=== PATIENT | male | born 1950 | race Caucasian/White ===

== ENCOUNTER 2017-11-29 08:10 | Inpatient (IN) | payer OTHER, MEDICARE ==
[2017-11-29] MEDS ORDERED: ONDANSETRON HCL INJ/PF 4 MG/2 ML SDV IV ONE (08:29)
[2017-11-29] MEDS ORDERED: NORMAL SALINE 1000 ML 1,000 ML IV PRN (08:29)
--- NOTE | 2017-11-29 08:35 | ER Document Report ---
ED General - General Stated Complaint: FALL/BODY PAIN Time Seen by Provider: 11/29/17 08:16 Mode of Arrival: Medic Information source: Patient, Emergency Med Personnel, [facility] Records Notes: 67-year-old male with diabetes, coronary artery disease, hypertension, hyperlipidemia, prostate cancer presents via EMS from home after a trip and fall where he struck his face on a TV stand secondary to reported dizziness. EMS reports that they states the patient's glucometer has been reading high. She also stated that the patient has been refusing to take his diabetic medications. He states that he is unable to keep them down because of excessive vomiting. Patient states the vomiting occurred after his first radiation therapy treatment which was 3 weeks ago. Patient complaining of abdominal pain, nausea, headache. TRAVEL OUTSIDE OF THE [place] IN LAST 30 DAYS: No - HPI Onset: Just prior to arrival Onset/Duration: Sudden Quality of pain: Achy Severity: Mild Associated symptoms: Nausea, Vomiting, Other - Dizziness Exacerbated by: Denies Relieved by: Denies Similar symptoms previously: Yes Recently seen / treated by doctor: Yes - Related Data Allergies/Adverse Reactions: No Known Allergies Allergy (Verified 10/09/14 17:04) Past Medical History - General Information source: Patient, [facility] Records - Social History Smoking Status: Former Smoker Frequency of alcohol use: None Drug Abuse: None Lives with: Spouse/Significant other Family History: Reviewed & Not Pertinent Patient has suicidal ideation: No Patient has homicidal ideation: No - Past Medical History Cardiac Medical History: Reports: Hx Coronary Artery Disease, Hx Heart Attack, Hx Hypercholesterolemia, Hx Hypertension Endocrine Medical History: Reports: Hx Diabetes Mellitus Type 2 Malignancy Medical History: Reports Hx Prostate Cancer - Prostatectomy, recent recurrence, was on hormone therapy, it was stopped. GI Medical History: Reports: Hx Gastroesophageal Reflux Disease, Hx Hiatal Hernia Past Surgical History: Reports: Hx Cardiac Catheterization - stent x 3, Hx Coronary Artery Bypass Graft, Hx Coronary Stent - x3, Hx Genitourinary Surgery - Prostatectomy, Hx Orthopedic Surgery - left hip, left shoulder, Hx Tonsillectomy - Immunizations Hx Pneumococcal Vaccination: 05/12/14 Review of Systems - Review of Systems Notes: REVIEW OF SYSTEMS: CONSTITUTIONAL : Denies fever, chills, or sweats. EENT: Denies visula changes, eye pain. Denies nasal or sinus congestion or discharge. Denies sore throat, oral lesions, difficulty swallowing. Patient complaining of headache CARDIOVASCULAR: Denies chest pain. Denies palpitations or racing or irregular heart beat. Denies lower extremity edema. RESPIRATORY: Denies cough, cold, or chest congestion. Denies shortness of breath, difficulty breathing, or wheezing. GASTROINTESTINAL: Patient admits to abdominal pain, nausea, vomiting denies blood in vomitus, stools, or per rectum. Denies black, tarry stools. Denies constipation. GENITOURINARY: Denies difficulty urinating, painful urination, burning, frequency, blood in urine, or vaginal discharge. MUSCULOSKELETAL: Denies back or neck pain or stiffness. Denies joint pain or swelling. SKIN: Denies rash, lesions or sores. HEMATOLOGIC : Denies easy bruising or bleeding. LYMPHATIC: Denies swollen, enlarged glands. NEUROLOGICAL: Denies confusion or altered mental status. Denies passing out or loss of consciousness. Denies dizziness or lightheadedness. Denies headache. Denies weakness or paralysis or loss of use of either side. Denies problems with gait or speech. Denies sensory loss, numbness, or tingling. Denies seizures. PSYCHIATRIC: Denies anxiety or stress. Denies depression, suicidal ideation, or homicidal ideation. Physical Exam - Vital signs Vitals: Resp 20 11/29/17 08:21 Interpretation: Normal - Notes Notes: PHYSICAL EXAMINATION: GENERAL: Cachectic and in no acute distress. HEAD: Superficial abrasion over the right eye. EYES: Pupils equal round and reactive to light, extraocular movements intact, sclera anicteric, conjunctiva are normal. ENT: Nares patent, oropharynx clear without exudates. Dry mucous membranes. NECK: Normal range of motion, supple without lymphadenopathy LUNGS: Breath sounds clear to auscultation bilaterally and equal. No wheezes rales or rhonchi. HEART: Regular rate and rhythm without murmurs ABDOMEN: Mild diffuse abdominal tenderness, no guarding, no rebound. No masses appreciated. Musculoskeletal: Normal range of motion, no pitting or edema. No cyanosis. NEUROLOGICAL: Cranial nerves grossly intact. Normal speech, normal gait. Normal sensory, motor exams PSYCH: Normal mood, normal affect. SKIN: Warm, Dry, normal turgor, no rashes or lesions noted. Course - Re-evaluation Re-evalutation: 11/30/17 09:35 Laboratory 11/29/17 11/29/17 11/29/17 08:23 08:40 08:40 WBC 10.8 H RBC 6.26 H Hgb 17.3 H Hct 52.7 H MCV 84 MCH 27.7 MCHC 32.9 RDW 15.4 H Plt Count 313 Total Counted 100 Seg Neutrophils % Not Reportable Seg Neuts % (Manual) 91 H Band Neutrophils % 1 L Lymphocytes % Not Reportable Lymphocytes % (Manual) 6 L Monocytes % Not Reportable Monocytes % (Manual) 2 L Eosinophils % Not Reportable Eosinophils % (Manual) 0 Basophils % Not Reportable Basophils % (Manual) 0 Absolute Neutrophils Not Reportable Abs Neuts (Manual) 9.9 H Absolute Lymphocytes Not Reportable Abs Lymphs (Manual) 0.6 Absolute Monocytes Not Reportable Abs Monocytes (Manual) 0.2 Absolute Eosinophils Not Reportable Absolute Eos (Manual) 0.0 Absolute Basophils Not Reportable Abs Basophils (Manual) 0.0 Platelet Comment ADEQUATE Poikilocytosis 1+ Anisocytosis SLIGHT Rosales Cells 1+ PT INR APTT Carbonic Acid HCO3/H2CO3 Ratio ABG pH ABG pCO2 ABG pO2 ABG HCO3 ABG Total CO2 ABG O2 Saturation ABG Base Excess FiO2 Sodium 138.8 Potassium 5.1 H Chloride 91 L Carbon Dioxide 9 L* Anion Gap 39 H BUN 29 H Creatinine 1.33 H Est GFR ( Amer) > 60 Est GFR (Non-Af Amer) 53 L Glucose 721 H* POC Glucose > 550 H* Hemoglobin A1c % Calcium 10.9 H Phosphorus Magnesium Total Bilirubin 0.6 Direct Bilirubin 0.6 H Neonat Total Bilirubin Not Reportable Neonat Direct Bilirubin Not Reportable Neonat Indirect Bili Not Reportable AST 17 ALT 21 Alkaline Phosphatase 134 H Creatine Kinase 31 L CK-MB (CK-2) Troponin I NT-Pro-B Natriuret Pep Total Protein 8.0 Albumin 4.5 Triglycerides Cholesterol LDL Cholesterol Direct VLDL Cholesterol HDL Cholesterol Lipase TSH Urine Color Urine Appearance Urine pH Ur Specific [place] Urine Protein Urine Glucose (UA) Urine Ketones Urine Blood Urine Nitrite Urine Bilirubin Urine Urobilinogen Ur Leukocyte Esterase Urine WBC (Auto) Urine RBC (Auto) U Hyaline Cast (Auto) Urine Bacteria (Auto) Squamous Epi Cells Auto Urine Mucus (Auto) Urine Ascorbic Acid 11/29/17 11/29/17 11/29/17 08:40 08:40 08:40 WBC RBC Hgb Hct MCV MCH MCHC RDW Plt Count Total Counted Seg Neutrophils % Seg Neuts % (Manual) Band Neutrophils % Lymphocytes % Lymphocytes % (Manual) Monocytes % Monocytes % (Manual) Eosinophils % Eosinophils % (Manual) Basophils % Basophils % (Manual) Absolute Neutrophils Abs Neuts (Manual) Absolute Lymphocytes Abs Lymphs (Manual) Absolute Monocytes Abs Monocytes (Manual) Absolute Eosinophils Absolute Eos (Manual) Absolute Basophils Abs Basophils (Manual) Platelet Comment Poikilocytosis Anisocytosis Blue Cells PT INR APTT Carbonic Acid 0.46 L HCO3/H2CO3 Ratio 16:1 ABG pH 7.30 L ABG pCO2 15.2 L* ABG pO2 116.2 H ABG HCO3 7.4 L ABG Total CO2 7.8 L ABG O2 Saturation 98.0 ABG Base Excess -15.6 FiO2 ROOM AIR Sodium Potassium Chloride Carbon Dioxide Anion Gap BUN Creatinine Est GFR ( Amer) Est GFR (Non-Af Amer) Glucose POC Glucose Hemoglobin A1c % Calcium Phosphorus 8.9 H Magnesium 2.4 H Total Bilirubin Direct Bilirubin Neonat Total Bilirubin Neonat Direct Bilirubin Neonat Indirect Bili AST ALT Alkaline Phosphatase Creatine Kinase CK-MB (CK-2) 1.79 Troponin I 0.020 NT-Pro-B Natriuret Pep Total Protein Albumin Triglycerides Cholesterol LDL Cholesterol Direct VLDL Cholesterol HDL Cholesterol Lipase TSH Urine Color Urine Appearance Urine pH Ur Specific [place] Urine Protein Urine Glucose (UA) Urine Ketones Urine Blood Urine Nitrite Urine Bilirubin Urine Urobilinogen Ur Leukocyte Esterase Urine WBC (Auto) Urine RBC (Auto) U Hyaline Cast (Auto) Urine Bacteria (Auto) Squamous Epi Cells Auto Urine Mucus (Auto) Urine Ascorbic Acid 11/29/17 11/29/17 11/29/17 08:40 08:40 08:40 WBC RBC Hgb Hct MCV MCH MCHC RDW Plt Count Total Counted Seg Neutrophils % Seg Neuts % (Manual) Band Neutrophils % Lymphocytes % Lymphocytes % (Manual) Monocytes % Monocytes % (Manual) Eosinophils % Eosinophils % (Manual) Basophils % Basophils % (Manual) Absolute Neutrophils Abs Neuts (Manual) Absolute Lymphocytes Abs Lymphs (Manual) Absolute Monocytes Abs Monocytes (Manual) Absolute Eosinophils Absolute Eos (Manual) Absolute Basophils Abs Basophils (Manual) Platelet Comment Poikilocytosis Anisocytosis Blue Cells PT 13.7 INR 1.00 APTT 36.4 H Carbonic Acid HCO3/H2CO3 Ratio ABG pH ABG pCO2 ABG pO2 ABG HCO3 ABG Total CO2 ABG O2 Saturation ABG Base Excess FiO2 Sodium Potassium Chloride Carbon Dioxide Anion Gap BUN Creatinine Cancelled Est GFR ( Amer) Cancelled Est GFR (Non-Af Amer) Cancelled Glucose POC Glucose Hemoglobin A1c % Calcium Phosphorus Magnesium Total Bilirubin Direct Bilirubin Neonat Total Bilirubin Neonat Direct Bilirubin Neonat Indirect Bili AST ALT Alkaline Phosphatase Creatine Kinase CK-MB (CK-2) Troponin I NT-Pro-B Natriuret Pep Total Protein Albumin Triglycerides Cholesterol LDL Cholesterol Direct VLDL Cholesterol HDL Cholesterol Lipase 380.1 H TSH Urine Color Urine Appearance Urine pH Ur Specific [place] Urine Protein Urine Glucose (UA) Urine Ketones Urine Blood Urine Nitrite Urine Bilirubin Urine Urobilinogen Ur Leukocyte Esterase Urine WBC (Auto) Urine RBC (Auto) U Hyaline Cast (Auto) Urine Bacteria (Auto) Squamous Epi Cells Auto Urine Mucus (Auto) Urine Ascorbic Acid 11/29/17 11/29/17 11/29/17 10:15 10:33 12:06 WBC RBC Hgb Hct MCV MCH MCHC RDW Plt Count Total Counted Seg Neutrophils % Seg Neuts % (Manual) Band Neutrophils % Lymphocytes % Lymphocytes % (Manual) Monocytes % Monocytes % (Manual) Eosinophils % Eosinophils % (Manual) Basophils % Basophils % (Manual) Absolute Neutrophils Abs Neuts (Manual) Absolute Lymphocytes Abs Lymphs (Manual) Absolute Monocytes Abs Monocytes (Manual) Absolute Eosinophils Absolute Eos (Manual) Absolute Basophils Abs Basophils (Manual) Platelet Comment Poikilocytosis Anisocytosis Rosales Cells PT INR APTT Carbonic Acid HCO3/H2CO3 Ratio ABG pH ABG pCO2 ABG pO2 ABG HCO3 ABG Total CO2 ABG O2 Saturation ABG Base Excess FiO2 Sodium Potassium Chloride Carbon Dioxide Anion Gap BUN Creatinine Est GFR ( Amer) Est GFR (Non-Af Amer) Glucose POC Glucose > 550 H* 435 H* Hemoglobin A1c % Calcium Phosphorus Magnesium Total Bilirubin Direct Bilirubin Neonat Total Bilirubin Neonat Direct Bilirubin Neonat Indirect Bili AST ALT Alkaline Phosphatase Creatine Kinase CK-MB (CK-2) Troponin I NT-Pro-B Natriuret Pep Total Protein Albumin Triglycerides Cholesterol LDL Cholesterol Direct VLDL Cholesterol HDL Cholesterol Lipase TSH Urine Color YELLOW Urine Appearance CLEAR Urine pH 5.0 Ur Specific [place] 1.027 Urine Protein 30 H Urine Glucose (UA) >=500 H Urine Ketones 80 H Urine Blood NEGATIVE Urine Nitrite NEGATIVE Urine Bilirubin NEGATIVE Urine Urobilinogen NEGATIVE Ur Leukocyte Esterase NEGATIVE Urine WBC (Auto) 1 Urine RBC (Auto) 2 U Hyaline Cast (Auto) 1 Urine Bacteria (Auto) TRACE Squamous Epi Cells Auto <1 Urine Mucus (Auto) RARE Urine Ascorbic Acid NEGATIVE 11/29/17 11/29/17 11/29/17 14:07 14:07 14:53 WBC 9.6 RBC 5.75 H Hgb 16.0 Hct 48.2 MCV 84 MCH 27.8 MCHC 33.2 RDW 15.3 H Plt Count 249 Total Counted Seg Neutrophils % Seg Neuts % (Manual) Band Neutrophils % Lymphocytes % Lymphocytes % (Manual) Monocytes % Monocytes % (Manual) Eosinophils % Eosinophils % (Manual) Basophils % Basophils % (Manual) Absolute Neutrophils Abs Neuts (Manual) Absolute Lymphocytes Abs Lymphs (Manual) Absolute Monocytes Abs Monocytes (Manual) Absolute Eosinophils Absolute Eos (Manual) Absolute Basophils Abs Basophils (Manual) Platelet Comment Poikilocytosis Anisocytosis Blue Cells PT INR APTT Carbonic Acid HCO3/H2CO3 Ratio ABG pH ABG pCO2 ABG pO2 ABG HCO3 ABG Total CO2 ABG O2 Saturation ABG Base Excess FiO2 Sodium 147.5 H Potassium 4.3 Chloride 106 Carbon Dioxide 9 L* Anion Gap 33 H BUN 25 H Creatinine 0.95 Est GFR ( Amer) > 60 Est GFR (Non-Af Amer) > 60 Glucose 497 H* POC Glucose 390 H Hemoglobin A1c % Calcium 9.7 Phosphorus 5.2 H D Magnesium Total Bilirubin Direct Bilirubin Neonat Total Bilirubin Neonat Direct Bilirubin Neonat Indirect Bili AST ALT Alkaline Phosphatase Creatine Kinase CK-MB (CK-2) Troponin I NT-Pro-B Natriuret Pep Total Protein Albumin Triglycerides Cholesterol LDL Cholesterol Direct VLDL Cholesterol HDL Cholesterol Lipase TSH Urine Color Urine Appearance Urine pH Ur Specific [place] Urine Protein Urine Glucose (UA) Urine Ketones Urine Blood Urine Nitrite Urine Bilirubin Urine Urobilinogen Ur Leukocyte Esterase Urine WBC (Auto) Urine RBC (Auto) U Hyaline Cast (Auto) Urine Bacteria (Auto) Squamous Epi Cells Auto Urine Mucus (Auto) Urine Ascorbic Acid 11/29/17 11/29/17 11/29/17 16:05 17:04 18:05 WBC RBC Hgb Hct MCV MCH MCHC RDW Plt Count Total Counted Seg Neutrophils % Seg Neuts % (Manual) Band Neutrophils % Lymphocytes % Lymphocytes % (Manual) Monocytes % Monocytes % (Manual) Eosinophils % Eosinophils % (Manual) Basophils % Basophils % (Manual) Absolute Neutrophils Abs Neuts (Manual) Absolute Lymphocytes Abs Lymphs (Manual) Absolute Monocytes Abs Monocytes (Manual) Absolute Eosinophils Absolute Eos (Manual) Absolute Basophils Abs Basophils (Manual) Platelet Comment Poikilocytosis Anisocytosis Blue Cells PT INR APTT Carbonic Acid HCO3/H2CO3 Ratio ABG pH ABG pCO2 ABG pO2 ABG HCO3 ABG Total CO2 ABG O2 Saturation ABG Base Excess FiO2 Sodium Potassium Chloride Carbon Dioxide Anion Gap BUN Creatinine Est GFR ( Amer) Est GFR (Non-Af Amer) Glucose POC Glucose 300 H 260 H 227 H Hemoglobin A1c % Calcium Phosphorus Magnesium Total Bilirubin Direct Bilirubin Neonat Total Bilirubin Neonat Direct Bilirubin Neonat Indirect Bili AST ALT Alkaline Phosphatase Creatine Kinase CK-MB (CK-2) Troponin I NT-Pro-B Natriuret Pep Total Protein Albumin Triglycerides Cholesterol LDL Cholesterol Direct VLDL Cholesterol HDL Cholesterol Lipase TSH Urine Color Urine Appearance Urine pH Ur Specific [place] Urine Protein Urine Glucose (UA) Urine Ketones Urine Blood Urine Nitrite Urine Bilirubin Urine Urobilinogen Ur Leukocyte Esterase Urine WBC (Auto) Urine RBC (Auto) U Hyaline Cast (Auto) Urine Bacteria (Auto) Squamous Epi Cells Auto Urine Mucus (Auto) Urine Ascorbic Acid 11/29/17 11/29/17 11/29/17 19:04 20:03 21:10 WBC RBC Hgb Hct MCV MCH MCHC RDW Plt Count Total Counted Seg Neutrophils % Seg Neuts % (Manual) Band Neutrophils % Lymphocytes % Lymphocytes % (Manual) Monocytes % Monocytes % (Manual) Eosinophils % Eosinophils % (Manual) Basophils % Basophils % (Manual) Absolute Neutrophils Abs Neuts (Manual) Absolute Lymphocytes Abs Lymphs (Manual) Absolute Monocytes Abs Monocytes (Manual) Absolute Eosinophils Absolute Eos (Manual) Absolute Basophils Abs Basophils (Manual) Platelet Comment Poikilocytosis Anisocytosis Rosales Cells PT INR APTT Carbonic Acid HCO3/H2CO3 Ratio ABG pH ABG pCO2 ABG pO2 ABG HCO3 ABG Total CO2 ABG O2 Saturation ABG Base Excess FiO2 Sodium 145.6 H Potassium 3.5 L Chloride 109 H Carbon Dioxide 18 L Anion Gap 19 BUN 22 H Creatinine 0.72 Est GFR ( Amer) > 60 Est GFR (Non-Af Amer) > 60 Glucose 258 H POC Glucose 219 H 228 H Hemoglobin A1c % Calcium 9.4 Phosphorus Magnesium Total Bilirubin Direct Bilirubin Neonat Total Bilirubin Neonat Direct Bilirubin Neonat Indirect Bili AST ALT Alkaline Phosphatase Creatine Kinase CK-MB (CK-2) Troponin I NT-Pro-B Natriuret Pep Total Protein Albumin Triglycerides Cholesterol LDL Cholesterol Direct VLDL Cholesterol HDL Cholesterol Lipase TSH Urine Color Urine Appearance Urine pH Ur Specific [place] Urine Protein Urine Glucose (UA) Urine Ketones Urine Blood Urine Nitrite Urine Bilirubin Urine Urobilinogen Ur Leukocyte Esterase Urine WBC (Auto) Urine RBC (Auto) U Hyaline Cast (Auto) Urine Bacteria (Auto) Squamous Epi Cells Auto Urine Mucus (Auto) Urine Ascorbic Acid 11/29/17 11/29/17 11/29/17 21:13 22:02 23:10 WBC RBC Hgb Hct MCV MCH MCHC RDW Plt Count Total Counted Seg Neutrophils % Seg Neuts % (Manual) Band Neutrophils % Lymphocytes % Lymphocytes % (Manual) Monocytes % Monocytes % (Manual) Eosinophils % Eosinophils % (Manual) Basophils % Basophils % (Manual) Absolute Neutrophils Abs Neuts (Manual) Absolute Lymphocytes Abs Lymphs (Manual) Absolute Monocytes Abs Monocytes (Manual) Absolute Eosinophils Absolute Eos (Manual) Absolute Basophils Abs Basophils (Manual) Platelet Comment Poikilocytosis Anisocytosis Rosales Cells PT INR APTT Carbonic Acid HCO3/H2CO3 Ratio ABG pH ABG pCO2 ABG pO2 ABG HCO3 ABG Total CO2 ABG O2 Saturation ABG Base Excess FiO2 Sodium Potassium Chloride Carbon Dioxide Anion Gap BUN Creatinine Est GFR ( Amer) Est GFR (Non-Af Amer) Glucose POC Glucose 233 H 234 H 240 H Hemoglobin A1c % Calcium Phosphorus Magnesium Total Bilirubin Direct Bilirubin Neonat Total Bilirubin Neonat Direct Bilirubin Neonat Indirect Bili AST ALT Alkaline Phosphatase Creatine Kinase CK-MB (CK-2) Troponin I NT-Pro-B Natriuret Pep Total Protein Albumin Triglycerides Cholesterol LDL Cholesterol Direct VLDL Cholesterol HDL Cholesterol Lipase TSH Urine Color Urine Appearance Urine pH Ur Specific [place] Urine Protein Urine Glucose (UA) Urine Ketones Urine Blood Urine Nitrite Urine Bilirubin Urine Urobilinogen Ur Leukocyte Esterase Urine WBC (Auto) Urine RBC (Auto) U Hyaline Cast (Auto) Urine Bacteria (Auto) Squamous Epi Cells Auto Urine Mucus (Auto) Urine Ascorbic Acid 11/30/17 11/30/17 11/30/17 00:02 00:55 01:04 WBC RBC Hgb Hct MCV MCH MCHC RDW Plt Count Total Counted Seg Neutrophils % Seg Neuts % (Manual) Band Neutrophils % Lymphocytes % Lymphocytes % (Manual) Monocytes % Monocytes % (Manual) Eosinophils % Eosinophils % (Manual) Basophils % Basophils % (Manual) Absolute Neutrophils Abs Neuts (Manual) Absolute Lymphocytes Abs Lymphs (Manual) Absolute Monocytes Abs Monocytes (Manual) Absolute Eosinophils Absolute Eos (Manual) Absolute Basophils Abs Basophils (Manual) Platelet Comment Poikilocytosis Anisocytosis Rosales Cells PT INR APTT Carbonic Acid HCO3/H2CO3 Ratio ABG pH ABG pCO2 ABG pO2 ABG HCO3 ABG Total CO2 ABG O2 Saturation ABG Base Excess FiO2 Sodium 148.4 H Potassium 3.5 L Chloride 111 H Carbon Dioxide 22 Anion Gap 15 BUN 23 H Creatinine 0.61 Est GFR ( Amer) > 60 Est GFR (Non-Af Amer) > 60 Glucose 199 H POC Glucose 201 H 234 H Hemoglobin A1c % Calcium 9.7 Phosphorus Magnesium Total Bilirubin Direct Bilirubin Neonat Total Bilirubin Neonat Direct Bilirubin Neonat Indirect Bili AST ALT Alkaline Phosphatase Creatine Kinase CK-MB (CK-2) Troponin I NT-Pro-B Natriuret Pep Total Protein Albumin Triglycerides Cholesterol LDL Cholesterol Direct VLDL Cholesterol HDL Cholesterol Lipase TSH Urine Color Urine Appearance Urine pH Ur Specific [place] Urine Protein Urine Glucose (UA) Urine Ketones Urine Blood Urine Nitrite Urine Bilirubin Urine Urobilinogen Ur Leukocyte Esterase Urine WBC (Auto) Urine RBC (Auto) U Hyaline Cast (Auto) Urine Bacteria (Auto) Squamous Epi Cells Auto Urine Mucus (Auto) Urine Ascorbic Acid 11/30/17 11/30/17 11/30/17 02:07 03:10 05:22 WBC 9.5 RBC 4.96 Hgb 13.8 D Hct 39.6 MCV 80 D MCH 27.8 MCHC 34.9 RDW 15.7 H Plt Count 237 Total Counted Seg Neutrophils % Seg Neuts % (Manual) Band Neutrophils % Lymphocytes % Lymphocytes % (Manual) Monocytes % Monocytes % (Manual) Eosinophils % Eosinophils % (Manual) Basophils % Basophils % (Manual) Absolute Neutrophils Abs Neuts (Manual) Absolute Lymphocytes Abs Lymphs (Manual) Absolute Monocytes Abs Monocytes (Manual) Absolute Eosinophils Absolute Eos (Manual) Absolute Basophils Abs Basophils (Manual) Platelet Comment Poikilocytosis Anisocytosis Rosales Cells PT INR APTT Carbonic Acid HCO3/H2CO3 Ratio ABG pH ABG pCO2 ABG pO2 ABG HCO3 ABG Total CO2 ABG O2 Saturation ABG Base Excess FiO2 Sodium Potassium Chloride Carbon Dioxide Anion Gap BUN Creatinine Est GFR ( Amer) Est GFR (Non-Af Amer) Glucose POC Glucose 145 H 92 Hemoglobin A1c % Calcium Phosphorus Magnesium Total Bilirubin Direct Bilirubin Neonat Total Bilirubin Neonat Direct Bilirubin Neonat Indirect Bili AST ALT Alkaline Phosphatase Creatine Kinase CK-MB (CK-2) Troponin I NT-Pro-B Natriuret Pep Total Protein Albumin Triglycerides Cholesterol LDL Cholesterol Direct VLDL Cholesterol HDL Cholesterol Lipase TSH Urine Color Urine Appearance Urine pH Ur Specific [place] Urine Protein Urine Glucose (UA) Urine Ketones Urine Blood Urine Nitrite Urine Bilirubin Urine Urobilinogen Ur Leukocyte Esterase Urine WBC (Auto) Urine RBC (Auto) U Hyaline Cast (Auto) Urine Bacteria (Auto) Squamous Epi Cells Auto Urine Mucus (Auto) Urine Ascorbic Acid 11/30/17 11/30/17 11/30/17 05:22 05: 05:22 WBC RBC Hgb Hct MCV MCH MCHC RDW Plt Count Total Counted Seg Neutrophils % Seg Neuts % (Manual) Band Neutrophils % Lymphocytes % Lymphocytes % (Manual) Monocytes % Monocytes % (Manual) Eosinophils % Eosinophils % (Manual) Basophils % Basophils % (Manual) Absolute Neutrophils Abs Neuts (Manual) Absolute Lymphocytes Abs Lymphs (Manual) Absolute Monocytes Abs Monocytes (Manual) Absolute Eosinophils Absolute Eos (Manual) Absolute Basophils Abs Basophils (Manual) Platelet Comment Poikilocytosis Anisocytosis Rosales Cells PT 13.1 INR 0.94 APTT 31.5 Carbonic Acid HCO3/H2CO3 Ratio ABG pH ABG pCO2 ABG pO2 ABG HCO3 ABG Total CO2 ABG O2 Saturation ABG Base Excess FiO2 Sodium 145.9 H Potassium 3.6 Chloride 111 H Carbon Dioxide 21 L Anion Gap 14 BUN 21 H Creatinine 0.57 Est GFR ( Amer) > 60 Est GFR (Non-Af Amer) > 60 Glucose 139 H POC Glucose Hemoglobin A1c % > 14.0 H Calcium 9.5 Phosphorus 2.5 D Magnesium 2.0 Total Bilirubin 0.4 Direct Bilirubin 0.4 Neonat Total Bilirubin Not Reportable Neonat Direct Bilirubin Not Reportable Neonat Indirect Bili Not Reportable AST 17 ALT 27 Alkaline Phosphatase 82 Creatine Kinase CK-MB (CK-2) Troponin I NT-Pro-B Natriuret Pep Total Protein 6.0 L Albumin 3.1 L Triglycerides 135 Cholesterol 236.14 H LDL Cholesterol Direct 179 H VLDL Cholesterol 27.0 HDL Cholesterol 41 Lipase TSH Urine Color Urine Appearance Urine pH Ur Specific [place] Urine Protein Urine Glucose (UA) Urine Ketones Urine Blood Urine Nitrite Urine Bilirubin Urine Urobilinogen Ur Leukocyte Esterase Urine WBC (Auto) Urine RBC (Auto) U Hyaline Cast (Auto) Urine Bacteria (Auto) Squamous Epi Cells Auto Urine Mucus (Auto) Urine Ascorbic Acid 11/30/17 11/30/17 11/30/17 05: 05:22 07:58 WBC RBC Hgb Hct MCV MCH MCHC RDW Plt Count Total Counted Seg Neutrophils % Seg Neuts % (Manual) Band Neutrophils % Lymphocytes % Lymphocytes % (Manual) Monocytes % Monocytes % (Manual) Eosinophils % Eosinophils % (Manual) Basophils % Basophils % (Manual) Absolute Neutrophils Abs Neuts (Manual) Absolute Lymphocytes Abs Lymphs (Manual) Absolute Monocytes Abs Monocytes (Manual) Absolute Eosinophils Absolute Eos (Manual) Absolute Basophils Abs Basophils (Manual) Platelet Comment Poikilocytosis Anisocytosis Rosales Cells PT INR APTT Carbonic Acid HCO3/H2CO3 Ratio ABG pH ABG pCO2 ABG pO2 ABG HCO3 ABG Total CO2 ABG O2 Saturation ABG Base Excess FiO2 Sodium Potassium Chloride Carbon Dioxide Anion Gap BUN Creatinine Est GFR ( Amer) Est GFR (Non-Af Amer) Glucose POC Glucose 222 H Hemoglobin A1c % Calcium Phosphorus Magnesium Total Bilirubin Direct Bilirubin Neonat Total Bilirubin Neonat Direct Bilirubin Neonat Indirect Bili AST ALT Alkaline Phosphatase Creatine Kinase CK-MB (CK-2) Troponin I NT-Pro-B Natriuret Pep 386 Total Protein Albumin Triglycerides Cholesterol LDL Cholesterol Direct VLDL Cholesterol HDL Cholesterol Lipase TSH 0.86 Urine Color Urine Appearance Urine pH Ur Specific [place] Urine Protein Urine Glucose (UA) Urine Ketones Urine Blood Urine Nitrite Urine Bilirubin Urine Urobilinogen Ur Leukocyte Esterase Urine WBC (Auto) Urine RBC (Auto) U Hyaline Cast (Auto) Urine Bacteria (Auto) Squamous Epi Cells Auto Urine Mucus (Auto) Urine Ascorbic Acid Cervical Spine CT 11/29/17 08:28 IMPRESSION: No acute changes Head CT 11/29/17 08:28 IMPRESSION: No acute intracranial changes. Nasal bone fracture with trace fluid in the right maxillary sinus. EVIDENCE OF ACUTE STROKE: NO. Chest X-Ray 11/29/17 08:29 IMPRESSION: NO ACUTE RADIOGRAPHIC FINDING IN THE CHEST. 67-year-old male with history of type 2 diabetes presents with complaint of nausea, vomiting and abdominal pain. Symptoms have been ongoing for 2-3 weeks. Patient does have a history of prostate and lung cancer and received his last radiation treatment approximately 3 weeks ago. states that the patient unable to tolerate any of his medications. His glucometer readings at home have been reading high. She states the only thing the patient has been eating his repair and ice cream. Exam is significant for a cachectic male who is actively vomiting and has diffuse abdominal pain. Vitals are stable. CT head and neck were obtained and significant for a nasal bone fracture with trace fluid in the right maxillary sinus. Patient found to be in severe DKA. Fluid resuscitation was initiated. Insulin drip was started at 7 U/h. Patient was admitted to the ICU by the hospitalist. - Vital Signs Vital signs: Temp Pulse Resp BP Pulse Ox 97.9 F 95 14 110/76 96 11/30/17 08:00 11/30/17 08:00 11/30/17 08:00 11/30/17 08:00 11/30/17 08:00 - Laboratory Result Diagrams: 11/30/17 05:22 11/30/17 05:22 Laboratory results interpreted by me: 11/29/17 11/29/17 11/29/17 08:23 08:40 08:40 WBC 10.8 H RBC 6.26 H Hgb 17.3 H Hct 52.7 H RDW 15.4 H Seg Neuts % (Manual) 91 H Band Neutrophils % 1 L Lymphocytes % (Manual) 6 L Monocytes % (Manual) 2 L Abs Neuts (Manual) 9.9 H APTT Carbonic Acid ABG pH ABG pCO2 ABG pO2 ABG HCO3 ABG Total CO2 Potassium 5.1 H Chloride 91 L Carbon Dioxide 9 L* Anion Gap 39 H BUN 29 H Creatinine 1.33 H Est GFR (Non-Af Amer) 53 L Glucose 721 H* POC Glucose > 550 H* Calcium 10.9 H Phosphorus Magnesium Direct Bilirubin 0.6 H Alkaline Phosphatase 134 H Creatine Kinase 31 L Lipase Urine Protein Urine Glucose (UA) Urine Ketones 11/29/17 11/29/17 11/29/17 08:40 08:40 08:40 WBC RBC Hgb Hct RDW Seg Neuts % (Manual) Band Neutrophils % Lymphocytes % (Manual) Monocytes % (Manual) Abs Neuts (Manual) APTT Carbonic Acid 0.46 L ABG pH 7.30 L ABG pCO2 15.2 L* ABG pO2 116.2 H ABG HCO3 7.4 L ABG Total CO2 7.8 L Potassium Chloride Carbon Dioxide Anion Gap BUN Creatinine Est GFR (Non-Af Amer) Glucose POC Glucose Calcium Phosphorus 8.9 H Magnesium 2.4 H Direct Bilirubin Alkaline Phosphatase Creatine Kinase Lipase 380.1 H Urine Protein Urine Glucose (UA) Urine Ketones 11/29/17 11/29/17 08:40 10:15 WBC RBC Hgb Hct RDW Seg Neuts % (Manual) Band Neutrophils % Lymphocytes % (Manual) Monocytes % (Manual) Abs Neuts (Manual) APTT 36.4 H Carbonic Acid ABG pH ABG pCO2 ABG pO2 ABG HCO3 ABG Total CO2 Potassium Chloride Carbon Dioxide Anion Gap BUN Creatinine Est GFR (Non-Af Amer) Glucose POC Glucose Calcium Phosphorus Magnesium Direct Bilirubin Alkaline Phosphatase Creatine Kinase Lipase Urine Protein 30 H Urine Glucose (UA) >=500 H Urine Ketones 80 H - Diagnostic Test Radiology reviewed: Image reviewed, Reports reviewed Critical Care Note - Critical Care Note Total time excluding time spent on procedures (mins): 35 - minutes of critical care time spent in direct contact evaluating and reevaluating the patient, treating symptoms, reviewing labs and studies and speaking with family and consultants excluding any procedures Discharge - Discharge Clinical Impression: DKA, type 1 Qualifiers: Diabetes mellitus complication detail: without coma Qualified Code(s): E10.10 - Type 1 diabetes mellitus with ketoacidosis without coma Nasal bone fracture Qualifiers: Encounter type: initial encounter Fracture type: closed Qualified Code(s): S02.2XXA - Fracture of nasal bones, initial encounter for closed fracture Facial contusion Qualifiers: Encounter type: initial encounter Qualified Code(s): S00.83XA - Contusion of other part of head, initial encounter Facial abrasion Qualifiers: Encounter type: initial encounter Qualified Code(s): S00.81XA - Abrasion of other part of head, initial encounter Condition: Critical Disposition: ADMITTED INPATIENT Admitting Provider: Hospitalist Unit Admitted: ICU
[2017-11-29 08:55] LABS: ARTERIAL BLOOD BASE EXCESS -15.6 mmol/L; ARTERIAL BLOOD H2CO3 0.46 mmol/L (1.05-1.35); ARTERIAL BLOOD HCO3 7.4 mmol/L (20-26); ARTERIAL BLOOD PO2 116.2 mmHg (80-100); ARTERIAL BLOOD TOTAL CO2 7.8 mmol/L (23-27)
[2017-11-29 08:56] LABS: HEMATOCRIT 52.7 % (37.9-51.0); HEMOGLOBIN 17.3 g/dL (13.5-17.0); MEAN CORPUSCULAR HEMOGLOBIN 27.7 pg (27.0-33.4); MEAN CORPUSCULAR HGB CONC 32.9 g/dL (32.0-36.0); MEAN CORPUSCULAR VOLUME 84 fl (80-97); PLATELET COUNT 313 10^3/uL (150-450); RED BLOOD COUNT 6.26 10^6/uL (4.35-5.55); RED CELL DISTRIBUTION WIDTH 15.4 % (11.5-14.0); WHITE BLOOD COUNT 10.8 10^3/uL (4.0-10.5)
[2017-11-29 08:57] LABS: ARTERIAL BLOOD FIO2 ROOM AIR
[2017-11-29 08:58] LABS: ARTERIAL BLOOD PCO2 15.2 mmHg (35-45)
--- NOTE | 2017-11-29 09:18 | RADIOLOGY REPORT (SQ) ---
EXAM DESCRIPTION: CHEST 2 VIEWS COMPLETED DATE/TIME: 11/29/2017 8:59 am REASON FOR STUDY: fall COMPARISON: Chest films 10/26/2014, 10/09/2014 EXAM PARAMETERS: NUMBER OF VIEWS: two views TECHNIQUE: Digital Frontal and Lateral radiographic views of the chest acquired. RADIATION DOSE: NA LIMITATIONS: none FINDINGS: LUNGS AND PLEURA: No opacities, masses or pneumothorax. No pleural effusion. MEDIASTINUM AND HILAR STRUCTURES: No masses or contour abnormalities. HEART AND VASCULAR STRUCTURES: Heart normal size. No evidence for failure. Calcified coronary arter ies BONES: No acute findings. HARDWARE: None in the chest. OTHER: No other significant finding. IMPRESSION: NO ACUTE RADIOGRAPHIC FINDING IN THE CHEST. TECHNICAL DOCUMENTATION: JOB ID: [id number] [employer]- All Rights Reserved Reading location - IP/workstation name: [email or web address]
--- NOTE | 2017-11-29 09:22 | RADIOLOGY REPORT (SQ) ---
EXAM DESCRIPTION: CT HEAD WITHOUT COMPLETED DATE/TIME: 11/29/2017 8:58 am REASON FOR STUDY: fall COMPARISON: CT brain 11/29/2017 TECHNIQUE: Axial images acquired through the brain without intravenous contrast. Images reviewed wi th bone, brain and subdural windows. Additional sagittal and coronal reconstructions were generated. Images stored on PACS. All CT scanners at this facility use dose modulation, iterative reconstruction, and/or weight based d osing when appropriate to reduce radiation dose to as low as reasonably achievable (ALARA). [facility]: Dose Right [facility]: CareDose [facility]: Dose Right [facility]: Teradose 4D [facility]: Crunched RADIATION DOSE: CT Rad equipment meets quality standard of care and radiation dose reduction techniq ues were employed. CTDIvol: 53.2 mGy. DLP: 1017 mGy-cm. mGy. LIMITATIONS: None. FINDINGS: VENTRICLES: Normal size and contour. CEREBRUM: No masses. No hemorrhage. No midline shift. No evidence for acute infarction. Normal gra y/white matter differentiation. No areas of low density in the white matter. CEREBELLUM: No masses. No hemorrhage. No alteration of density. No evidence for acute infarction. EXTRAAXIAL SPACES: No fluid collections. No masses. ORBITS AND GLOBE: No intra- or extraconal masses. Globes post cataract surgery. CALVARIUM: No fracture. PARANASAL SINUSES: Mucous membrane thickening in the right maxillary sinus with trace fluid. . SOFT TISSUES: No mass or hematoma. OTHER: There is a nondepressed bilateral nasal bone fracture axial images 8 and 9 IMPRESSION: No acute intracranial changes. Nasal bone fracture with trace fluid in the right maxillary sinus. EVIDENCE OF ACUTE STROKE: NO. COMMENT: Quality ID # [id number]: Final reports with documentation of one or more dose reduction techniques (e.g., Automated exposure control, adjustment of the mA and/or kV according to patient size, use of iterative reconstruction technique) TECHNICAL DOCUMENTATION: JOB ID: [id number] [employer]- All Rights Reserved Reading location - IP/workstation name: [email or web address]
[2017-11-29 09:23] LABS: ABSOLUTE LYMPHOCYTES# (MANUAL) 0.6 10^3/uL (0.5-4.7); ABSOLUTE MONOCYTES # (MANUAL) 0.2 10^3/uL (0.1-1.4); ABSOLUTE NEUTROPHILS# (MANUAL) 9.9 10^3/uL (1.7-8.2); BAND NEUTROPHILS % (MANUAL) 1 % (3-5); BASOPHILS % (MANUAL) 0 % (0-2); EOSINOPHILS % (MANUAL) 0 % (0-6); LYMPHOCYTES % (MANUAL) 6 % (13-45); MONOCYTES % (MANUAL) 2 % (3-13); SEGMENTED NEUTROPHILS % (MAN) 91 % (42-78); TOTAL CELLS COUNTED 100
[2017-11-29 09:24] LABS: ANISOCYTOSIS SLIGHT; BURR CELLS 1+; PLATELET COMMENT ADEQUATE; POIKILOCYTOSIS 1+
[2017-11-29 09:25] LABS: CREATINE KINASE MB 1.79 ng/mL (<4.55); TROPONIN I 0.02 ng/mL
--- NOTE | 2017-11-29 09:26 | RADIOLOGY REPORT (SQ) ---
EXAM DESCRIPTION: CT CERVICAL SPINE WITHOUT COMPLETED DATE/TIME: 11/29/2017 8:58 am REASON FOR STUDY: fall COMPARISON: CT brain same date TECHNIQUE: Axial images acquired through the cervical spine without intravenous contrast. Images re viewed with lung, soft tissue and bone windows. Reconstructed coronal and sagittal MPR images review ed. Images stored on PACS. All CT scanners at this facility use dose modulation, iterative reconstruction, and/or weight based d osing when appropriate to reduce radiation dose to as low as reasonably achievable (ALARA). [facility]: Dose Right [facility]: CareDose [facility]: Dose Right [facility]: Teradose 4D [facility]: Smart Pe[employer]e [place] RADIATION DOSE: CT Rad equipment meets quality standard of care and radiation dose reduction techniq ues were employed. CTDIvol: 17.3 mGy. DLP: 330 mGy-cm. mGy. LIMITATIONS: None. FINDINGS: ALIGNMENT: Minimal anterolisthesis of C4 over C5 related to degenerative changes. MINERALIZATION: Normal. VERTEBRAL BODIES: No fractures or dislocation. DISCS: Craniocervical junction, C1-2, C2-3 are unremarkable aside from mild right C2-3 facet arthropa thy. At C3-4, mild diffuse posterior disc bulging is present causing mild central canal narrowing. There is mild bilateral foraminal narrowing from facet and uncovertebral hypertrophy. At C4-5, no central stenosis. High-grade right foraminal narrowing from facet and uncovertebral hype rtrophy. No left foraminal narrowing. At C5-6, borderline central canal narrowing results from broad diffuse posterior disc bulging. There is high-grade bilateral foraminal narrowing from facet and uncovertebral hypertrophy. At C6-7, borderline central canal narrowing results from broad diffuse disc bulge and bony spurring. High-grade bilateral foraminal narrowing left greater than right from facet and uncovertebral hypert rophy. C7-T1 is unremarkable. FACETS, LATERAL MASSES, POSTERIOR ELEMENTS: No fractures. No dislocation. No acute findings. HARDWARE: None in the spine. VISUALIZED RIBS: No fractures. LUNG APICES AND SOFT TISSUES: No significant or acute findings. OTHER: No other significant finding. IMPRESSION: No acute changes TECHNICAL DOCUMENTATION: JOB ID: [id number] Quality ID # [id number]: Final reports with documentation of one or more dose reduction techniques (e.g., Au tomated exposure control, adjustment of the mA and/or kV according to patient size, use of iterative reconstruction technique) 2010 [employer]- All Rights Reserved Reading location - IP/workstation name: [email or web address]
[2017-11-29 09:32] LABS: ALBUMIN 4.5 g/dL (3.5-5.0); ASPARTATE AMINO TRANSFERASE 17 U/L (17-59); BLOOD UREA NITROGEN 29 mg/dL (7-20); CALCIUM 10.9 mg/dL (8.4-10.2); POTASSIUM 5.1 mmol/L (3.6-5.0)
[2017-11-29 09:33] LABS: ALANINE AMINOTRANSFERASE 21 U/L (21-72); ALKALINE PHOSPHATASE 134 U/L (38-126); BILIRUBIN,DIRECT 0.6 mg/dL (0.0-0.4); BILIRUBIN,TOTAL 0.6 mg/dL (0.2-1.3); CREATINE KINASE 31 U/L (55-170)
[2017-11-29 09:34] LABS: CHLORIDE 91 mmol/L (98-107); SODIUM 138.8 mmol/L (137-145)
[2017-11-29 09:39] LABS: ANION GAP 39 (5-19)
[2017-11-29 09:41] LABS: CARBON DIOXIDE 9 mmol/L (22-30); GLUCOSE 721 mg/dL (75-110)
[2017-11-29] MEDS ORDERED: DEXTROSE 50%-WATER 25 GM/50 ML DISP.SYRIN IV PRN ×4 (09:53→10:30)
[2017-11-29] MEDS ORDERED: GLUCAGON,HUMAN RECOMB 1 MG INJ IM PRN ×2 (09:53→10:30)
[2017-11-29] MEDS ORDERED: DEXTROSE 40% GEL 15 GM TUBE PO PRN ×4 (09:53→10:30)
[2017-11-29] MEDS ORDERED: NORMAL SALINE 100 ML with INSULIN REGULAR, HUMAN 100 UNIT IV PRN ×2 (09:53)
[2017-11-29] MEDS ORDERED: NORMAL SALINE 1000 ML 1,000 ML IV ONE ×2 (09:56→10:02)
[2017-11-29] MEDS ORDERED: 1/2 NORMAL SALINE 1,000 ML IV PRN (10:24)
[2017-11-29] MEDS ORDERED: ONDANSETRON 4 MG TAB.RAPDIS PO PRN (10:24)
[2017-11-29] MEDS ORDERED: PROMETHAZINE HCL 25 MG TABLET PO PRN (10:24)
[2017-11-29 10:40] LABS: PHOSPHORUS 8.9 mg/dL (2.5-4.5)
[2017-11-29 10:48] LABS: APPEARANCE,URINE CLEAR; BILIRUBIN,URINE NEGATIVE (NEGATIVE); COLOR,URINE YELLOW; GLUCOSE, URINE >=500 mg/dL (NEGATIVE); KETONES,URINE 80 mg/dL (NEGATIVE); LEUKOCYTE ESTERASE,URINE NEGATIVE (NEGATIVE); NITRITE,URINE NEGATIVE (NEGATIVE); PROTEIN,URINE 30 mg/dL (NEGATIVE); URINE SPECIFIC GRAVITY 1.027; UROBILINOGEN,URINE NEGATIVE mg/dL (<2.0)
[2017-11-29] MEDS ORDERED: HYDRALAZINE HCL INJ/PF 20 MG/1 ML SDV IV PRN (12:12)
--- NOTE | 2017-11-29 12:17 | PDOC H&P ---
History of Present Illness Admission Date/PCP: 11/29/17 10:19 HELDER GUAN [facility] Patient complains of: nausea vomiting abdominal pain History of Present Illness: 67 year old male with past medical history of Coronary artery disease status post SC. He has 3 stents Hypertension Hyperlipidemia Prostate cancer status post surgeryAD with recurrence and hormone treatment Gastroesophageal reflux disease Hiatal hernia Lung cancer right lower lobe diagnosed September 2017 currently undergoing radiation treatment Outpatient medications: Metoprolol tartrate 75 mg PO BID Glipizide 5 mg PO BID Lantus 40 units BID Novolog sliding scale Imdur 60 mg PO daily Ferous sulfate 325 mg daily Multivitamin daily Vit C 500 mg PO daily Metformin 1000 mg PO BID Zofran 8mg PO BID PRN Atorvastatin 80 mg PO QHS Aspirin 81mg po daily Spiriva daily He was started on RT for his Lung cancer at the [facility] 10 weeks ago and has had nausea and vomiting since then. For the past couple of weeks symptoms have gotten worse with inability to keep anything down and not taking his meds including Insulin. In the ER he was found to have DKA and an anion gap of 39. Corrected sodium is 150 Denies any fever or dysuria. Wishes to be a DNR. Healthcare POA is his [place]. Past Medical History Cardiac Medical History: Reports: Coronary Artery Disease, Myocardial Infarction , Hyperlipidema, Hypertension Endocrine Medical History: Reports: Diabetes Mellitus Type 2 Malignancy Medical History: Reports: Lung Cancer, Other - Prostate cancer GI Medical History: Reports: Gastroesophageal Reflux Disease, Hiatal Hernia Past Surgical History Past Surgical History: Reports: Cardiac Catheterization - stent x 3, Coronary Artery Bypass Graft, Coronary Stent - x3, Orthopedic Surgery - left hip, left shoulder, Tonsillectomy, Other - Prostatectomy Social History Information Source: Patient Lives with: Spouse/Significant other Smoking Status: Former Smoker Frequency of Alcohol Use: None Hx Recreational Drug Use: No Hx Prescription Drug Abuse: No - Advance Directive Resuscitation Status: Do Not Resuscitate Family History Family History: DM Parental Family History Reviewed: Yes Children Family History Reviewed: Yes Sibling(s) Family History Reviewed.: Yes Medication/Allergy Home Medications: Ascorbic Acid [Vitamin C 500 mg Tablet] 500 mg PO DAILY 11/29/17 Aspirin [Aspirin EC] 81 mg PO DAILY 11/29/17 Atorvastatin Calcium [Lipitor 80 mg Tablet] 80 mg PO QHS 11/29/17 Ferrous Sulfate 324 mg PO DAILY 11/29/17 Glipizide [Glucotrol 5 mg Tablet] 5 mg PO BID 11/29/17 Hydrocodone/Acetaminophen [Hydrocodone-Acetamin 7.5-325] 1 tab PO DAILYP PRN Insulin Aspart [Novolog Flexpen] See Protocol SQ MEALS 11/29/17 Insulin Glargine,Hum.rec.anlog [Lantus Insulin 100 Unit/1 ml 10 ml] 40 units SQ BID 11/29/17 Isosorbide Mononitrate [Imdur 60 mg Tablet.er] 60 mg PO DAILY 11/29/17 Metformin HCl [Metformin HCl ER] 1,000 mg PO BID 11/29/17 Metoprolol Tartrate [Lopressor 25 mg Tablet] 25 mg PO Q12 11/29/17 [place]-3/Dha/Epa/Fish Oil [Fish Oil 1,000 mg Softgel] 4 cap PO BID 11/29/17 Ondansetron HCl [Zofran] 8 mg PO BIDP PRN 11/29/17 Tiotropium [place] [Spiriva Handihaler 18 mcg/dose (30 Dose)] 1 cap IH DAILY Allergies/Adverse Reactions: No Known Allergies Allergy (Verified 10/09/14 17:04) Review of Systems Constitutional: ABSENT: fever(s) Eyes: ABSENT: visual disturbances Ears: ABSENT: hearing changes Nose, Mouth, and Throat: PRESENT: mouth pain Cardiovascular: ABSENT: edema Gastrointestinal: PRESENT: nausea, vomiting. ABSENT: diarrhea Genitourinary: ABSENT: dysuria Musculoskeletal: ABSENT: joint swelling Integumentary: ABSENT: pruritus Neurological: ABSENT: focal weakness Psychiatric: ABSENT: hallucinations Endocrine: ABSENT: heat intolerance Hematologic/Lymphatic: ABSENT: easy bruising Allergic/Immunologic: ABSENT: seasonal rhinorrhea Physical Exam Vital Signs: Temp Pulse Resp BP Pulse Ox 97.4 F 16 145/90 H 97 11/29/17 08:29 11/29/17 10:01 11/29/17 10:00 11/29/17 09:09 General appearance: PRESENT: mild distress, thin Head exam: PRESENT: normocephalic Eye exam: ABSENT: scleral icterus Ear exam: PRESENT: normal external ear exam Mouth exam: PRESENT: dry mucosa Throat exam: ABSENT: tonsillar exudate Neck exam: ABSENT: tracheal deviation Respiratory exam: PRESENT: symmetrical, unlabored. ABSENT: crackles Cardiovascular exam: PRESENT: RRR GI/Abdominal exam: PRESENT: normal bowel sounds, soft. ABSENT: tenderness Rectal exam: PRESENT: deferred Gentrourinary exam: ABSENT: indwelling catheter Extremities exam: ABSENT: pedal edema Neurological exam: PRESENT: alert, awake, oriented to person, oriented to place , oriented to time, oriented to situation Psychiatric exam: PRESENT: anxious Skin exam: ABSENT: petechiae Results Impressions: Cervical Spine CT 11/29/17 08:28 IMPRESSION: No acute changes Head CT 11/29/17 08:28 IMPRESSION: No acute intracranial changes. Nasal bone fracture with trace fluid in the right maxillary sinus. EVIDENCE OF ACUTE STROKE: NO. Chest X-Ray 11/29/17 08:29 IMPRESSION: NO ACUTE RADIOGRAPHIC FINDING IN THE CHEST. Assessment & Plan - Diagnosis (1) DKA, type 1 Qualifiers: Diabetes mellitus complication detail: without coma Qualified Code(s): E10.10 - Type 1 diabetes mellitus with ketoacidosis without coma Is this a current diagnosis for this admission?: Yes Plan: IV fluids, Insulin gtt, monitor blood glucose q1hr. NPO. Monitor labs (2) Hypertension Is this a current diagnosis for this admission?: Yes Plan: Unable to tolerate meds PO. Monitor and use IV agents prn (3) CAD (coronary artery disease) Is this a current diagnosis for this admission?: Yes Plan: Resume outpatient meds when able to take PO. EKG shows sinus tachycardia with no ST segment or T wave changes. (4) Nausea and vomiting Is this a current diagnosis for this admission?: Yes Plan: Due to DKA. Antiemeticsprn. IV Protonix (5) Acute renal failure Is this a current diagnosis for this admission?: Yes Plan: Due to dehydration and Poor PO intake. IV fluids, monitor renal function (7) Do not resuscitate Is this a current diagnosis for this admission?: Yes (9) History of prostate cancer Is this a current diagnosis for this admission?: Yes (10) DVT prophylaxis Is this a current diagnosis for this admission?: Yes Plan: SCD. Hold Lovenox due to blood tinged vomitus- most likely due to gastric irritation due to retching/vomiting. No basilio hematemesis. (11) Nasal bone fracture Qualifiers: Encounter type: initial encounter Fracture type: closed Qualified Code(s) : S02.2XXA - Fracture of nasal bones, initial encounter for closed fracture Is this a current diagnosis for this admission?: Yes Plan: pain control (12) Hyperphosphatemia Is this a current diagnosis for this admission?: Yes Plan: IV fluids, monitor (13) Hypercalcemia Is this a current diagnosis for this admission?: Yes Plan: IV fluids, monitor (14) Hyperkalemia Is this a current diagnosis for this admission?: Yes Plan: Mild. No EKG changes IV fluids, monitor. (15) Hypernatremia Is this a current diagnosis for this admission?: Yes Plan: Due to dehydration. Corrected sodium is 150. Continue to monitor. - Time Time Spent: Greater than 70 Minutes - Inpatient Certification Based on my medical assessment, after consideration of the patient's comorbidities, presenting symptoms, or acuity I expect that the services needed warrant INPATIENT care.: Yes I certify that my determination is in accordance with my understanding of Medicare's requirements for reasonable and necessary INPATIENT services [42 CFR 412.3e].: Yes Medical Necessity: Need For IV Fluids, Need For Continuous Telemetry Monitoring , Risk of Diagnosis Which Will Require Inpatient Eval/Care/Monitoring
[2017-11-29] MEDS: NORMAL SALINE 100 ML with INSULIN REGULAR, HUMAN 100 UNIT IV PRN ×2 (12:35)
[2017-11-29 12:52] LABS: PROTHROMBIN TIME 13.7 SEC (11.4-15.4)
--- NOTE | 2017-11-29 12:52 | EKG REPORT ---
SEVERITY:- ABNORMAL ECG - SINUS TACHYCARDIA MARKEDLY POSTERIOR QRS AXIS NONSPECIFIC T ABNORMALITIES, LATERAL LEADS BORDERLINE PROLONGED QT INTERVAL : Confirmed by: Felipe Wing MD 29-Nov-2017 12:52:16
[2017-11-29 12:53] LABS: PARTIAL THROMBOPLASTIN TIME 36.4 SEC (23.5-35.8)
[2017-11-29 14:23] LABS: HEMATOCRIT 48.2 % (37.9-51.0); MEAN CORPUSCULAR HEMOGLOBIN 27.8 pg (27.0-33.4); MEAN CORPUSCULAR HGB CONC 33.2 g/dL (32.0-36.0); MEAN CORPUSCULAR VOLUME 84 fl (80-97); PLATELET COUNT 249 10^3/uL (150-450); RED BLOOD COUNT 5.75 10^6/uL (4.35-5.55); RED CELL DISTRIBUTION WIDTH 15.3 % (11.5-14.0); WHITE BLOOD COUNT 9.6 10^3/uL (4.0-10.5)
[2017-11-29 14:39] LABS: BLOOD UREA NITROGEN 25 mg/dL (7-20); CALCIUM 9.7 mg/dL (8.4-10.2); CHLORIDE 106 mmol/L (98-107); POTASSIUM 4.3 mmol/L (3.6-5.0)
[2017-11-29 14:45] LABS: SODIUM 147.5 mmol/L (137-145)
[2017-11-29 14:50] LABS: ANION GAP 33 (5-19); CARBON DIOXIDE 9 mmol/L (22-30)
[2017-11-29 14:51] LABS: GLUCOSE 497 mg/dL (75-110); PHOSPHORUS 5.2 mg/dL (2.5-4.5)
[2017-11-29] MEDS ORDERED: DEXTROSE 5%-WATER 1000 ML 1,000 ML IV PRN (18:15)
[2017-11-29] MEDS: PANTOPRAZOLE SODIUM 40 MG VIAL IV SCH (21:21)
[2017-11-29 21:55] LABS: ANION GAP 19 (5-19); BLOOD UREA NITROGEN 22 mg/dL (7-20); CALCIUM 9.4 mg/dL (8.4-10.2); CARBON DIOXIDE 18 mmol/L (22-30); CHLORIDE 109 mmol/L (98-107); GLUCOSE 258 mg/dL (75-110); POTASSIUM 3.5 mmol/L (3.6-5.0); SODIUM 145.6 mmol/L (137-145)
[2017-11-29] MEDS: POTASSI CL 20 MEQ/D5-1/2NS 1L 1000 ML IV PRN (22:40)
[2017-11-30] MEDS: NORMAL SALINE 100 ML with INSULIN REGULAR, HUMAN 100 UNIT IV PRN ×2 (01:19)
[2017-11-30 01:25] LABS: ANION GAP 15 (5-19); BLOOD UREA NITROGEN 23 mg/dL (7-20); CALCIUM 9.7 mg/dL (8.4-10.2); CARBON DIOXIDE 22 mmol/L (22-30); CHLORIDE 111 mmol/L (98-107); GLUCOSE 199 mg/dL (75-110); POTASSIUM 3.5 mmol/L (3.6-5.0); SODIUM 148.4 mmol/L (137-145)
[2017-11-30 05:38] LABS: INTERNATIONAL RATION (INR) 0.94; PROTHROMBIN TIME 13.1 SEC (11.4-15.4)
[2017-11-30 05:39] LABS: PARTIAL THROMBOPLASTIN TIME 31.5 SEC (23.5-35.8)
[2017-11-30 05:40] LABS: HEMATOCRIT 39.6 % (37.9-51.0); MEAN CORPUSCULAR HEMOGLOBIN 27.8 pg (27.0-33.4); MEAN CORPUSCULAR HGB CONC 34.9 g/dL (32.0-36.0); PLATELET COUNT 237 10^3/uL (150-450); RED BLOOD COUNT 4.96 10^6/uL (4.35-5.55); RED CELL DISTRIBUTION WIDTH 15.7 % (11.5-14.0); WHITE BLOOD COUNT 9.5 10^3/uL (4.0-10.5)
[2017-11-30 05:41] LABS: HEMOGLOBIN 13.8 g/dL (13.5-17.0); MEAN CORPUSCULAR VOLUME 80 fl (80-97)
[2017-11-30 05:56] LABS: ALANINE AMINOTRANSFERASE 27 U/L (21-72); ALBUMIN 3.1 g/dL (3.5-5.0); ALKALINE PHOSPHATASE 82 U/L (38-126); ANION GAP 14 (5-19); ASPARTATE AMINO TRANSFERASE 17 U/L (17-59); BILIRUBIN,DIRECT 0.4 mg/dL (0.0-0.4); BILIRUBIN,TOTAL 0.4 mg/dL (0.2-1.3); BLOOD UREA NITROGEN 21 mg/dL (7-20); CALCIUM 9.5 mg/dL (8.4-10.2); CARBON DIOXIDE 21 mmol/L (22-30); CHLORIDE 111 mmol/L (98-107); CHOLESTEROL 236.14 mg/dL (0-200); GLUCOSE 139 mg/dL (75-110); POTASSIUM 3.6 mmol/L (3.6-5.0); SODIUM 145.9 mmol/L (137-145); TRIGLYCERIDES 135 mg/dL (<150)
[2017-11-30 06:07] LABS: DIRECT LDL 179 mg/dL (<100)
[2017-11-30] MEDS: ONDANSETRON HCL INJ/PF 4 MG/2 ML SDV IV PRN ×2 (06:15→17:10)
[2017-11-30 06:40] LABS: PHOSPHORUS 2.5 mg/dL (2.5-4.5)
[2017-11-30] MEDS: POTASSI CL 20 MEQ/D5-1/2NS 1L 1000 ML IV PRN (07:27)
[2017-11-30] MEDS: INSULIN LISPRO 100 UNIT/ML 3 ML VIAL SUBCUT PRN ×4 (08:05→22:09)
[2017-11-30] MEDS ORDERED: INSULIN GLARGINE,HUM.REC.ANLOG 300 UNIT/3 ML INSULN.PEN SUBCUT SCH (10:00)
[2017-11-30] MEDS ORDERED: INSULIN GLARGINE,HUM.REC.ANLOG 1,000 UNIT/10 ML UNIT SUBCUT SCH (10:00)
[2017-11-30] MEDS ORDERED: ENOXAPARIN SODIUM INJ 40 MG/0.4 ML DISP.SYRIN SUBCUT SCH (10:00)
[2017-11-30] MEDS: PANTOPRAZOLE SODIUM 40 MG VIAL IV SCH ×2 (10:22→22:09)
[2017-11-30] MEDS: TIOTROPIUM BROMIDE DPI 5 CAP/KIT (18 MCG/CAP) IH SCH (10:22)
[2017-11-30] MEDS: POTASSI CL 20 MEQ/1/2NS 1L 20 MEQ/1,000 ML RTUINJ IV PRN ×2 (10:23→18:08)
--- NOTE | 2017-11-30 11:40 | PDOC PROGRESS REPORT ---
Subjective Progress Note for:: 11/30/17 Subjective:: 67 yr old male with insulin dependent diabetes and recently diagnosed lung cancer, undergoing RT in [place]. Presented with DKA due to inability to take any of his meds secondary to persistent nausea, vomiting and abdominal pain since RT was started. He was started on IV fluids and IV Insulingtt. DKA resolved. Abdominal pain persists- Lipase normal. Some blood tinged vomitus ? zenon calderon tear vs peptic ulcer disease. Clear liquid diet, start Lantus at smaller dose, GI consult requested. He wishes to be a DNR/DNI. Reason For Visit: DKA Physical Exam Vital Signs: Temp Pulse Resp BP Pulse Ox 97.6 F 98 10 L 107/65 96 11/30/17 10:00 11/30/17 10:00 11/30/17 10:42 11/30/17 10:42 11/30/17 10:42 Intake & Output 11/29/17 11/30/17 12/01/17 06:59 06:59 06:59 Intake Total 1868 Output Total 600 Balance 1268 Weight 64.1 kg General appearance: PRESENT: mild distress Head exam: PRESENT: normocephalic Eye exam: ABSENT: scleral icterus Ear exam: PRESENT: normal external ear exam Mouth exam: PRESENT: moist Neck exam: ABSENT: tracheal deviation Respiratory exam: PRESENT: symmetrical, unlabored. ABSENT: crackles Cardiovascular exam: PRESENT: RRR GI/Abdominal exam: PRESENT: normal bowel sounds, soft, tenderness Rectal exam: PRESENT: deferred Extremities exam: ABSENT: pedal edema Neurological exam: PRESENT: alert, awake Psychiatric exam: PRESENT: appropriate affect Skin exam: ABSENT: rash Results Laboratory Results: 11/30/17 05:22 11/30/17 05:22 11/29/17 11/29/17 11/29/17 14:07 14:07 21:10 WBC 9.6 RBC 5.75 H Hgb 16.0 Hct 48.2 MCV 84 MCH 27.8 MCHC 33.2 RDW 15.3 H Plt Count 249 Sodium 147.5 H 145.6 H Potassium 4.3 3.5 L Chloride 106 109 H Carbon Dioxide 9 L* 18 L Anion Gap 33 H 19 BUN 25 H 22 H Creatinine 0.95 0.72 Est GFR ( Amer) > 60 > 60 Est GFR (Non-Af Amer) > 60 > 60 Glucose 497 H* 258 H Calcium 9.7 9.4 Phosphorus 5.2 H D Magnesium Total Bilirubin AST ALT Alkaline Phosphatase Total Protein Albumin Triglycerides Cholesterol LDL Cholesterol Direct VLDL Cholesterol HDL Cholesterol TSH 11/30/17 11/30/17 11/30/17 00:55 05:22 05:22 WBC 9.5 RBC 4.96 Hgb 13.8 D Hct 39.6 MCV 80 D MCH 27.8 MCHC 34.9 RDW 15.7 H Plt Count 237 Sodium 148.4 H 145.9 H Potassium 3.5 L 3.6 Chloride 111 H 111 H Carbon Dioxide 22 21 L Anion Gap 15 14 BUN 23 H 21 H Creatinine 0.61 0.57 Est GFR ( Amer) > 60 > 60 Est GFR (Non-Af Amer) > 60 > 60 Glucose 199 H 139 H Calcium 9.7 9.5 Phosphorus 2.5 D Magnesium 2.0 Total Bilirubin 0.4 AST 17 ALT 27 Alkaline Phosphatase 82 Total Protein 6.0 L Albumin 3.1 L Triglycerides 135 Cholesterol 236.14 H LDL Cholesterol Direct 179 H VLDL Cholesterol 27.0 HDL Cholesterol 41 TSH 11/30/17 05:22 WBC RBC Hgb Hct MCV MCH MCHC RDW Plt Count Sodium Potassium Chloride Carbon Dioxide Anion Gap BUN Creatinine Est GFR ( Amer) Est GFR (Non-Af Amer) Glucose Calcium Phosphorus Magnesium Total Bilirubin AST ALT Alkaline Phosphatase Total Protein Albumin Triglycerides Cholesterol LDL Cholesterol Direct VLDL Cholesterol HDL Cholesterol TSH 0.86 11/30/17 05:22 NT-Pro-B Natriuret Pep 386 Impressions: Cervical Spine CT 11/29/17 08:28 IMPRESSION: No acute changes Head CT 11/29/17 08:28 IMPRESSION: No acute intracranial changes. Nasal bone fracture with trace fluid in the right maxillary sinus. EVIDENCE OF ACUTE STROKE: NO. Chest X-Ray 11/29/17 08:29 IMPRESSION: NO ACUTE RADIOGRAPHIC FINDING IN THE CHEST. Assessment & Plan - Diagnosis (1) DKA, type 1 Qualifiers: Diabetes mellitus complication detail: without coma Qualified Code(s): E10.10 - Type 1 diabetes mellitus with ketoacidosis without coma Is this a current diagnosis for this admission?: Yes Plan: Lantus and sliding scale (2) Hypertension Is this a current diagnosis for this admission?: Yes Plan: BP low normal- continue to monitor (3) CAD (coronary artery disease) Is this a current diagnosis for this admission?: Yes Plan: Resume outpatient meds when able to take PO. (4) Nausea and vomiting Is this a current diagnosis for this admission?: Yes Plan: GI consult Antiemetics prn. IV Protonix (5) Acute renal failure Is this a current diagnosis for this admission?: Yes Plan: Resolved with IV fluids (6) COPD (chronic obstructive pulmonary disease) Is this a current diagnosis for this admission?: Yes Plan: stable (7) Do not resuscitate Is this a current diagnosis for this admission?: Yes (8) Lung cancer Qualifiers: Laterality: right Lung location: lower lobe of lung Qualified Code(s): C34.31 - Malignant neoplasm of lower lobe, right bronchus or lung Is this a current diagnosis for this admission?: Yes (9) History of prostate cancer Is this a current diagnosis for this admission?: Yes (10) DVT prophylaxis Is this a current diagnosis for this admission?: Yes Plan: SCD. (11) Nasal bone fracture Qualifiers: Encounter type: initial encounter Fracture type: closed Qualified Code(s) : S02.2XXA - Fracture of nasal bones, initial encounter for closed fracture Is this a current diagnosis for this admission?: Yes Plan: Pain control. Do not blow nose (12) Hyperphosphatemia Is this a current diagnosis for this admission?: Yes Plan: IV fluids, monitor. resolving (13) Hypercalcemia Is this a current diagnosis for this admission?: Yes Plan: Due to dehydration- resolved (14) Hyperkalemia Is this a current diagnosis for this admission?: Yes Plan: Resolved (15) Hypernatremia Is this a current diagnosis for this admission?: Yes Plan: Due to dehydration. Resolved - Time Time Spent with patient: 35 or more minutes
--- NOTE | 2017-11-30 14:24 | PDOC CONSULTATION ---
Consultation Consult Date: 11/30/17 Attending physician:: DEDRICK HOSKINS Consult reason:: abdominal pain, nausea and vomiting History of Present Illness Admission Date/PCP: 11/29/17 10:19 HELDER GUAN History of Present Illness: SHEILA VALERIO is a 67 year old male Asked to see this patient was admitted to the ICU has not been able to take his insulin medications patient not able to take orals patient does have DM, may have diabetic gastroparesis will need to exclude for possible peptic ulcer disease patient has a component of early satiety no hematemesis Past Medical History Cardiac Medical History: Reports: Coronary Artery Disease, Myocardial Infarction , Hyperlipidema, Hypertension Endocrine Medical History: Reports: Diabetes Mellitus Type 2 Malignancy Medical History: Reports: Lung Cancer, Other - Prostate cancer GI Medical History: Reports: Gastroesophageal Reflux Disease, Hiatal Hernia Past Surgical History Past Surgical History: Reports: Cardiac Catheterization - stent x 3, Coronary Artery Bypass Graft, Coronary Stent - x3, Orthopedic Surgery - left hip, left shoulder, Tonsillectomy, Other - Prostatectomy Social History Lives with: Spouse/Significant other Smoking Status: Former Smoker Frequency of Alcohol Use: None Hx Recreational Drug Use: No Hx Prescription Drug Abuse: No - Advance Directive Resuscitation Status: Do Not Resuscitate Family History Family History: Reviewed & Not Pertinent Parental Family History Reviewed: Yes Children Family History Reviewed: Unknown Sibling(s) Family History Reviewed.: Unknown Medication/Allergy Home Medications: Ascorbic Acid [Vitamin C 500 mg Tablet] 500 mg PO DAILY 11/29/17 Aspirin [Aspirin EC] 81 mg PO DAILY 11/29/17 Atorvastatin Calcium [Lipitor 80 mg Tablet] 80 mg PO QHS 11/29/17 Ferrous Sulfate 324 mg PO DAILY 11/29/17 Glipizide [Glucotrol 5 mg Tablet] 5 mg PO BID 11/29/17 Hydrocodone/Acetaminophen [Hydrocodone-Acetamin 7.5-325] 1 tab PO DAILYP PRN Insulin Aspart [Novolog Flexpen] See Protocol SQ MEALS 11/29/17 Insulin Glargine,Hum.rec.anlog [Lantus Insulin 100 Unit/1 ml 10 ml] 40 units SQ BID 11/29/17 Isosorbide Mononitrate [Imdur 60 mg Tablet.er] 60 mg PO DAILY 11/29/17 Metformin HCl [Metformin HCl ER] 1,000 mg PO BID 11/29/17 Metoprolol Tartrate [Lopressor 25 mg Tablet] 75 mg PO Q12 11/29/17 [place]-3/Dha/Epa/Fish Oil [Fish Oil 1,000 mg Softgel] 4 cap PO BID 11/29/17 Ondansetron HCl [Zofran] 8 mg PO BIDP PRN 11/29/17 Tiotropium [place] [Spiriva Handihaler 18 mcg/dose (30 Dose)] 1 cap IH DAILY Allergies/Adverse Reactions: No Known Allergies Allergy (Verified 10/09/14 17:04) Review of Systems Constitutional: ABSENT: fever(s), headache(s), night sweats, weakness Eyes: ABSENT: visual disturbances Ears: ABSENT: hearing changes Cardiovascular: ABSENT: chest pain, orthropnea Respiratory: ABSENT: dyspnea, hemoptysis Gastrointestinal: PRESENT: abdominal pain. ABSENT: dysphagia, hematochezia, melena Genitourinary: ABSENT: dysuria, hematuria Integumentary: ABSENT: pruritus Neurological: ABSENT: syncope, tingling, tremor(s), vertigo Endocrine: ABSENT: polydipsia, polyphagia, polyuria Hematologic/Lymphatic: ABSENT: easy bruising Physical Exam Vital Signs: Temp Pulse Resp BP Pulse Ox 97.8 F 104 H 14 107/65 96 11/30/17 13:04 11/30/17 13:04 11/30/17 13:04 11/30/17 13:04 11/30/17 13:04 Intake & Output 11/29/17 11/30/17 12/01/17 06:59 06:59 06:59 Intake Total 1868 240 Output Total 600 325 Balance 1268 -85 Weight 64.1 kg General appearance: PRESENT: mild distress, well-developed, well-nourished Head exam: PRESENT: atraumatic, normocephalic Eye exam: PRESENT: EOMI, PERRLA. ABSENT: nystagmus, periorbital swelling, scleral icterus Mouth exam: PRESENT: moist, neck supple Throat exam: ABSENT: tonsillar exudate, tonsillogmegaly Neck exam: ABSENT: meningismus, tenderness, thyromegaly Respiratory exam: PRESENT: symmetrical, unlabored. ABSENT: tachypnea, wheezes Cardiovascular exam: PRESENT: +S1, +S2 GI/Abdominal exam: PRESENT: soft. ABSENT: rebound, rigid, tenderness Extremities exam: ABSENT: joint swelling Musculoskeletal exam: PRESENT: full ROM Neurological exam: PRESENT: oriented to time, oriented to situation, CN II-XII grossly intact Focused psych exam: ABSENT: restlessness Skin exam: PRESENT: normal color, warm. ABSENT: mottled, pallor, urticaria, vesicles Results Laboratory Results: 11/30/17 05:22 11/29/17 11/29/17 11/29/17 14:07 14:07 21:10 WBC 9.6 RBC 5.75 H Hgb 16.0 Hct 48.2 MCV 84 MCH 27.8 MCHC 33.2 RDW 15.3 H Plt Count 249 Sodium 147.5 H 145.6 H Potassium 4.3 3.5 L Chloride 106 109 H Carbon Dioxide 9 L* 18 L Anion Gap 33 H 19 BUN 25 H 22 H Creatinine 0.95 0.72 Est GFR ( Amer) > 60 > 60 Est GFR (Non-Af Amer) > 60 > 60 Glucose 497 H* 258 H Calcium 9.7 9.4 Phosphorus 5.2 H D Magnesium Total Bilirubin AST ALT Alkaline Phosphatase Total Protein Albumin Triglycerides Cholesterol LDL Cholesterol Direct VLDL Cholesterol HDL Cholesterol TSH 11/30/17 11/30/17 11/30/17 00:55 05:22 05:22 WBC 9.5 RBC 4.96 Hgb 13.8 D Hct 39.6 MCV 80 D MCH 27.8 MCHC 34.9 RDW 15.7 H Plt Count 237 Sodium 148.4 H 145.9 H Potassium 3.5 L 3.6 Chloride 111 H 111 H Carbon Dioxide 22 21 L Anion Gap 15 14 BUN 23 H 21 H Creatinine 0.61 0.57 Est GFR ( Amer) > 60 > 60 Est GFR (Non-Af Amer) > 60 > 60 Glucose 199 H 139 H Calcium 9.7 9.5 Phosphorus 2.5 D Magnesium 2.0 Total Bilirubin 0.4 AST 17 ALT 27 Alkaline Phosphatase 82 Total Protein 6.0 L Albumin 3.1 L Triglycerides 135 Cholesterol 236.14 H LDL Cholesterol Direct 179 H VLDL Cholesterol 27.0 HDL Cholesterol 41 TSH 11/30/17 05:22 WBC RBC Hgb Hct MCV MCH MCHC RDW Plt Count Sodium Potassium Chloride Carbon Dioxide Anion Gap BUN Creatinine Est GFR ( Amer) Est GFR (Non-Af Amer) Glucose Calcium Phosphorus Magnesium Total Bilirubin AST ALT Alkaline Phosphatase Total Protein Albumin Triglycerides Cholesterol LDL Cholesterol Direct VLDL Cholesterol HDL Cholesterol TSH 0.86 11/30/17 05:22 NT-Pro-B Natriuret Pep 386 Impressions: Cervical Spine CT 11/29/17 08:28 IMPRESSION: No acute changes Head CT 11/29/17 08:28 IMPRESSION: No acute intracranial changes. Nasal bone fracture with trace fluid in the right maxillary sinus. EVIDENCE OF ACUTE STROKE: NO. Chest X-Ray 11/29/17 08:29 IMPRESSION: NO ACUTE RADIOGRAPHIC FINDING IN THE CHEST. Assessment & Plan - Diagnosis (1) Nausea and vomiting Is this a current diagnosis for this admission?: Yes Plan: could be diabetic gastroparesis will neri to exclude for possible peptic ulcer disease causing some gastric outlet obstruction will need EGD Risks, benefits and alternatives are discussed with the patient in detail further recommendations to follow - Time Time Spent: 50 to 70 Minutes
[2017-11-30 14:42] LABS: ANION GAP 17 (5-19); BLOOD UREA NITROGEN 17 mg/dL (7-20); CALCIUM 9.4 mg/dL (8.4-10.2); CARBON DIOXIDE 17 mmol/L (22-30); CHLORIDE 110 mmol/L (98-107); GLUCOSE 220 mg/dL (75-110); PHOSPHORUS 2.3 mg/dL (2.5-4.5); POTASSIUM 3.8 mmol/L (3.6-5.0); SODIUM 143.6 mmol/L (137-145)
[2017-11-30] MEDS: INSULIN GLARGINE,HUM.REC.ANLOG 300 UNIT/3 ML INSULN.PEN SUBCUT SCH (18:09)
[2017-11-30 22:01] LABS: ANION GAP 14 (5-19); BLOOD UREA NITROGEN 14 mg/dL (7-20); CALCIUM 9.1 mg/dL (8.4-10.2); CARBON DIOXIDE 18 mmol/L (22-30); CHLORIDE 110 mmol/L (98-107); GLUCOSE 179 mg/dL (75-110); POTASSIUM 3.7 mmol/L (3.6-5.0); SODIUM 141.9 mmol/L (137-145)
[2017-11-30] MEDS: MORPHINE SULFATE 10 MG/ML INJ IV PRN (22:53)
[2017-12-01] MEDS: POTASSI CL 20 MEQ/1/2NS 1L 20 MEQ/1,000 ML RTUINJ IV PRN ×3 (03:20→22:30)
[2017-12-01 04:11] LABS: HEMATOCRIT 39.5 % (37.9-51.0); HEMOGLOBIN 13.7 g/dL (13.5-17.0); MEAN CORPUSCULAR HEMOGLOBIN 27.8 pg (27.0-33.4); MEAN CORPUSCULAR HGB CONC 34.6 g/dL (32.0-36.0); MEAN CORPUSCULAR VOLUME 80 fl (80-97); PLATELET COUNT 199 10^3/uL (150-450); RED BLOOD COUNT 4.91 10^6/uL (4.35-5.55); RED CELL DISTRIBUTION WIDTH 16.1 % (11.5-14.0); WHITE BLOOD COUNT 5.3 10^3/uL (4.0-10.5)
[2017-12-01 04:26] LABS: BLOOD UREA NITROGEN 13 mg/dL (7-20); CALCIUM 9.4 mg/dL (8.4-10.2); GLUCOSE 149 mg/dL (75-110)
[2017-12-01 04:27] LABS: ALANINE AMINOTRANSFERASE 27 U/L (21-72); ALBUMIN 3.1 g/dL (3.5-5.0); ALKALINE PHOSPHATASE 79 U/L (38-126); ANION GAP 12 (5-19); ASPARTATE AMINO TRANSFERASE 23 U/L (17-59); BILIRUBIN,DIRECT 0.4 mg/dL (0.0-0.4); BILIRUBIN,TOTAL 0.5 mg/dL (0.2-1.3); CARBON DIOXIDE 20 mmol/L (22-30); CHLORIDE 112 mmol/L (98-107); PHOSPHORUS 2.5 mg/dL (2.5-4.5); POTASSIUM 3.6 mmol/L (3.6-5.0); SODIUM 143.8 mmol/L (137-145); TOTAL PROTEIN 6.1 g/dL (6.3-8.2)
[2017-12-01] MEDS: TIOTROPIUM BROMIDE DPI 5 CAP/KIT (18 MCG/CAP) IH SCH (10:32)
[2017-12-01] MEDS: INSULIN GLARGINE,HUM.REC.ANLOG 300 UNIT/3 ML INSULN.PEN SUBCUT SCH ×2 (10:32→17:34)
[2017-12-01] MEDS: PANTOPRAZOLE SODIUM 40 MG VIAL IV SCH ×2 (10:32→22:24)
[2017-12-01] MEDS ORDERED: DIPHENHYDRAMINE HCL 50 MG/ML VIAL ONE (10:42)
[2017-12-01] MEDS ORDERED: ONDANSETRON HCL INJ/PF 4 MG/2 ML SDV ONE (10:42)
[2017-12-01] MEDS ORDERED: NALOXONE HCL INJ/PF 0.4 MG/1 ML SDV ONE (10:42)
[2017-12-01] MEDS ORDERED: MIDAZOLAM 2 MG/2 ML INJ ONE (10:43)
[2017-12-01] MEDS ORDERED: FLUMAZENIL INJ 0.5 MG/5 ML VIAL ONE (10:43)
[2017-12-01] MEDS ORDERED: GLUCAGON,HUMAN RECOMB 1 MG INJ ONE (10:43)
[2017-12-01] MEDS ORDERED: EPINEPHRINE INJ 1 MG/10 ML DISP.SYRIN ONE (10:43)
[2017-12-01] MEDS: FENTANYL CITRATE INJ/PF 100 MCG/2 ML AMPUL ONE ×2 (11:29→11:31)
--- NOTE | 2017-12-01 11:41 | Operative Report ---
Operative Report DATE OF SURGERY: 12/01/17 Operative Report: The risks benefits and alternatives of the procedure explained to the patient in detail and informed consent is obtained.A GIF Olympus video scope was inserted into the patient's mouth and hypopharynx, the esophagus is identified intubated and insufflated, the scope was then advanced through the esophagus stomach and duodenum, retroflexion maneuver is done, the esophagus stomach and first and second portions of the duodenum examined PREOPERATIVE DIAGNOSIS: Nausea vomiting, abdominal pain POSTOPERATIVE DIAGNOSIS: Circumferential esophageal ulcer, clean base, no bleeding secondary to possible pill induced esophagitis. Gastritis status post biopsy. Duodenitis OPERATION: EGD with biopsy SURGEON: DEDRICK HOSKINS ANESTHESIA: Moderate Sedation - Conscious sedation monitoring time 30 minutes. 2 mg of Versed, 50 mcg of fentanyl. TISSUE REMOVED OR ALTERED: As noted above. COMPLICATIONS: None. ESTIMATED BLOOD LOSS: None. INTRAOPERATIVE FINDINGS: As noted above. PROCEDURE: Patient tolerated procedure well. Resume all preprocedure medications Resume diet as tolerated We will wait on biopsies PPI therapy We will follow
[2017-12-01] MEDS: MORPHINE SULFATE 10 MG/ML INJ IV PRN (15:17)
[2017-12-01 15:40] LABS: ANION GAP 12 (5-19); BLOOD UREA NITROGEN 11 mg/dL (7-20); CALCIUM 9.3 mg/dL (8.4-10.2); CARBON DIOXIDE 20 mmol/L (22-30); CHLORIDE 108 mmol/L (98-107); GLUCOSE 176 mg/dL (75-110); PHOSPHORUS 2.8 mg/dL (2.5-4.5); POTASSIUM 3.8 mmol/L (3.6-5.0); SODIUM 140.4 mmol/L (137-145)
--- NOTE | 2017-12-01 17:51 | PDOC PROGRESS REPORT ---
Subjective Progress Note for:: 12/01/17 Subjective:: Seen immediately post EGD. Still somnolent. Reason For Visit: DKA Physical Exam Vital Signs: Temp Pulse Resp BP Pulse Ox 96.1 F L 96 14 99/38 L 94 12/01/17 12:00 12/01/17 13:52 12/01/17 13:52 12/01/17 12:24 12/01/17 13:52 Intake & Output 11/30/17 12/01/17 12/02/17 05:59 05:59 05:59 Intake Total 452 4348 200 Output Total 400 1225 Balance 52 3123 200 Weight 148 lb 5.938 oz 147 lb 14.883 oz General appearance: PRESENT: no acute distress Respiratory exam: PRESENT: clear to auscultation elif Cardiovascular exam: PRESENT: RRR GI/Abdominal exam: PRESENT: soft Neurological exam: PRESENT: other - Sedate, moving all 4 extremities Skin exam: PRESENT: warm Results Laboratory Results: 12/01/17 03:34 12/01/17 14:58 11/30/17 12/01/17 12/01/17 21:40 03:34 03:34 WBC 5.3 RBC 4.91 Hgb 13.7 Hct 39.5 MCV 80 MCH 27.8 MCHC 34.6 RDW 16.1 H Plt Count 199 Sodium 141.9 143.8 Potassium 3.7 3.6 Chloride 110 H 112 H Carbon Dioxide 18 L 20 L Anion Gap 14 12 BUN 14 13 Creatinine 0.65 0.61 Est GFR ( Amer) > 60 > 60 Est GFR (Non-Af Amer) > 60 > 60 Glucose 179 H 149 H Calcium 9.1 9.4 Phosphorus 2.5 Magnesium 1.9 Total Bilirubin 0.5 AST 23 ALT 27 Alkaline Phosphatase 79 Total Protein 6.1 L Albumin 3.1 L 12/01/17 14:58 WBC RBC Hgb Hct MCV MCH MCHC RDW Plt Count Sodium 140.4 Potassium 3.8 Chloride 108 H Carbon Dioxide 20 L Anion Gap 12 BUN 11 Creatinine 0.62 Est GFR ( Amer) > 60 Est GFR (Non-Af Amer) > 60 Glucose 176 H Calcium 9.3 Phosphorus 2.8 Magnesium Total Bilirubin AST ALT Alkaline Phosphatase Total Protein Albumin 11/30/17 05:22 NT-Pro-B Natriuret Pep 386 Impressions: Cervical Spine CT 11/29/17 08:28 IMPRESSION: No acute changes Head CT 11/29/17 08:28 IMPRESSION: No acute intracranial changes. Nasal bone fracture with trace fluid in the right maxillary sinus. EVIDENCE OF ACUTE STROKE: NO. Chest X-Ray 11/29/17 08:29 IMPRESSION: NO ACUTE RADIOGRAPHIC FINDING IN THE CHEST. Assessment & Plan - Diagnosis (1) DM hyperosmolarity type II, uncontrolled Is this a current diagnosis for this admission?: Yes Plan: Hemoglobin A1c markedly elevated. Currently stable. Continue current medication. (2) Gastric ulcer Is this a current diagnosis for this admission?: Yes Plan: Per EGD. No evidence of bleeding. PPI therapy. (3) COPD (chronic obstructive pulmonary disease) Is this a current diagnosis for this admission?: Yes Plan: Stable. Continue home medications. Monitor closely. (4) Lung cancer Qualifiers: Laterality: right Lung location: lower lobe of lung Qualified Code(s): C34.31 - Malignant neoplasm of lower lobe, right bronchus or lung Is this a current diagnosis for this admission?: Yes Plan: Undergoing radiation therapy.
[2017-12-01 22:58] LABS: ABSOLUTE EOSINOPHILS # (AUTO) 0.1 10^3/uL (0.0-0.6); ABSOLUTE LYMPHOCYTES (AUTO) 0.5 10^3/uL (0.5-4.7); ABSOLUTE MONOCYTES (AUTO) 0.3 10^3/uL (0.1-1.4); ABSOLUTE NEUT (AUTO) 2.7 10^3/uL (1.7-8.2); BASOPHILS % (AUTO) 0.9 % (0-2); EOSINOPHILS % (AUTO) 2.5 % (0-6); HEMATOCRIT 36.3 % (37.9-51.0); HEMOGLOBIN 12.6 g/dL (13.5-17.0); LYMPHOCYTES % (AUTO) 13.2 % (13-45); MEAN CORPUSCULAR HEMOGLOBIN 27.6 pg (27.0-33.4); MEAN CORPUSCULAR HGB CONC 34.6 g/dL (32.0-36.0); MEAN CORPUSCULAR VOLUME 80 fl (80-97); MONOCYTES % (AUTO) 9.3 % (3-13); PLATELET COUNT 171 10^3/uL (150-450); RED BLOOD COUNT 4.55 10^6/uL (4.35-5.55); RED CELL DISTRIBUTION WIDTH 15.8 % (11.5-14.0); SEGMENTED NEUTROPHILS % (AUTO) 74.1 % (42-78); TOTAL CELLS COUNTED % (AUTO) 100 %; WHITE BLOOD COUNT 3.6 10^3/uL (4.0-10.5)
[2017-12-01 23:11] LABS: ANION GAP 8 (5-19); BLOOD UREA NITROGEN 9 mg/dL (7-20); CARBON DIOXIDE 23 mmol/L (22-30); CHLORIDE 108 mmol/L (98-107); CREATINE KINASE 30 U/L (55-170); GLUCOSE 129 mg/dL (75-110); POTASSIUM 3.7 mmol/L (3.6-5.0); SODIUM 138.9 mmol/L (137-145)
[2017-12-01] MEDS: INSULIN LISPRO 100 UNIT/ML 3 ML VIAL SUBCUT PRN (23:23)
[2017-12-01 23:25] LABS: CREATINE KINASE MB 0.73 ng/mL (<4.55); TROPONIN I 0.015 ng/mL
[2017-12-02 05:02] LABS: HEMATOCRIT 35.1 % (37.9-51.0); HEMOGLOBIN 12.2 g/dL (13.5-17.0); MEAN CORPUSCULAR HEMOGLOBIN 27.7 pg (27.0-33.4); MEAN CORPUSCULAR HGB CONC 34.9 g/dL (32.0-36.0); MEAN CORPUSCULAR VOLUME 79 fl (80-97); PLATELET COUNT 163 10^3/uL (150-450); RED BLOOD COUNT 4.41 10^6/uL (4.35-5.55); WHITE BLOOD COUNT 3.1 10^3/uL (4.0-10.5)
[2017-12-02 05:26] LABS: ALANINE AMINOTRANSFERASE 25 U/L (21-72); ALBUMIN 2.5 g/dL (3.5-5.0); ALKALINE PHOSPHATASE 62 U/L (38-126); ANION GAP 8 (5-19); ASPARTATE AMINO TRANSFERASE 20 U/L (17-59); BILIRUBIN,DIRECT 0.4 mg/dL (0.0-0.4); BILIRUBIN,TOTAL 0.4 mg/dL (0.2-1.3); BLOOD UREA NITROGEN 8 mg/dL (7-20); CALCIUM 9.1 mg/dL (8.4-10.2); CARBON DIOXIDE 22 mmol/L (22-30); CHLORIDE 108 mmol/L (98-107); CREATINE KINASE 30 U/L (55-170); GLUCOSE 86 mg/dL (75-110); PHOSPHORUS 2.9 mg/dL (2.5-4.5); POTASSIUM 3.5 mmol/L (3.6-5.0); SODIUM 138.3 mmol/L (137-145)
[2017-12-02 05:34] LABS: CREATINE KINASE MB 0.53 ng/mL (<4.55); TROPONIN I 0.016 ng/mL
--- NOTE | 2017-12-02 07:40 | EKG REPORT ---
SEVERITY:- BORDERLINE ECG - SINUS RHYTHM LOW VOLTAGE IN FRONTAL LEADS BORDERLINE PROLONGED QT INTERVAL : Confirmed by: Felipe Wing MD 02-Dec-2017 07:39:23
[2017-12-02] MEDS ORDERED: NORMAL SALINE 1000 ML 1,000 ML IV PRN ×2 (09:11→10:02)
[2017-12-02] MEDS: PANTOPRAZOLE SODIUM 40 MG VIAL IV SCH (10:42)
[2017-12-02] MEDS: TIOTROPIUM BROMIDE DPI 5 CAP/KIT (18 MCG/CAP) IH SCH (10:42)
[2017-12-02] MEDS: INSULIN GLARGINE,HUM.REC.ANLOG 300 UNIT/3 ML INSULN.PEN SUBCUT SCH ×2 (10:43→18:24)
[2017-12-02 11:44] LABS: CREATINE KINASE MB 0.51 ng/mL (<4.55); TROPONIN I 0.015 ng/mL
[2017-12-02] MEDS ORDERED: PHARMACY COMMUNICATION ORDER MC NR (12:15)
--- NOTE | 2017-12-02 13:45 | PDOC PROGRESS REPORT ---
Subjective Progress Note for:: 12/02/17 Subjective:: He reports that he has not been able to eat significantly since he completed his radiation therapy 5 weeks ago. His estimates that he has had 3 days over that interval when he is been able to eat without throwing up. I talked to him about the possibility of a feeding tube and he was "all in". I discussed putting him on tube feeds to see if he tolerated that and he was agreeable. Reason For Visit: DKA Physical Exam Vital Signs: Temp Pulse Resp BP Pulse Ox 98.3 F 78 17 92/57 L 99 12/02/17 11:35 12/02/17 11:35 12/02/17 11:35 12/02/17 11:35 12/02/17 11:35 Intake & Output 12/01/17 12/02/17 12/03/17 05:59 05:59 05:59 Intake Total 4348 750 150 Output Total 1225 900 400 Balance 3123 -150 -250 Weight 147 lb 14.883 oz 147 lb 14.883 oz General appearance: PRESENT: no acute distress Respiratory exam: PRESENT: clear to auscultation elif GI/Abdominal exam: PRESENT: soft, tenderness - Mostly in the lower abdomen/ suprapubic region Neurological exam: PRESENT: alert Psychiatric exam: PRESENT: appropriate affect Skin exam: PRESENT: warm Results Laboratory Results: 12/02/17 04:47 12/02/17 04:47 12/01/17 12/01/17 12/01/17 14:58 22:45 22:45 WBC 3.6 L RBC 4.55 Hgb 12.6 L Hct 36.3 L MCV 80 MCH 27.6 MCHC 34.6 RDW 15.8 H Plt Count 171 Seg Neutrophils % 74.1 Lymphocytes % 13.2 Monocytes % 9.3 Eosinophils % 2.5 Basophils % 0.9 Absolute Neutrophils 2.7 Absolute Lymphocytes 0.5 Absolute Monocytes 0.3 Absolute Eosinophils 0.1 Absolute Basophils 0.0 Sodium 140.4 138.9 Potassium 3.8 3.7 Chloride 108 H 108 H Carbon Dioxide 20 L 23 Anion Gap 12 8 BUN 11 9 Creatinine 0.62 0.56 Est GFR ( Amer) > 60 > 60 Est GFR (Non-Af Amer) > 60 > 60 Glucose 176 H 129 H Calcium 9.3 9.0 Phosphorus 2.8 Magnesium Total Bilirubin AST ALT Alkaline Phosphatase Total Protein Albumin 12/02/17 12/02/17 04:47 04:47 WBC 3.1 L RBC 4.41 Hgb 12.2 L Hct 35.1 L MCV 79 L MCH 27.7 MCHC 34.9 RDW 16.0 H Plt Count 163 Seg Neutrophils % Lymphocytes % Monocytes % Eosinophils % Basophils % Absolute Neutrophils Absolute Lymphocytes Absolute Monocytes Absolute Eosinophils Absolute Basophils Sodium 138.3 Potassium 3.5 L Chloride 108 H Carbon Dioxide 22 Anion Gap 8 BUN 8 Creatinine 0.46 L Est GFR ( Amer) > 60 Est GFR (Non-Af Amer) > 60 Glucose 86 Calcium 9.1 Phosphorus 2.9 Magnesium 1.6 Total Bilirubin 0.4 AST 20 ALT 25 Alkaline Phosphatase 62 Total Protein 5.0 L Albumin 2.5 L 11/30/17 12/01/17 12/01/17 05:22 22:45 22:45 Creatine Kinase 30 L CK-MB (CK-2) 0.73 Troponin I 0.015 NT-Pro-B Natriuret Pep 386 12/02/17 12/02/17 12/02/17 04:47 04:47 10:36 Creatine Kinase 30 L 28 L CK-MB (CK-2) 0.53 Troponin I 0.016 NT-Pro-B Natriuret Pep 12/02/17 10:36 Creatine Kinase CK-MB (CK-2) 0.51 Troponin I 0.015 NT-Pro-B Natriuret Pep Impressions: Cervical Spine CT 11/29/17 08:28 IMPRESSION: No acute changes Head CT 11/29/17 08:28 IMPRESSION: No acute intracranial changes. Nasal bone fracture with trace fluid in the right maxillary sinus. EVIDENCE OF ACUTE STROKE: NO. Chest X-Ray 11/29/17 08:29 IMPRESSION: NO ACUTE RADIOGRAPHIC FINDING IN THE CHEST. Assessment & Plan - Diagnosis (1) Nausea and vomiting Qualifiers: Vomiting Intractability: intractable Is this a current diagnosis for this admission?: Yes Plan: Certainly sounds like a complication of radiation therapy that is not improving. I think we need to worry about long-term nutrition. I will have a Dobbhoff placed to minimize the irritation of his esophageal ulcer and start tube feeds. If those are tolerated I will explore getting a PEG tube. (2) DM hyperosmolarity type II, uncontrolled Is this a current diagnosis for this admission?: Yes Plan: Hemoglobin A1c markedly elevated. Currently stable. Continue current medication. (3) COPD (chronic obstructive pulmonary disease) Qualifiers: COPD type: emphysema Is this a current diagnosis for this admission?: Yes Plan: Stable. Continue home medications. Monitor closely. (4) Lung cancer Qualifiers: Laterality: right Lung location: lower lobe of lung Qualified Code(s): C34.31 - Malignant neoplasm of lower lobe, right bronchus or lung Is this a current diagnosis for this admission?: Yes Plan: Finished radiation therapy 5 weeks ago. Has not been able to eat with any consistency since then. (5) Esophageal ulcer without bleeding Is this a current diagnosis for this admission?: Yes Plan: Continue PPI therapy
--- NOTE | 2017-12-02 14:49 | RADIOLOGY REPORT (SQ) ---
EXAM DESCRIPTION: NOT FOR OR FLUORO TO 1 HR COMPLETED DATE/TIME: 12/02/2017 2:28 pm REASON FOR STUDY: Dobbhoff for feeding COMPARISON: None. FLUOROSCOPY TIME: Less than one hour total fluoro time in the OR. 22 seconds 1 images saved to PACS. LIMITATIONS: None. PROCEDURE: Ultrasound guidance for Dobbhoff feeding tube placement. The attempt was unsuccessful. IMPRESSION: Unsuccessful Dobbhoff feeding tube placement. COMMENT: Quality ID [id number]: Final reports for procedures using fluoroscopy that document radiation exp osure indices, or exposure time and number of fluorographic images (if radiation exposure indices are not available) TECHNICAL DOCUMENTATION: JOB ID: [id number] [employer]- All Rights Reserved Reading location - IP/workstation name: [email or web address]
--- NOTE | 2017-12-02 14:50 | RADIOLOGY REPORT (SQ) ---
EXAM DESCRIPTION: KUB/ABDOMEN (SINGLE VIEW) COMPLETED DATE/TIME: 12/02/2017 2:28 pm REASON FOR STUDY: lower abdominal pain COMPARISON: None. NUMBER OF VIEWS: One view. TECHNIQUE: Supine radiographic image of the abdomen acquired. LIMITATIONS: None. FINDINGS: BOWEL GAS PATTERN: Nonobstructive gas pattern. Large amount of fecal material is present. CALCIFICATIONS: Cannot exclude intrarenal calculi. SOFT TISSUES: No gross mass or suggestion of organomegaly. HARDWARE: None in the abdomen. BONES: No acute fracture. No worrisome bone lesions. OTHER: No other significant finding. IMPRESSION: Constipation. Cannot exclude intrarenal calculi. TECHNICAL DOCUMENTATION: JOB ID: [id number] [employer]- All Rights Reserved Reading location - IP/workstation name: [email or web address]
[2017-12-02 17:43] LABS: CREATINE KINASE MB 0.39 ng/mL (<4.55)
[2017-12-02 17:46] LABS: TROPONIN I < 0.012 ng/mL
[2017-12-02] MEDS: POTASSI CL 20 MEQ/1/2NS 1L 20 MEQ/1,000 ML RTUINJ IV PRN (17:55)
[2017-12-03] MEDS: POTASSI CL 20 MEQ/1/2NS 1L 20 MEQ/1,000 ML RTUINJ IV PRN ×2 (01:49→08:57)
[2017-12-03] MEDS ORDERED: ESMOLOL HCL INJ/PF 100 MG/10 ML SDV IV ONE ×2 (08:03→18:13)
[2017-12-03] MEDS ORDERED: GLYCOPYRROLATE INJ 0.4 MG/2 ML VIAL ONE (08:03)
[2017-12-03] MEDS ORDERED: VECURONIUM BROMIDE INJ 10 MG VIAL IV ONE (08:03)
[2017-12-03] MEDS ORDERED: SUCCINYLCHOLINE CHLORIDE INJ 200 MG/10 ML VIAL ONE (08:03)
[2017-12-03] MEDS ORDERED: NEOSTIGMINE METHYLSULFATE 10 MG/10 ML VIAL ONE (08:03)
[2017-12-03] MEDS ORDERED: PHENYLEPHRINE HCL INJ/PF 10 MG/1 ML SDV ONE (08:03)
[2017-12-03] MEDS: TIOTROPIUM BROMIDE DPI 5 CAP/KIT (18 MCG/CAP) IH SCH (09:00)
[2017-12-03] MEDS: INSULIN GLARGINE,HUM.REC.ANLOG 300 UNIT/3 ML INSULN.PEN SUBCUT SCH ×2 (09:01→17:28)
[2017-12-03] MEDS ORDERED: MAGNESIUM CITRATE 296 ML BOTTLE PO ONE (12:27)
--- NOTE | 2017-12-03 12:34 | PDOC PROGRESS REPORT ---
Subjective Progress Note for:: 12/03/17 Subjective:: There were unable to pass a Dobbhoff passed his nose yesterday. He has had facial trauma in the past. Still not taking anything other than an occasional sip of liquid. KUB showed constipation. Reason For Visit: DKA Physical Exam Vital Signs: Temp Pulse Resp BP Pulse Ox 98.2 F 73 12 93/45 L 97 12/03/17 07:39 12/03/17 07:39 12/03/17 07:39 12/03/17 07:39 12/03/17 07:39 Intake & Output 12/02/17 12/03/17 12/04/17 05:59 05:59 05:59 Intake Total 750 4574 Output Total 900 1100 300 Balance -150 3474 -300 Weight 147 lb 14.883 oz 148 lb 5.938 oz General appearance: PRESENT: no acute distress, cooperative, thin Respiratory exam: PRESENT: clear to auscultation elif, decreased breath sounds Cardiovascular exam: PRESENT: RRR GI/Abdominal exam: PRESENT: soft. ABSENT: tenderness Extremities exam: ABSENT: pedal edema Neurological exam: PRESENT: alert Psychiatric exam: PRESENT: appropriate affect Skin exam: PRESENT: warm Results Laboratory Results: 12/02/17 04:47 12/02/17 04:47 11/30/17 12/01/17 12/01/17 05:22 22:45 22:45 Creatine Kinase 30 L CK-MB (CK-2) 0.73 Troponin I 0.015 NT-Pro-B Natriuret Pep 386 12/02/17 12/02/17 12/02/17 04:47 04:47 10:36 Creatine Kinase 30 L 28 L CK-MB (CK-2) 0.53 Troponin I 0.016 NT-Pro-B Natriuret Pep 12/02/17 12/02/17 12/02/17 10:36 16:50 16:50 Creatine Kinase 35 L CK-MB (CK-2) 0.51 0.39 Troponin I 0.015 < 0.012 NT-Pro-B Natriuret Pep Impressions: Cervical Spine CT 11/29/17 08:28 IMPRESSION: No acute changes Head CT 11/29/17 08:28 IMPRESSION: No acute intracranial changes. Nasal bone fracture with trace fluid in the right maxillary sinus. EVIDENCE OF ACUTE STROKE: NO. Chest X-Ray 11/29/17 08:29 IMPRESSION: NO ACUTE RADIOGRAPHIC FINDING IN THE CHEST. Fluoroscopy 12/02/17 00:00 IMPRESSION: Unsuccessful Dobbhoff feeding tube placement. KUB X-Ray 12/02/17 00:00 IMPRESSION: Constipation. Cannot exclude intrarenal calculi. Assessment & Plan - Diagnosis (1) Nausea and vomiting Qualifiers: Vomiting Intractability: intractable Is this a current diagnosis for this admission?: Yes Plan: Certainly sounds like a complication of radiation therapy that is not improving. We are unable to place a Dobbhoff. I will consult surgery to see if they would be willing to place a PEG tube so we can provide some sort of nutrition. Swallow eval and modified barium pending. I will try a Dulcolax for his constipation since I do not think he can keep down on oral laxative. May have to give him an enema. (2) DM hyperosmolarity type II, uncontrolled Is this a current diagnosis for this admission?: Yes Plan: Hemoglobin A1c markedly elevated. Currently stable. Continue current medication. (3) COPD (chronic obstructive pulmonary disease) Qualifiers: COPD type: emphysema Is this a current diagnosis for this admission?: Yes Plan: Stable. Continue home medications. Monitor closely. (4) Lung cancer Qualifiers: Laterality: right Lung location: lower lobe of lung Qualified Code(s): C34.31 - Malignant neoplasm of lower lobe, right bronchus or lung Is this a current diagnosis for this admission?: Yes Plan: Finished radiation therapy 5 weeks ago. Has not been able to eat with any consistency since then. (5) Esophageal ulcer without bleeding Is this a current diagnosis for this admission?: Yes Plan: Seen on EGD. Unclear to what extent that is affecting his swallowing/ability to eat. Continue PPI therapy
[2017-12-03] MEDS ORDERED: BISACODYL 10 MG SUPP.RECT PR ONE (13:00)
[2017-12-03] MEDS ORDERED: FENTANYL CITRATE INJ/PF 100 MCG/2 ML AMPUL ONE ×2 (13:05→15:33)
[2017-12-03] MEDS ORDERED: DEXAMETHASONE SOD PHOSPHATE INJ 4 MG/1 ML VIAL ONE ×2 (13:05→15:33)
[2017-12-03] MEDS ORDERED: LIDOCAINE 2% INJ-PF (20 MG/ML) 10 ML AMPUL ONE (13:05)
[2017-12-03] MEDS ORDERED: MIDAZOLAM 2 MG/2 ML INJ ONE (13:05)
[2017-12-03] MEDS ORDERED: ACETAMINOPHEN 0 ML IV ONE (13:06)
[2017-12-03] MEDS ORDERED: PROPOFOL INJ 200 MG/20 ML VIAL IV ONE (13:06)
[2017-12-03] MEDS ORDERED: CEFAZOLIN INJ 1 GM VIAL ONE (14:07)
[2017-12-03] MEDS ORDERED: MORPHINE SULFATE 10 MG/ML INJ IV PRN (14:19)
[2017-12-03] MEDS ORDERED: DIPHENHYDRAMINE HCL 50 MG/ML VIAL IV PRN (14:19)
[2017-12-03] MEDS ORDERED: ONDANSETRON HCL INJ/PF 4 MG/2 ML SDV IV PRN (14:19)
[2017-12-03] MEDS ORDERED: PROMETHAZINE HCL INJ 25 MG/1 ML VIAL IV PRN ×2 (14:19)
[2017-12-03] MEDS ORDERED: MEPERIDINE HCL/PF INJ 25 MG/1 ML DISP.SYRIN IV PRN (14:19)
[2017-12-03] MEDS ORDERED: FENTANYL CITRATE INJ/PF 100 MCG/2 ML AMPUL IV PRN ×3 (14:19)
[2017-12-03] MEDS ORDERED: MORPHINE SULFATE 10 MG/ML INJ ONE (15:37)
--- NOTE | 2017-12-03 16:44 | OPERATIVE REPORT E ---
Operative Report NAME: SHEILA VALERIO : 1950 AGE: 67Y DATE OF SURGERY: 12/03/2017 ROOM: 331 PREOPERATIVE DIAGNOSIS: Partial obstruction of the esophagus, likely due to lung cancer with contiguous involvement of the esophagus. POSTOPERATIVE DIAGNOSIS: Partial obstruction of the esophagus, likely due to lung cancer with contiguous involvement of the esophagus. PROCEDURE: Open gastrostomy tube placement. SURGEON: ELFEGO MILIAN M.D. ANESTHESIA: General. INDICATIONS: This is a 67-year-old male with known history of lung cancer. Patient had radiation therapy about 13 times and in the past few days has been unable to swallow anything. He could swallow some liquids last night but he would bring it up. Patient has been DNR but patient and family request placement of open gastrostomy tube for the time being until hopefully patient will be able to swallow when hopefully edema from the radiation therapy would subside in the next few weeks. DESCRIPTION OF PROCEDURE: After adequate general anesthesia, the patient was placed in supine position and the abdomen prepped and draped in the usual sterile fashion. Appropriate time out was called. Next, a midline incision was then made just below the xiphoid and just above the umbilicus. The abdominal cavity was then entered and the stomach was then identified. An appropriate area was isolated and 2 [id number] sutures using 2-0 Vicryl were placed and tied. Next, a small stab incision was made in the left upper quadrant and a hemostat passed through the skin towards the abdominal cavity. Another hemostat was grabbed and pulled up over the incision on the skin. Next, a gastrostomy tube 24 Brazilian was then pulled down through the skin into the abdominal cavity. Next, with the use of cautery the central part of the pursestring sutures were then cauterized and the stomach opening enlarged slightly with the use of a hemostat. The catheter was then placed through the gastrostomy opening and the balloon inflated. The catheter was then secured around the gastrostomy with the previously placed pursestring sutures that were then tied snugly. Next, 4 sutures of 2-0 Vicryl were placed around the gastrostomy site and sutured to the abdominal wall which were then tied. The omentum was partially placed around the gastrostomy tube with 2-0 Vicryl sutures. The catheter was then checked by placement of about 20 to 30 mL through the G tube. Fluid went through to the stomach with no evidence of spillage or leak determined. Next, the abdominal cavity was gently irrigated with about 200 mL of saline. Next, the fascia was then closed with running suture using single-strand #1 PDS. The subcu was then irrigated with saline solution and the skin closed with albert. The catheter G tube was then anchored to the skin with 2-0 Prolene. A sterile dressing was placed over the incision site. Needle, instrument, and sponge counts were all correct and estimated blood loss about 20 mL. Patient was then brought to the recovery room in satisfactory condition. DICTATING PHYSICIAN: ELFEGO MILIAN M.D. [id number] PHY#: [id number] ID: [id number] JOB#: [id number] ACCT: [id number] cc:ELFEGO MILIAN M.D. >
[2017-12-03] MEDS: MORPHINE SULFATE 10 MG/ML INJ IV PRN ×2 (18:06→20:13)
[2017-12-03] MEDS: CEFAZOLIN 1 GM/D5W RTU 1 GM/50 ML RTUPB IV SCH (21:26)
[2017-12-04] MEDS: MORPHINE SULFATE 10 MG/ML INJ IV PRN ×3 (00:58→09:43)
[2017-12-04] MEDS: CEFAZOLIN 1 GM/D5W RTU 1 GM/50 ML RTUPB IV SCH ×2 (06:13→13:15)
[2017-12-04] MEDS: INSULIN LISPRO 100 UNIT/ML 3 ML VIAL SUBCUT PRN ×3 (06:16→18:12)
[2017-12-04] MEDS: DEXTROSE 5%-NORMAL SALINE 1,000 ML IV PRN ×2 (06:19→12:40)
[2017-12-04 06:54] LABS: ALBUMIN 2.6 g/dL (3.5-5.0); BLOOD UREA NITROGEN 7 mg/dL (7-20); CALCIUM 9.3 mg/dL (8.4-10.2); CHLORIDE 106 mmol/L (98-107); GLUCOSE 310 mg/dL (75-110); PHOSPHORUS 5.5 mg/dL (2.5-4.5); POTASSIUM 4.1 mmol/L (3.6-5.0)
[2017-12-04 06:59] LABS: CARBON DIOXIDE 14 mmol/L (22-30); SODIUM 140.1 mmol/L (137-145)
[2017-12-04 07:00] LABS: ANION GAP 20 (5-19)
[2017-12-04] MEDS: TIOTROPIUM BROMIDE DPI 5 CAP/KIT (18 MCG/CAP) IH SCH (09:20)
[2017-12-04] MEDS: INSULIN GLARGINE,HUM.REC.ANLOG 300 UNIT/3 ML INSULN.PEN SUBCUT SCH ×2 (09:21→17:19)
[2017-12-04] MEDS: ONDANSETRON HCL INJ/PF 4 MG/2 ML SDV IV PRN (09:43)
[2017-12-04] MEDS ORDERED: METOCLOPRAMIDE HCL INJ/PF 10 MG/2 ML SDV IV PRN (10:14)
[2017-12-04] MEDS ORDERED: POLYETHYLENE GLYCOL 3350 POWDER 17 GM/1 PACKET PEG ONE (10:45)
[2017-12-04] MEDS ORDERED: ENOXAPARIN SODIUM INJ 40 MG/0.4 ML DISP.SYRIN SUBCUT SCH (12:00)
--- NOTE | 2017-12-04 13:10 | PDOC PROGRESS REPORT ---
Subjective Progress Note for:: 12/04/17 Subjective:: Continues to have intermittent chest pain presumably from his esophageal ulcer. EKGs at the time are nondiagnostic. Reason For Visit: DKA Physical Exam Vital Signs: Temp Pulse Resp BP Pulse Ox 98.2 F 93 14 93/53 L 98 12/04/17 11:41 12/04/17 11:41 12/04/17 11:41 12/04/17 11:41 12/04/17 11:41 Intake & Output 12/03/17 12/04/17 12/05/17 05:59 05:59 05:59 Intake Total 4574 1363 1414 Output Total 1100 1402 475 Balance 3474 -39 939 Weight 148 lb 5.938 oz 159 lb 2.78 oz General appearance: PRESENT: no acute distress, other - Chronically ill- appearing Respiratory exam: PRESENT: clear to auscultation elif Cardiovascular exam: PRESENT: RRR GI/Abdominal exam: PRESENT: soft, other - J-tube in place Extremities exam: ABSENT: pedal edema Neurological exam: PRESENT: awake - Somewhat somnolent from pain medication Psychiatric exam: PRESENT: appropriate affect Skin exam: PRESENT: warm Results Laboratory Results: 12/02/17 04:47 12/04/17 05:49 12/04/17 05:49 Sodium 140.1 Potassium 4.1 Chloride 106 Carbon Dioxide 14 L Anion Gap 20 H BUN 7 Creatinine 0.61 Est GFR ( Amer) > 60 Est GFR (Non-Af Amer) > 60 Glucose 310 H Calcium 9.3 Phosphorus 5.5 H Magnesium 1.7 Albumin 2.6 L 11/30/17 12/01/17 12/01/17 05:22 22:45 22:45 Creatine Kinase 30 L CK-MB (CK-2) 0.73 Troponin I 0.015 NT-Pro-B Natriuret Pep 386 12/02/17 12/02/17 12/02/17 04:47 04:47 10:36 Creatine Kinase 30 L 28 L CK-MB (CK-2) 0.53 Troponin I 0.016 NT-Pro-B Natriuret Pep 12/02/17 12/02/17 12/02/17 10:36 16:50 16:50 Creatine Kinase 35 L CK-MB (CK-2) 0.51 0.39 Troponin I 0.015 < 0.012 NT-Pro-B Natriuret Pep Impressions: Cervical Spine CT 11/29/17 08:28 IMPRESSION: No acute changes Head CT 11/29/17 08:28 IMPRESSION: No acute intracranial changes. Nasal bone fracture with trace fluid in the right maxillary sinus. EVIDENCE OF ACUTE STROKE: NO. Chest X-Ray 11/29/17 08:29 IMPRESSION: NO ACUTE RADIOGRAPHIC FINDING IN THE CHEST. Fluoroscopy 12/02/17 00:00 IMPRESSION: Unsuccessful Dobbhoff feeding tube placement. KUB X-Ray 12/02/17 00:00 IMPRESSION: Constipation. Cannot exclude intrarenal calculi. Assessment & Plan - Diagnosis (1) Nausea and vomiting Qualifiers: Vomiting Intractability: intractable Is this a current diagnosis for this admission?: Yes Plan: Certainly sounds like a complication of radiation therapy that is not improving. J-tube placed yesterday. Timing on its use per surgery No result from the Dulcolax yesterday. I on my list of things to put down his J -tube will be MiraLAX, followed if ineffective by mag citrate. (2) DM hyperosmolarity type II, uncontrolled Is this a current diagnosis for this admission?: Yes Plan: Hemoglobin A1c markedly elevated. Currently stable. Continue current medication. (3) COPD (chronic obstructive pulmonary disease) Qualifiers: COPD type: emphysema Is this a current diagnosis for this admission?: Yes Plan: Stable. Continue home medications. Monitor closely. (4) Lung cancer Qualifiers: Laterality: right Lung location: lower lobe of lung Qualified Code(s): C34.31 - Malignant neoplasm of lower lobe, right bronchus or lung Is this a current diagnosis for this admission?: Yes Plan: Finished radiation therapy 5 weeks ago. Has not been able to eat with any consistency since then. Follow-up at [place] after discharge. (5) Esophageal ulcer without bleeding Is this a current diagnosis for this admission?: Yes Plan: Seen on EGD. Unclear to what extent that is affecting his swallowing/ability to eat. Continue PPI therapy
[2017-12-04] MEDS: POTASSI CL 20 MEQ/1/2NS 1L 20 MEQ/1,000 ML RTUINJ IV PRN ×2 (14:17→23:58)
--- NOTE | 2017-12-04 15:21 | PDOC PROGRESS REPORT ---
Subjective Progress Note for:: 12/04/17 Subjective:: Incisional pains Reason For Visit: DKA Physical Exam Vital Signs: Temp Pulse Resp BP Pulse Ox 98.2 F 89 14 93/53 L 98 12/04/17 11:41 12/04/17 14:00 12/04/17 11:41 12/04/17 11:41 12/04/17 11:41 Intake & Output 12/03/17 12/04/17 12/05/17 06:59 06:59 06:59 Intake Total 4574 2777 0 Output Total 1100 1402 475 Balance 3474 1375 -475 Weight 67.3 kg 72.2 kg Exam: Abd is soft and non distended Gastrostomy tube site is clean and dry It drained 200 ccs until 6 am and since then has about 300 ccs of clear light yellow fluid Results Laboratory Results: 12/02/17 04:47 12/04/17 05:49 12/04/17 05:49 Sodium 140.1 Potassium 4.1 Chloride 106 Carbon Dioxide 14 L Anion Gap 20 H BUN 7 Creatinine 0.61 Est GFR ( Amer) > 60 Est GFR (Non-Af Amer) > 60 Glucose 310 H Calcium 9.3 Phosphorus 5.5 H Magnesium 1.7 Albumin 2.6 L 11/30/17 12/01/17 12/01/17 05:22 22:45 22:45 Creatine Kinase 30 L CK-MB (CK-2) 0.73 Troponin I 0.015 NT-Pro-B Natriuret Pep 386 12/02/17 12/02/17 12/02/17 04:47 04:47 10:36 Creatine Kinase 30 L 28 L CK-MB (CK-2) 0.53 Troponin I 0.016 NT-Pro-B Natriuret Pep 12/02/17 12/02/17 12/02/17 10:36 16:50 16:50 Creatine Kinase 35 L CK-MB (CK-2) 0.51 0.39 Troponin I 0.015 < 0.012 NT-Pro-B Natriuret Pep Impressions: Cervical Spine CT 11/29/17 08:28 IMPRESSION: No acute changes Head CT 11/29/17 08:28 IMPRESSION: No acute intracranial changes. Nasal bone fracture with trace fluid in the right maxillary sinus. EVIDENCE OF ACUTE STROKE: NO. Chest X-Ray 11/29/17 08:29 IMPRESSION: NO ACUTE RADIOGRAPHIC FINDING IN THE CHEST. Fluoroscopy 12/02/17 00:00 IMPRESSION: Unsuccessful Dobbhoff feeding tube placement. KUB X-Ray 12/02/17 00:00 IMPRESSION: Constipation. Cannot exclude intrarenal calculi. Assessment & Plan - Time Time Spent with patient: 15-24 minutes - Plan Summary Plan Summary: Instructed nurse to measure drainage from G tube until 7 pm. If drainage is < 200 ccs OK to start using G Tube starting tap water.
--- NOTE | 2017-12-04 16:34 | EKG REPORT ---
SEVERITY:- ABNORMAL ECG - SINUS TACHYCARDIA LOW VOLTAGE IN FRONTAL LEADS BORDERLINE T WAVE ABNORMALITIES BORDERLINE PROLONGED QT INTERVAL : Confirmed by: Felipe Wing MD 04-Dec-2017 16:33:17
[2017-12-04] MEDS: PANTOPRAZOLE SODIUM 40 MG VIAL IV SCH (17:19)
[2017-12-05] MEDS: MORPHINE SULFATE 10 MG/ML INJ IV PRN ×3 (01:10→13:49)
[2017-12-05] MEDS: PANTOPRAZOLE SODIUM 40 MG VIAL IV SCH ×2 (05:27→17:56)
[2017-12-05 07:13] LABS: ALBUMIN 2.6 g/dL (3.5-5.0); ANION GAP 10 (5-19); BLOOD UREA NITROGEN 6 mg/dL (7-20); CHLORIDE 108 mmol/L (98-107); GLUCOSE 124 mg/dL (75-110); POTASSIUM 4.1 mmol/L (3.6-5.0); SODIUM 144.7 mmol/L (137-145)
[2017-12-05 07:34] LABS: CARBON DIOXIDE 27 mmol/L (22-30); PHOSPHORUS 3.1 mg/dL (2.5-4.5)
[2017-12-05] MEDS: ENOXAPARIN SODIUM INJ 40 MG/0.4 ML DISP.SYRIN SUBCUT SCH (09:12)
[2017-12-05] MEDS: INSULIN GLARGINE,HUM.REC.ANLOG 300 UNIT/3 ML INSULN.PEN SUBCUT SCH ×2 (09:12→17:55)
[2017-12-05] MEDS: TIOTROPIUM BROMIDE DPI 5 CAP/KIT (18 MCG/CAP) IH SCH (09:13)
[2017-12-05] MEDS: POTASSI CL 20 MEQ/1/2NS 1L 20 MEQ/1,000 ML RTUINJ IV PRN ×2 (10:30→19:52)
--- NOTE | 2017-12-05 11:16 | PDOC PROGRESS REPORT ---
Subjective Progress Note for:: 12/05/17 Subjective:: No current complaints. Little sleepy currently. Low volume water has been running into the J-tube overnight without incident. Reason For Visit: DKA Physical Exam Vital Signs: Temp Pulse Resp BP Pulse Ox 98.5 F 86 14 116/57 L 99 12/05/17 07:38 12/05/17 07:38 12/05/17 07:38 12/05/17 07:38 12/05/17 07:38 Intake & Output 12/04/17 12/05/17 12/06/17 05:59 05:59 05:59 Intake Total 1454 4565 61 Output Total 1402 1550 Balance 52 3015 61 Weight 159 lb 2.78 oz 155 lb 13.869 oz General appearance: PRESENT: no acute distress, thin, other - Chronically ill- appearing Teeth exam: PRESENT: edentulous Respiratory exam: PRESENT: clear to auscultation elif Cardiovascular exam: PRESENT: RRR GI/Abdominal exam: PRESENT: soft, tenderness - Mild around the surgical site, other - J-tube in place without evidence of complication Extremities exam: ABSENT: pedal edema Neurological exam: PRESENT: awake Psychiatric exam: PRESENT: appropriate affect Skin exam: PRESENT: dry, warm Results Laboratory Results: 12/02/17 04:47 12/05/17 05:36 12/05/17 05:36 Sodium 144.7 Potassium 4.1 Chloride 108 H Carbon Dioxide 27 D Anion Gap 10 BUN 6 L Creatinine 0.51 L Est GFR ( Amer) > 60 Est GFR (Non-Af Amer) > 60 Glucose 124 H Calcium 9.0 Phosphorus 3.1 D Magnesium 1.7 Albumin 2.6 L 11/30/17 12/01/17 12/01/17 05:22 22:45 22:45 Creatine Kinase 30 L CK-MB (CK-2) 0.73 Troponin I 0.015 NT-Pro-B Natriuret Pep 386 12/02/17 12/02/17 12/02/17 04:47 04:47 10:36 Creatine Kinase 30 L 28 L CK-MB (CK-2) 0.53 Troponin I 0.016 NT-Pro-B Natriuret Pep 12/02/17 12/02/17 12/02/17 10:36 16:50 16:50 Creatine Kinase 35 L CK-MB (CK-2) 0.51 0.39 Troponin I 0.015 < 0.012 NT-Pro-B Natriuret Pep Impressions: Cervical Spine CT 11/29/17 08:28 IMPRESSION: No acute changes Head CT 11/29/17 08:28 IMPRESSION: No acute intracranial changes. Nasal bone fracture with trace fluid in the right maxillary sinus. EVIDENCE OF ACUTE STROKE: NO. Chest X-Ray 11/29/17 08:29 IMPRESSION: NO ACUTE RADIOGRAPHIC FINDING IN THE CHEST. Fluoroscopy 12/02/17 00:00 IMPRESSION: Unsuccessful Dobbhoff feeding tube placement. KUB X-Ray 12/02/17 00:00 IMPRESSION: Constipation. Cannot exclude intrarenal calculi. Assessment & Plan - Diagnosis (1) Nausea and vomiting Qualifiers: Vomiting Intractability: intractable Is this a current diagnosis for this admission?: Yes Plan: Certainly sounds like a complication of radiation therapy that is not improving. J-tube placed by surgery and they have cleared for use No result from the MiraLAX, try mag citrate. (2) DM hyperosmolarity type II, uncontrolled Is this a current diagnosis for this admission?: Yes Plan: Hemoglobin A1c markedly elevated. Currently stable. Continue current medication and monitor closely with the introduction of tube feeds (3) COPD (chronic obstructive pulmonary disease) Qualifiers: COPD type: emphysema Is this a current diagnosis for this admission?: Yes Plan: Stable. Continue home medications. Monitor closely. (4) Lung cancer Qualifiers: Laterality: right Lung location: lower lobe of lung Qualified Code(s): C34.31 - Malignant neoplasm of lower lobe, right bronchus or lung Is this a current diagnosis for this admission?: Yes Plan: Finished radiation therapy 5 weeks ago. Has not been able to eat with any consistency since then. Follow-up at [place] after discharge. (5) Esophageal ulcer without bleeding Is this a current diagnosis for this admission?: Yes Plan: Seen on EGD. Unclear to what extent that is affecting his swallowing/ability to eat. Continue PPI therapy
[2017-12-05] MEDS ORDERED: MAGNESIUM CITRATE 296 ML BOTTLE PEG ONE (12:00)
--- NOTE | 2017-12-05 14:41 | PDOC PROGRESS REPORT ---
Subjective Progress Note for:: 12/05/17 Subjective:: incisional pains. No flatus Reason For Visit: DKA Physical Exam Vital Signs: Temp Pulse Resp BP Pulse Ox 98.0 F 84 16 93/50 L 100 12/05/17 11:42 12/05/17 11:42 12/05/17 11:42 12/05/17 11:42 12/05/17 11:42 Intake & Output 12/04/17 12/05/17 12/06/17 06:59 06:59 06:59 Intake Total 2868 3151 478 Output Total 1402 1550 100 Balance 1466 1601 378 Weight 72.2 kg 70.7 kg Exam: abd is soft.flat with mild incisional pains Results Laboratory Results: 12/02/17 04:47 12/05/17 05:36 12/05/17 05:36 Sodium 144.7 Potassium 4.1 Chloride 108 H Carbon Dioxide 27 D Anion Gap 10 BUN 6 L Creatinine 0.51 L Est GFR ( Amer) > 60 Est GFR (Non-Af Amer) > 60 Glucose 124 H Calcium 9.0 Phosphorus 3.1 D Magnesium 1.7 Albumin 2.6 L 11/30/17 12/01/17 12/01/17 05:22 22:45 22:45 Creatine Kinase 30 L CK-MB (CK-2) 0.73 Troponin I 0.015 NT-Pro-B Natriuret Pep 386 12/02/17 12/02/17 12/02/17 04:47 04:47 10:36 Creatine Kinase 30 L 28 L CK-MB (CK-2) 0.53 Troponin I 0.016 NT-Pro-B Natriuret Pep 12/02/17 12/02/17 12/02/17 10:36 16:50 16:50 Creatine Kinase 35 L CK-MB (CK-2) 0.51 0.39 Troponin I 0.015 < 0.012 NT-Pro-B Natriuret Pep Impressions: Cervical Spine CT 11/29/17 08:28 IMPRESSION: No acute changes Head CT 11/29/17 08:28 IMPRESSION: No acute intracranial changes. Nasal bone fracture with trace fluid in the right maxillary sinus. EVIDENCE OF ACUTE STROKE: NO. Chest X-Ray 11/29/17 08:29 IMPRESSION: NO ACUTE RADIOGRAPHIC FINDING IN THE CHEST. Fluoroscopy 12/02/17 00:00 IMPRESSION: Unsuccessful Dobbhoff feeding tube placement. KUB X-Ray 12/02/17 00:00 IMPRESSION: Constipation. Cannot exclude intrarenal calculi. Assessment & Plan - Time Time Spent with patient: 15-24 minutes - Plan Summary Plan Summary: OK to switch to regular tube feedings slowly OOB
[2017-12-06] MEDS: MORPHINE SULFATE 10 MG/ML INJ IV PRN ×4 (05:47→22:27)
[2017-12-06] MEDS: PANTOPRAZOLE SODIUM 40 MG VIAL IV SCH ×2 (05:47→18:36)
[2017-12-06 06:14] LABS: HEMATOCRIT 33.9 % (37.9-51.0); HEMOGLOBIN 11.7 g/dL (13.5-17.0); MEAN CORPUSCULAR HEMOGLOBIN 27.9 pg (27.0-33.4); MEAN CORPUSCULAR HGB CONC 34.6 g/dL (32.0-36.0); MEAN CORPUSCULAR VOLUME 81 fl (80-97); PLATELET COUNT 182 10^3/uL (150-450); RED BLOOD COUNT 4.21 10^6/uL (4.35-5.55); RED CELL DISTRIBUTION WIDTH 16.3 % (11.5-14.0); WHITE BLOOD COUNT 3.7 10^3/uL (4.0-10.5)
[2017-12-06] MEDS: POTASSI CL 20 MEQ/1/2NS 1L 20 MEQ/1,000 ML RTUINJ IV PRN (06:17)
[2017-12-06 06:29] LABS: ALANINE AMINOTRANSFERASE 26 U/L (21-72); ALBUMIN 2.6 g/dL (3.5-5.0); ALKALINE PHOSPHATASE 69 U/L (38-126); ANION GAP 6 (5-19); ASPARTATE AMINO TRANSFERASE 22 U/L (17-59); BILIRUBIN,DIRECT 0.3 mg/dL (0.0-0.4); BILIRUBIN,TOTAL 0.4 mg/dL (0.2-1.3); BLOOD UREA NITROGEN 4 mg/dL (7-20); CALCIUM 8.7 mg/dL (8.4-10.2); CARBON DIOXIDE 29 mmol/L (22-30); CHLORIDE 102 mmol/L (98-107); CHOLESTEROL 143.41 mg/dL (0-200); GLUCOSE 87 mg/dL (75-110); IRON 26.7 ug/dL (49-181); SODIUM 136.7 mmol/L (137-145); TRIGLYCERIDES 181 mg/dL (<150)
[2017-12-06 06:40] LABS: DIRECT LDL 72 mg/dL (<100); PREALBUMIN 6.3 mg/dL (17.6-36.0)
[2017-12-06 06:44] LABS: VLDL CHOLESTEROL 36.2 mg/dL (10-31)
[2017-12-06] MEDS: TIOTROPIUM BROMIDE DPI 5 CAP/KIT (18 MCG/CAP) IH SCH (10:28)
[2017-12-06] MEDS: ENOXAPARIN SODIUM INJ 40 MG/0.4 ML DISP.SYRIN SUBCUT SCH (10:28)
[2017-12-06] MEDS: LIDOCAINE 2% VISCOUS SOLN 20 ML UDCUP PO PRN (10:36)
[2017-12-06] MEDS: INSULIN GLARGINE,HUM.REC.ANLOG 300 UNIT/3 ML INSULN.PEN SUBCUT SCH ×2 (10:37→18:36)
[2017-12-06] MEDS ORDERED: MAGNESIUM CITRATE 296 ML BOTTLE PEG ONE (11:30)
--- NOTE | 2017-12-06 13:20 | PDOC PROGRESS REPORT ---
Subjective Progress Note for:: 12/06/17 Subjective:: Still no bowel movement. Tolerating tube feeds thus far. Reason For Visit: DKA Physical Exam Vital Signs: Temp Pulse Resp BP Pulse Ox 98.0 F 83 18 120/64 94 12/06/17 07:52 12/06/17 07:52 12/06/17 07:52 12/06/17 07:52 12/06/17 07:52 Intake & Output 12/05/17 12/06/17 12/07/17 05:59 05:59 05:59 Intake Total 4565 2146 1536 Output Total 1550 1175 335 Balance 3015 971 1201 Weight 155 lb 13.869 oz 162 lb 11.218 oz General appearance: PRESENT: no acute distress, cooperative Respiratory exam: PRESENT: clear to auscultation elif, decreased breath sounds, prolonged expiratory phas Cardiovascular exam: PRESENT: RRR GI/Abdominal exam: PRESENT: soft. ABSENT: tenderness Neurological exam: PRESENT: alert Psychiatric exam: PRESENT: anxious Skin exam: PRESENT: warm Results Laboratory Results: 12/06/17 05:37 12/06/17 05:37 12/06/17 12/06/17 05:37 05:37 WBC 3.7 L RBC 4.21 L Hgb 11.7 L Hct 33.9 L MCV 81 MCH 27.9 MCHC 34.6 RDW 16.3 H Plt Count 182 Sodium 136.7 L Potassium 4.0 Chloride 102 Carbon Dioxide 29 Anion Gap 6 BUN 4 L Creatinine 0.43 L Est GFR ( Amer) > 60 Est GFR (Non-Af Amer) > 60 Glucose 87 Calcium 8.7 Magnesium 1.9 Iron 26.7 L Total Bilirubin 0.4 AST 22 ALT 26 Alkaline Phosphatase 69 Total Protein 5.0 L Albumin 2.6 L Prealbumin 6.3 L Triglycerides 181 H Cholesterol 143.41 LDL Cholesterol Direct 72 VLDL Cholesterol 36.2 H HDL Cholesterol 45 11/30/17 12/01/17 12/01/17 05:22 22:45 22:45 Creatine Kinase 30 L CK-MB (CK-2) 0.73 Troponin I 0.015 NT-Pro-B Natriuret Pep 386 12/02/17 12/02/17 12/02/17 04:47 04:47 10:36 Creatine Kinase 30 L 28 L CK-MB (CK-2) 0.53 Troponin I 0.016 NT-Pro-B Natriuret Pep 12/02/17 12/02/17 12/02/17 10:36 16:50 16:50 Creatine Kinase 35 L CK-MB (CK-2) 0.51 0.39 Troponin I 0.015 < 0.012 NT-Pro-B Natriuret Pep Impressions: Cervical Spine CT 11/29/17 08:28 IMPRESSION: No acute changes Head CT 11/29/17 08:28 IMPRESSION: No acute intracranial changes. Nasal bone fracture with trace fluid in the right maxillary sinus. EVIDENCE OF ACUTE STROKE: NO. Chest X-Ray 11/29/17 08:29 IMPRESSION: NO ACUTE RADIOGRAPHIC FINDING IN THE CHEST. Fluoroscopy 12/02/17 00:00 IMPRESSION: Unsuccessful Dobbhoff feeding tube placement. KUB X-Ray 12/02/17 00:00 IMPRESSION: Constipation. Cannot exclude intrarenal calculi. Assessment & Plan - Diagnosis (1) Nausea and vomiting Qualifiers: Vomiting Intractability: intractable Is this a current diagnosis for this admission?: Yes Plan: Certainly sounds like a complication of radiation therapy that is not improving. J-tube placed by surgery, tube feeds started yesterday afternoon, and he is tolerating so far. No result from the mag citrate. Repeat. May need an enema. (2) DM hyperosmolarity type II, uncontrolled Is this a current diagnosis for this admission?: Yes Plan: Hemoglobin A1c markedly elevated. Currently stable. Continue current medication and monitor closely with the introduction of tube feeds (3) COPD (chronic obstructive pulmonary disease) Qualifiers: COPD type: emphysema Is this a current diagnosis for this admission?: Yes Plan: Stable. Continue home medications. Monitor closely. (4) Lung cancer Qualifiers: Laterality: right Lung location: lower lobe of lung Qualified Code(s): C34.31 - Malignant neoplasm of lower lobe, right bronchus or lung Is this a current diagnosis for this admission?: Yes Plan: Finished radiation therapy 5 weeks ago. Has not been able to eat with any consistency since then. Follow-up at [place] after discharge. (5) Esophageal ulcer without bleeding Is this a current diagnosis for this admission?: Yes Plan: Seen on EGD. Unclear to what extent that is affecting his swallowing/ability to eat. Continue PPI therapy
[2017-12-07] MEDS: INSULIN LISPRO 100 UNIT/ML 3 ML VIAL SUBCUT PRN ×2 (01:00→06:31)
[2017-12-07] MEDS: LIDOCAINE 2% VISCOUS SOLN 20 ML UDCUP PO PRN (01:04)
[2017-12-07] MEDS: PANTOPRAZOLE SODIUM 40 MG VIAL IV SCH (06:16)
[2017-12-07] MEDS: MORPHINE SULFATE 10 MG/ML INJ IV PRN ×6 (06:17→21:50)
[2017-12-07] MEDS: ACETAMINOPHEN 325 MG TABLET PO PRN (08:12)
--- NOTE | 2017-12-07 09:02 | EKG REPORT ---
SEVERITY:- OTHERWISE NORMAL ECG - SINUS RHYTHM LOW VOLTAGE IN FRONTAL LEADS : Confirmed by: Koffi Diamond 07-Dec-2017 09:01:35
[2017-12-07] MEDS: INSULIN GLARGINE,HUM.REC.ANLOG 300 UNIT/3 ML INSULN.PEN SUBCUT SCH ×2 (09:29→18:25)
[2017-12-07] MEDS: ENOXAPARIN SODIUM INJ 40 MG/0.4 ML DISP.SYRIN SUBCUT SCH (09:30)
[2017-12-07] MEDS: TIOTROPIUM BROMIDE DPI 5 CAP/KIT (18 MCG/CAP) IH SCH (09:30)
--- NOTE | 2017-12-07 15:30 | PDOC PROGRESS REPORT ---
Subjective Progress Note for:: 12/07/17 Subjective:: Still no bowel movement. Tolerating tube feeds thus far. Continues to have severe, intermittent epigastric pain, that lasts a couple minutes and resolves on its own. Viscous lidocaine did not help. Reason For Visit: DKA Physical Exam Vital Signs: Temp Pulse Resp BP Pulse Ox 99.1 F 103 H 18 107/65 95 12/07/17 11:17 12/07/17 11:17 12/07/17 11:17 12/07/17 11:17 12/07/17 11:17 Intake & Output 12/06/17 12/07/17 12/08/17 05:59 05:59 05:59 Intake Total 2146 2356 927 Output Total 1175 935 400 Balance 971 1421 527 Weight 162 lb 11.218 oz 157 lb 3.033 oz General appearance: PRESENT: no acute distress, cooperative, disheveled, other - Chronically ill-appearing Teeth exam: PRESENT: edentulous Respiratory exam: PRESENT: clear to auscultation elif Cardiovascular exam: PRESENT: RRR GI/Abdominal exam: PRESENT: soft, other - PEG tube in place Extremities exam: PRESENT: other - Edema Musculoskeletal exam: PRESENT: normal inspection Neurological exam: PRESENT: alert Psychiatric exam: PRESENT: appropriate affect Skin exam: PRESENT: dry, warm Results Laboratory Results: 12/06/17 05:37 12/06/17 05:37 11/30/17 12/01/17 12/01/17 05:22 22:45 22:45 Creatine Kinase 30 L CK-MB (CK-2) 0.73 Troponin I 0.015 NT-Pro-B Natriuret Pep 386 12/02/17 12/02/17 12/02/17 04:47 04:47 10:36 Creatine Kinase 30 L 28 L CK-MB (CK-2) 0.53 Troponin I 0.016 NT-Pro-B Natriuret Pep 12/02/17 12/02/17 12/02/17 10:36 16:50 16:50 Creatine Kinase 35 L CK-MB (CK-2) 0.51 0.39 Troponin I 0.015 < 0.012 NT-Pro-B Natriuret Pep Impressions: Cervical Spine CT 11/29/17 08:28 IMPRESSION: No acute changes Head CT 11/29/17 08:28 IMPRESSION: No acute intracranial changes. Nasal bone fracture with trace fluid in the right maxillary sinus. EVIDENCE OF ACUTE STROKE: NO. Chest X-Ray 11/29/17 08:29 IMPRESSION: NO ACUTE RADIOGRAPHIC FINDING IN THE CHEST. Fluoroscopy 12/02/17 00:00 IMPRESSION: Unsuccessful Dobbhoff feeding tube placement. KUB X-Ray 12/02/17 00:00 IMPRESSION: Constipation. Cannot exclude intrarenal calculi. Assessment & Plan - Diagnosis (1) Nausea and vomiting Qualifiers: Vomiting Intractability: intractable Is this a current diagnosis for this admission?: Yes Plan: Certainly sounds like a complication of radiation therapy that is not improving. J-tube placed by surgery, tolerating tube feeds tube feeds, but I am concerned about continuing given his constipation.. No result from the mag citrate. Try an enema. (2) DM hyperosmolarity type II, uncontrolled Is this a current diagnosis for this admission?: Yes Plan: Hemoglobin A1c markedly elevated. Currently stable. Continue current medication and monitor closely with the introduction of tube feeds (3) COPD (chronic obstructive pulmonary disease) Qualifiers: COPD type: emphysema Is this a current diagnosis for this admission?: Yes Plan: Stable. Continue home medications. Monitor closely. (4) Lung cancer Qualifiers: Laterality: right Lung location: lower lobe of lung Qualified Code(s): C34.31 - Malignant neoplasm of lower lobe, right bronchus or lung Is this a current diagnosis for this admission?: Yes Plan: Finished radiation therapy 5 weeks ago. Has not been able to eat with any consistency since then. Follow-up at [place] after discharge. (5) Esophageal ulcer without bleeding Is this a current diagnosis for this admission?: Yes Plan: Seen on EGD. Unclear to what extent that is affecting his swallowing/ability to eat. Continue PPI therapy
[2017-12-08] MEDS: MORPHINE SULFATE 10 MG/ML INJ IV PRN ×2 (02:43→06:12)
[2017-12-08] MEDS ORDERED: MAGNESIUM CITRATE 296 ML BOTTLE PEG ONE (09:00)
[2017-12-08] MEDS ORDERED: NORMAL SALINE 1000 ML 1,000 ML IV ONE (09:00)
--- NOTE | 2017-12-08 10:11 | RADIOLOGY REPORT (SQ) ---
EXAM DESCRIPTION: KUB/ABDOMEN (SINGLE VIEW) COMPLETED DATE/TIME: 12/08/2017 9:38 am REASON FOR STUDY: f/u obstipation COMPARISON: KUB 12/02/2017 NUMBER OF VIEWS: One view. TECHNIQUE: Supine radiographic image of the abdomen acquired. LIMITATIONS: None. FINDINGS: BOWEL GAS PATTERN: Large amount of stool throughout the transverse, descending, and sigmoi d colon. Stool in the hepatic flexure. No dilated small bowel loops. Stomach decompressed. Left u pper quadrant G-tube present. CALCIFICATIONS: No suspicious calcifications. SOFT TISSUES: No gross mass or suggestion of organomegaly. HARDWARE: Surgical clips in the pelvis. Left hip replacement. Midline mid epigastric anterior abdom inal wall skin albert. Left upper quadrant G-tube. BONES: Degenerative changes L4-5 OTHER: No other significant finding. IMPRESSION: Persistent constipation TECHNICAL DOCUMENTATION: JOB ID: [id number] [employer]- All Rights Reserved Reading location - IP/workstation name: [email or web address]
[2017-12-08] MEDS: ENOXAPARIN SODIUM INJ 40 MG/0.4 ML DISP.SYRIN SUBCUT SCH (11:45)
[2017-12-08] MEDS: TIOTROPIUM BROMIDE DPI 5 CAP/KIT (18 MCG/CAP) IH SCH (11:46)
[2017-12-08] MEDS: HYDROMORPHONE HCL INJ/PF 2 MG/ML AMPULE IV PRN ×3 (11:47→19:53)
[2017-12-08] MEDS: INSULIN GLARGINE,HUM.REC.ANLOG 300 UNIT/3 ML INSULN.PEN SUBCUT SCH ×2 (11:47→17:25)
--- NOTE | 2017-12-08 16:40 | PDOC PROGRESS REPORT ---
Subjective Progress Note for:: 12/08/17 Subjective:: Still no bowel movement. Repeat KUB shows persistent constipation. Reason For Visit: DKA Physical Exam Vital Signs: Temp Pulse Resp BP Pulse Ox 98.7 F 97 18 92/52 L 97 12/08/17 08:14 12/08/17 08:14 12/08/17 08:14 12/08/17 08:14 12/08/17 08:14 Intake & Output 12/07/17 12/08/17 12/09/17 05:59 05:59 05:59 Intake Total 2356 1047 Output Total 935 1100 Balance 1421 -53 Weight 154 lb 5.177 oz General appearance: PRESENT: no acute distress, thin, other - Chronically ill- appearing Respiratory exam: PRESENT: clear to auscultation elif Cardiovascular exam: PRESENT: RRR GI/Abdominal exam: PRESENT: distended, soft, other - J-tube in place placed this admission Extremities exam: PRESENT: other - No edema Neurological exam: PRESENT: alert Psychiatric exam: PRESENT: appropriate affect Skin exam: PRESENT: warm Results Laboratory Results: 12/06/17 05:37 12/06/17 05:37 11/30/17 12/01/17 12/01/17 05:22 22:45 22:45 Creatine Kinase 30 L CK-MB (CK-2) 0.73 Troponin I 0.015 NT-Pro-B Natriuret Pep 386 12/02/17 12/02/17 12/02/17 04:47 04:47 10:36 Creatine Kinase 30 L 28 L CK-MB (CK-2) 0.53 Troponin I 0.016 NT-Pro-B Natriuret Pep 12/02/17 12/02/17 12/02/17 10:36 16:50 16:50 Creatine Kinase 35 L CK-MB (CK-2) 0.51 0.39 Troponin I 0.015 < 0.012 NT-Pro-B Natriuret Pep Impressions: Cervical Spine CT 11/29/17 08:28 IMPRESSION: No acute changes Head CT 11/29/17 08:28 IMPRESSION: No acute intracranial changes. Nasal bone fracture with trace fluid in the right maxillary sinus. EVIDENCE OF ACUTE STROKE: NO. Chest X-Ray 11/29/17 08:29 IMPRESSION: NO ACUTE RADIOGRAPHIC FINDING IN THE CHEST. Fluoroscopy 12/02/17 00:00 IMPRESSION: Unsuccessful Dobbhoff feeding tube placement. KUB X-Ray 12/08/17 00:00 IMPRESSION: Persistent constipation Assessment & Plan - Diagnosis (1) Nausea and vomiting Qualifiers: Vomiting Intractability: intractable Is this a current diagnosis for this admission?: Yes Plan: Certainly sounds like a complication of radiation therapy that is not improving. J-tube placed by surgery, tolerating tube feeds tube feeds, but I am concerned about continuing given his constipation.. I will at the medicine (mag citrate and an enema) given this morning work overnight. Repeat until we get results (2) DM hyperosmolarity type II, uncontrolled Is this a current diagnosis for this admission?: Yes Plan: Hemoglobin A1c markedly elevated. Currently stable. Continue current medication and monitor closely with the introduction of tube feeds (3) COPD (chronic obstructive pulmonary disease) Qualifiers: COPD type: emphysema Is this a current diagnosis for this admission?: Yes Plan: Stable. Continue home medications. Monitor closely. (4) Lung cancer Qualifiers: Laterality: right Lung location: lower lobe of lung Qualified Code(s): C34.31 - Malignant neoplasm of lower lobe, right bronchus or lung Is this a current diagnosis for this admission?: Yes Plan: Finished radiation therapy 5 weeks ago. Has not been able to eat with any consistency since then. Follow-up at [place] after discharge. (5) Esophageal ulcer without bleeding Is this a current diagnosis for this admission?: Yes Plan: Seen on EGD. Unclear to what extent that is affecting his swallowing/ability to eat. Continue PPI therapy Able to tolerate a little clear liquid today.
[2017-12-08] MEDS: ACETAMINOPHEN 325 MG TABLET PO PRN (17:24)
[2017-12-09 05:07] LABS: ABSOLUTE EOSINOPHILS # (AUTO) 0.1 10^3/uL (0.0-0.6); ABSOLUTE LYMPHOCYTES (AUTO) 0.4 10^3/uL (0.5-4.7); ABSOLUTE MONOCYTES (AUTO) 0.4 10^3/uL (0.1-1.4); ABSOLUTE NEUT (AUTO) 3.2 10^3/uL (1.7-8.2); BASOPHILS % (AUTO) 0.3 % (0-2); EOSINOPHILS % (AUTO) 1.8 % (0-6); HEMATOCRIT 33.6 % (37.9-51.0); HEMOGLOBIN 11.5 g/dL (13.5-17.0); LYMPHOCYTES % (AUTO) 9.6 % (13-45); MEAN CORPUSCULAR HEMOGLOBIN 27.5 pg (27.0-33.4); MEAN CORPUSCULAR HGB CONC 34.3 g/dL (32.0-36.0); MEAN CORPUSCULAR VOLUME 80 fl (80-97); MONOCYTES % (AUTO) 10.1 % (3-13); PLATELET COUNT 178 10^3/uL (150-450); RED BLOOD COUNT 4.19 10^6/uL (4.35-5.55); SEGMENTED NEUTROPHILS % (AUTO) 78.2 % (42-78); TOTAL CELLS COUNTED % (AUTO) 100 %; WHITE BLOOD COUNT 4.1 10^3/uL (4.0-10.5)
[2017-12-09 05:35] LABS: ALBUMIN 2.4 g/dL (3.5-5.0); ANION GAP 10 (5-19); BLOOD UREA NITROGEN 4 mg/dL (7-20); CALCIUM 8.6 mg/dL (8.4-10.2); CARBON DIOXIDE 30 mmol/L (22-30); CHLORIDE 101 mmol/L (98-107); GLUCOSE 114 mg/dL (75-110); POTASSIUM 4.1 mmol/L (3.6-5.0); SODIUM 140.7 mmol/L (137-145)
[2017-12-09] MEDS: HYDROMORPHONE HCL INJ/PF 2 MG/ML AMPULE IV PRN ×6 (07:26→21:55)
[2017-12-09] MEDS ORDERED: PROCHLORPERAZINE MALEATE 10 MG TABLET PEG PRN (10:00)
[2017-12-09] MEDS: TIOTROPIUM BROMIDE DPI 5 CAP/KIT (18 MCG/CAP) IH SCH (10:39)
[2017-12-09] MEDS: ENOXAPARIN SODIUM INJ 40 MG/0.4 ML DISP.SYRIN SUBCUT SCH (10:43)
[2017-12-09] MEDS: INSULIN GLARGINE,HUM.REC.ANLOG 300 UNIT/3 ML INSULN.PEN SUBCUT SCH ×2 (10:45→17:18)
--- NOTE | 2017-12-09 11:47 | PDOC PROGRESS REPORT ---
Subjective Progress Note for:: 12/09/17 Subjective:: Doing OK. Continues to have abdominal pain along PEG site. Tube feeds have been on hold. Able to swallow liquids but not any solid foods. Denies fevers, chills , CP. Has not been ambulatory due to deconditioned state. and daughter at bedside. Reason For Visit: DKA Physical Exam Vital Signs: Temp Pulse Resp BP Pulse Ox 98.7 F 78 16 109/56 L 97 12/09/17 07:18 12/09/17 07:18 12/09/17 07:18 12/09/17 07:18 12/09/17 07:18 Intake & Output 12/08/17 12/09/17 12/10/17 06:59 06:59 06:59 Intake Total 1027 20 Output Total 950 1250 Balance 77 -1230 Weight 70 kg 67.1 kg General appearance: PRESENT: no acute distress, thin, other - Chronically ill appearing Head exam: PRESENT: normocephalic Mouth exam: PRESENT: dry mucosa Teeth exam: PRESENT: edentulous Respiratory exam: PRESENT: prolonged expiratory phas Cardiovascular exam: PRESENT: +S1, +S2 GI/Abdominal exam: PRESENT: soft, tenderness - Diffusely, other - PEG tube in place, c/d/i Neurological exam: PRESENT: alert, awake, oriented to person, oriented to place , oriented to time Psychiatric exam: PRESENT: appropriate affect Skin exam: PRESENT: dry, warm Results Laboratory Results: 12/09/17 04:43 12/09/17 04:43 12/09/17 12/09/17 04:43 04:43 WBC 4.1 RBC 4.19 L Hgb 11.5 L Hct 33.6 L MCV 80 MCH 27.5 MCHC 34.3 RDW 16.0 H Plt Count 178 Seg Neutrophils % 78.2 H Lymphocytes % 9.6 L Monocytes % 10.1 Eosinophils % 1.8 Basophils % 0.3 Absolute Neutrophils 3.2 Absolute Lymphocytes 0.4 L Absolute Monocytes 0.4 Absolute Eosinophils 0.1 Absolute Basophils 0.0 Sodium 140.7 Potassium 4.1 Chloride 101 Carbon Dioxide 30 Anion Gap 10 BUN 4 L Creatinine 0.45 L Est GFR ( Amer) > 60 Est GFR (Non-Af Amer) > 60 Glucose 114 H Calcium 8.6 Phosphorus 4.0 Magnesium 1.9 Albumin 2.4 L 11/30/17 12/01/17 12/01/17 05:22 22:45 22:45 Creatine Kinase 30 L CK-MB (CK-2) 0.73 Troponin I 0.015 NT-Pro-B Natriuret Pep 386 12/02/17 12/02/17 12/02/17 04:47 04:47 10:36 Creatine Kinase 30 L 28 L CK-MB (CK-2) 0.53 Troponin I 0.016 NT-Pro-B Natriuret Pep 12/02/17 12/02/17 12/02/17 10:36 16:50 16:50 Creatine Kinase 35 L CK-MB (CK-2) 0.51 0.39 Troponin I 0.015 < 0.012 NT-Pro-B Natriuret Pep Impressions: Cervical Spine CT 11/29/17 08:28 IMPRESSION: No acute changes Head CT 11/29/17 08:28 IMPRESSION: No acute intracranial changes. Nasal bone fracture with trace fluid in the right maxillary sinus. EVIDENCE OF ACUTE STROKE: NO. Chest X-Ray 11/29/17 08:29 IMPRESSION: NO ACUTE RADIOGRAPHIC FINDING IN THE CHEST. Fluoroscopy 12/02/17 00:00 IMPRESSION: Unsuccessful Dobbhoff feeding tube placement. KUB X-Ray 12/08/17 00:00 IMPRESSION: Persistent constipation Assessment & Plan - Diagnosis (1) Nausea and vomiting Qualifiers: Vomiting type: cyclical vomiting Vomiting Intractability: intractable Qualified Code(s): G43.A1 - Cyclical vomiting, intractable Is this a current diagnosis for this admission?: Yes Plan: Most likely related to tube feeds/refeeding syndrome. Improved when TF's were discontinued. May also be due to constipation noted on Xray from 12/08 - Ordered Compazine 10mg PO q6 hours PRN. Give first 30 minutes before re- starting feeds - Re-challenge with feeds, titrate up slowly per nutrition recommendations - Review bowel regimen (2) DM hyperosmolarity type II, uncontrolled Is this a current diagnosis for this admission?: Yes Plan: Presented with DKA, blood sugars markedly improved (3) Esophageal ulcer without bleeding Is this a current diagnosis for this admission?: Yes Plan: Noted on EGD from 11/30 by GI. Per report no evidence of malignancy however gastritis and H pylori noted. Does not appear that patient has been treated for this. - Will start quadruple therapy with Bismuth 300mg QID + Doxycycline 100mg BID + Flagyl 500mg TID and PPI BID for 14 days, start date is 12/09 (4) Lung cancer Qualifiers: Laterality: right Lung location: lower lobe of lung Qualified Code(s): C34.31 - Malignant neoplasm of lower lobe, right bronchus or lung Is this a current diagnosis for this admission?: Yes Plan: Treated at [facility] with radiation therapy (60Gy, 30 fractions) - Was suppose to follow up to determine systemic therapy but has been hospitalized (5) Do not resuscitate Is this a current diagnosis for this admission?: Yes Plan: Current code status (6) H pylori ulcer Is this a current diagnosis for this admission?: Yes Plan: Will start quadruple therapy with Bismuth 300mg QID + Doxycycline 100mg BID + Flagyl 500mg TID and PPI BID for 14 days, start date is 12/09 - Time Time Spent with patient: 15-24 minutes Anticipated discharge: SNF
[2017-12-09] MEDS ORDERED: DOXYCYCLINE HYCLATE 100 MG TABLET PO ONE (12:30)
[2017-12-09] MEDS: BISMUTH SUBSALICYLATE 262 MG TAB.CHEW PO SCH ×2 (15:31→20:24)
[2017-12-09] MEDS: METRONIDAZOLE 500 MG TABLET PO SCH ×2 (15:33→22:02)
[2017-12-09] MEDS: DOXYCYCLINE HYCLATE 100 MG TABLET PO SCH (22:02)
[2017-12-10] MEDS: HYDROMORPHONE HCL INJ/PF 2 MG/ML AMPULE IV PRN ×6 (01:15→20:37)
[2017-12-10] MEDS: BISMUTH SUBSALICYLATE 262 MG TAB.CHEW PO SCH (04:10)
[2017-12-10] MEDS ORDERED: NA PHOS,M-B/NA PHOS,DI-BA (ADULT) 133 ML ENEMA PR ONE (05:00)
[2017-12-10] MEDS: METRONIDAZOLE 500 MG TABLET PO SCH ×2 (05:36→16:21)
--- NOTE | 2017-12-10 08:54 | RADIOLOGY REPORT (SQ) ---
EXAM DESCRIPTION: ACUTE ABDOMEN SERIES COMPLETED DATE/TIME: 12/10/2017 8:16 am REASON FOR STUDY: abdominal pain chest pressure COMPARISON: Two-view chest 09/20/2014 AP chest 11/29/2017 Abdominal films 12/08/2017, 12/02/2017 Abdominal ultrasound 10/26/2014 NUMBER OF VIEWS: Three views. TECHNIQUE: Frontal chest, supine abdomen and upright abdomen radiographic images acquired. LIMITATIONS: None. FINDINGS: CHEST: Upper lobes are hyperlucent from obstructive disease. There is mild vascular crowd ing at the right lung base. At the left lung base, bandlike consolidation is present atelectasis marcia bd pneumonia. Cardiac silhouette size, jeannine unremarkable. Bony structures unremarkable. FREE AIR: There is a moderate amount of subdiaphragmatic free air under the right hemidiaphragm. Thi s finding was discussed with Dr. Demarco. BOWEL GAS PATTERN: Distended stomach with air-fluid level. No dilated small bowel or colon. CALCIFICATIONS: No suspicious calcifications. HARDWARE: Midline 8 abdominal skin albert. Left upper quadrant gastrostomy. There are old pelvic s urgical clips from remote prior lymph node dissection and an old left hip replacement. SOFT TISSUES: No gross mass or suggestion of organomegaly. BONES: No acute fracture. No worrisome bone lesions. OTHER: No other significant finding. IMPRESSION: Left basilar airspace disease atelectasis versus pneumonia Right subdiaphragmatic free air Distended stomach with air-fluid level. TECHNICAL DOCUMENTATION: JOB ID: [id number] [employer]- All Rights Reserved Reading location - IP/workstation name: [email or web address]
[2017-12-10] MEDS ORDERED: MAGNESIUM CITRATE 296 ML BOTTLE PEG ONE (10:00)
--- NOTE | 2017-12-10 11:05 | RADIOLOGY REPORT (SQ) ---
EXAM DESCRIPTION: INJECT EXISTING/TUBE PLACEMENT COMPLETED DATE/TIME: 12/10/2017 10:48 am REASON FOR STUDY: through G-tube. Eval gastrostomy COMPARISON: Abdominal films 12/10/2017 FLUOROSCOPY TIME: 8 seconds 8 digital images saved to PACS. TECHNIQUE: Injection of 10 mL of Isovue-300 contrast through existing catheter. Fluoroscopic spot f ilms saved to PACS demonstrating final catheter position. LIMITATIONS: None. FINDINGS: The pre-existing gastrostomy tube was gently hand injected with 10 mL of Isovue-300. July ent experienced pain on injection. The contrast leaks into anterior abdominal wall soft tissues. No communication with the stomach is identified. This report was discussed with Dr. Robins IMPRESSION: Gastrostomy tube tip is outside the stomach, along the anterior abdominal wall. COMMENT: Quality ID [id number]: Final reports for procedures using fluoroscopy that document radiation exp osure indices, or exposure time and number of fluorographic images (if radiation exposure indices are not available) TECHNICAL DOCUMENTATION: JOB ID: [id number] [employer]- All Rights Reserved Reading location - IP/workstation name: [email or web address]
[2017-12-10] MEDS ORDERED: KETAMINE HCL INJ 500 MG/10 ML VIAL ONE (11:12)
[2017-12-10] MEDS ORDERED: MIDAZOLAM 2 MG/2 ML INJ ONE (11:13)
[2017-12-10] MEDS ORDERED: PROPOFOL INJ 200 MG/20 ML VIAL IV ONE (11:13)
[2017-12-10] MEDS ORDERED: FENTANYL CITRATE INJ/PF 100 MCG/2 ML AMPUL ONE (11:13)
[2017-12-10] MEDS ORDERED: BUPIVACAINE HCL 0.25 % INJ/PF (2.5 MG/1 ML) 30 ML VIAL ONE (11:13)
[2017-12-10] MEDS ORDERED: DEXMEDETOMIDINE INJ 80 MCG/20 ML VIAL IV ONE (11:13)
[2017-12-10] MEDS ORDERED: MORPHINE SULFATE 10 MG/ML INJ ONE (11:14)
[2017-12-10] MEDS ORDERED: ACETAMINOPHEN 0 MG/0 ML RTUPB IV ONE (11:14)
[2017-12-10] MEDS: BISMUTH SUBSALICYLATE 262 MG TAB.CHEW PEG SCH ×4 (11:33→23:57)
[2017-12-10] MEDS: DOXYCYCLINE HYCLATE 100 MG TABLET PO SCH (11:33)
[2017-12-10] MEDS: TIOTROPIUM BROMIDE DPI 5 CAP/KIT (18 MCG/CAP) IH SCH (11:33)
[2017-12-10] MEDS: ENOXAPARIN SODIUM INJ 40 MG/0.4 ML DISP.SYRIN SUBCUT SCH (11:33)
[2017-12-10] MEDS: INSULIN GLARGINE,HUM.REC.ANLOG 300 UNIT/3 ML INSULN.PEN SUBCUT SCH ×2 (11:40→17:09)
--- NOTE | 2017-12-10 11:45 | PDOC PROGRESS REPORT ---
Subjective Progress Note for:: 12/10/17 Subjective:: 67 y/o M s/p open gastrostomy placement one week ago. The pt has been experiencing increasing abdominal pain. An x-ray was obtained showing free air underneath the diaphragm. This was concerning for possible tube dislodgement and further workup is warranted. The pt reports severe abdominal pain. He denies Cp, SOB, dizziness, double vision, fevers, chills, melena, hematochezia, hematemesis. The patient has been experiencing intermittent confusion and increasing tachycardia. The patient's is at the bedside to help convey his recent medical history. Reason For Visit: DKA Physical Exam Vital Signs: Temp Pulse Resp BP Pulse Ox 98.0 F 140 H 24 H 146/88 H 95 12/10/17 10:40 12/10/17 10:40 12/10/17 10:40 12/10/17 10:40 12/10/17 10:40 Intake & Output 12/09/17 12/10/17 12/11/17 06:59 06:59 06:59 Intake Total 20 569 Output Total 1250 1275 Balance -1230 -706 Weight 67.1 kg 67.1 kg General appearance: PRESENT: mild distress - Abdominal pain Head exam: PRESENT: atraumatic, normocephalic Eye exam: PRESENT: EOMI, PERRLA Mouth exam: PRESENT: moist, neck supple Neck exam: ABSENT: lymphadenopathy, meningismus, tenderness, thyromegaly, tracheal deviation Respiratory exam: PRESENT: crackles. ABSENT: chest wall tenderness, unlabored Cardiovascular exam: PRESENT: tachycardia Vascular exam: PRESENT: pallor. ABSENT: normal capillary refill GI/Abdominal exam: PRESENT: distended, guarding, rebound, tenderness, other - Peritonitis Extremities exam: ABSENT: pedal edema Neurological exam: PRESENT: altered, awake Skin exam: PRESENT: pallor. ABSENT: erythema, normal color, rash Results Laboratory Results: 12/09/17 04:43 12/09/17 04:43 11/30/17 12/01/17 12/01/17 05:22 22:45 22:45 Creatine Kinase 30 L CK-MB (CK-2) 0.73 Troponin I 0.015 NT-Pro-B Natriuret Pep 386 12/02/17 12/02/17 12/02/17 04:47 04:47 10:36 Creatine Kinase 30 L 28 L CK-MB (CK-2) 0.53 Troponin I 0.016 NT-Pro-B Natriuret Pep 12/02/17 12/02/17 12/02/17 10:36 16:50 16:50 Creatine Kinase 35 L CK-MB (CK-2) 0.51 0.39 Troponin I 0.015 < 0.012 NT-Pro-B Natriuret Pep Impressions: Cervical Spine CT 11/29/17 08:28 IMPRESSION: No acute changes Head CT 11/29/17 08:28 IMPRESSION: No acute intracranial changes. Nasal bone fracture with trace fluid in the right maxillary sinus. EVIDENCE OF ACUTE STROKE: NO. Chest X-Ray 11/29/17 08:29 IMPRESSION: NO ACUTE RADIOGRAPHIC FINDING IN THE CHEST. Fluoroscopy 12/02/17 00:00 IMPRESSION: Unsuccessful Dobbhoff feeding tube placement. KUB X-Ray 12/08/17 00:00 IMPRESSION: Persistent constipation Acute Abdomen Series 12/10/17 00:00 IMPRESSION: Left basilar airspace disease atelectasis versus pneumonia Right subdiaphragmatic free air Distended stomach with air-fluid level. Tube Placement 12/10/17 00:00 IMPRESSION: Gastrostomy tube tip is outside the stomach, along the anterior abdominal wall. Assessment & Plan - Diagnosis (1) Dislodged gastrostomy tube Is this a current diagnosis for this admission?: Yes - Plan Summary Plan Summary: This is a 67-year-old male status post gastrostomy tube. I have personally reviewed his Gastrografin study. There is no indication with the tube and the lumen of the stomach. I have discussed the findings with Dr. Devlin ( radiologist). His gastrostomy has become dislodged. He has an acute abdomen. I have recommended operative exploration with replacement of the gastrostomy tube. I have discussed this at length with the patient and his . They have agreed to surgical intervention. Risks/benefits discussed, informed consent obtained, and all questions answered.
[2017-12-10] MEDS ORDERED: INSULIN REG, HUMAN 100 UNIT/ML 3 ML VIAL (PYX) ONE ×2 (11:49→15:00)
[2017-12-10] MEDS ORDERED: FENTANYL CITRATE INJ/PF 100 MCG/2 ML AMPUL IV PRN ×3 (13:35)
[2017-12-10] MEDS ORDERED: DIPHENHYDRAMINE HCL 50 MG/ML VIAL IV PRN (13:35)
[2017-12-10 15:47] LABS: HEMATOCRIT 43.1 % (37.9-51.0); MEAN CORPUSCULAR HEMOGLOBIN 27.6 pg (27.0-33.4); MEAN CORPUSCULAR HGB CONC 33.4 g/dL (32.0-36.0); MEAN CORPUSCULAR VOLUME 83 fl (80-97); PLATELET COUNT 249 10^3/uL (150-450); RED BLOOD COUNT 5.22 10^6/uL (4.35-5.55); RED CELL DISTRIBUTION WIDTH 15.9 % (11.5-14.0); WHITE BLOOD COUNT 4.4 10^3/uL (4.0-10.5)
[2017-12-10 15:56] LABS: ANION GAP 18 (5-19); BLOOD UREA NITROGEN 5 mg/dL (7-20); CALCIUM 8.9 mg/dL (8.4-10.2); CARBON DIOXIDE 16 mmol/L (22-30); CHLORIDE 107 mmol/L (98-107); GLUCOSE 265 mg/dL (75-110); POTASSIUM 4.1 mmol/L (3.6-5.0); SODIUM 141.2 mmol/L (137-145)
[2017-12-10 16:02] LABS: HEMOGLOBIN 14.4 g/dL (13.5-17.0)
[2017-12-10] MEDS ORDERED: SUCCINYLCHOLINE CHLORIDE INJ 200 MG/10 ML VIAL ONE (16:12)
[2017-12-10] MEDS ORDERED: NEOSTIGMINE METHYLSULFATE 10 MG/10 ML VIAL ONE (16:12)
[2017-12-10] MEDS ORDERED: GLYCOPYRROLATE INJ 0.4 MG/2 ML VIAL ONE (16:12)
[2017-12-10] MEDS ORDERED: VECURONIUM BROMIDE INJ 10 MG VIAL IV ONE (16:12)
[2017-12-10] MEDS ORDERED: ONDANSETRON HCL INJ/PF 4 MG/2 ML SDV ONE (16:12)
--- NOTE | 2017-12-10 16:13 | Operative Report ---
Nonrecallable Operative Report DATE OF SURGERY: 12/10/17 PREOPERATIVE DIAGNOSIS: Dislodged gastrostomy POSTOPERATIVE DIAGNOSIS: Same as above OPERATION: 1. Reopening of recent laparotomy. 2. Removal of previous gastrostomy. 3. Placement of new 24 Panamanian gastrostomy SURGEON: JONO WHANG ANESTHESIA: GA COMPLICATIONS: None apparent ESTIMATED BLOOD LOSS: 25 cc PROCEDURE: Drains/implants: 1. 15 Panamanian round Stas drain superior to the stomach, extending to the left upper quadrant. 2. 24 Panamanian gastrostomy. Procedure in detail: After informed consent was obtained, the patient was laid in the supine position in the operating room. The area of the abdomen was prepped and draped in normal sterile fashion. Previous albert were removed with a hemostat. The previous abdominal closure was cut using curved Velazquez scissors. The abdomen was then entered bluntly after the sutures were divided. The abdomen was inspected. The greater curvature the stomach was adherent to the anterior abdominal wall, however only a small amount of fluid was found in the upper abdomen. The stomach was palpated. There was no obvious balloon or tube found within the lumen of the stomach. Once this was confirmed the stomach was taken down from the anterior abdominal wall using Metzenbaum scissors. The gastrotomy was identified, however no tube was seen extending into the stomach. It appears that the balloon had been pulled from the stomach into the rectus sheath. The tip of the tube resided in an extra-abdominal location. The tube was removed from the abdominal wall and irrigated copiously. Next, the stomach was inspected. There is no significant trauma or necrosis of the wall of the stomach. The previous gastrotomy was felt suitable to use for replacement gastrostomy. The 24 Panamanian tube was passed through the anterior abdominal wall, through the previous tract. 2 concentric pursestring sutures of 0 silk were used on the stomach. The 24 Panamanian tube was passed into the gastrotomy. The balloon was inflated. The concentric pursestrings were tightened causing inversion of the wall of the stomach. The stomach was then sutured to the anterior abdominal wall in multiple locations using 0 silk suture. Once this was completed, the bumper was found to lie at approximately 6 cm at the skin level. The abdomen was then copiously irrigated with saline solution until the effluent was clear. A 15 Panamanian round Stas drain was placed in the upper abdomen, through a separate stab incision. It was left adjacent to the gastrotomy. The drain was sutured to the abdominal skin using 2-0 nylon suture. The midline fascia was closed using #1 PDS double-stranded suture in simple running fashion. The skin was loosely approximated using skin albert. Dressings were then fashioned, and the procedure was concluded. Sponge, instrument, and needle counts were correct 2. Condition: Fair.
[2017-12-10] MEDS: DOXYCYCLINE HYCLATE 100 MG in DEXTROSE 5%-WATER 250 ML IV SCH (16:21)
[2017-12-10 16:24] LABS: ABSOLUTE LYMPHOCYTES# (MANUAL) 0.3 10^3/uL (0.5-4.7); ABSOLUTE MONOCYTES # (MANUAL) 0.7 10^3/uL (0.1-1.4); ABSOLUTE NEUTROPHILS# (MANUAL) 3.4 10^3/uL (1.7-8.2); BAND NEUTROPHILS % (MANUAL) 9 % (3-5); EOSINOPHILS % (MANUAL) 1 % (0-6); LYMPHOCYTES % (MANUAL) 7 % (13-45); MONOCYTES % (MANUAL) 15 % (3-13); SEGMENTED NEUTROPHILS % (MAN) 68 % (42-78); TOTAL CELLS COUNTED 100
[2017-12-10 16:25] LABS: ANISOCYTOSIS SLIGHT; BURR CELLS SLIGHT; OVALOCYTES SLIGHT; PLATELET COMMENT ADEQUATE; TOXIC GRANULATION 1+; TOXIC VACUOLATION PRESENT
[2017-12-10 16:37] LABS: BASOPHILS % (MANUAL) 0 % (0-2)
[2017-12-10] MEDS: LACTULOSE SYRUP 20 GM/30 ML UDCUP PEG SCH ×2 (17:09→23:57)
--- NOTE | 2017-12-10 17:11 | PDOC PROGRESS REPORT ---
Subjective Progress Note for:: 12/10/17 Subjective:: 67 yr old male with insulin dependent diabetes and recently diagnosed lung cancer, undergoing RT in [place]. He presented to the hospital on 11/29/17 with DKA due to inability to take any of his meds secondary to persistent nausea, vomiting and abdominal pain since RT was started. Endoscopy showed esophageal ulcer. DKA resolved with IV Insulin and fluids. He had a G tube placed on 12/05/17 due to persistent inability to tlerate PO. The patient complained of increased abdominal pain and it was discovered this am that G tube had become displaced. He was taken to the ER by Dr. Robins to reposition the tube. He is now resting comfortably. The patient's is at the bedside and plan of care was discussed. Reason For Visit: DKA Physical Exam Vital Signs: Temp Pulse Resp BP Pulse Ox 99.1 F 130 H 18 118/73 95 12/10/17 16:00 12/10/17 14:02 12/10/17 16:00 12/10/17 15:45 12/10/17 16:00 Intake & Output 12/09/17 12/10/17 12/11/17 06:59 06:59 06:59 Intake Total 20 569 4550 Output Total 1250 1275 3805 Balance -1230 -706 745 Weight 67.1 kg 67.1 kg General appearance: PRESENT: no acute distress Head exam: PRESENT: normocephalic Respiratory exam: PRESENT: symmetrical, unlabored. ABSENT: wheezes Cardiovascular exam: PRESENT: RRR, tachycardia GI/Abdominal exam: PRESENT: normal bowel sounds, soft, other - G tube present Rectal exam: PRESENT: deferred Results Laboratory Results: 12/10/17 15:28 12/10/17 15:28 12/10/17 12/10/17 12/10/17 12:19 15:28 15:28 WBC 4.4 RBC 5.22 Hgb 14.4 D Hct 43.1 MCV 83 MCH 27.6 MCHC 33.4 RDW 15.9 H Plt Count 249 Seg Neutrophils % Not Reportable Lymphocytes % Not Reportable Monocytes % Not Reportable Eosinophils % Not Reportable Basophils % Not Reportable Absolute Neutrophils Not Reportable Absolute Lymphocytes Not Reportable Absolute Monocytes Not Reportable Absolute Eosinophils Not Reportable Absolute Basophils Not Reportable Sodium 141.2 Potassium 4.1 Chloride 107 Carbon Dioxide 16 L Anion Gap 18 BUN 5 L Creatinine 0.45 L Est GFR ( Amer) > 60 Est GFR (Non-Af Amer) > 60 Glucose 265 H Calcium 8.9 Blood Type B POSITIVE Antibody Screen NEGATIVE 11/30/17 12/01/17 12/01/17 05:22 22:45 22:45 Creatine Kinase 30 L CK-MB (CK-2) 0.73 Troponin I 0.015 NT-Pro-B Natriuret Pep 386 12/02/17 12/02/17 12/02/17 04:47 04:47 10:36 Creatine Kinase 30 L 28 L CK-MB (CK-2) 0.53 Troponin I 0.016 NT-Pro-B Natriuret Pep 12/02/17 12/02/17 12/02/17 10:36 16:50 16:50 Creatine Kinase 35 L CK-MB (CK-2) 0.51 0.39 Troponin I 0.015 < 0.012 NT-Pro-B Natriuret Pep Impressions: Cervical Spine CT 11/29/17 08:28 IMPRESSION: No acute changes Head CT 11/29/17 08:28 IMPRESSION: No acute intracranial changes. Nasal bone fracture with trace fluid in the right maxillary sinus. EVIDENCE OF ACUTE STROKE: NO. Chest X-Ray 11/29/17 08:29 IMPRESSION: NO ACUTE RADIOGRAPHIC FINDING IN THE CHEST. Fluoroscopy 12/02/17 00:00 IMPRESSION: Unsuccessful Dobbhoff feeding tube placement. KUB X-Ray 12/08/17 00:00 IMPRESSION: Persistent constipation Acute Abdomen Series 12/10/17 00:00 IMPRESSION: Left basilar airspace disease atelectasis versus pneumonia Right subdiaphragmatic free air Distended stomach with air-fluid level. Tube Placement 12/10/17 00:00 IMPRESSION: Gastrostomy tube tip is outside the stomach, along the anterior abdominal wall. Assessment & Plan - Diagnosis (1) DKA, type 1 Qualifiers: Diabetes mellitus complication detail: without coma Qualified Code(s): E10.10 - Type 1 diabetes mellitus with ketoacidosis without coma Is this a current diagnosis for this admission?: Yes Plan: Resolved (2) Hypertension Is this a current diagnosis for this admission?: Yes Plan: BP low normal- continue to monitor (3) CAD (coronary artery disease) Is this a current diagnosis for this admission?: Yes Plan: Resume outpatient meds when able to take PO. (4) Nausea and vomiting Qualifiers: Vomiting type: cyclical vomiting Vomiting Intractability: intractable Qualified Code(s): G43.A1 - Cyclical vomiting, intractable Is this a current diagnosis for this admission?: Yes Plan: Resolved (5) Acute renal failure Is this a current diagnosis for this admission?: Yes Plan: Resolved with IV fluids (6) COPD (chronic obstructive pulmonary disease) Qualifiers: COPD type: emphysema Is this a current diagnosis for this admission?: Yes Plan: Stable (7) Do not resuscitate Is this a current diagnosis for this admission?: Yes (8) Lung cancer Qualifiers: Laterality: right Lung location: lower lobe of lung Qualified Code(s): C34.31 - Malignant neoplasm of lower lobe, right bronchus or lung Is this a current diagnosis for this admission?: Yes (9) History of prostate cancer Is this a current diagnosis for this admission?: Yes (10) DVT prophylaxis Is this a current diagnosis for this admission?: Yes Plan: Lovenox s/c (11) Nasal bone fracture Qualifiers: Encounter type: initial encounter Fracture type: closed Qualified Code(s) : S02.2XXA - Fracture of nasal bones, initial encounter for closed fracture Is this a current diagnosis for this admission?: Yes (12) Hyperphosphatemia Is this a current diagnosis for this admission?: Yes Plan: Resolved (13) Hypercalcemia Is this a current diagnosis for this admission?: Yes Plan: Resolved (14) Hyperkalemia Is this a current diagnosis for this admission?: Yes Plan: Resolved (15) Hypernatremia Is this a current diagnosis for this admission?: Yes Plan: Resolved - Time Time Spent with patient: 25-34 minutes
[2017-12-10] MEDS ORDERED: METRONIDAZOLE 500 MG/NS RTU 100 ML IV ONE (17:30)
[2017-12-11] MEDS ORDERED: DOXYCYCLINE HYCLATE INJ 100 MG VIAL ONE (00:50)
[2017-12-11] MEDS: DOXYCYCLINE HYCLATE 100 MG in DEXTROSE 5%-WATER 250 ML IV SCH ×3 (00:55→23:41)
[2017-12-11] MEDS: METRONIDAZOLE 500 MG/NS RTU 100 ML IV SCH ×3 (01:00→18:17)
[2017-12-11] MEDS: LACTULOSE SYRUP 20 GM/30 ML UDCUP PEG SCH ×4 (01:02→21:36)
[2017-12-11] MEDS: HYDROMORPHONE HCL INJ/PF 2 MG/ML AMPULE IV PRN ×5 (01:28→20:28)
[2017-12-11 06:24] LABS: HEMATOCRIT 42.2 % (37.9-51.0); HEMOGLOBIN 14.3 g/dL (13.5-17.0); MEAN CORPUSCULAR HEMOGLOBIN 27.8 pg (27.0-33.4); MEAN CORPUSCULAR HGB CONC 33.9 g/dL (32.0-36.0); MEAN CORPUSCULAR VOLUME 82 fl (80-97); PLATELET COUNT 203 10^3/uL (150-450); RED BLOOD COUNT 5.15 10^6/uL (4.35-5.55); RED CELL DISTRIBUTION WIDTH 16.6 % (11.5-14.0); WHITE BLOOD COUNT 8.4 10^3/uL (4.0-10.5)
[2017-12-11 08:10] LABS: ALANINE AMINOTRANSFERASE 24 U/L (21-72); ALBUMIN 2.8 g/dL (3.5-5.0); ALKALINE PHOSPHATASE 85 U/L (38-126); ANION GAP 10 (5-19); ASPARTATE AMINO TRANSFERASE 17 U/L (17-59); BILIRUBIN,DIRECT 0.6 mg/dL (0.0-0.4); BILIRUBIN,TOTAL 0.6 mg/dL (0.2-1.3); BLOOD UREA NITROGEN 7 mg/dL (7-20); CALCIUM 9.6 mg/dL (8.4-10.2); CARBON DIOXIDE 23 mmol/L (22-30); CHLORIDE 106 mmol/L (98-107); GLUCOSE 241 mg/dL (75-110); POTASSIUM 4.1 mmol/L (3.6-5.0); SODIUM 139.4 mmol/L (137-145); TOTAL PROTEIN 5.7 g/dL (6.3-8.2)
--- NOTE | 2017-12-11 09:13 | RADIOLOGY REPORT (SQ) ---
EXAM DESCRIPTION: CHEST SINGLE VIEW COMPLETED DATE/TIME: 12/11/2017 9:01 am REASON FOR STUDY: dyspnea COMPARISON: 11/29/2017 EXAM PARAMETERS: NUMBER OF VIEWS: One view. TECHNIQUE: Single frontal radiographic view of the chest acquired. RADIATION DOSE: NA LIMITATIONS: None. FINDINGS: LUNGS AND PLEURA: Underlying emphysema. Patchy right lower lobe and left upper lobe airsp adele disease. MEDIASTINUM AND HILAR STRUCTURES: No masses. Contour normal. HEART AND VASCULAR STRUCTURES: Heart normal in size. Normal vasculature. BONES: No acute findings. HARDWARE: None in the chest. OTHER: No other significant finding. IMPRESSION: PATCHY MULTIFOCAL AIRSPACE DISEASE ABOVE SUSPICIOUS FOR PNEUMONIA. RECOMMEND FOLLOWU P RADIOGRAPHS 4 TO 6 WEEKS TO ENSURE RESOLUTION. TECHNICAL DOCUMENTATION: JOB ID: [id number] [employer]- All Rights Reserved Reading location - IP/workstation name: [email or web address]
[2017-12-11] MEDS: INSULIN GLARGINE,HUM.REC.ANLOG 300 UNIT/3 ML INSULN.PEN SUBCUT SCH ×2 (10:50→18:17)
[2017-12-11] MEDS: ENOXAPARIN SODIUM INJ 40 MG/0.4 ML DISP.SYRIN SUBCUT SCH (10:50)
[2017-12-11] MEDS: BISMUTH SUBSALICYLATE 262 MG TAB.CHEW PEG SCH ×4 (10:52→21:30)
[2017-12-11] MEDS: NORMAL SALINE 1000 ML 1,000 ML IV PRN ×2 (10:52→21:53)
[2017-12-11] MEDS: TIOTROPIUM BROMIDE DPI 5 CAP/KIT (18 MCG/CAP) IH SCH (11:45)
[2017-12-11] MEDS: INSULIN LISPRO 100 UNIT/ML 3 ML VIAL SUBCUT PRN ×2 (12:11→18:16)
[2017-12-11 12:38] LABS: APPEARANCE,URINE SLIGHTLY-CLOUDY; BILIRUBIN,URINE NEGATIVE (NEGATIVE); COLOR,URINE YELLOW; GLUCOSE, URINE >=500 mg/dL (NEGATIVE); KETONES,URINE 80 mg/dL (NEGATIVE); LEUKOCYTE ESTERASE,URINE NEGATIVE (NEGATIVE); NITRITE,URINE NEGATIVE (NEGATIVE); PROTEIN,URINE 30 mg/dL (NEGATIVE); URINE SPECIFIC GRAVITY 1.028
--- NOTE | 2017-12-11 14:49 | PDOC PROGRESS REPORT ---
Subjective Progress Note for:: 12/11/17 Subjective:: 67 yr old male with insulin dependent diabetes and recently diagnosed lung cancer, undergoing RT in [place]. He presented to the hospital on 11/29/17 with DKA due to inability to take any of his meds secondary to persistent nausea, vomiting and abdominal pain since RT was started. Endoscopy showed esophageal ulcer. DKA resolved with IV Insulin and fluids. He had a G tube placed on 12/05/17 due to persistent inability to tlerate PO. The patient complained of increased abdominal pain and it was discovered this am that G tube had become displaced. He was taken to the OR by Dr. Robins on 12/10/17 and tube was repositioned. He has sinus tachycardia and appears dehydrated. Was given IV fluids. Chest Xray shows Pneumonia. Day 2 of Doxycycline and Flagyl. Zosyn was added to broaden coverage. No complaints. Reason For Visit: DKA Physical Exam Vital Signs: Temp Pulse Resp BP Pulse Ox 98.4 F 124 H 30 H 109/66 95 12/11/17 12:00 12/11/17 07:00 12/11/17 12:00 12/11/17 11:45 12/11/17 11:45 Intake & Output 12/10/17 12/11/17 12/12/17 06:59 06:59 06:59 Intake Total 569 5325 150 Output Total 1275 4500 325 Balance -706 825 -175 Weight 67.1 kg 67.2 kg General appearance: PRESENT: no acute distress Eye exam: ABSENT: scleral icterus Ear exam: PRESENT: normal external ear exam Mouth exam: PRESENT: moist Respiratory exam: PRESENT: rhonchi, symmetrical, unlabored Cardiovascular exam: PRESENT: RRR, tachycardia GI/Abdominal exam: PRESENT: normal bowel sounds, soft, other - Drain and G tube Rectal exam: PRESENT: deferred Gentrourinary exam: PRESENT: indwelling catheter Neurological exam: PRESENT: alert, awake Psychiatric exam: PRESENT: appropriate affect Results Laboratory Results: 12/11/17 06:01 12/11/17 07:34 12/10/17 12/10/17 12/11/17 15:28 15:28 06:01 WBC 4.4 8.4 RBC 5.22 5.15 Hgb 14.4 D 14.3 Hct 43.1 42.2 MCV 83 82 MCH 27.6 27.8 MCHC 33.4 33.9 RDW 15.9 H 16.6 H Plt Count 249 203 Seg Neutrophils % Not Reportable Lymphocytes % Not Reportable Monocytes % Not Reportable Eosinophils % Not Reportable Basophils % Not Reportable Absolute Neutrophils Not Reportable Absolute Lymphocytes Not Reportable Absolute Monocytes Not Reportable Absolute Eosinophils Not Reportable Absolute Basophils Not Reportable Sodium 141.2 Potassium 4.1 Chloride 107 Carbon Dioxide 16 L Anion Gap 18 BUN 5 L Creatinine 0.45 L Est GFR ( Amer) > 60 Est GFR (Non-Af Amer) > 60 Glucose 265 H Calcium 8.9 Phosphorus Magnesium Total Bilirubin AST ALT Alkaline Phosphatase Total Protein Albumin Urine Color Urine Appearance Urine pH Ur Specific [place] Urine Protein Urine Glucose (UA) Urine Ketones Urine Blood Urine Nitrite Ur Leukocyte Esterase Urine WBC (Auto) Urine RBC (Auto) 12/11/17 12/11/17 12/11/17 06:01 07:34 11:50 WBC RBC Hgb Hct MCV MCH MCHC RDW Plt Count Seg Neutrophils % Lymphocytes % Monocytes % Eosinophils % Basophils % Absolute Neutrophils Absolute Lymphocytes Absolute Monocytes Absolute Eosinophils Absolute Basophils Sodium Cancelled 139.4 Potassium Cancelled 4.1 Chloride Cancelled 106 Carbon Dioxide Cancelled 23 Anion Gap Cancelled 10 BUN Cancelled 7 Creatinine Cancelled 0.46 L Est GFR ( Amer) Cancelled > 60 Est GFR (Non-Af Amer) Cancelled > 60 Glucose Cancelled 241 H Calcium Cancelled 9.6 Phosphorus Cancelled Magnesium Cancelled Total Bilirubin Cancelled 0.6 AST Cancelled 17 ALT Cancelled 24 Alkaline Phosphatase Cancelled 85 Total Protein Cancelled 5.7 L Albumin Cancelled 2.8 L Urine Color YELLOW Urine Appearance SLIGHTLY-CLOUDY Urine pH 5.0 Ur Specific [place] 1.028 Urine Protein 30 H Urine Glucose (UA) >=500 H Urine Ketones 80 H Urine Blood NEGATIVE Urine Nitrite NEGATIVE Ur Leukocyte Esterase NEGATIVE Urine WBC (Auto) 2 Urine RBC (Auto) 1 11/30/17 12/01/17 12/01/17 05:22 22:45 22:45 Creatine Kinase 30 L CK-MB (CK-2) 0.73 Troponin I 0.015 NT-Pro-B Natriuret Pep 386 12/02/17 12/02/17 12/02/17 04:47 04:47 10:36 Creatine Kinase 30 L 28 L CK-MB (CK-2) 0.53 Troponin I 0.016 NT-Pro-B Natriuret Pep 12/02/17 12/02/17 12/02/17 10:36 16:50 16:50 Creatine Kinase 35 L CK-MB (CK-2) 0.51 0.39 Troponin I 0.015 < 0.012 NT-Pro-B Natriuret Pep Impressions: Cervical Spine CT 11/29/17 08:28 IMPRESSION: No acute changes Head CT 11/29/17 08:28 IMPRESSION: No acute intracranial changes. Nasal bone fracture with trace fluid in the right maxillary sinus. EVIDENCE OF ACUTE STROKE: NO. Fluoroscopy 12/02/17 00:00 IMPRESSION: Unsuccessful Dobbhoff feeding tube placement. KUB X-Ray 12/08/17 00:00 IMPRESSION: Persistent constipation Acute Abdomen Series 12/10/17 00:00 IMPRESSION: Left basilar airspace disease atelectasis versus pneumonia Right subdiaphragmatic free air Distended stomach with air-fluid level. Tube Placement 12/10/17 00:00 IMPRESSION: Gastrostomy tube tip is outside the stomach, along the anterior abdominal wall. Chest X-Ray 12/11/17 00:00 IMPRESSION: PATCHY MULTIFOCAL AIRSPACE DISEASE ABOVE SUSPICIOUS FOR PNEUMONIA. RECOMMEND FOLLOWUP RADIOGRAPHS 4 TO 6 WEEKS TO ENSURE RESOLUTION. Assessment & Plan - Diagnosis (1) DKA, type 1 Qualifiers: Diabetes mellitus complication detail: without coma Qualified Code(s): E10.10 - Type 1 diabetes mellitus with ketoacidosis without coma Is this a current diagnosis for this admission?: Yes Plan: Resolved (2) Hypertension Is this a current diagnosis for this admission?: Yes Plan: BP low normal- continue to monitor (3) CAD (coronary artery disease) Is this a current diagnosis for this admission?: Yes Plan: Resume outpatient meds when able to take PO. (4) Nausea and vomiting Qualifiers: Vomiting type: cyclical vomiting Vomiting Intractability: intractable Qualified Code(s): G43.A1 - Cyclical vomiting, intractable Is this a current diagnosis for this admission?: Yes Plan: Resolved (5) Acute renal failure Is this a current diagnosis for this admission?: Yes Plan: Resolved with IV fluids (6) COPD (chronic obstructive pulmonary disease) Qualifiers: COPD type: emphysema Is this a current diagnosis for this admission?: Yes Plan: Stable (7) Lung cancer Qualifiers: Laterality: right Lung location: lower lobe of lung Qualified Code(s): C34.31 - Malignant neoplasm of lower lobe, right bronchus or lung Is this a current diagnosis for this admission?: Yes (8) History of prostate cancer Is this a current diagnosis for this admission?: Yes (9) DVT prophylaxis Is this a current diagnosis for this admission?: Yes Plan: Lovenox s/c (10) Nasal bone fracture Qualifiers: Encounter type: initial encounter Fracture type: closed Qualified Code(s) : S02.2XXA - Fracture of nasal bones, initial encounter for closed fracture Is this a current diagnosis for this admission?: Yes Plan: Pain control. (11) Hyperphosphatemia Is this a current diagnosis for this admission?: Yes Plan: Resolved (12) Hypercalcemia Is this a current diagnosis for this admission?: Yes Plan: Resolved (13) Hyperkalemia Is this a current diagnosis for this admission?: Yes Plan: Resolved (14) Hypernatremia Is this a current diagnosis for this admission?: Yes Plan: Resolved (15) Pneumonia Is this a current diagnosis for this admission?: Yes Plan: On antibiotics. (16) Sinus tachycardia Is this a current diagnosis for this admission?: Yes Plan: Due to dehydration and pneumonia. IV fluids and antibiotics ordered. - Time Time Spent with patient: 35 or more minutes
[2017-12-11] MEDS: PIPERACILLIN SODIUM/TAZOBACTAM 4.5 GM in NORMAL SALINE 100 ML IV SCH ×2 (16:32→20:26)
[2017-12-12] MEDS: INSULIN LISPRO 100 UNIT/ML 3 ML VIAL SUBCUT PRN (01:57)
[2017-12-12] MEDS: METRONIDAZOLE 500 MG/NS RTU 100 ML IV SCH ×3 (02:02→17:32)
[2017-12-12] MEDS: PIPERACILLIN SODIUM/TAZOBACTAM 4.5 GM in NORMAL SALINE 100 ML IV SCH ×4 (02:03→20:55)
[2017-12-12] MEDS: LACTULOSE SYRUP 20 GM/30 ML UDCUP PEG SCH ×2 (02:04→11:45)
[2017-12-12 06:17] LABS: HEMATOCRIT 31.5 % (37.9-51.0); MEAN CORPUSCULAR HEMOGLOBIN 27.4 pg (27.0-33.4); MEAN CORPUSCULAR HGB CONC 34.4 g/dL (32.0-36.0); MEAN CORPUSCULAR VOLUME 80 fl (80-97); PLATELET COUNT 202 10^3/uL (150-450); RED BLOOD COUNT 3.95 10^6/uL (4.35-5.55); RED CELL DISTRIBUTION WIDTH 16.4 % (11.5-14.0); WHITE BLOOD COUNT 6.3 10^3/uL (4.0-10.5)
[2017-12-12 06:18] LABS: ALANINE AMINOTRANSFERASE 26 U/L (21-72); ALBUMIN 1.9 g/dL (3.5-5.0); ALKALINE PHOSPHATASE 69 U/L (38-126); ANION GAP 7 (5-19); ASPARTATE AMINO TRANSFERASE 10 U/L (17-59); BILIRUBIN,DIRECT 0.3 mg/dL (0.0-0.4); BILIRUBIN,TOTAL 0.3 mg/dL (0.2-1.3); BLOOD UREA NITROGEN 9 mg/dL (7-20); CALCIUM 8.9 mg/dL (8.4-10.2); CARBON DIOXIDE 24 mmol/L (22-30); CHLORIDE 110 mmol/L (98-107); GLUCOSE 168 mg/dL (75-110); SODIUM 140.5 mmol/L (137-145); TOTAL PROTEIN 4.2 g/dL (6.3-8.2)
[2017-12-12] MEDS ORDERED: POTASSIUM CHLORIDE 20 MEQ/50 ML RTU IV SCH (06:30)
[2017-12-12 06:33] LABS: HEMOGLOBIN 10.8 g/dL (13.5-17.0)
[2017-12-12] MEDS: HYDROMORPHONE HCL INJ/PF 2 MG/ML AMPULE IV PRN ×5 (06:38→20:00)
[2017-12-12] MEDS: TIOTROPIUM BROMIDE DPI 5 CAP/KIT (18 MCG/CAP) IH SCH (09:35)
[2017-12-12] MEDS: ENOXAPARIN SODIUM INJ 40 MG/0.4 ML DISP.SYRIN SUBCUT SCH (09:42)
[2017-12-12] MEDS: INSULIN GLARGINE,HUM.REC.ANLOG 300 UNIT/3 ML INSULN.PEN SUBCUT SCH ×2 (09:42→17:32)
[2017-12-12] MEDS: BISMUTH SUBSALICYLATE 262 MG TAB.CHEW PEG SCH ×4 (09:47→23:46)
[2017-12-12] MEDS: MAGNESIUM SULFATE/D5W 1 GM/100 ML RTUPB IV SCH ×2 (10:41→11:41)
[2017-12-12] MEDS: DOXYCYCLINE HYCLATE 100 MG in DEXTROSE 5%-WATER 250 ML IV SCH (11:42)
[2017-12-12] MEDS: NORMAL SALINE 1000 ML 1,000 ML IV PRN ×2 (11:43→20:55)
--- NOTE | 2017-12-12 13:02 | PDOC PROGRESS REPORT ---
Subjective Progress Note for:: 12/12/17 Subjective:: 67 yr old male with insulin dependent diabetes and recently diagnosed lung cancer, undergoing RT in [place]. He presented to the hospital on 11/29/17 with DKA due to inability to take any of his meds secondary to persistent nausea, vomiting and abdominal pain since RT was started. Endoscopy showed esophageal ulcer. DKA resolved with IV Insulin and fluids. He had a G tube placed on 12/05/17 due to persistent inability to tlerate PO. The patient complained of increased abdominal pain and it was discovered this am that G tube had become displaced. He was taken to the OR by Dr. Robins on 12/10/17 and tube was repositioned. He is on broad spectrum antibiotics for aspiration pneumonia. Plan for CT chest to r/o PE given tachycardia, dyspnea and hypoxia. Reason For Visit: DKA Physical Exam Vital Signs: Temp Pulse Resp BP Pulse Ox 98.8 F 101 H 26 H 99/69 L 98 12/12/17 08:00 12/12/17 08:00 12/12/17 12:00 12/12/17 11:46 12/12/17 12:00 Intake & Output 12/11/17 12/12/17 12/13/17 06:59 06:59 06:59 Intake Total 5325 3876 Output Total 4500 885 500 Balance 825 2991 -500 Weight 67.2 kg 70.1 kg General appearance: PRESENT: thin Head exam: PRESENT: normocephalic Eye exam: ABSENT: scleral icterus Ear exam: PRESENT: normal external ear exam Mouth exam: PRESENT: dry mucosa Neck exam: ABSENT: tracheal deviation Respiratory exam: PRESENT: rhonchi, symmetrical Cardiovascular exam: PRESENT: RRR, tachycardia GI/Abdominal exam: PRESENT: soft, tenderness, other - PEG and drain present Rectal exam: PRESENT: deferred Extremities exam: ABSENT: pedal edema Neurological exam: PRESENT: awake Skin exam: ABSENT: rash Results Laboratory Results: 12/12/17 05:10 12/12/17 05:10 12/12/17 12/12/17 05:10 05:10 WBC 6.3 RBC 3.95 L Hgb 10.8 L D Hct 31.5 L MCV 80 MCH 27.4 MCHC 34.4 RDW 16.4 H Plt Count 202 Sodium 140.5 Potassium 3.0 L* D Chloride 110 H Carbon Dioxide 24 Anion Gap 7 BUN 9 Creatinine 0.43 L Est GFR ( Amer) > 60 Est GFR (Non-Af Amer) > 60 Glucose 168 H Calcium 8.9 Magnesium 1.7 Total Bilirubin 0.3 AST 10 L ALT 26 Alkaline Phosphatase 69 Total Protein 4.2 L Albumin 1.9 L 11/30/17 12/01/17 12/01/17 05:22 22:45 22:45 Creatine Kinase 30 L CK-MB (CK-2) 0.73 Troponin I 0.015 NT-Pro-B Natriuret Pep 386 12/02/17 12/02/17 12/02/17 04:47 04:47 10:36 Creatine Kinase 30 L 28 L CK-MB (CK-2) 0.53 Troponin I 0.016 NT-Pro-B Natriuret Pep 12/02/17 12/02/17 12/02/17 10:36 16:50 16:50 Creatine Kinase 35 L CK-MB (CK-2) 0.51 0.39 Troponin I 0.015 < 0.012 NT-Pro-B Natriuret Pep Impressions: Cervical Spine CT 11/29/17 08:28 IMPRESSION: No acute changes Head CT 11/29/17 08:28 IMPRESSION: No acute intracranial changes. Nasal bone fracture with trace fluid in the right maxillary sinus. EVIDENCE OF ACUTE STROKE: NO. Fluoroscopy 12/02/17 00:00 IMPRESSION: Unsuccessful Dobbhoff feeding tube placement. KUB X-Ray 12/08/17 00:00 IMPRESSION: Persistent constipation Acute Abdomen Series 12/10/17 00:00 IMPRESSION: Left basilar airspace disease atelectasis versus pneumonia Right subdiaphragmatic free air Distended stomach with air-fluid level. Tube Placement 12/10/17 00:00 IMPRESSION: Gastrostomy tube tip is outside the stomach, along the anterior abdominal wall. Chest X-Ray 12/11/17 00:00 IMPRESSION: PATCHY MULTIFOCAL AIRSPACE DISEASE ABOVE SUSPICIOUS FOR PNEUMONIA. RECOMMEND FOLLOWUP RADIOGRAPHS 4 TO 6 WEEKS TO ENSURE RESOLUTION. Assessment & Plan - Diagnosis (1) DKA, type 1 Qualifiers: Diabetes mellitus complication detail: without coma Qualified Code(s): E10.10 - Type 1 diabetes mellitus with ketoacidosis without coma Is this a current diagnosis for this admission?: Yes Plan: Resolved. Now on lantus and Lispro sliding scale (2) Hypertension Is this a current diagnosis for this admission?: Yes Plan: BP low normal- continue to monitor. Antihypertensives on hold (3) CAD (coronary artery disease) Is this a current diagnosis for this admission?: Yes Plan: Resume outpatient meds when able to take PO. (4) Nausea and vomiting Qualifiers: Vomiting type: cyclical vomiting Vomiting Intractability: intractable Qualified Code(s): G43.A1 - Cyclical vomiting, intractable Is this a current diagnosis for this admission?: Yes Plan: Resolved. G tube tip repositioned (5) Acute renal failure Is this a current diagnosis for this admission?: Yes Plan: Resolved with IV fluids (6) COPD (chronic obstructive pulmonary disease) Qualifiers: COPD type: emphysema Is this a current diagnosis for this admission?: Yes Plan: Stable. Continue Spiriva and nebs prn (7) Lung cancer Qualifiers: Laterality: right Lung location: lower lobe of lung Qualified Code(s): C34.31 - Malignant neoplasm of lower lobe, right bronchus or lung Is this a current diagnosis for this admission?: Yes Plan: Was undergoing RT as an outpatient. (8) History of prostate cancer Is this a current diagnosis for this admission?: Yes Plan: Outpatient follow up (9) DVT prophylaxis Is this a current diagnosis for this admission?: Yes Plan: Lovenox s/c (10) Nasal bone fracture Qualifiers: Encounter type: initial encounter Fracture type: closed Qualified Code(s) : S02.2XXA - Fracture of nasal bones, initial encounter for closed fracture Is this a current diagnosis for this admission?: Yes Plan: Pain control. (11) Hyperphosphatemia Is this a current diagnosis for this admission?: Yes Plan: Resolved (12) Hypercalcemia Is this a current diagnosis for this admission?: Yes Plan: Resolved (13) Hyperkalemia Is this a current diagnosis for this admission?: Yes Plan: Resolved (14) Hypernatremia Is this a current diagnosis for this admission?: Yes Plan: Resolved (15) Pneumonia Qualifiers: Pneumonia type: aspiration pneumonia Laterality: bilateral Lung location : unspecified part of lung Is this a current diagnosis for this admission?: Yes Plan: Likely due to aspiration. day3 Doxycycline and Flagyl. Day 2 of Zosyn. (16) Sinus tachycardia Is this a current diagnosis for this admission?: Yes (17) Esophageal ulcer without bleeding Is this a current diagnosis for this admission?: Yes Plan: PPI (18) Hypokalemia Is this a current diagnosis for this admission?: Yes Plan: Replace (19) Hypomagnesemia Is this a current diagnosis for this admission?: Yes Plan: Replace - Time Time Spent with patient: 35 or more minutes
--- NOTE | 2017-12-12 13:46 | RADIOLOGY REPORT (SQ) ---
EXAM DESCRIPTION: CTA CHEST COMPLETED DATE/TIME: 12/12/2017 1:26 pm REASON FOR STUDY: R/o PE, DIFFICULTY BREATHING, CP COMPARISON: CHEST RADIOGRAPH 12/11/2017 TECHNIQUE: CT scan of the chest performed using helical scanning technique with dynamic intravenous contrast injection. Images reviewed with lung, soft tissue and bone windows. Reconstructed coronal and sagittal MPR images reviewed. Additional 3 dimensional post-processing performed to develop Maximal Intensity Projection images (NH P). All images stored on PACS. All CT scanners at this facility use dose modulation, iterative reconstruction, and/or weight based d osing when appropriate to reduce radiation dose to as low as reasonably achievable (ALARA). [facility]: Dose Right [facility]: CareDose [facility]: Dose Right [facility]: Teradose 4D [facility]: [employer] CONTRAST TYPE AND DOSE: contrast/concentration: Isovue 370.00 mg/ml; Total Contrast Delivered: 66.0 ml; Total Saline Delivered: 107.0 ml Contrast bolus optimized for the pulmonary arteries. Not diagnostic for the aorta. RENAL FUNCTION: GFR > 60. RADIATION DOSE: CT Rad equipment meets quality standard of care and radiation dose reduction techniq ues were employed. CTDIvol: 18.3 - 39.7 mGy. DLP: 651 mGy-cm. . LIMITATIONS: None. FINDINGS: LUNGS AND PLEURA: Small free-flowing pleural effusion on the left in small subpulmonic ple ural effusion on the right with bilateral lower lobe airspace disease. AORTA AND GREAT VESSELS: No aneurysm. Contrast bolus not optimized for the aorta. HEART: No pericardial effusion. No significant coronary artery calcifications. PULMONARY ARTERIES: No emboli visualized in the main pulmonary arteries or the segmental branches. HILAR AND MEDIASTINAL STRUCTURES: No identified masses or abnormal nodes. HARDWARE: None in the chest. UPPER ABDOMEN: Partial is a lewis of free fluid, pneumoperitoneum, and surgical drain. Gallbladder is noted to be distended. THYROID AND OTHER SOFT TISSUES: No masses. No adenopathy. BONES: No acute or significant finding. 3D MIPS: Confirm above findings. OTHER: No other significant finding. IMPRESSION: UNREMARKABLE CTA CHEST WITHOUT PULMONARY EMBOLI. LEFT GREATER THAN RIGHT PLEURAL EFFUSIONS WITH BILATERAL LOWER LOBE AIRSPACE DISEASE COULD REPRESENT COMPRESSIVE ATELECTASIS OR SUPERIMPOSED PNEUMONIA. PARTIAL VISUALIZATION OF FREE ABDOMINAL FLUID, AIR, AND SURGICAL DRAIN PRESUMABLY RELATED TO RECENT S URGERY. DISTENDED GALLBLADDER. CORRELATE WITH SYMPTOMS. COMMENT: Quality ID # [id number]: Final reports with documentation of one or more dose reduction techniques (e.g., Automated exposure control, adjustment of the mA and/or kV according to patient size, use of iterative reconstruction technique) TECHNICAL DOCUMENTATION: JOB ID: [id number] [employer]- All Rights Reserved Reading location - IP/workstation name: [email or web address]
[2017-12-12] MEDS ORDERED: PANTOPRAZOLE SODIUM 40 MG VIAL IV ONE (14:30)
[2017-12-12] MEDS: PANTOPRAZOLE SODIUM 40 MG VIAL IV SCH (22:58)
[2017-12-13] MEDS: DOXYCYCLINE HYCLATE 100 MG in DEXTROSE 5%-WATER 250 ML IV SCH ×3 (00:06→23:35)
[2017-12-13] MEDS: HYDROMORPHONE HCL INJ/PF 2 MG/ML AMPULE IV PRN ×9 (01:13→23:37)
[2017-12-13] MEDS: METRONIDAZOLE 500 MG/NS RTU 100 ML IV SCH ×3 (02:03→17:30)
[2017-12-13] MEDS: PIPERACILLIN SODIUM/TAZOBACTAM 4.5 GM in NORMAL SALINE 100 ML IV SCH ×4 (03:22→21:29)
[2017-12-13 04:16] LABS: HEMATOCRIT 29.1 % (37.9-51.0); HEMOGLOBIN 10.1 g/dL (13.5-17.0); MEAN CORPUSCULAR HEMOGLOBIN 27.9 pg (27.0-33.4); MEAN CORPUSCULAR HGB CONC 34.7 g/dL (32.0-36.0); MEAN CORPUSCULAR VOLUME 81 fl (80-97); PLATELET COUNT 197 10^3/uL (150-450); RED BLOOD COUNT 3.62 10^6/uL (4.35-5.55); RED CELL DISTRIBUTION WIDTH 16.6 % (11.5-14.0)
[2017-12-13 04:34] LABS: ALANINE AMINOTRANSFERASE 26 U/L (21-72); ALBUMIN 1.8 g/dL (3.5-5.0); ALKALINE PHOSPHATASE 59 U/L (38-126); ANION GAP 5 (5-19); ASPARTATE AMINO TRANSFERASE 11 U/L (17-59); BILIRUBIN,DIRECT 0.3 mg/dL (0.0-0.4); BILIRUBIN,TOTAL 0.3 mg/dL (0.2-1.3); BLOOD UREA NITROGEN 6 mg/dL (7-20); CALCIUM 7.9 mg/dL (8.4-10.2); CARBON DIOXIDE 26 mmol/L (22-30); CHLORIDE 110 mmol/L (98-107); GLUCOSE 131 mg/dL (75-110); SODIUM 141.4 mmol/L (137-145)
[2017-12-13 04:45] LABS: POTASSIUM 2.7 mmol/L (3.6-5.0)
[2017-12-13] MEDS: POTASSIUM CHLORIDE 20 MEQ/50 ML RTU IV SCH ×2 (05:59→08:35)
[2017-12-13] MEDS: NORMAL SALINE 1000 ML 1,000 ML IV PRN ×3 (06:21→20:04)
[2017-12-13] MEDS ORDERED: PHARMACY COMMUNICATION ORDER MC NR (07:45)
[2017-12-13] MEDS: ENOXAPARIN SODIUM INJ 40 MG/0.4 ML DISP.SYRIN SUBCUT SCH (10:25)
[2017-12-13] MEDS: PANTOPRAZOLE SODIUM 40 MG VIAL IV SCH (10:28)
[2017-12-13] MEDS: TIOTROPIUM BROMIDE DPI 5 CAP/KIT (18 MCG/CAP) IH SCH (10:37)
[2017-12-13] MEDS: BISMUTH SUBSALICYLATE 262 MG TAB.CHEW PEG SCH ×4 (10:57→21:30)
[2017-12-13] MEDS: INSULIN GLARGINE,HUM.REC.ANLOG 300 UNIT/3 ML INSULN.PEN SUBCUT SCH ×2 (10:57→17:48)
[2017-12-13] MEDS ORDERED: HYDRALAZINE HCL INJ/PF 20 MG/1 ML SDV IV PRN (11:00)
[2017-12-13] MEDS: POTASSI CL 20 MEQ/50 ML RIDER 20 MEQ/50 ML RTUPB IV SCH ×4 (11:26→18:56)
--- NOTE | 2017-12-13 12:11 | PDOC PROGRESS REPORT ---
Subjective Progress Note for:: 12/13/17 Subjective:: 67 yr old male with insulin dependent diabetes and recently diagnosed lung cancer, undergoing RT in [place]. He presented to the hospital on 11/29/17 with DKA due to inability to take any of his meds secondary to persistent nausea, vomiting and abdominal pain since RT was started. Endoscopy showed esophageal ulcer. DKA resolved with IV Insulin and fluids. He had a G tube placed on 12/05/17 due to persistent inability to tlerate PO. The patient complained of increased abdominal pain and it was discovered this am that G tube had become displaced. He was taken to the OR by Dr. Robins on 12/10/17 and tube was repositioned. CT chest did not show PE. He has aspiration Pneumonia for which he is on antibiotics. Plan to clamp NG and start tube feeds if ok by Surgery service. Out of bed Remove Fernandez PT eval. Plan discussed by patient and his who was at the bedside. Reason For Visit: DKA Physical Exam Vital Signs: Temp Pulse Resp BP Pulse Ox 98.0 F 95 38 H 114/65 95 12/13/17 10:00 12/13/17 10:00 12/13/17 10:00 12/13/17 10:00 12/13/17 10:00 Intake & Output 12/12/17 12/13/17 12/14/17 06:59 06:59 06:59 Intake Total 3876 3610 Output Total 885 1335 215 Balance 2991 2275 -215 Weight 70.1 kg 70.8 kg General appearance: PRESENT: no acute distress, thin Head exam: PRESENT: normocephalic Eye exam: PRESENT: PERRLA Mouth exam: PRESENT: moist Neck exam: ABSENT: tracheal deviation Respiratory exam: PRESENT: symmetrical, unlabored. ABSENT: wheezes Cardiovascular exam: PRESENT: RRR GI/Abdominal exam: PRESENT: normal bowel sounds, soft, other - PEG tube present Abdominal drain present. ABSENT: tenderness Rectal exam: PRESENT: deferred Gentrourinary exam: PRESENT: indwelling catheter Neurological exam: PRESENT: alert, awake, oriented to person, oriented to place , oriented to time, oriented to situation Psychiatric exam: PRESENT: appropriate affect Results Laboratory Results: 12/13/17 04:01 12/13/17 04:01 12/13/17 12/13/17 04:01 04:01 WBC 6.0 RBC 3.62 L Hgb 10.1 L Hct 29.1 L MCV 81 MCH 27.9 MCHC 34.7 RDW 16.6 H Plt Count 197 Sodium 141.4 Potassium 2.7 L* Chloride 110 H Carbon Dioxide 26 Anion Gap 5 BUN 6 L Creatinine 0.41 L Est GFR ( Amer) > 60 Est GFR (Non-Af Amer) > 60 Glucose 131 H Calcium 7.9 L Magnesium 1.8 Total Bilirubin 0.3 AST 11 L ALT 26 Alkaline Phosphatase 59 Total Protein 4.0 L Albumin 1.8 L 12/11/17 11:50 Catheterized Urine Urine Culture - Final NO GROWTH 2 DAYS 11/30/17 12/01/17 12/01/17 05:22 22:45 22:45 Creatine Kinase 30 L CK-MB (CK-2) 0.73 Troponin I 0.015 NT-Pro-B Natriuret Pep 386 12/02/17 12/02/17 12/02/17 04:47 04:47 10:36 Creatine Kinase 30 L 28 L CK-MB (CK-2) 0.53 Troponin I 0.016 NT-Pro-B Natriuret Pep 12/02/17 12/02/17 12/02/17 10:36 16:50 16:50 Creatine Kinase 35 L CK-MB (CK-2) 0.51 0.39 Troponin I 0.015 < 0.012 NT-Pro-B Natriuret Pep Impressions: Cervical Spine CT 11/29/17 08:28 IMPRESSION: No acute changes Head CT 11/29/17 08:28 IMPRESSION: No acute intracranial changes. Nasal bone fracture with trace fluid in the right maxillary sinus. EVIDENCE OF ACUTE STROKE: NO. Fluoroscopy 12/02/17 00:00 IMPRESSION: Unsuccessful Dobbhoff feeding tube placement. KUB X-Ray 12/08/17 00:00 IMPRESSION: Persistent constipation Acute Abdomen Series 12/10/17 00:00 IMPRESSION: Left basilar airspace disease atelectasis versus pneumonia Right subdiaphragmatic free air Distended stomach with air-fluid level. Tube Placement 12/10/17 00:00 IMPRESSION: Gastrostomy tube tip is outside the stomach, along the anterior abdominal wall. Chest X-Ray 12/11/17 00:00 IMPRESSION: PATCHY MULTIFOCAL AIRSPACE DISEASE ABOVE SUSPICIOUS FOR PNEUMONIA. RECOMMEND FOLLOWUP RADIOGRAPHS 4 TO 6 WEEKS TO ENSURE RESOLUTION. Chest/Abdomen CTA 12/12/17 00:00 IMPRESSION: UNREMARKABLE CTA CHEST WITHOUT PULMONARY EMBOLI. LEFT GREATER THAN RIGHT PLEURAL EFFUSIONS WITH BILATERAL LOWER LOBE AIRSPACE DISEASE COULD REPRESENT COMPRESSIVE ATELECTASIS OR SUPERIMPOSED PNEUMONIA. PARTIAL VISUALIZATION OF FREE ABDOMINAL FLUID, AIR, AND SURGICAL DRAIN PRESUMABLY RELATED TO RECENT SURGERY. DISTENDED GALLBLADDER. CORRELATE WITH SYMPTOMS. Assessment & Plan - Diagnosis (1) DKA, type 1 Qualifiers: Diabetes mellitus complication detail: without coma Qualified Code(s): E10.10 - Type 1 diabetes mellitus with ketoacidosis without coma Is this a current diagnosis for this admission?: Yes Plan: Resolved. Now on lantus and Lispro sliding scale (2) Hypertension Is this a current diagnosis for this admission?: Yes Plan: BP low normal- continue to monitor. Antihypertensives on hold (3) CAD (coronary artery disease) Is this a current diagnosis for this admission?: Yes Plan: Resume outpatient meds when able to take PO. (4) Nausea and vomiting Qualifiers: Vomiting type: cyclical vomiting Vomiting Intractability: intractable Qualified Code(s): G43.A1 - Cyclical vomiting, intractable Is this a current diagnosis for this admission?: Yes Plan: Resolved. G tube tip repositioned. Plan to restart tube feeds (5) Acute renal failure Is this a current diagnosis for this admission?: Yes Plan: Resolved with IV fluids (6) COPD (chronic obstructive pulmonary disease) Qualifiers: COPD type: emphysema Is this a current diagnosis for this admission?: Yes Plan: Stable. Continue Spiriva and nebs prn (7) Lung cancer Qualifiers: Laterality: right Lung location: lower lobe of lung Qualified Code(s): C34.31 - Malignant neoplasm of lower lobe, right bronchus or lung Is this a current diagnosis for this admission?: Yes Plan: Was undergoing RT as an outpatient. (8) History of prostate cancer Is this a current diagnosis for this admission?: Yes Plan: Outpatient follow up (9) DVT prophylaxis Is this a current diagnosis for this admission?: Yes Plan: Lovenox s/c (10) Nasal bone fracture Qualifiers: Encounter type: initial encounter Fracture type: closed Qualified Code(s) : S02.2XXA - Fracture of nasal bones, initial encounter for closed fracture Is this a current diagnosis for this admission?: Yes Plan: Due to fall prior to admission. (11) Hyperphosphatemia Is this a current diagnosis for this admission?: Yes Plan: Resolved (12) Hypercalcemia Is this a current diagnosis for this admission?: Yes Plan: Resolved (13) Hyperkalemia Is this a current diagnosis for this admission?: Yes Plan: Resolved (14) Hypernatremia Is this a current diagnosis for this admission?: Yes Plan: Resolved (15) Pneumonia Qualifiers: Pneumonia type: aspiration pneumonia Laterality: bilateral Lung location : unspecified part of lung Is this a current diagnosis for this admission?: Yes Plan: Likely due to aspiration. Day 4 of Doxycycline and Flagyl. Day 3 of Zosyn. (16) Sinus tachycardia Is this a current diagnosis for this admission?: Yes Plan: Improving. Due to dehydration and pneumonia. IV fluids and antibiotics ordered. (17) Esophageal ulcer without bleeding Is this a current diagnosis for this admission?: Yes Plan: PPI (18) Hypokalemia Is this a current diagnosis for this admission?: Yes Plan: Replace (19) Hypomagnesemia Is this a current diagnosis for this admission?: Yes Plan: Replace - Time Time Spent with patient: 35 or more minutes - Plan Summary Plan Summary: Transfer to [facility]
[2017-12-13 16:37] LABS: BLOOD UREA NITROGEN 4 mg/dL (7-20); GLUCOSE 115 mg/dL (75-110); PHOSPHORUS 1.8 mg/dL (2.5-4.5)
[2017-12-13 16:48] LABS: CARBON DIOXIDE 26 mmol/L (22-30); CHLORIDE 110 mmol/L (98-107); POTASSIUM 3.2 mmol/L (3.6-5.0)
[2017-12-13 16:49] LABS: ANION GAP 5 (5-19); SODIUM 140.6 mmol/L (137-145)
[2017-12-13] MEDS: LANSOPRAZOLE 30 MG TAB.RAP.DR PEG SCH (17:29)
[2017-12-13] MEDS ORDERED: POTASSI CL 20 MEQ/50 ML RIDER 20 MEQ/50 ML RTUPB IV ONE (20:00)
[2017-12-14] MEDS ORDERED: METRONIDAZOLE 500 MG/NS RTU 100 ML IV ONE (03:20)
[2017-12-14] MEDS: METRONIDAZOLE 500 MG/NS RTU 100 ML IV SCH (03:29)
[2017-12-14] MEDS: PIPERACILLIN SODIUM/TAZOBACTAM 4.5 GM in NORMAL SALINE 100 ML IV SCH ×4 (03:31→21:23)
[2017-12-14 04:13] LABS: HEMATOCRIT 34.7 % (37.9-51.0); HEMOGLOBIN 11.9 g/dL (13.5-17.0); MEAN CORPUSCULAR HEMOGLOBIN 27.2 pg (27.0-33.4); MEAN CORPUSCULAR HGB CONC 34.3 g/dL (32.0-36.0); MEAN CORPUSCULAR VOLUME 79 fl (80-97); PLATELET COUNT 207 10^3/uL (150-450); RED BLOOD COUNT 4.37 10^6/uL (4.35-5.55); RED CELL DISTRIBUTION WIDTH 16.6 % (11.5-14.0); WHITE BLOOD COUNT 7.6 10^3/uL (4.0-10.5)
[2017-12-14 04:24] LABS: ANION GAP 9 (5-19); BLOOD UREA NITROGEN 2 mg/dL (7-20); CALCIUM 8.3 mg/dL (8.4-10.2); CARBON DIOXIDE 24 mmol/L (22-30); CHLORIDE 108 mmol/L (98-107); GLUCOSE 147 mg/dL (75-110); PHOSPHORUS 1.9 mg/dL (2.5-4.5); POTASSIUM 3.1 mmol/L (3.6-5.0); SODIUM 140.7 mmol/L (137-145)
[2017-12-14] MEDS: LANSOPRAZOLE 30 MG TAB.RAP.DR PEG SCH ×2 (05:28→17:33)
[2017-12-14] MEDS: NORMAL SALINE 1000 ML 1,000 ML IV PRN (06:58)
[2017-12-14] MEDS: HYDROMORPHONE HCL INJ/PF 2 MG/ML AMPULE IV PRN ×3 (08:18→20:37)
[2017-12-14] MEDS: POTASSIUM CHLORIDE 20 MEQ/15 ML UDCUP PEG SCH ×2 (10:27→12:14)
[2017-12-14] MEDS: BISMUTH SUBSALICYLATE 262 MG TAB.CHEW PEG SCH ×5 (10:27→23:10)
[2017-12-14] MEDS: MAGNESIUM OXIDE 400 MG TABLET PEG SCH ×2 (10:28→17:33)
[2017-12-14] MEDS: PHOSPHORUS #1 250 MG TABLET PEG SCH ×2 (10:28→23:10)
[2017-12-14] MEDS: LACTOBACILLUS ACIDOPHILUS 250 MG TAB PEG SCH ×2 (10:28→17:32)
[2017-12-14] MEDS: ENOXAPARIN SODIUM INJ 40 MG/0.4 ML DISP.SYRIN SUBCUT SCH (10:28)
[2017-12-14] MEDS: TIOTROPIUM BROMIDE DPI 5 CAP/KIT (18 MCG/CAP) IH SCH (10:28)
[2017-12-14] MEDS: INSULIN GLARGINE,HUM.REC.ANLOG 300 UNIT/3 ML INSULN.PEN SUBCUT SCH ×2 (10:29→17:34)
[2017-12-14] MEDS: DOXYCYCLINE HYCLATE 100 MG in DEXTROSE 5%-WATER 250 ML IV SCH (12:14)
[2017-12-14] MEDS: POTASSI CL 40 MEQ/NS 1L 1,000 ML IV PRN (12:15)
--- NOTE | 2017-12-14 14:56 | PDOC PROGRESS REPORT ---
Subjective Progress Note for:: 12/14/17 Subjective:: 67 yr old male with insulin dependent diabetes and recently diagnosed lung cancer, undergoing RT in [place]. He presented to the hospital on 11/29/17 with DKA due to inability to take any of his meds secondary to persistent nausea, vomiting and abdominal pain since RT was started. Endoscopy showed esophageal ulcer. DKA resolved with IV Insulin and fluids. He had a G tube placed on 12/05/17 due to persistent inability to tlerate PO. The patient complained of increased abdominal pain and it was discovered this am that G tube had become displaced. He was taken to the OR by Dr. Robins on 12/10/17 and tube was repositioned. CT chest did not show PE. He has aspiration Pneumonia for which he is on antibiotics. Doing well with tube feeds. Soft diet PO as tolerated. Encourage out of bed, PT Reason For Visit: DKA Physical Exam Vital Signs: Temp Pulse Resp BP Pulse Ox 98.2 F 105 H 19 121/66 96 12/14/17 12:00 12/14/17 12:00 12/14/17 12:00 12/14/17 12:00 12/14/17 12:00 Intake & Output 12/13/17 12/14/17 12/15/17 06:59 06:59 06:59 Intake Total 3610 3926 Output Total 1335 1030 125 Balance 2275 2896 -125 Weight 70.8 kg 77.3 kg General appearance: PRESENT: no acute distress Head exam: PRESENT: normocephalic Eye exam: ABSENT: scleral icterus Ear exam: PRESENT: normal external ear exam Mouth exam: PRESENT: moist Neck exam: ABSENT: tracheal deviation Respiratory exam: PRESENT: rhonchi, symmetrical, unlabored Cardiovascular exam: PRESENT: RRR GI/Abdominal exam: PRESENT: normal bowel sounds, soft, other - PEG tube present. ABSENT: tenderness Rectal exam: PRESENT: deferred Extremities exam: ABSENT: calf tenderness, pedal edema Neurological exam: PRESENT: alert, awake, oriented to person, oriented to place , oriented to time, oriented to situation Psychiatric exam: PRESENT: appropriate affect Results Laboratory Results: 12/14/17 04:03 12/14/17 04:03 12/13/17 12/14/17 12/14/17 16:05 04:03 04:03 WBC 7.6 RBC 4.37 Hgb 11.9 L Hct 34.7 L MCV 79 L MCH 27.2 MCHC 34.3 RDW 16.6 H Plt Count 207 Sodium 140.6 140.7 Potassium 3.2 L 3.1 L Chloride 110 H 108 H Carbon Dioxide 26 24 Anion Gap 5 9 BUN 4 L 2 L Creatinine 0.39 L 0.37 L Est GFR ( Amer) > 60 > 60 Est GFR (Non-Af Amer) > 60 > 60 Glucose 115 H 147 H Calcium 8.0 L 8.3 L Phosphorus 1.8 L 1.9 L Magnesium 1.7 11/30/17 12/01/17 12/01/17 05:22 22:45 22:45 Creatine Kinase 30 L CK-MB (CK-2) 0.73 Troponin I 0.015 NT-Pro-B Natriuret Pep 386 12/02/17 12/02/17 12/02/17 04:47 04:47 10:36 Creatine Kinase 30 L 28 L CK-MB (CK-2) 0.53 Troponin I 0.016 NT-Pro-B Natriuret Pep 12/02/17 12/02/17 12/02/17 10:36 16:50 16:50 Creatine Kinase 35 L CK-MB (CK-2) 0.51 0.39 Troponin I 0.015 < 0.012 NT-Pro-B Natriuret Pep Impressions: Cervical Spine CT 11/29/17 08:28 IMPRESSION: No acute changes Head CT 11/29/17 08:28 IMPRESSION: No acute intracranial changes. Nasal bone fracture with trace fluid in the right maxillary sinus. EVIDENCE OF ACUTE STROKE: NO. Fluoroscopy 12/02/17 00:00 IMPRESSION: Unsuccessful Dobbhoff feeding tube placement. KUB X-Ray 12/08/17 00:00 IMPRESSION: Persistent constipation Acute Abdomen Series 12/10/17 00:00 IMPRESSION: Left basilar airspace disease atelectasis versus pneumonia Right subdiaphragmatic free air Distended stomach with air-fluid level. Tube Placement 12/10/17 00:00 IMPRESSION: Gastrostomy tube tip is outside the stomach, along the anterior abdominal wall. Chest X-Ray 12/11/17 00:00 IMPRESSION: PATCHY MULTIFOCAL AIRSPACE DISEASE ABOVE SUSPICIOUS FOR PNEUMONIA. RECOMMEND FOLLOWUP RADIOGRAPHS 4 TO 6 WEEKS TO ENSURE RESOLUTION. Chest/Abdomen CTA 12/12/17 00:00 IMPRESSION: UNREMARKABLE CTA CHEST WITHOUT PULMONARY EMBOLI. LEFT GREATER THAN RIGHT PLEURAL EFFUSIONS WITH BILATERAL LOWER LOBE AIRSPACE DISEASE COULD REPRESENT COMPRESSIVE ATELECTASIS OR SUPERIMPOSED PNEUMONIA. PARTIAL VISUALIZATION OF FREE ABDOMINAL FLUID, AIR, AND SURGICAL DRAIN PRESUMABLY RELATED TO RECENT SURGERY. DISTENDED GALLBLADDER. CORRELATE WITH SYMPTOMS. Assessment & Plan - Diagnosis (1) Pneumonia Qualifiers: Pneumonia type: aspiration pneumonia Laterality: bilateral Lung location : unspecified part of lung Is this a current diagnosis for this admission?: Yes Plan: Likely due to aspiration. Day 5 of Doxycycline and Flagyl. Day 4 of Zosyn. Flagyl stopped (2) DKA, type 1 Qualifiers: Diabetes mellitus complication detail: without coma Qualified Code(s): E10.10 - Type 1 diabetes mellitus with ketoacidosis without coma Is this a current diagnosis for this admission?: Yes Plan: Resolved. Now on lantus and Lispro sliding scale (3) Hypertension Is this a current diagnosis for this admission?: Yes Plan: BP low normal- continue to monitor. Antihypertensives on hold (4) CAD (coronary artery disease) Is this a current diagnosis for this admission?: Yes Plan: Outpatient meds. Avoid antiplatelets for 2 weeks given esophageal ulcer. Lopressor and Imdur dose reduced for low BP (5) Nausea and vomiting Qualifiers: Vomiting type: cyclical vomiting Vomiting Intractability: intractable Qualified Code(s): G43.A1 - Cyclical vomiting, intractable Is this a current diagnosis for this admission?: Yes Plan: Resolved. G tube tip repositioned. Tolerating tube feeds (6) Acute renal failure Is this a current diagnosis for this admission?: Yes Plan: Resolved with IV fluids (7) COPD (chronic obstructive pulmonary disease) Qualifiers: COPD type: emphysema Is this a current diagnosis for this admission?: Yes Plan: Stable. Continue Spiriva and nebs prn (8) Lung cancer Qualifiers: Laterality: right Lung location: lower lobe of lung Qualified Code(s): C34.31 - Malignant neoplasm of lower lobe, right bronchus or lung Is this a current diagnosis for this admission?: Yes Plan: Was undergoing RT as an outpatient. (9) History of prostate cancer Is this a current diagnosis for this admission?: Yes Plan: Outpatient follow up (10) DVT prophylaxis Is this a current diagnosis for this admission?: Yes Plan: Lovenox s/c (11) Nasal bone fracture Qualifiers: Encounter type: initial encounter Fracture type: closed Qualified Code(s) : S02.2XXA - Fracture of nasal bones, initial encounter for closed fracture Is this a current diagnosis for this admission?: Yes Plan: Due to fall prior to admission. (12) Hypercalcemia Is this a current diagnosis for this admission?: Yes Plan: Resolved (13) Hyperkalemia Is this a current diagnosis for this admission?: Yes Plan: Resolved (14) Hypernatremia Is this a current diagnosis for this admission?: Yes Plan: Resolved (15) Sinus tachycardia Is this a current diagnosis for this admission?: Yes Plan: Improving. Due to dehydration and pneumonia. IV fluids and antibiotics ordered. (16) Esophageal ulcer without bleeding Is this a current diagnosis for this admission?: Yes Plan: PPI (17) Hypokalemia Is this a current diagnosis for this admission?: Yes Plan: Replace (18) Hypomagnesemia Is this a current diagnosis for this admission?: Yes Plan: Replace (19) Hypophosphatemia Is this a current diagnosis for this admission?: Yes Plan: Replete - Time Time Spent with patient: 35 or more minutes
[2017-12-14] MEDS: HYDROCODONE/ACETAMINOPHEN 7.5-325 MG TABLET PO PRN (16:41)
[2017-12-14] MEDS: METOPROLOL TARTRATE 25 MG TABLET PO SCH (17:34)
[2017-12-14] MEDS: ATORVASTATIN CALCIUM 80 MG TABLET PO SCH (23:10)
[2017-12-15] MEDS: DOXYCYCLINE HYCLATE 100 MG in DEXTROSE 5%-WATER 250 ML IV SCH ×3 (00:02→23:20)
[2017-12-15] MEDS: HYDROMORPHONE HCL INJ/PF 2 MG/ML AMPULE IV PRN ×5 (02:34→23:15)
[2017-12-15] MEDS: PIPERACILLIN SODIUM/TAZOBACTAM 4.5 GM in NORMAL SALINE 100 ML IV SCH ×4 (03:24→21:09)
[2017-12-15] MEDS ORDERED: NORMAL SALINE 1000 ML 1,000 ML IV ONE (04:30)
[2017-12-15 05:25] LABS: ANION GAP 6 (5-19); BLOOD UREA NITROGEN 3 mg/dL (7-20); CALCIUM 8.1 mg/dL (8.4-10.2); CARBON DIOXIDE 26 mmol/L (22-30); CHLORIDE 110 mmol/L (98-107); GLUCOSE 207 mg/dL (75-110); POTASSIUM 3.3 mmol/L (3.6-5.0)
[2017-12-15] MEDS: LANSOPRAZOLE 30 MG TAB.RAP.DR PEG SCH ×2 (05:43→17:32)
[2017-12-15] MEDS: METOPROLOL TARTRATE 25 MG TABLET PO SCH ×2 (05:48→17:25)
[2017-12-15] MEDS ORDERED: NORMAL SALINE 1000 ML 500 ML IV ONE (06:15)
[2017-12-15] MEDS: HYDROCODONE/ACETAMINOPHEN 7.5-325 MG TABLET PO PRN (06:32)
[2017-12-15] MEDS: POTASSI CL 40 MEQ/NS 1L 1,000 ML IV PRN (06:57)
[2017-12-15] MEDS ORDERED: POTASSI CL 40 MEQ/NS 1L 1,000 ML IV PRN (07:29)
[2017-12-15] MEDS ORDERED: METOPROLOL TARTRATE 25 MG TABLET PO ONE (08:00)
[2017-12-15] MEDS: ENOXAPARIN SODIUM INJ 40 MG/0.4 ML DISP.SYRIN SUBCUT SCH (09:48)
[2017-12-15] MEDS: INSULIN GLARGINE,HUM.REC.ANLOG 300 UNIT/3 ML INSULN.PEN SUBCUT SCH ×2 (09:48→17:33)
[2017-12-15] MEDS: LACTOBACILLUS ACIDOPHILUS 250 MG TAB PEG SCH ×2 (09:51→17:32)
[2017-12-15] MEDS: FERROUS SULFATE 325 MG TABLET PO SCH (09:51)
[2017-12-15] MEDS: MAGNESIUM OXIDE 400 MG TABLET PEG SCH ×2 (09:52→17:32)
[2017-12-15] MEDS: BISMUTH SUBSALICYLATE 262 MG TAB.CHEW PEG SCH ×4 (09:52→21:08)
[2017-12-15] MEDS: PHOSPHORUS #1 250 MG TABLET PEG SCH ×2 (09:54→21:09)
[2017-12-15] MEDS: TIOTROPIUM BROMIDE DPI 5 CAP/KIT (18 MCG/CAP) IH SCH (09:54)
[2017-12-15] MEDS ORDERED: ISOSORBIDE MONONITRATE 60 MG TAB.ER.24H PO SCH (10:00)
[2017-12-15] MEDS ORDERED: (PENDING PHARMACY ID) (Ferrous Sulfate [Ferrous Sulfate] 324 MG) PO SCH (10:00)
[2017-12-15] MEDS ORDERED: POTASSIUM CHLORIDE 20 MEQ/15 ML UDCUP PO ONE (10:15)
--- NOTE | 2017-12-15 14:18 | PDOC PROGRESS REPORT ---
Subjective Progress Note for:: 12/15/17 Subjective:: 67 yr old male with insulin dependent diabetes and recently diagnosed lung cancer, undergoing RT in [place]. He presented to the hospital on 11/29/17 with DKA due to inability to take any of his meds secondary to persistent nausea, vomiting and abdominal pain since RT was started. Endoscopy showed esophageal ulcer. DKA resolved with IV Insulin and fluids. He had a G tube placed on 12/05/17 due to persistent inability to tlerate PO. The patient complained of increased abdominal pain and it was discovered this am that G tube had become displaced. He was taken to the OR by Dr. Robins on 12/10/17 and tube was repositioned. CT chest did not show PE. He developed an aspiration Pneumonia for which he is on antibiotics. Doing well with tube feeds. Soft diet PO encouraged but he has no appetite, feels very weak and is considering hospice. We have requested records from [place] from recent treatment for lung cancer per his 's request. She is hoping that he can continue treatment. The case was discussed in great detail with the patient and his . Reason For Visit: DKA Physical Exam Vital Signs: Temp Pulse Resp BP Pulse Ox 98.8 F 88 20 90/47 L 98 12/15/17 12:00 12/15/17 12:00 12/15/17 12:00 12/15/17 12:00 12/15/17 12:00 Intake & Output 12/14/17 12/15/17 12/16/17 06:59 06:59 06:59 Intake Total 3926 6156 100 Output Total 1030 450 300 Balance 2896 5706 -200 Weight 77.3 kg 77.3 kg General appearance: PRESENT: thin Head exam: PRESENT: normocephalic Eye exam: ABSENT: scleral icterus Ear exam: PRESENT: normal external ear exam Mouth exam: PRESENT: moist Neck exam: ABSENT: tracheal deviation Respiratory exam: PRESENT: symmetrical, unlabored Cardiovascular exam: PRESENT: RRR, tachycardia GI/Abdominal exam: PRESENT: normal bowel sounds, soft, other - G tube present. ABSENT: tenderness Rectal exam: PRESENT: deferred Gentrourinary exam: ABSENT: indwelling catheter Extremities exam: ABSENT: calf tenderness Neurological exam: PRESENT: alert, awake Psychiatric exam: PRESENT: depressed Results Laboratory Results: 12/14/17 04:03 12/15/17 04:24 12/15/17 04:24 Sodium 142.0 Potassium 3.3 L Chloride 110 H Carbon Dioxide 26 Anion Gap 6 BUN 3 L Creatinine 0.38 L Est GFR ( Amer) > 60 Est GFR (Non-Af Amer) > 60 Glucose 207 H Calcium 8.1 L 11/30/17 12/01/17 12/01/17 05:22 22:45 22:45 Creatine Kinase 30 L CK-MB (CK-2) 0.73 Troponin I 0.015 NT-Pro-B Natriuret Pep 386 12/02/17 12/02/17 12/02/17 04:47 04:47 10:36 Creatine Kinase 30 L 28 L CK-MB (CK-2) 0.53 Troponin I 0.016 NT-Pro-B Natriuret Pep 12/02/17 12/02/17 12/02/17 10:36 16:50 16:50 Creatine Kinase 35 L CK-MB (CK-2) 0.51 0.39 Troponin I 0.015 < 0.012 NT-Pro-B Natriuret Pep Impressions: Cervical Spine CT 11/29/17 08:28 IMPRESSION: No acute changes Head CT 11/29/17 08:28 IMPRESSION: No acute intracranial changes. Nasal bone fracture with trace fluid in the right maxillary sinus. EVIDENCE OF ACUTE STROKE: NO. Fluoroscopy 12/02/17 00:00 IMPRESSION: Unsuccessful Dobbhoff feeding tube placement. KUB X-Ray 12/08/17 00:00 IMPRESSION: Persistent constipation Acute Abdomen Series 12/10/17 00:00 IMPRESSION: Left basilar airspace disease atelectasis versus pneumonia Right subdiaphragmatic free air Distended stomach with air-fluid level. Tube Placement 12/10/17 00:00 IMPRESSION: Gastrostomy tube tip is outside the stomach, along the anterior abdominal wall. Chest X-Ray 12/11/17 00:00 IMPRESSION: PATCHY MULTIFOCAL AIRSPACE DISEASE ABOVE SUSPICIOUS FOR PNEUMONIA. RECOMMEND FOLLOWUP RADIOGRAPHS 4 TO 6 WEEKS TO ENSURE RESOLUTION. Chest/Abdomen CTA 12/12/17 00:00 IMPRESSION: UNREMARKABLE CTA CHEST WITHOUT PULMONARY EMBOLI. LEFT GREATER THAN RIGHT PLEURAL EFFUSIONS WITH BILATERAL LOWER LOBE AIRSPACE DISEASE COULD REPRESENT COMPRESSIVE ATELECTASIS OR SUPERIMPOSED PNEUMONIA. PARTIAL VISUALIZATION OF FREE ABDOMINAL FLUID, AIR, AND SURGICAL DRAIN PRESUMABLY RELATED TO RECENT SURGERY. DISTENDED GALLBLADDER. CORRELATE WITH SYMPTOMS. Assessment & Plan - Diagnosis (1) Pneumonia Qualifiers: Pneumonia type: aspiration pneumonia Laterality: bilateral Lung location : unspecified part of lung Is this a current diagnosis for this admission?: Yes Plan: Likely due to aspiration, had multiple episodes of vomiting last week. Day 6 of Doxycycline. Day 5 of Zosyn. (2) DKA, type 1 Qualifiers: Diabetes mellitus complication detail: without coma Qualified Code(s): E10.10 - Type 1 diabetes mellitus with ketoacidosis without coma Is this a current diagnosis for this admission?: Yes Plan: Resolved. Now on lantus and Lispro sliding scale (3) Hypertension Is this a current diagnosis for this admission?: Yes Plan: BP low normal- continue to monitor. Antihypertensives on hold (4) CAD (coronary artery disease) Is this a current diagnosis for this admission?: Yes Plan: Outpatient meds. Avoid antiplatelets for 2 weeks given esophageal ulcer. Lopressor reduced for low BP (5) Nausea and vomiting Qualifiers: Vomiting type: cyclical vomiting Vomiting Intractability: intractable Qualified Code(s): G43.A1 - Cyclical vomiting, intractable Is this a current diagnosis for this admission?: Yes (6) Acute renal failure Is this a current diagnosis for this admission?: Yes Plan: Resolved with IV fluids (7) COPD (chronic obstructive pulmonary disease) Qualifiers: COPD type: emphysema Is this a current diagnosis for this admission?: Yes Plan: Stable. Continue Spiriva and nebs prn (8) Lung cancer Qualifiers: Laterality: right Lung location: lower lobe of lung Qualified Code(s): C34.31 - Malignant neoplasm of lower lobe, right bronchus or lung Is this a current diagnosis for this admission?: Yes Plan: Was undergoing RT as an outpatient. Request records from [place]. (9) History of prostate cancer Is this a current diagnosis for this admission?: Yes Plan: Outpatient follow up (10) DVT prophylaxis Is this a current diagnosis for this admission?: Yes Plan: Lovenox s/c (11) Nasal bone fracture Qualifiers: Encounter type: initial encounter Fracture type: closed Qualified Code(s) : S02.2XXA - Fracture of nasal bones, initial encounter for closed fracture Is this a current diagnosis for this admission?: Yes Plan: Due to fall prior to admission. (12) Hypercalcemia Is this a current diagnosis for this admission?: Yes Plan: Resolved (13) Hyperkalemia Is this a current diagnosis for this admission?: Yes Plan: Resolved (14) Hypernatremia Is this a current diagnosis for this admission?: Yes Plan: Resolved (15) Sinus tachycardia Is this a current diagnosis for this admission?: Yes (16) Esophageal ulcer without bleeding Is this a current diagnosis for this admission?: Yes Plan: PPI (17) Hypokalemia Is this a current diagnosis for this admission?: Yes Plan: Replace (18) Hypomagnesemia Is this a current diagnosis for this admission?: Yes Plan: Replace (19) Hypophosphatemia Is this a current diagnosis for this admission?: Yes Plan: Replete - Time Time Spent with patient: 25-34 minutes
[2017-12-15] MEDS: ATORVASTATIN CALCIUM 80 MG TABLET PO SCH (21:09)
--- NOTE | 2017-12-15 23:16 | Progress Note ---
Provider Note Provider Note: Palliative care consult 12/15/17 3:10- 4:15 PM Appreciate palliative consult referral for this unfortunate 67 year old man who has recently been diagnosed with lung cancer and has been treated in [place] with radiation therapy for this cancer. He has been admitted to [facility] since for multiple conditions related to his treatment but not as much to his cancer. He had to have his feeding tube revised. This tube was placed due to the radiation therapy so he can get nutrition while his esophagus heals. He has had abd pain and pneumonia. He has history of prostate cancer but oncologist at [place] did not think this current cancer is related. Mr Smith has received pain meds just before my visit and he slept while I spoke with his , his brother and sister in law and with his daughter on telephone. We discussed options for care and place of care after discharge including home with hospice if no further aggressive treatments are offered/ accepted. Long part of discussion was about advance directives, code status and choices for future care. Patient wanted to be DNR when he came to hospital. However, as he started feeling better he changed status to Full code. Family has concerns about care he will receive if he is DNR as opposed to care Full code. This was discussed at length. and daughter realize it is his choice but wanted to discuss for better knowledge in case they need to make the decision for him in the future. Most of their concerns evolve around not knowing the status of the cancer. They were told in [place] that the cancer could possibly be eradicated with the radiation treatments. All of the problems he has faced this admission were related to the cancer treatment more than the cancer itself. We discussed many of these issues including protein malnutrition and edema which family thinks is due to kidney failure but I do not not labs representing kidney failure.. He is now getting feedings to improve nutrition and time will tell if his body can digest the feedings and utilize the nutrients. It is patients wish to continue feedings. Family is very respectful of patients decisions but all want better understanding of options for care. Family wants to know how they can find out the status of the cancer as compared to before the radiation. Records from [place] have been requested. We discussed having MRI or PET done here to compare with studies done in [place]. Another option is to transfer patient to [place] if possible and if accepted. I told them to talk with hospitalist about these concerns. They feel patient can make better eol care decisions including code status if he knows about the cancer vs problems created by treatment. Patients daughter lives in [place] and needs FMLA papers completed for her time needed to come to help with her father. I told her I would be happy to complete these for her. She is struggling with these talks about hospice, DNR, etc and this is relatively new diagnosis and her father is young. I tried to offer support and gave them all my cell number to call with any questions. I will follow up with them in two days.
[2017-12-16] MEDS: IPRATROPIUM/ALBUTEROL 0.5-2.5 MG/3 ML AMPUL NEB PRN (02:22)
[2017-12-16] MEDS: PIPERACILLIN SODIUM/TAZOBACTAM 4.5 GM in NORMAL SALINE 100 ML IV SCH ×4 (02:55→21:58)
[2017-12-16] MEDS: HYDROMORPHONE HCL INJ/PF 2 MG/ML AMPULE IV PRN ×6 (03:04→23:26)
[2017-12-16 05:11] LABS: BLOOD UREA NITROGEN 3 mg/dL (7-20); CALCIUM 7.9 mg/dL (8.4-10.2); CARBON DIOXIDE 27 mmol/L (22-30); GLUCOSE 170 mg/dL (75-110); PHOSPHORUS 2.7 mg/dL (2.5-4.5); POTASSIUM 3.3 mmol/L (3.6-5.0)
[2017-12-16 05:17] LABS: ANION GAP 5 (5-19); CHLORIDE 109 mmol/L (98-107); SODIUM 140.9 mmol/L (137-145)
[2017-12-16] MEDS: METOPROLOL TARTRATE 25 MG TABLET PO SCH ×2 (05:46→17:38)
[2017-12-16] MEDS: LANSOPRAZOLE 30 MG TAB.RAP.DR PEG SCH ×2 (05:46→16:25)
[2017-12-16] MEDS: BISMUTH SUBSALICYLATE 262 MG TAB.CHEW PEG SCH ×4 (11:05→21:58)
[2017-12-16] MEDS: PHOSPHORUS #1 250 MG TABLET PEG SCH ×2 (11:06→21:58)
[2017-12-16] MEDS: TIOTROPIUM BROMIDE DPI 5 CAP/KIT (18 MCG/CAP) IH SCH (11:06)
[2017-12-16] MEDS: INSULIN GLARGINE,HUM.REC.ANLOG 300 UNIT/3 ML INSULN.PEN SUBCUT SCH ×2 (11:06→18:05)
[2017-12-16] MEDS: FERROUS SULFATE 325 MG TABLET PO SCH (11:06)
[2017-12-16] MEDS: ENOXAPARIN SODIUM INJ 40 MG/0.4 ML DISP.SYRIN SUBCUT SCH (11:06)
[2017-12-16] MEDS: LACTOBACILLUS ACIDOPHILUS 250 MG TAB PEG SCH ×2 (11:06→17:38)
[2017-12-16] MEDS: MAGNESIUM OXIDE 400 MG TABLET PEG SCH ×2 (11:09→17:38)
[2017-12-16] MEDS: HYDROCODONE/ACETAMINOPHEN 7.5-325 MG TABLET PO PRN (11:15)
[2017-12-16] MEDS ORDERED: POTASSIUM CHLORIDE 20 MEQ/15 ML UDCUP GT ONE (11:30)
--- NOTE | 2017-12-16 11:35 | PDOC PROGRESS REPORT ---
Subjective Progress Note for:: 12/16/17 Subjective:: Patient is seen resting in bed. is at the bedside. He denies any chest pain, shortness of breath or dyspnea at rest. He denies any nausea, vomiting or diarrhea. He does have mild abdominal discomfort around the gastrostomy tube. States this is improving. He is able to swallow water with a straw. He denies any significant arthralgias or myalgias. He admits to being extremely weak and debilitated. Remaining review of systems are negative. Reason For Visit: DKA Physical Exam Vital Signs: Temp Pulse Resp BP Pulse Ox 98.3 F 86 18 124/60 97 12/16/17 07:59 12/16/17 07:59 12/16/17 07:59 12/16/17 07:59 12/16/17 07:59 Intake & Output 12/15/17 12/16/17 12/17/17 06:59 06:59 06:59 Intake Total 6156 2910 Output Total 450 955 Balance 5706 1955 Weight 77.3 kg 75.1 kg General appearance: PRESENT: no acute distress, thin, well-developed, other - Pale Head exam: PRESENT: atraumatic, normocephalic Eye exam: PRESENT: conjunctiva pale, PERRLA Ear exam: PRESENT: normal external ear exam Mouth exam: PRESENT: moist, tongue midline Teeth exam: PRESENT: edentulous Neck exam: ABSENT: carotid bruit, JVD, lymphadenopathy, thyromegaly Respiratory exam: PRESENT: clear to auscultation elif, symmetrical, unlabored. ABSENT: rales, rhonchi, wheezes Cardiovascular exam: PRESENT: RRR. ABSENT: diastolic murmur, rubs, systolic murmur Pulses: PRESENT: normal dorsalis pedis pul Vascular exam: PRESENT: normal capillary refill GI/Abdominal exam: PRESENT: hypoactive bowel sounds, soft, tenderness - Around G -tube Rectal exam: PRESENT: deferred Extremities exam: PRESENT: +2 edema - Pedal to knees and upper extremities Musculoskeletal exam: PRESENT: full ROM Neurological exam: PRESENT: alert, awake, oriented to person, oriented to place , oriented to time, oriented to situation, CN II-XII grossly intact. ABSENT: motor sensory deficit Psychiatric exam: PRESENT: flat affect Skin exam: PRESENT: dry, intact, warm. ABSENT: cyanosis, rash Results Laboratory Results: 12/14/17 04:03 12/16/17 04:07 12/16/17 04:07 Sodium 140.9 Potassium 3.3 L Chloride 109 H Carbon Dioxide 27 Anion Gap 5 BUN 3 L Creatinine 0.39 L Est GFR ( Amer) > 60 Est GFR (Non-Af Amer) > 60 Glucose 170 H Calcium 7.9 L Phosphorus 2.7 Magnesium 1.6 11/30/17 12/01/17 12/01/17 05:22 22:45 22:45 Creatine Kinase 30 L CK-MB (CK-2) 0.73 Troponin I 0.015 NT-Pro-B Natriuret Pep 386 12/02/17 12/02/17 12/02/17 04:47 04:47 10:36 Creatine Kinase 30 L 28 L CK-MB (CK-2) 0.53 Troponin I 0.016 NT-Pro-B Natriuret Pep 12/02/17 12/02/17 12/02/17 10:36 16:50 16:50 Creatine Kinase 35 L CK-MB (CK-2) 0.51 0.39 Troponin I 0.015 < 0.012 NT-Pro-B Natriuret Pep Impressions: Cervical Spine CT 11/29/17 08:28 IMPRESSION: No acute changes Head CT 11/29/17 08:28 IMPRESSION: No acute intracranial changes. Nasal bone fracture with trace fluid in the right maxillary sinus. EVIDENCE OF ACUTE STROKE: NO. Fluoroscopy 12/02/17 00:00 IMPRESSION: Unsuccessful Dobbhoff feeding tube placement. KUB X-Ray 12/08/17 00:00 IMPRESSION: Persistent constipation Acute Abdomen Series 12/10/17 00:00 IMPRESSION: Left basilar airspace disease atelectasis versus pneumonia Right subdiaphragmatic free air Distended stomach with air-fluid level. Tube Placement 12/10/17 00:00 IMPRESSION: Gastrostomy tube tip is outside the stomach, along the anterior abdominal wall. Chest X-Ray 12/11/17 00:00 IMPRESSION: PATCHY MULTIFOCAL AIRSPACE DISEASE ABOVE SUSPICIOUS FOR PNEUMONIA. RECOMMEND FOLLOWUP RADIOGRAPHS 4 TO 6 WEEKS TO ENSURE RESOLUTION. Chest/Abdomen CTA 12/12/17 00:00 IMPRESSION: UNREMARKABLE CTA CHEST WITHOUT PULMONARY EMBOLI. LEFT GREATER THAN RIGHT PLEURAL EFFUSIONS WITH BILATERAL LOWER LOBE AIRSPACE DISEASE COULD REPRESENT COMPRESSIVE ATELECTASIS OR SUPERIMPOSED PNEUMONIA. PARTIAL VISUALIZATION OF FREE ABDOMINAL FLUID, AIR, AND SURGICAL DRAIN PRESUMABLY RELATED TO RECENT SURGERY. DISTENDED GALLBLADDER. CORRELATE WITH SYMPTOMS. Assessment & Plan - Diagnosis (1) Radiation-induced esophagitis Is this a current diagnosis for this admission?: Yes Plan: Patient underwent EGD by Dr. Alegre. He was noted to have esophagitis, esophageal ulcer and gastritis. Patient states he is still unable to swallow. He has a G-tube in place for feedings. Has not had a formal speech consult that I can see. Will order speech therapy to evaluate. (2) COPD (chronic obstructive pulmonary disease) Qualifiers: COPD type: emphysema Is this a current diagnosis for this admission?: Yes (3) DKA, type 1 Qualifiers: Diabetes mellitus complication detail: without coma Qualified Code(s): E10.10 - Type 1 diabetes mellitus with ketoacidosis without coma Is this a current diagnosis for this admission?: Yes Plan: Resolved. Secondary to poor intake. He is not receiving a sliding scale insulin with his enteral feedings (4) Esophageal ulcer without bleeding Is this a current diagnosis for this admission?: Yes (5) Prostate cancer Is this a current diagnosis for this admission?: Yes Plan: states this has been in remission (6) Hypokalemia Is this a current diagnosis for this admission?: Yes Plan: Replete and monitor (7) Lung cancer Qualifiers: Laterality: right Lung location: lower lobe of lung Qualified Code(s): C34.31 - Malignant neoplasm of lower lobe, right bronchus or lung Is this a current diagnosis for this admission?: Yes Plan: Patient has had 15 radiation treatments to the lung. It is unclear what stage his lung cancer was to begin with. His states they are initially considering surgery but because of his poor physical status at the time opted with radiation treatment. Treatment modality and this was relayed to her as well. [facility] [place] His oncologist was from [place] (8) Pneumonia Qualifiers: Pneumonia type: aspiration pneumonia Laterality: bilateral Lung location : unspecified part of lung Is this a current diagnosis for this admission?: Yes Plan: Continue current IV antibiotics. (9) Protein-calorie malnutrition, moderate Is this a current diagnosis for this admission?: Yes (10) CAD (coronary artery disease) Qualifiers: Associated angina: without angina Is this a current diagnosis for this admission?: Yes Plan: Continue current medications. (11) Hypertension Qualifiers: Hypertension type: essential hypertension Qualified Code(s): I10 - Essential (primary) hypertension Is this a current diagnosis for this admission?: Yes Plan: Presently normotensive continue current medication - Time Time Spent with patient: 25-34 minutes Medications reviewed and adjusted accordingly: Yes
[2017-12-16] MEDS: DOXYCYCLINE HYCLATE 100 MG in DEXTROSE 5%-WATER 250 ML IV SCH ×2 (12:00→23:32)
[2017-12-16] MEDS ORDERED: FUROSEMIDE INJ/PF 40 MG/4 ML SDV IV ONE (16:45)
[2017-12-16] MEDS: ATORVASTATIN CALCIUM 80 MG TABLET PO SCH (21:58)
[2017-12-17] MEDS: HYDROMORPHONE HCL INJ/PF 2 MG/ML AMPULE IV PRN (02:31)
[2017-12-17] MEDS: PIPERACILLIN SODIUM/TAZOBACTAM 4.5 GM in NORMAL SALINE 100 ML IV SCH ×4 (02:32→21:31)
[2017-12-17] MEDS: IPRATROPIUM/ALBUTEROL 0.5-2.5 MG/3 ML AMPUL NEB PRN ×2 (04:07→16:58)
[2017-12-17] MEDS: LANSOPRAZOLE 30 MG TAB.RAP.DR PEG SCH ×2 (05:06→16:24)
[2017-12-17] MEDS: METOPROLOL TARTRATE 25 MG TABLET PO SCH ×2 (05:06→17:33)
[2017-12-17 05:54] LABS: ANION GAP 8 (5-19); BLOOD UREA NITROGEN 3 mg/dL (7-20); CALCIUM 8.3 mg/dL (8.4-10.2); CARBON DIOXIDE 30 mmol/L (22-30); CHLORIDE 103 mmol/L (98-107); GLUCOSE 172 mg/dL (75-110); POTASSIUM 3.5 mmol/L (3.6-5.0); SODIUM 141.1 mmol/L (137-145)
[2017-12-17] MEDS: HYDROCODONE/ACETAMINOPHEN 7.5-325 MG TABLET PO PRN ×2 (10:50→19:48)
[2017-12-17] MEDS: MAGNESIUM OXIDE 400 MG TABLET PEG SCH ×2 (11:41→17:32)
[2017-12-17] MEDS: LACTOBACILLUS ACIDOPHILUS 250 MG TAB PEG SCH ×2 (11:42→17:32)
[2017-12-17] MEDS: ENOXAPARIN SODIUM INJ 40 MG/0.4 ML DISP.SYRIN SUBCUT SCH (11:43)
[2017-12-17] MEDS: PHOSPHORUS #1 250 MG TABLET PEG SCH ×2 (11:44→21:31)
[2017-12-17] MEDS: BISMUTH SUBSALICYLATE 262 MG TAB.CHEW PEG SCH ×4 (11:44→21:31)
[2017-12-17] MEDS: FERROUS SULFATE 325 MG TABLET PO SCH (11:45)
[2017-12-17] MEDS: INSULIN GLARGINE,HUM.REC.ANLOG 300 UNIT/3 ML INSULN.PEN SUBCUT SCH ×2 (11:47→17:35)
[2017-12-17] MEDS: TIOTROPIUM BROMIDE DPI 5 CAP/KIT (18 MCG/CAP) IH SCH (11:47)
--- NOTE | 2017-12-17 12:24 | PDOC PROGRESS REPORT ---
Subjective Progress Note for:: 12/17/17 Subjective:: Complains of significant pain mostly in the back, Dilaudid have been helping best but the hospitalist. Pain chronic. Patient is weak and has difficulty ambulating. They are thinking of possible rehab process vs hospice. We will try starting patient on Duragesic patch and using morphine and [place] for breakthrough pain. is at bedside. Reason For Visit: DKA Physical Exam Vital Signs: Temp Pulse Resp BP Pulse Ox 98.6 F 98 16 110/60 96 12/17/17 08:27 12/17/17 08:27 12/17/17 08:27 12/17/17 08:27 12/17/17 08:27 Intake & Output 12/16/17 12/17/17 12/18/17 06:59 06:59 06:59 Intake Total 2910 2657 Output Total 955 2285 Balance 1955 372 Weight 75.1 kg 73.6 kg GEN: NAD, well-developed, chronically ill-appearing CV: RRR, NL S1S2 LUNGS: CTA bilaterally ABDOMEN Soft, NT, +BS EXTERMITIES: 2+ pedal edema NEURO: Alert, oriented 3, generalized weakness Results Laboratory Results: 12/14/17 04:03 12/17/17 04:09 12/17/17 04:09 Sodium 141.1 Potassium 3.5 L Chloride 103 Carbon Dioxide 30 Anion Gap 8 BUN 3 L Creatinine 0.42 L Est GFR ( Amer) > 60 Est GFR (Non-Af Amer) > 60 Glucose 172 H Calcium 8.3 L Magnesium 1.5 L 12/11/17 13:52 Blood Blood Culture - Final NO GROWTH IN 5 DAYS 12/11/17 12:15 Blood Blood Culture - Final NO GROWTH IN 5 DAYS 11/30/17 12/01/17 12/01/17 05:22 22:45 22:45 Creatine Kinase 30 L CK-MB (CK-2) 0.73 Troponin I 0.015 NT-Pro-B Natriuret Pep 386 12/02/17 12/02/17 12/02/17 04:47 04:47 10:36 Creatine Kinase 30 L 28 L CK-MB (CK-2) 0.53 Troponin I 0.016 NT-Pro-B Natriuret Pep 12/02/17 12/02/17 12/02/17 10:36 16:50 16:50 Creatine Kinase 35 L CK-MB (CK-2) 0.51 0.39 Troponin I 0.015 < 0.012 NT-Pro-B Natriuret Pep Impressions: Cervical Spine CT 11/29/17 08:28 IMPRESSION: No acute changes Head CT 11/29/17 08:28 IMPRESSION: No acute intracranial changes. Nasal bone fracture with trace fluid in the right maxillary sinus. EVIDENCE OF ACUTE STROKE: NO. Fluoroscopy 12/02/17 00:00 IMPRESSION: Unsuccessful Dobbhoff feeding tube placement. KUB X-Ray 12/08/17 00:00 IMPRESSION: Persistent constipation Acute Abdomen Series 12/10/17 00:00 IMPRESSION: Left basilar airspace disease atelectasis versus pneumonia Right subdiaphragmatic free air Distended stomach with air-fluid level. Tube Placement 12/10/17 00:00 IMPRESSION: Gastrostomy tube tip is outside the stomach, along the anterior abdominal wall. Chest X-Ray 12/11/17 00:00 IMPRESSION: PATCHY MULTIFOCAL AIRSPACE DISEASE ABOVE SUSPICIOUS FOR PNEUMONIA. RECOMMEND FOLLOWUP RADIOGRAPHS 4 TO 6 WEEKS TO ENSURE RESOLUTION. Chest/Abdomen CTA 12/12/17 00:00 IMPRESSION: UNREMARKABLE CTA CHEST WITHOUT PULMONARY EMBOLI. LEFT GREATER THAN RIGHT PLEURAL EFFUSIONS WITH BILATERAL LOWER LOBE AIRSPACE DISEASE COULD REPRESENT COMPRESSIVE ATELECTASIS OR SUPERIMPOSED PNEUMONIA. PARTIAL VISUALIZATION OF FREE ABDOMINAL FLUID, AIR, AND SURGICAL DRAIN PRESUMABLY RELATED TO RECENT SURGERY. DISTENDED GALLBLADDER. CORRELATE WITH SYMPTOMS. Assessment & Plan - Diagnosis (1) COPD (chronic obstructive pulmonary disease) Qualifiers: COPD type: emphysema Is this a current diagnosis for this admission?: Yes Plan: Stable. Continue Spiriva and nebs prn (2) Pneumonia Qualifiers: Pneumonia type: aspiration pneumonia Laterality: bilateral Lung location : unspecified part of lung Is this a current diagnosis for this admission?: Yes Plan: Likely due to aspiration, had multiple episodes of vomiting last week. Day 8 of Doxycycline. Day 7 of Zosyn. Patient debilitated will most likely need rehab. Also considering hospice. (3) DKA, type 1 Qualifiers: Diabetes mellitus complication detail: without coma Qualified Code(s): E10.10 - Type 1 diabetes mellitus with ketoacidosis without coma Is this a current diagnosis for this admission?: Yes Plan: Now on lantus and Lispro sliding scale (4) History of prostate cancer Is this a current diagnosis for this admission?: Yes Plan: Apparently in remission per patient and . (5) Hypertension Qualifiers: Hypertension type: essential hypertension Qualified Code(s): I10 - Essential (primary) hypertension Is this a current diagnosis for this admission?: Yes (6) Lung cancer Qualifiers: Laterality: right Lung location: lower lobe of lung Qualified Code(s): C34.31 - Malignant neoplasm of lower lobe, right bronchus or lung Is this a current diagnosis for this admission?: Yes Plan: Status post radiation therapy at the [facility] in. (7) Protein-calorie malnutrition, moderate Is this a current diagnosis for this admission?: Yes Plan: On PEG feeds. Advance as tolerated. (8) Radiation-induced esophagitis Is this a current diagnosis for this admission?: Yes (9) Chronic pain disorder Is this a current diagnosis for this admission?: Yes Plan: We will start Duragesic patch 50 mcg every 72 hours. Also morphine and [place] as needed. (10) Nasal bone fracture Qualifiers: Encounter type: initial encounter Fracture type: closed Qualified Code(s) : S02.2XXA - Fracture of nasal bones, initial encounter for closed fracture Is this a current diagnosis for this admission?: Yes Plan: Secondary to fall prior to admission. Stable. - Time Time Spent with patient: 35 or more minutes - Plan Summary Plan Summary: Disposition: PT/OT. Rehab placement versus hospice.
[2017-12-17] MEDS: MORPHINE SULFATE 10 MG/ML INJ IV PRN ×2 (12:56→17:34)
[2017-12-17] MEDS: FENTANYL 50 MCG/HR PATCH.TD72 TD SCH (13:00)
[2017-12-17] MEDS: ATORVASTATIN CALCIUM 80 MG TABLET PO SCH (21:31)
[2017-12-18] MEDS: INSULIN LISPRO 100 UNIT/ML 3 ML VIAL SUBCUT PRN ×4 (01:15→23:13)
[2017-12-18] MEDS: MORPHINE SULFATE 10 MG/ML INJ IV PRN ×4 (01:19→19:27)
[2017-12-18] MEDS: PIPERACILLIN SODIUM/TAZOBACTAM 4.5 GM in NORMAL SALINE 100 ML IV SCH ×2 (02:56→09:45)
[2017-12-18 05:52] LABS: ABSOLUTE EOSINOPHILS # (AUTO) 0.1 10^3/uL (0.0-0.6); ABSOLUTE LYMPHOCYTES (AUTO) 0.6 10^3/uL (0.5-4.7); ABSOLUTE MONOCYTES (AUTO) 0.4 10^3/uL (0.1-1.4); ABSOLUTE NEUT (AUTO) 4.8 10^3/uL (1.7-8.2); BASOPHILS % (AUTO) 0.4 % (0-2); EOSINOPHILS % (AUTO) 1.9 % (0-6); HEMATOCRIT 30.6 % (37.9-51.0); HEMOGLOBIN 10.4 g/dL (13.5-17.0); LYMPHOCYTES % (AUTO) 10.2 % (13-45); MEAN CORPUSCULAR HEMOGLOBIN 27.4 pg (27.0-33.4); MEAN CORPUSCULAR VOLUME 81 fl (80-97); MONOCYTES % (AUTO) 7.1 % (3-13); PLATELET COUNT 221 10^3/uL (150-450); RED BLOOD COUNT 3.79 10^6/uL (4.35-5.55); RED CELL DISTRIBUTION WIDTH 17.2 % (11.5-14.0); SEGMENTED NEUTROPHILS % (AUTO) 80.4 % (42-78); TOTAL CELLS COUNTED % (AUTO) 100 %; WHITE BLOOD COUNT 5.9 10^3/uL (4.0-10.5)
[2017-12-18 06:16] LABS: ANION GAP 5 (5-19); BLOOD UREA NITROGEN 4 mg/dL (7-20); CALCIUM 8.2 mg/dL (8.4-10.2); CARBON DIOXIDE 33 mmol/L (22-30); CHLORIDE 103 mmol/L (98-107); GLUCOSE 161 mg/dL (75-110); SODIUM 141.4 mmol/L (137-145)
[2017-12-18] MEDS: METOPROLOL TARTRATE 25 MG TABLET PO SCH ×2 (06:42→18:13)
[2017-12-18] MEDS: LANSOPRAZOLE 30 MG TAB.RAP.DR PEG SCH ×2 (06:43→16:09)
[2017-12-18] MEDS ORDERED: POTASSIUM CHLORIDE 20 MEQ/50 ML RTU IV SCH (06:45)
[2017-12-18] MEDS ORDERED: POTASSIUM CHLORIDE 20 MEQ/15 ML UDCUP PO ONE ×2 (06:45→12:30)
[2017-12-18] MEDS ORDERED: POTASSIUM CHLORIDE 20 MEQ/15 ML UDCUP ONE (06:47)
[2017-12-18] MEDS: POTASSIUM CHLORIDE 20 MEQ/50 ML RTU IV SCH ×2 (09:45→12:46)
[2017-12-18] MEDS: BISMUTH SUBSALICYLATE 262 MG TAB.CHEW PEG SCH ×4 (10:33→22:11)
[2017-12-18] MEDS: ENOXAPARIN SODIUM INJ 40 MG/0.4 ML DISP.SYRIN SUBCUT SCH (11:21)
[2017-12-18] MEDS: LACTOBACILLUS ACIDOPHILUS 250 MG TAB PEG SCH ×2 (11:21→18:12)
[2017-12-18] MEDS: MAGNESIUM OXIDE 400 MG TABLET PEG SCH ×2 (11:21→17:59)
[2017-12-18] MEDS: FERROUS SULFATE 325 MG TABLET PO SCH (11:21)
[2017-12-18] MEDS: PHOSPHORUS #1 250 MG TABLET PEG SCH ×2 (11:24→22:11)
--- NOTE | 2017-12-18 12:15 | PDOC PROGRESS REPORT ---
Subjective Progress Note for:: 12/18/17 Subjective:: Still with significant pain mostly in the back, but slightly improved today. Duragesic patch and morphine as needed appears to be helping. Pain chronic. Patient remains weak and has difficulty ambulating. at bedside. They are thinking more of possible rehab at this time rather than hospice. Denies fever or chills, no chest pain or shortness of breath or palpitations. Reason For Visit: DKA Physical Exam Vital Signs: Temp Pulse Resp BP Pulse Ox 99.2 F 94 16 123/60 93 12/18/17 07:53 12/18/17 07:53 12/18/17 07:53 12/18/17 07:53 12/18/17 07:53 Intake & Output 12/17/17 12/18/17 12/19/17 06:59 06:59 06:59 Intake Total 2657 2729 Output Total 2285 1235 Balance 372 1494 Weight 73.6 kg 70.1 kg GEN: NAD, well-developed, chronically ill-appearing CV: RRR, NL S1S2 LUNGS: CTA bilaterally ABDOMEN Soft, NT, +BS EXTERMITIES: 2+ pedal edema NEURO: Alert, oriented 3, generalized weakness Results Laboratory Results: 12/18/17 05:25 12/18/17 05:25 12/18/17 12/18/17 12/18/17 05:25 05:25 05:25 WBC 5.9 RBC 3.79 L Hgb 10.4 L Hct 30.6 L MCV 81 MCH 27.4 MCHC 34.0 RDW 17.2 H Plt Count 221 Seg Neutrophils % 80.4 H Lymphocytes % 10.2 L Monocytes % 7.1 Eosinophils % 1.9 Basophils % 0.4 Absolute Neutrophils 4.8 Absolute Lymphocytes 0.6 Absolute Monocytes 0.4 Absolute Eosinophils 0.1 Absolute Basophils 0.0 Sodium 141.4 Potassium 3.0 L* Chloride 103 Carbon Dioxide 33 H Anion Gap 5 BUN 4 L Creatinine 0.43 L Est GFR ( Amer) > 60 Est GFR (Non-Af Amer) > 60 Glucose 161 H Calcium 8.2 L Magnesium 1.6 11/30/17 12/01/17 12/01/17 05:22 22:45 22:45 Creatine Kinase 30 L CK-MB (CK-2) 0.73 Troponin I 0.015 NT-Pro-B Natriuret Pep 386 12/02/17 12/02/17 12/02/17 04:47 04:47 10:36 Creatine Kinase 30 L 28 L CK-MB (CK-2) 0.53 Troponin I 0.016 NT-Pro-B Natriuret Pep 12/02/17 12/02/17 12/02/17 10:36 16:50 16:50 Creatine Kinase 35 L CK-MB (CK-2) 0.51 0.39 Troponin I 0.015 < 0.012 NT-Pro-B Natriuret Pep Impressions: Cervical Spine CT 11/29/17 08:28 IMPRESSION: No acute changes Head CT 11/29/17 08:28 IMPRESSION: No acute intracranial changes. Nasal bone fracture with trace fluid in the right maxillary sinus. EVIDENCE OF ACUTE STROKE: NO. Fluoroscopy 12/02/17 00:00 IMPRESSION: Unsuccessful Dobbhoff feeding tube placement. KUB X-Ray 12/08/17 00:00 IMPRESSION: Persistent constipation Acute Abdomen Series 12/10/17 00:00 IMPRESSION: Left basilar airspace disease atelectasis versus pneumonia Right subdiaphragmatic free air Distended stomach with air-fluid level. Tube Placement 12/10/17 00:00 IMPRESSION: Gastrostomy tube tip is outside the stomach, along the anterior abdominal wall. Chest X-Ray 12/11/17 00:00 IMPRESSION: PATCHY MULTIFOCAL AIRSPACE DISEASE ABOVE SUSPICIOUS FOR PNEUMONIA. RECOMMEND FOLLOWUP RADIOGRAPHS 4 TO 6 WEEKS TO ENSURE RESOLUTION. Chest/Abdomen CTA 12/12/17 00:00 IMPRESSION: UNREMARKABLE CTA CHEST WITHOUT PULMONARY EMBOLI. LEFT GREATER THAN RIGHT PLEURAL EFFUSIONS WITH BILATERAL LOWER LOBE AIRSPACE DISEASE COULD REPRESENT COMPRESSIVE ATELECTASIS OR SUPERIMPOSED PNEUMONIA. PARTIAL VISUALIZATION OF FREE ABDOMINAL FLUID, AIR, AND SURGICAL DRAIN PRESUMABLY RELATED TO RECENT SURGERY. DISTENDED GALLBLADDER. CORRELATE WITH SYMPTOMS. Assessment & Plan - Diagnosis (1) COPD (chronic obstructive pulmonary disease) Qualifiers: COPD type: emphysema Is this a current diagnosis for this admission?: Yes Plan: Stable. Continue Spiriva and nebs prn (2) Pneumonia Qualifiers: Pneumonia type: aspiration pneumonia Laterality: bilateral Lung location : unspecified part of lung Is this a current diagnosis for this admission?: Yes Plan: Likely due to aspiration, had multiple episodes of vomiting last week. Completing Zosyn course today. Patient debilitated will most likely need rehab. (3) DKA, type 1 Qualifiers: Diabetes mellitus complication detail: without coma Qualified Code(s): E10.10 - Type 1 diabetes mellitus with ketoacidosis without coma Is this a current diagnosis for this admission?: Yes Plan: Now on lantus and Lispro sliding scale (4) History of prostate cancer Is this a current diagnosis for this admission?: Yes Plan: Apparently in remission per patient and . (5) Hypertension Qualifiers: Hypertension type: essential hypertension Qualified Code(s): I10 - Essential (primary) hypertension Is this a current diagnosis for this admission?: Yes (6) Lung cancer Qualifiers: Laterality: right Lung location: lower lobe of lung Qualified Code(s): C34.31 - Malignant neoplasm of lower lobe, right bronchus or lung Is this a current diagnosis for this admission?: Yes Plan: Status post radiation therapy at the [facility] in [place], [place]. (7) Protein-calorie malnutrition, moderate Is this a current diagnosis for this admission?: Yes Plan: On PEG feeds. Advance as tolerated. (8) Radiation-induced esophagitis Is this a current diagnosis for this admission?: Yes Plan: Stable (9) Chronic pain disorder Is this a current diagnosis for this admission?: Yes Plan: We will continue Duragesic patch 50 mcg every 72 hours. Also continue morphine and [place] as needed. (10) Nasal bone fracture Qualifiers: Encounter type: initial encounter Fracture type: closed Qualified Code(s) : S02.2XXA - Fracture of nasal bones, initial encounter for closed fracture Is this a current diagnosis for this admission?: Yes Plan: Secondary to fall prior to admission. Stable. (11) Hypokalemia Is this a current diagnosis for this admission?: Yes Plan: Replete potassium. Follow-up Chem-7 in a.m. Magnesium on so baseline, will treat.
[2017-12-18] MEDS: TIOTROPIUM BROMIDE DPI 5 CAP/KIT (18 MCG/CAP) IH SCH (13:24)
[2017-12-18] MEDS: INSULIN GLARGINE,HUM.REC.ANLOG 300 UNIT/3 ML INSULN.PEN SUBCUT SCH ×2 (13:38→17:58)
[2017-12-18] MEDS ORDERED: ONDANSETRON HCL INJ/PF 4 MG/2 ML SDV ONE (13:38)
[2017-12-18] MEDS ORDERED: ONDANSETRON HCL INJ/PF 4 MG/2 ML SDV IV PRN (13:50)
[2017-12-18] MEDS: ATORVASTATIN CALCIUM 80 MG TABLET PO SCH (22:11)
[2017-12-18] MEDS: HYDROCODONE/ACETAMINOPHEN 7.5-325 MG TABLET PO PRN (22:11)
[2017-12-19] MEDS: MORPHINE SULFATE 10 MG/ML INJ IV PRN (05:37)
[2017-12-19 05:50] LABS: ANION GAP 8 (5-19); BLOOD UREA NITROGEN 4 mg/dL (7-20); CALCIUM 8.4 mg/dL (8.4-10.2); CARBON DIOXIDE 31 mmol/L (22-30); CHLORIDE 103 mmol/L (98-107); GLUCOSE 83 mg/dL (75-110); POTASSIUM 3.6 mmol/L (3.6-5.0); SODIUM 142.2 mmol/L (137-145)
[2017-12-19] MEDS: METOPROLOL TARTRATE 25 MG TABLET PO SCH ×2 (06:27→18:23)
[2017-12-19] MEDS: LANSOPRAZOLE 30 MG TAB.RAP.DR PEG SCH ×2 (06:27→18:23)
[2017-12-19] MEDS: HYDROCODONE/ACETAMINOPHEN 7.5-325 MG TABLET PO PRN (06:28)
[2017-12-19] MEDS: ENOXAPARIN SODIUM INJ 40 MG/0.4 ML DISP.SYRIN SUBCUT SCH (10:21)
[2017-12-19] MEDS: LACTOBACILLUS ACIDOPHILUS 250 MG TAB PEG SCH ×2 (10:21→18:23)
[2017-12-19] MEDS: FERROUS SULFATE 325 MG TABLET PO SCH (10:21)
[2017-12-19] MEDS: MAGNESIUM OXIDE 400 MG TABLET PEG SCH ×2 (10:21→18:23)
[2017-12-19] MEDS: PHOSPHORUS #1 250 MG TABLET PEG SCH ×2 (10:21→22:30)
[2017-12-19] MEDS: BISMUTH SUBSALICYLATE 262 MG TAB.CHEW PEG SCH ×4 (10:21→23:17)
[2017-12-19] MEDS: TIOTROPIUM BROMIDE DPI 5 CAP/KIT (18 MCG/CAP) IH SCH (10:21)
[2017-12-19] MEDS: INSULIN GLARGINE,HUM.REC.ANLOG 300 UNIT/3 ML INSULN.PEN SUBCUT SCH ×2 (10:22→18:22)
--- NOTE | 2017-12-19 17:16 | PDOC PROGRESS REPORT ---
Subjective Progress Note for:: 12/19/17 Subjective:: Still with pain mostly in the back, but better with addition of Duragic patch 2 days ago. Patient remains weak and has difficulty ambulating. at bedside. They are thinking more of possible rehab at this time rather than hospice. Denies fever or chills, no chest pain or shortness of breath or palpitations. Reason For Visit: DKA Physical Exam Vital Signs: Temp Pulse Resp BP Pulse Ox 98.3 F 93 17 109/54 L 99 12/19/17 15:42 12/19/17 15:42 12/19/17 15:42 12/19/17 15:42 12/19/17 15:42 Intake & Output 12/18/17 12/19/17 12/20/17 06:59 06:59 06:59 Intake Total 2729 1630 237 Output Total 1235 1705 325 Balance 1494 -75 -88 Weight 70.1 kg 70.4 kg GEN: NAD, well-developed, chronically ill-appearing CV: RRR, NL S1S2 LUNGS: CTA bilaterally ABDOMEN Soft, NT, +BS EXTERMITIES: + pedal edema NEURO: Alert, oriented 3, generalized weakness Results Laboratory Results: 12/18/17 05:25 12/19/17 04:29 12/19/17 04:29 Sodium 142.2 Potassium 3.6 Chloride 103 Carbon Dioxide 31 H Anion Gap 8 BUN 4 L Creatinine 0.38 L Est GFR ( Amer) > 60 Est GFR (Non-Af Amer) > 60 Glucose 83 Calcium 8.4 11/30/17 12/01/17 12/01/17 05:22 22:45 22:45 Creatine Kinase 30 L CK-MB (CK-2) 0.73 Troponin I 0.015 NT-Pro-B Natriuret Pep 386 12/02/17 12/02/17 12/02/17 04:47 04:47 10:36 Creatine Kinase 30 L 28 L CK-MB (CK-2) 0.53 Troponin I 0.016 NT-Pro-B Natriuret Pep 12/02/17 12/02/17 12/02/17 10:36 16:50 16:50 Creatine Kinase 35 L CK-MB (CK-2) 0.51 0.39 Troponin I 0.015 < 0.012 NT-Pro-B Natriuret Pep Impressions: Cervical Spine CT 11/29/17 08:28 IMPRESSION: No acute changes Head CT 11/29/17 08:28 IMPRESSION: No acute intracranial changes. Nasal bone fracture with trace fluid in the right maxillary sinus. EVIDENCE OF ACUTE STROKE: NO. Fluoroscopy 12/02/17 00:00 IMPRESSION: Unsuccessful Dobbhoff feeding tube placement. KUB X-Ray 12/08/17 00:00 IMPRESSION: Persistent constipation Acute Abdomen Series 12/10/17 00:00 IMPRESSION: Left basilar airspace disease atelectasis versus pneumonia Right subdiaphragmatic free air Distended stomach with air-fluid level. Tube Placement 12/10/17 00:00 IMPRESSION: Gastrostomy tube tip is outside the stomach, along the anterior abdominal wall. Chest X-Ray 12/11/17 00:00 IMPRESSION: PATCHY MULTIFOCAL AIRSPACE DISEASE ABOVE SUSPICIOUS FOR PNEUMONIA. RECOMMEND FOLLOWUP RADIOGRAPHS 4 TO 6 WEEKS TO ENSURE RESOLUTION. Chest/Abdomen CTA 12/12/17 00:00 IMPRESSION: UNREMARKABLE CTA CHEST WITHOUT PULMONARY EMBOLI. LEFT GREATER THAN RIGHT PLEURAL EFFUSIONS WITH BILATERAL LOWER LOBE AIRSPACE DISEASE COULD REPRESENT COMPRESSIVE ATELECTASIS OR SUPERIMPOSED PNEUMONIA. PARTIAL VISUALIZATION OF FREE ABDOMINAL FLUID, AIR, AND SURGICAL DRAIN PRESUMABLY RELATED TO RECENT SURGERY. DISTENDED GALLBLADDER. CORRELATE WITH SYMPTOMS. Assessment & Plan - Diagnosis (1) COPD (chronic obstructive pulmonary disease) Qualifiers: COPD type: emphysema Is this a current diagnosis for this admission?: Yes Plan: Stable. Continue Spiriva and nebs prn (2) Pneumonia Qualifiers: Pneumonia type: aspiration pneumonia Laterality: bilateral Lung location : unspecified part of lung Is this a current diagnosis for this admission?: Yes Plan: Likely due to aspiration, had multiple episodes of vomiting prior. Completing Zosyn course yesterday, 12/18. Patient debilitated, will most likely need rehab. (3) DKA, type 1 Qualifiers: Diabetes mellitus complication detail: without coma Qualified Code(s): E10.10 - Type 1 diabetes mellitus with ketoacidosis without coma Is this a current diagnosis for this admission?: Yes Plan: Now on lantus and Lispro sliding scale (4) History of prostate cancer Is this a current diagnosis for this admission?: Yes Plan: Apparently in remission per patient and . (5) Hypertension Qualifiers: Hypertension type: essential hypertension Qualified Code(s): I10 - Essential (primary) hypertension Is this a current diagnosis for this admission?: Yes (6) Lung cancer Qualifiers: Laterality: right Lung location: lower lobe of lung Qualified Code(s): C34.31 - Malignant neoplasm of lower lobe, right bronchus or lung Is this a current diagnosis for this admission?: Yes Plan: Status post radiation therapy at the [facility] in [place], [place]. (7) Protein-calorie malnutrition, moderate Is this a current diagnosis for this admission?: Yes Plan: On PEG feeds. Continue to advance as tolerated. (8) Radiation-induced esophagitis Is this a current diagnosis for this admission?: Yes Plan: Stable (9) Chronic pain disorder Is this a current diagnosis for this admission?: Yes Plan: We will continue Duragesic patch 50 mcg every 72 hours. Also continue morphine and [place] as needed. (10) Nasal bone fracture Qualifiers: Encounter type: initial encounter Fracture type: closed Qualified Code(s) : S02.2XXA - Fracture of nasal bones, initial encounter for closed fracture Is this a current diagnosis for this admission?: Yes Plan: Secondary to fall prior to admission. Stable. (11) Hypokalemia Is this a current diagnosis for this admission?: Yes Plan: Corrected. - Plan Summary Plan Summary: Disposition: Patient awaiting rehab as very weak and cannot take care of him at home.
[2017-12-19] MEDS: ATORVASTATIN CALCIUM 80 MG TABLET PO SCH (22:30)
[2017-12-19] MEDS: INSULIN LISPRO 100 UNIT/ML 3 ML VIAL SUBCUT PRN (22:30)
[2017-12-20 05:33] LABS: ABSOLUTE EOSINOPHILS # (AUTO) 0.1 10^3/uL (0.0-0.6); ABSOLUTE LYMPHOCYTES (AUTO) 0.5 10^3/uL (0.5-4.7); ABSOLUTE MONOCYTES (AUTO) 0.5 10^3/uL (0.1-1.4); ABSOLUTE NEUT (AUTO) 6.5 10^3/uL (1.7-8.2); BASOPHILS % (AUTO) 0.3 % (0-2); EOSINOPHILS % (AUTO) 1.7 % (0-6); HEMATOCRIT 30.3 % (37.9-51.0); HEMOGLOBIN 10.4 g/dL (13.5-17.0); MEAN CORPUSCULAR HEMOGLOBIN 28.1 pg (27.0-33.4); MEAN CORPUSCULAR HGB CONC 34.5 g/dL (32.0-36.0); MEAN CORPUSCULAR VOLUME 81 fl (80-97); MONOCYTES % (AUTO) 5.9 % (3-13); PLATELET COUNT 202 10^3/uL (150-450); RED BLOOD COUNT 3.72 10^6/uL (4.35-5.55); RED CELL DISTRIBUTION WIDTH 17.1 % (11.5-14.0); SEGMENTED NEUTROPHILS % (AUTO) 85.1 % (42-78); TOTAL CELLS COUNTED % (AUTO) 100 %; WHITE BLOOD COUNT 7.6 10^3/uL (4.0-10.5)
[2017-12-20] MEDS: LANSOPRAZOLE 30 MG TAB.RAP.DR PEG SCH ×2 (06:11→18:10)
[2017-12-20] MEDS: METOPROLOL TARTRATE 25 MG TABLET PO SCH ×2 (06:11→18:16)
[2017-12-20 06:26] LABS: ANION GAP 6 (5-19); BLOOD UREA NITROGEN 5 mg/dL (7-20); CALCIUM 8.2 mg/dL (8.4-10.2); CARBON DIOXIDE 32 mmol/L (22-30); CHLORIDE 102 mmol/L (98-107); GLUCOSE 142 mg/dL (75-110); POTASSIUM 3.8 mmol/L (3.6-5.0); SODIUM 139.9 mmol/L (137-145)
--- NOTE | 2017-12-20 07:30 | EKG REPORT ---
SEVERITY:- BORDERLINE ECG - SINUS RHYTHM LOW VOLTAGE IN FRONTAL LEADS BORDERLINE T ABNORMALITIES, ANT-LAT LEADS BORDERLINE PROLONGED QT INTERVAL : Confirmed by: Felipe Wing MD 20-Dec-2017 07:28:53
[2017-12-20] MEDS: INSULIN LISPRO 100 UNIT/ML 3 ML VIAL SUBCUT PRN ×3 (08:28→18:10)
[2017-12-20] MEDS: ENOXAPARIN SODIUM INJ 40 MG/0.4 ML DISP.SYRIN SUBCUT SCH (10:02)
[2017-12-20] MEDS: LACTOBACILLUS ACIDOPHILUS 250 MG TAB PEG SCH ×2 (10:02→18:11)
[2017-12-20] MEDS: BISMUTH SUBSALICYLATE 262 MG TAB.CHEW PEG SCH ×4 (10:03→22:41)
[2017-12-20] MEDS: PHOSPHORUS #1 250 MG TABLET PEG SCH ×2 (10:03→22:41)
[2017-12-20] MEDS: MAGNESIUM OXIDE 400 MG TABLET PEG SCH ×2 (10:03→18:11)
[2017-12-20] MEDS: INSULIN GLARGINE,HUM.REC.ANLOG 300 UNIT/3 ML INSULN.PEN SUBCUT SCH ×2 (10:03→18:10)
[2017-12-20] MEDS: HYDROCODONE/ACETAMINOPHEN 7.5-325 MG TABLET PO PRN (10:03)
[2017-12-20] MEDS: TIOTROPIUM BROMIDE DPI 5 CAP/KIT (18 MCG/CAP) IH SCH (10:08)
[2017-12-20] MEDS: FERROUS SULFATE 325 MG TABLET PO SCH (10:24)
[2017-12-20] MEDS: MORPHINE SULFATE 10 MG/ML INJ IV PRN (11:04)
--- NOTE | 2017-12-20 12:53 | PDOC PROGRESS REPORT ---
Subjective Progress Note for:: 12/20/17 Subjective:: 67 yr old male with insulin dependent diabetes and recently diagnosed lung cancer, undergoing RT in [place]. He presented to the hospital on 11/29/17 with DKA due to inability to take any of his meds secondary to persistent nausea, vomiting and abdominal pain since RT was started. Endoscopy showed esophageal ulcer. DKA resolved with IV Insulin and fluids. He had a G tube placed on 12/05/17 due to persistent inability to tlerate PO. The patient complained of increased abdominal pain and it was discovered this am that G tube had become displaced. He was taken to the OR by Dr. Robins on 12/10/17 and tube was repositioned. He developed an aspiration Pneumonia and received a course of antibiotics. CELY drain was removed today by Dr. Mccullough. He is doing well with tube feeds. Soft diet PO encouraged but he has no appetite, feels very weak and is considering rehab. Duragesic patch was started for better pain control. Morphine sulfate liquid added prn for breakthrough pain. Reason For Visit: DKA Physical Exam Vital Signs: Temp Pulse Resp BP Pulse Ox 98.5 F 88 18 113/58 L 98 12/20/17 07:28 12/20/17 07:28 12/20/17 07:28 12/20/17 07:28 12/20/17 07:28 Intake & Output 12/19/17 12/20/17 12/21/17 06:59 06:59 06:59 Intake Total 1630 1669 244 Output Total 1705 1250 Balance -75 419 244 Weight 70.4 kg 68.8 kg General appearance: PRESENT: thin Eye exam: PRESENT: PERRLA Ear exam: PRESENT: normal external ear exam Mouth exam: PRESENT: moist Teeth exam: PRESENT: poor dentation Neck exam: ABSENT: tracheal deviation Respiratory exam: PRESENT: symmetrical, unlabored. ABSENT: crackles Cardiovascular exam: PRESENT: RRR GI/Abdominal exam: PRESENT: normal bowel sounds, soft, other - PEG present Rectal exam: PRESENT: deferred Extremities exam: ABSENT: pedal edema Neurological exam: PRESENT: alert, awake Psychiatric exam: PRESENT: depressed Results Laboratory Results: 12/20/17 04:23 12/20/17 04:23 12/20/17 12/20/17 04:23 04:23 WBC 7.6 RBC 3.72 L Hgb 10.4 L Hct 30.3 L MCV 81 MCH 28.1 MCHC 34.5 RDW 17.1 H Plt Count 202 Seg Neutrophils % 85.1 H Lymphocytes % 7.0 L Monocytes % 5.9 Eosinophils % 1.7 Basophils % 0.3 Absolute Neutrophils 6.5 Absolute Lymphocytes 0.5 Absolute Monocytes 0.5 Absolute Eosinophils 0.1 Absolute Basophils 0.0 Sodium 139.9 Potassium 3.8 Chloride 102 Carbon Dioxide 32 H Anion Gap 6 BUN 5 L Creatinine 0.38 L Est GFR ( Amer) > 60 Est GFR (Non-Af Amer) > 60 Glucose 142 H Calcium 8.2 L 11/30/17 12/01/17 12/01/17 05:22 22:45 22:45 Creatine Kinase 30 L CK-MB (CK-2) 0.73 Troponin I 0.015 NT-Pro-B Natriuret Pep 386 12/02/17 12/02/17 12/02/17 04:47 04:47 10:36 Creatine Kinase 30 L 28 L CK-MB (CK-2) 0.53 Troponin I 0.016 NT-Pro-B Natriuret Pep 12/02/17 12/02/17 12/02/17 10:36 16:50 16:50 Creatine Kinase 35 L CK-MB (CK-2) 0.51 0.39 Troponin I 0.015 < 0.012 NT-Pro-B Natriuret Pep Impressions: Cervical Spine CT 11/29/17 08:28 IMPRESSION: No acute changes Head CT 11/29/17 08:28 IMPRESSION: No acute intracranial changes. Nasal bone fracture with trace fluid in the right maxillary sinus. EVIDENCE OF ACUTE STROKE: NO. Fluoroscopy 12/02/17 00:00 IMPRESSION: Unsuccessful Dobbhoff feeding tube placement. KUB X-Ray 12/08/17 00:00 IMPRESSION: Persistent constipation Acute Abdomen Series 12/10/17 00:00 IMPRESSION: Left basilar airspace disease atelectasis versus pneumonia Right subdiaphragmatic free air Distended stomach with air-fluid level. Tube Placement 12/10/17 00:00 IMPRESSION: Gastrostomy tube tip is outside the stomach, along the anterior abdominal wall. Chest X-Ray 12/11/17 00:00 IMPRESSION: PATCHY MULTIFOCAL AIRSPACE DISEASE ABOVE SUSPICIOUS FOR PNEUMONIA. RECOMMEND FOLLOWUP RADIOGRAPHS 4 TO 6 WEEKS TO ENSURE RESOLUTION. Chest/Abdomen CTA 12/12/17 00:00 IMPRESSION: UNREMARKABLE CTA CHEST WITHOUT PULMONARY EMBOLI. LEFT GREATER THAN RIGHT PLEURAL EFFUSIONS WITH BILATERAL LOWER LOBE AIRSPACE DISEASE COULD REPRESENT COMPRESSIVE ATELECTASIS OR SUPERIMPOSED PNEUMONIA. PARTIAL VISUALIZATION OF FREE ABDOMINAL FLUID, AIR, AND SURGICAL DRAIN PRESUMABLY RELATED TO RECENT SURGERY. DISTENDED GALLBLADDER. CORRELATE WITH SYMPTOMS. Assessment & Plan - Diagnosis (1) Pneumonia Qualifiers: Pneumonia type: aspiration pneumonia Laterality: bilateral Lung location : unspecified part of lung Is this a current diagnosis for this admission?: Yes Plan: Completed a course of antibiotics (2) DKA, type 1 Qualifiers: Diabetes mellitus complication detail: without coma Qualified Code(s): E10.10 - Type 1 diabetes mellitus with ketoacidosis without coma Is this a current diagnosis for this admission?: Yes Plan: Resolved. Now on lantus and Lispro sliding scale (3) Hypertension Qualifiers: Hypertension type: essential hypertension Qualified Code(s): I10 - Essential (primary) hypertension Is this a current diagnosis for this admission?: Yes Plan: BP low normal- continue to monitor. Low dose Metoprolol. Rest of antihypertensives on hold (4) CAD (coronary artery disease) Qualifiers: Associated angina: without angina Is this a current diagnosis for this admission?: Yes Plan: Outpatient meds. Avoid antiplatelets for 2 weeks given esophageal ulcer. Lopressor reduced for low BP (5) Nausea and vomiting Qualifiers: Vomiting type: cyclical vomiting Vomiting Intractability: intractable Qualified Code(s): G43.A1 - Cyclical vomiting, intractable Is this a current diagnosis for this admission?: Yes Plan: Resolved. G tube tip repositioned. Tolerating tube feeds. (6) Acute renal failure Is this a current diagnosis for this admission?: Yes Plan: Resolved with IV fluids (7) COPD (chronic obstructive pulmonary disease) Qualifiers: COPD type: emphysema Is this a current diagnosis for this admission?: Yes Plan: Stable. Continue Spiriva and nebs prn (8) Lung cancer Qualifiers: Laterality: right Lung location: lower lobe of lung Qualified Code(s): C34.31 - Malignant neoplasm of lower lobe, right bronchus or lung Is this a current diagnosis for this admission?: Yes Plan: Was undergoing RT as an outpatient. Request records from [facility]. (9) History of prostate cancer Is this a current diagnosis for this admission?: Yes Plan: Outpatient follow up (10) DVT prophylaxis Is this a current diagnosis for this admission?: Yes Plan: Lovenox s/c (11) Nasal bone fracture Qualifiers: Encounter type: initial encounter Fracture type: closed Qualified Code(s) : S02.2XXA - Fracture of nasal bones, initial encounter for closed fracture Is this a current diagnosis for this admission?: Yes Plan: Due to fall prior to admission. (12) Hypercalcemia Is this a current diagnosis for this admission?: Yes Plan: Resolved (13) Hyperkalemia Is this a current diagnosis for this admission?: Yes Plan: Resolved (14) Hypernatremia Is this a current diagnosis for this admission?: Yes Plan: Resolved (15) Sinus tachycardia Is this a current diagnosis for this admission?: Yes Plan: Due to acute illness. Resolved (16) Esophageal ulcer without bleeding Is this a current diagnosis for this admission?: Yes Plan: Continue PPI (17) Hypokalemia Is this a current diagnosis for this admission?: Yes Plan: Replace (18) Hypomagnesemia Is this a current diagnosis for this admission?: Yes Plan: Replace (19) Hypophosphatemia Is this a current diagnosis for this admission?: Yes Plan: Replete - Time Time Spent with patient: 25-34 minutes
[2017-12-20] MEDS: FENTANYL 50 MCG/HR PATCH.TD72 TD SCH (13:11)
--- NOTE | 2017-12-20 14:23 | PDOC PROGRESS REPORT ---
Subjective Progress Note for:: 12/20/17 Subjective:: Status post feeding tube placement Reason For Visit: DKA Patient is 10 days status post replacement operative gastrostomy tube. Patient still has a right upper quadrant drain. Physical Exam Vital Signs: Temp Pulse Resp BP Pulse Ox 98.5 F 88 18 113/58 L 98 12/20/17 07:28 12/20/17 07:28 12/20/17 07:28 12/20/17 07:28 12/20/17 07:28 Intake & Output 12/19/17 12/20/17 12/21/17 06:59 06:59 06:59 Intake Total 1630 1669 397 Output Total 1705 1250 400 Balance -75 419 -3 Weight 70.4 kg 68.8 kg General appearance: PRESENT: no acute distress GI/Abdominal exam: PRESENT: other - Operative gastrostomy tube with sutures in position. Mild excoriation under the plastic apparatus; right upper quadrant Flako-Gross drain with negligible output; albert in position Results Laboratory Results: 12/20/17 04:23 12/20/17 04:23 12/20/17 12/20/17 04:23 04:23 WBC 7.6 RBC 3.72 L Hgb 10.4 L Hct 30.3 L MCV 81 MCH 28.1 MCHC 34.5 RDW 17.1 H Plt Count 202 Seg Neutrophils % 85.1 H Lymphocytes % 7.0 L Monocytes % 5.9 Eosinophils % 1.7 Basophils % 0.3 Absolute Neutrophils 6.5 Absolute Lymphocytes 0.5 Absolute Monocytes 0.5 Absolute Eosinophils 0.1 Absolute Basophils 0.0 Sodium 139.9 Potassium 3.8 Chloride 102 Carbon Dioxide 32 H Anion Gap 6 BUN 5 L Creatinine 0.38 L Est GFR ( Amer) > 60 Est GFR (Non-Af Amer) > 60 Glucose 142 H Calcium 8.2 L 11/30/17 12/01/17 12/01/17 05:22 22:45 22:45 Creatine Kinase 30 L CK-MB (CK-2) 0.73 Troponin I 0.015 NT-Pro-B Natriuret Pep 386 12/02/17 12/02/17 12/02/17 04:47 04:47 10:36 Creatine Kinase 30 L 28 L CK-MB (CK-2) 0.53 Troponin I 0.016 NT-Pro-B Natriuret Pep 05/24/18 05/24/18 05/24/18 10:36 16:50 16:50 Creatine Kinase 35 L CK-MB (CK-2) 0.51 0.39 Troponin I 0.015 < 0.012 NT-Pro-B Natriuret Pep Impressions: Cervical Spine CT 11/29/17 08:28 IMPRESSION: No acute changes Head CT 11/29/17 08:28 IMPRESSION: No acute intracranial changes. Nasal bone fracture with trace fluid in the right maxillary sinus. EVIDENCE OF ACUTE STROKE: NO. Fluoroscopy 12/02/17 00:00 IMPRESSION: Unsuccessful Dobbhoff feeding tube placement. KUB X-Ray 12/08/17 00:00 IMPRESSION: Persistent constipation Acute Abdomen Series 12/10/17 00:00 IMPRESSION: Left basilar airspace disease atelectasis versus pneumonia Right subdiaphragmatic free air Distended stomach with air-fluid level. Tube Placement 12/10/17 00:00 IMPRESSION: Gastrostomy tube tip is outside the stomach, along the anterior abdominal wall. Chest X-Ray 12/11/17 00:00 IMPRESSION: PATCHY MULTIFOCAL AIRSPACE DISEASE ABOVE SUSPICIOUS FOR PNEUMONIA. RECOMMEND FOLLOWUP RADIOGRAPHS 4 TO 6 WEEKS TO ENSURE RESOLUTION. Chest/Abdomen CTA 12/12/17 00:00 IMPRESSION: UNREMARKABLE CTA CHEST WITHOUT PULMONARY EMBOLI. LEFT GREATER THAN RIGHT PLEURAL EFFUSIONS WITH BILATERAL LOWER LOBE AIRSPACE DISEASE COULD REPRESENT COMPRESSIVE ATELECTASIS OR SUPERIMPOSED PNEUMONIA. PARTIAL VISUALIZATION OF FREE ABDOMINAL FLUID, AIR, AND SURGICAL DRAIN PRESUMABLY RELATED TO RECENT SURGERY. DISTENDED GALLBLADDER. CORRELATE WITH SYMPTOMS. Assessment & Plan - Diagnosis (1) Dislodged gastrostomy tube Is this a current diagnosis for this admission?: Yes Plan: Overall doing well, tolerating tube feeds Recommendations: 1. Regarding the mild excoriation around the G-tube insertion site, I recommended leaving this open air, and cleaning the debris with peroxide 2. We have discontinued the Stas drain. We educated the patient and family on a periodic drainage which will stop. 3. We will remove half of the albert
[2017-12-20] MEDS: MORPHINE SULFATE 10 MG/5 ML ORAL SOLUTION UDCUP PO PRN ×4 (15:28→20:29)
[2017-12-20] MEDS: ATORVASTATIN CALCIUM 80 MG TABLET PO SCH (22:41)
[2017-12-21] MEDS: MORPHINE SULFATE 10 MG/5 ML ORAL SOLUTION UDCUP PO PRN ×4 (02:28→13:58)
[2017-12-21] MEDS ORDERED: COLCHICINE 0.6 MG TABLET PEG ONE (03:30)
[2017-12-21] MEDS: MORPHINE SULFATE 10 MG/ML INJ IV PRN ×3 (04:44→18:05)
--- NOTE | 2017-12-21 06:36 | RADIOLOGY REPORT (SQ) ---
EXAM DESCRIPTION: XR KNEE 1-2 VIEWS COMPLETED DATE/TME: 12/21/2017 00:00 CLINICAL HISTORY: 67 years, Male, right knee effusion COMPARISON: None. FINDINGS: 2 views of the right knee. No acute fracture identified. Large joint effusion. Osteopenia. IMPRESSION: 1. No definite acute fracture. 2. Large joint effusion. If there is concern for internal derangement MRI would provide additional characterization. 2011 [employer]- All Rights Reserved
[2017-12-21] MEDS: METOPROLOL TARTRATE 25 MG TABLET PO SCH ×2 (06:48→17:09)
[2017-12-21] MEDS: LANSOPRAZOLE 30 MG TAB.RAP.DR PEG SCH ×2 (06:48→18:00)
[2017-12-21] MEDS: INSULIN GLARGINE,HUM.REC.ANLOG 300 UNIT/3 ML INSULN.PEN SUBCUT SCH ×2 (11:01→18:01)
[2017-12-21] MEDS: ENOXAPARIN SODIUM INJ 40 MG/0.4 ML DISP.SYRIN SUBCUT SCH (11:01)
[2017-12-21] MEDS: TIOTROPIUM BROMIDE DPI 5 CAP/KIT (18 MCG/CAP) IH SCH (11:01)
[2017-12-21] MEDS: PHOSPHORUS #1 250 MG TABLET PEG SCH ×2 (11:02→22:54)
[2017-12-21] MEDS: MAGNESIUM OXIDE 400 MG TABLET PEG SCH ×2 (11:02→18:00)
[2017-12-21] MEDS: LACTOBACILLUS ACIDOPHILUS 250 MG TAB PEG SCH ×2 (11:02→18:00)
[2017-12-21] MEDS: BISMUTH SUBSALICYLATE 262 MG TAB.CHEW PEG SCH ×4 (11:02→23:09)
[2017-12-21] MEDS: FERROUS SULFATE 325 MG TABLET PO SCH (11:20)
[2017-12-21] MEDS: INSULIN LISPRO 100 UNIT/ML 3 ML VIAL SUBCUT PRN (13:17)
--- NOTE | 2017-12-21 13:24 | PDOC PROGRESS REPORT ---
Subjective Progress Note for:: 12/21/17 Subjective:: 67 yr old male with insulin dependent diabetes and recently diagnosed lung cancer, undergoing RT in [place]. He presented to the hospital on 11/29/17 with DKA due to inability to take any of his meds secondary to persistent nausea, vomiting and abdominal pain since RT was started. Endoscopy showed esophageal ulcer. DKA resolved with IV Insulin and fluids. He had a G tube placed on 12/05/17 due to persistent inability to tlerate PO. The patient complained of increased abdominal pain and it was discovered this am that G tube had become displaced. He was taken to the OR by Dr. Robins on 12/10/17 and tube was repositioned. He developed an aspiration Pneumonia and received a course of antibiotics. CELY drain was removed today by Dr. Mccullough. He is doing well with tube feeds. Soft diet PO encouraged but he has no appetite, feels very weak and is considering rehab. Continue Duragesic patch and Morphine sulfate liquid for breakthrough pain. He developed acute onset right knee pain and swelling. X-rays showed moderate joint effusion. Dr. Mckeon evaluated the patient and plans to tap the joint. Reason For Visit: DKA Physical Exam Vital Signs: Temp Pulse Resp BP Pulse Ox 99.0 F 93 20 108/57 L 97 12/21/17 11:56 12/21/17 11:56 12/21/17 11:56 12/21/17 11:56 12/21/17 11:56 Intake & Output 12/20/17 12/21/17 12/22/17 06:59 06:59 06:59 Intake Total 1669 1076 247 Output Total 1250 1155 Balance 419 -79 247 Weight 68.8 kg 68.2 kg General appearance: PRESENT: no acute distress, thin - There have CT surgery Head exam: PRESENT: normocephalic Respiratory exam: PRESENT: symmetrical, unlabored. ABSENT: wheezes Cardiovascular exam: PRESENT: RRR GI/Abdominal exam: PRESENT: normal bowel sounds, soft, other - Midline surgical scar. PEG tube present Rectal exam: PRESENT: deferred Gentrourinary exam: ABSENT: indwelling catheter Extremities exam: ABSENT: pedal edema Neurological exam: PRESENT: alert, awake, oriented to person, oriented to place , oriented to time, oriented to situation Psychiatric exam: PRESENT: appropriate affect Skin exam: ABSENT: rash Results Laboratory Results: 12/20/17 04:23 12/20/17 04:23 12/21/17 05:42 Uric Acid 2.0 L 11/30/17 12/01/17 12/01/17 05:22 22:45 22:45 Creatine Kinase 30 L CK-MB (CK-2) 0.73 Troponin I 0.015 NT-Pro-B Natriuret Pep 386 12/02/17 12/02/17 12/02/17 04:47 04:47 10:36 Creatine Kinase 30 L 28 L CK-MB (CK-2) 0.53 Troponin I 0.016 NT-Pro-B Natriuret Pep 12/02/17 12/02/17 12/02/17 10:36 16:50 16:50 Creatine Kinase 35 L CK-MB (CK-2) 0.51 0.39 Troponin I 0.015 < 0.012 NT-Pro-B Natriuret Pep Impressions: Cervical Spine CT 11/29/17 08:28 IMPRESSION: No acute changes Head CT 11/29/17 08:28 IMPRESSION: No acute intracranial changes. Nasal bone fracture with trace fluid in the right maxillary sinus. EVIDENCE OF ACUTE STROKE: NO. Fluoroscopy 12/02/17 00:00 IMPRESSION: Unsuccessful Dobbhoff feeding tube placement. KUB X-Ray 12/08/17 00:00 IMPRESSION: Persistent constipation Acute Abdomen Series 12/10/17 00:00 IMPRESSION: Left basilar airspace disease atelectasis versus pneumonia Right subdiaphragmatic free air Distended stomach with air-fluid level. Tube Placement 12/10/17 00:00 IMPRESSION: Gastrostomy tube tip is outside the stomach, along the anterior abdominal wall. Chest X-Ray 12/11/17 00:00 IMPRESSION: PATCHY MULTIFOCAL AIRSPACE DISEASE ABOVE SUSPICIOUS FOR PNEUMONIA. RECOMMEND FOLLOWUP RADIOGRAPHS 4 TO 6 WEEKS TO ENSURE RESOLUTION. Chest/Abdomen CTA 12/12/17 00:00 IMPRESSION: UNREMARKABLE CTA CHEST WITHOUT PULMONARY EMBOLI. LEFT GREATER THAN RIGHT PLEURAL EFFUSIONS WITH BILATERAL LOWER LOBE AIRSPACE DISEASE COULD REPRESENT COMPRESSIVE ATELECTASIS OR SUPERIMPOSED PNEUMONIA. PARTIAL VISUALIZATION OF FREE ABDOMINAL FLUID, AIR, AND SURGICAL DRAIN PRESUMABLY RELATED TO RECENT SURGERY. DISTENDED GALLBLADDER. CORRELATE WITH SYMPTOMS. Knee X-Ray 12/21/17 00:00 IMPRESSION: 1. No definite acute fracture. 2. Large joint effusion. If there is concern for internal derangement MRI would provide additional characterization. 2010 [employer]- All Rights Reserved Assessment & Plan - Diagnosis (1) Pain and swelling of right knee Is this a current diagnosis for this admission?: Yes Plan: Arthrocentesis. (2) Pneumonia Qualifiers: Pneumonia type: aspiration pneumonia Laterality: bilateral Lung location : unspecified part of lung Is this a current diagnosis for this admission?: Yes Plan: Completed a course of antibiotics (3) DKA, type 1 Qualifiers: Diabetes mellitus complication detail: without coma Qualified Code(s): E10.10 - Type 1 diabetes mellitus with ketoacidosis without coma Is this a current diagnosis for this admission?: Yes Plan: Resolved. Now on lantus and Lispro sliding scale (4) Hypertension Qualifiers: Hypertension type: essential hypertension Qualified Code(s): I10 - Essential (primary) hypertension Is this a current diagnosis for this admission?: Yes Plan: BP low normal- continue to monitor. Low dose Metoprolol. Rest of antihypertensives on hold (5) CAD (coronary artery disease) Qualifiers: Associated angina: without angina Is this a current diagnosis for this admission?: Yes Plan: Outpatient meds. Avoid antiplatelets for 2 weeks given esophageal ulcer. Lopressor reduced for low BP (6) Nausea and vomiting Qualifiers: Vomiting type: cyclical vomiting Vomiting Intractability: intractable Qualified Code(s): G43.A1 - Cyclical vomiting, intractable Is this a current diagnosis for this admission?: Yes Plan: Resolved. G tube tip repositioned. Tolerating tube feeds. (7) Acute renal failure Is this a current diagnosis for this admission?: Yes Plan: Resolved with IV fluids (8) COPD (chronic obstructive pulmonary disease) Qualifiers: COPD type: emphysema Is this a current diagnosis for this admission?: Yes Plan: Stable. Continue Spiriva and nebs prn (9) Lung cancer Qualifiers: Laterality: right Lung location: lower lobe of lung Qualified Code(s): C34.31 - Malignant neoplasm of lower lobe, right bronchus or lung Is this a current diagnosis for this admission?: Yes Plan: Was undergoing RT as an outpatient. Request records from [place]. (10) History of prostate cancer Is this a current diagnosis for this admission?: Yes Plan: Outpatient follow up (11) DVT prophylaxis Is this a current diagnosis for this admission?: Yes Plan: Lovenox s/c (12) Nasal bone fracture Qualifiers: Encounter type: initial encounter Fracture type: closed Qualified Code(s) : S02.2XXA - Fracture of nasal bones, initial encounter for closed fracture Is this a current diagnosis for this admission?: Yes Plan: Due to fall prior to admission. (13) Hypercalcemia Is this a current diagnosis for this admission?: Yes Plan: Resolved (14) Hyperkalemia Is this a current diagnosis for this admission?: Yes Plan: Resolved (15) Hypernatremia Is this a current diagnosis for this admission?: Yes Plan: Resolved (16) Sinus tachycardia Is this a current diagnosis for this admission?: Yes Plan: Due to acute illness. Resolved (17) Esophageal ulcer without bleeding Is this a current diagnosis for this admission?: Yes Plan: Continue PPI (18) Hypokalemia Is this a current diagnosis for this admission?: Yes Plan: Replace (19) Hypomagnesemia Is this a current diagnosis for this admission?: Yes Plan: Replace (20) Hypophosphatemia Is this a current diagnosis for this admission?: Yes Plan: Replete - Time Time Spent with patient: 25-34 minutes - Plan Summary Plan Summary: The patient continues to request to be a full code. Plan for rehab. They have declined hospice at this time.
[2017-12-21] MEDS ORDERED: ACETAMINOPHEN SOLN 325 MG/10.15 ML UDCUP PEG PRN (17:50)
[2017-12-21] MEDS ORDERED: FERROUS SULFATE LIQUID 300 MG/5 ML UDC PO SCH (18:00)
[2017-12-21] MEDS: MULTIVITAMIN ORAL LIQUID 60 ML PO SCH (18:00)
[2017-12-21] MEDS: FERROUS SULFATE LIQUID 300 MG/5 ML UDC PEG SCH (18:01)
[2017-12-21] MEDS: METOPROLOL TARTRATE 25 MG TABLET PEG SCH (18:07)
--- NOTE | 2017-12-21 18:56 | PDOC CONSULTATION ---
History of Present Illness Admission Date/PCP: 11/29/17 10:19 HELDER GUAN Patient complains of: Right knee pain/swelling History of Present Illness: SHEILA VALERIO is a 67 year old male who complains of right knee pain. He states it started about 2 days ago. Has worsened over the past 24 hours and has significant pain worse with any motion, weightbearing or touch. Denies history of gout. States the pain is 7/10 with rest. Does improve with morphine. Denies numbness or tingling. Denies fever chills or sweats. 67 yr old male with insulin dependent diabetes and recently diagnosed lung cancer, undergoing RT in [place]. He presented to the hospital on 11/29/17 with DKA due to inability to take any of his meds secondary to persistent nausea, vomiting and abdominal pain since RT was started. Endoscopy showed esophageal ulcer. DKA resolved with IV Insulin and fluids. He had a G tube placed on 12/05/17 due to persistent inability to tlerate PO. The patient complained of increased abdominal pain and it was discovered this am that G tube had become displaced. He was taken to the OR by Dr. Robins on 12/10/17 and tube was repositioned. He developed an aspiration Pneumonia and received a course of antibiotics. Past Medical History Cardiac Medical History: Reports: Coronary Artery Disease, Myocardial Infarction , Hyperlipidema, Hypertension Neurological Medical History: Denies: Seizures Endocrine Medical History: Reports: Diabetes Mellitus Type 2 Malignancy Medical History: Reports: Lung Cancer, Other - Prostate cancer GI Medical History: Reports: Gastroesophageal Reflux Disease, Hiatal Hernia Past Surgical History Past Surgical History: Reports: Cardiac Catheterization - stent x 3, Coronary Artery Bypass Graft, Coronary Stent - x3, Orthopedic Surgery - left hip, left shoulder, Tonsillectomy, Other - Prostatectomy Social History Lives with: Spouse/Significant other Smoking Status: Former Smoker Frequency of Alcohol Use: None Hx Recreational Drug Use: No Hx Prescription Drug Abuse: No - Advance Directive Resuscitation Status: Full Code Family History Family History: Reviewed & Not Pertinent Parental Family History Reviewed: No Children Family History Reviewed: No Sibling(s) Family History Reviewed.: No Medication/Allergy Home Medications: Ascorbic Acid [Vitamin C 500 mg Tablet] 500 mg PO DAILY 11/29/17 Aspirin [Aspirin EC] 81 mg PO DAILY 11/29/17 Atorvastatin Calcium [Lipitor 80 mg Tablet] 80 mg PO QHS 11/29/17 Ferrous Sulfate 324 mg PO DAILY 11/29/17 Glipizide [Glucotrol 5 mg Tablet] 5 mg PO BID 11/29/17 Hydrocodone/Acetaminophen [Hydrocodone-Acetamin 7.5-325] 1 tab PO DAILYP PRN Insulin Aspart [Novolog Flexpen] See Protocol SQ MEALS 11/29/17 Insulin Glargine,Hum.rec.anlog [Lantus Insulin 100 Unit/1 ml 10 ml] 40 units SQ BID 11/29/17 Isosorbide Mononitrate [Imdur 60 mg Tablet.er] 60 mg PO DAILY 11/29/17 Metformin HCl [Metformin HCl ER] 1,000 mg PO BID 11/29/17 Metoprolol Tartrate [Lopressor 25 mg Tablet] 75 mg PO Q12 11/29/17 Kennan-3/Dha/Epa/Fish Oil [Fish Oil 1,000 mg Softgel] 4 cap PO BID 11/29/17 Ondansetron HCl [Zofran] 8 mg PO BIDP PRN 11/29/17 Tiotropium [place] [Spiriva Handihaler 18 mcg/dose (30 Dose)] 1 cap IH DAILY Allergies/Adverse Reactions: No Known Allergies Allergy (Verified 10/09/14 17:04) Review of Systems Constitutional: PRESENT: weight loss Eyes: ABSENT: visual disturbances Ears: ABSENT: hearing changes Cardiovascular: ABSENT: chest pain, dyspnea on exertion, edema, orthropnea, palpitations Respiratory: ABSENT: cough, hemoptysis Gastrointestinal: PRESENT: nausea, vomiting. ABSENT: abdominal pain, constipation, diarrhea, hematemesis, hematochezia Genitourinary: ABSENT: dysuria, hematuria Musculoskeletal: PRESENT: as per HPI Integumentary: ABSENT: rash, wounds Neurological: ABSENT: abnormal gait, abnormal speech, confusion, dizziness, focal weakness, syncope Psychiatric: ABSENT: anxiety, depression, homidical ideation, suicidal ideation Endocrine: ABSENT: cold intolerance, heat intolerance, menstrual abnormalities, polydipsia, polyuria Hematologic/Lymphatic: ABSENT: easy bleeding, easy bruising, lymphadenopathy Physical Exam Vital Signs: Temp Pulse Resp BP Pulse Ox 98.5 F 93 16 105/56 L 97 12/21/17 16:09 12/21/17 16:09 12/21/17 16:09 12/21/17 16:09 12/21/17 16:09 Intake & Output 12/20/17 12/21/17 12/22/17 06:59 06:59 06:59 Intake Total 1669 1076 338 Output Total 1251 6475 545 Balance 419 -79 -207 Weight 68.8 kg 68.2 kg General appearance: PRESENT: no acute distress, well-developed, well-nourished Head exam: PRESENT: atraumatic, normocephalic Eye exam: PRESENT: conjunctiva pink, EOMI, PERRLA. ABSENT: scleral icterus Ear exam: PRESENT: normal external ear exam Mouth exam: PRESENT: moist, tongue midline Teeth exam: PRESENT: poor dentation Neck exam: PRESENT: full ROM. ABSENT: carotid bruit, JVD, lymphadenopathy, thyromegaly Cardiovascular exam: PRESENT: RRR. ABSENT: diastolic murmur, rubs, systolic murmur Pulses: PRESENT: normal dorsalis pedis pul, +2 pedal pulses bilateral Vascular exam: PRESENT: normal capillary refill GI/Abdominal exam: PRESENT: soft, other - G-tube. ABSENT: distended, guarding, mass, organolmegaly, rebound, tenderness Rectal exam: PRESENT: deferred Musculoskeletal exam: PRESENT: other - Right knee: Effusion evidence. Tenderness palpation diffusely throughout the knee. Patient is intact straight leg raise. Limited range of motion secondary to pain. Pain with light touch. No evidence of erythema there is evidence of warmth however patient had warm pack removed just prior to entering the room. Neurological exam: PRESENT: alert, awake, oriented to person, oriented to place , oriented to time, oriented to situation, CN II-XII grossly intact. ABSENT: motor sensory deficit Psychiatric exam: PRESENT: appropriate affect, normal mood. ABSENT: homicidal ideation, suicidal ideation Skin exam: PRESENT: dry, intact, warm. ABSENT: cyanosis, rash Results Laboratory Results: 12/20/17 04:23 12/20/17 04:23 12/21/17 05:42 Uric Acid 2.0 L 11/30/17 12/01/17 12/01/17 05:22 22:45 22:45 Creatine Kinase 30 L CK-MB (CK-2) 0.73 Troponin I 0.015 NT-Pro-B Natriuret Pep 386 12/02/17 12/02/1712/02/18 04:47 04:47 10:36 Creatine Kinase 30 L 28 L CK-MB (CK-2) 0.53 Troponin I 0.016 NT-Pro-B Natriuret Pep 12/02/17 12/02/17 12/02/17 10:36 16:50 16:50 Creatine Kinase 35 L CK-MB (CK-2) 0.51 0.39 Troponin I 0.015 < 0.012 NT-Pro-B Natriuret Pep Impressions: Cervical Spine CT 11/29/17 08:28 IMPRESSION: No acute changes Head CT 11/29/17 08:28 IMPRESSION: No acute intracranial changes. Nasal bone fracture with trace fluid in the right maxillary sinus. EVIDENCE OF ACUTE STROKE: NO. Fluoroscopy 12/02/17 00:00 IMPRESSION: Unsuccessful Dobbhoff feeding tube placement. KUB X-Ray 12/08/17 00:00 IMPRESSION: Persistent constipation Acute Abdomen Series 12/10/17 00:00 IMPRESSION: Left basilar airspace disease atelectasis versus pneumonia Right subdiaphragmatic free air Distended stomach with air-fluid level. Tube Placement 12/10/17 00:00 IMPRESSION: Gastrostomy tube tip is outside the stomach, along the anterior abdominal wall. Chest X-Ray 12/11/17 00:00 IMPRESSION: PATCHY MULTIFOCAL AIRSPACE DISEASE ABOVE SUSPICIOUS FOR PNEUMONIA. RECOMMEND FOLLOWUP RADIOGRAPHS 4 TO 6 WEEKS TO ENSURE RESOLUTION. Chest/Abdomen CTA 12/12/17 00:00 IMPRESSION: UNREMARKABLE CTA CHEST WITHOUT PULMONARY EMBOLI. LEFT GREATER THAN RIGHT PLEURAL EFFUSIONS WITH BILATERAL LOWER LOBE AIRSPACE DISEASE COULD REPRESENT COMPRESSIVE ATELECTASIS OR SUPERIMPOSED PNEUMONIA. PARTIAL VISUALIZATION OF FREE ABDOMINAL FLUID, AIR, AND SURGICAL DRAIN PRESUMABLY RELATED TO RECENT SURGERY. DISTENDED GALLBLADDER. CORRELATE WITH SYMPTOMS. Knee X-Ray 12/21/17 00:00 IMPRESSION: 1. No definite acute fracture. 2. Large joint effusion. If there is concern for internal derangement MRI would provide additional characterization. 2010 [employer]- All Rights Reserved Status: Image reviewed by oh - I have reviewed patient's radiographs which demonstrate knee effusion no evidence of acute fracture or dislocation. No evidence of osseous changes. Assessment & Plan - Diagnosis (1) Effusion, right knee Is this a current diagnosis for this admission?: Yes Plan: Patient has evidence of a right knee effusion. Today we discussed treatment options and possible diagnoses. Within differential includes reactive arthropathy, gout, pseudogout, inflammatory arthropathy or septic arthritis. Thus we will proceed with aspiration. Aspiration results demonstrating clear fluid likely consistent with reactive arthropathy but currently results pending. Procedure note: Pre-procedure diagnosis right knee fusion post procedure diagnosis same Procedure in detail: Right knee was prepped with Betadine. 18-gauge needle was entered into the right knee joint via the medial suprapatellar approach 35 cc of clear non-cloudy or straw appearing fluid was aspirated. Patient tolerated procedure well. Fluid sent for cell count with differential, glucose, protein, Gram stain, crystals, culture with sensitivity
[2017-12-21 19:24] LABS: CALCIUM PYROPHOSPHATE CRYSTALS Intra&Extracellular; MONOSODIUM URATE CRYSTALS NONE OBSERVED; OTHER CRYSTALS NONE OBSERVED
[2017-12-21 19:28] LABS: FLUID APPEARANCE SLIGHTLY HAZY; FLUID COLOR COLORLESS; FLUID SOURCE KNEE; FLUID TYPE SYNOVIAL; FLUID VISCOSITY MODERATELY VISCOUS
[2017-12-21] MEDS ORDERED: PREDNISONE 20 MG TABLET PEG ONE (19:30)
[2017-12-21] MEDS ORDERED: MEGESTROL ACETATE SUSP 400 MG/10 ML UDCUP PEG ONE (20:00)
[2017-12-21] MEDS: MORPHINE SULFATE 10 MG/5 ML ORAL SOLUTION UDCUP PEG PRN (21:10)
[2017-12-21] MEDS: ATORVASTATIN CALCIUM 80 MG TABLET PEG SCH (22:54)
[2017-12-22] MEDS: MORPHINE SULFATE 10 MG/5 ML ORAL SOLUTION UDCUP PEG PRN ×5 (00:14→21:49)
[2017-12-22 05:12] LABS: ABSOLUTE LYMPHOCYTES (AUTO) 0.4 10^3/uL (0.5-4.7); ABSOLUTE MONOCYTES (AUTO) 0.1 10^3/uL (0.1-1.4); ABSOLUTE NEUT (AUTO) 6.4 10^3/uL (1.7-8.2); BASOPHILS % (AUTO) 0.1 % (0-2); HEMATOCRIT 28.8 % (37.9-51.0); HEMOGLOBIN 9.9 g/dL (13.5-17.0); LYMPHOCYTES % (AUTO) 5.5 % (13-45); MEAN CORPUSCULAR HGB CONC 34.3 g/dL (32.0-36.0); MEAN CORPUSCULAR VOLUME 82 fl (80-97); MONOCYTES % (AUTO) 1.6 % (3-13); PLATELET COUNT 282 10^3/uL (150-450); RED BLOOD COUNT 3.52 10^6/uL (4.35-5.55); RED CELL DISTRIBUTION WIDTH 16.9 % (11.5-14.0); SEGMENTED NEUTROPHILS % (AUTO) 92.8 % (42-78); TOTAL CELLS COUNTED % (AUTO) 100 %; WHITE BLOOD COUNT 6.9 10^3/uL (4.0-10.5)
[2017-12-22 05:42] LABS: ANION GAP 6 (5-19); BLOOD UREA NITROGEN 6 mg/dL (7-20); CALCIUM 8.3 mg/dL (8.4-10.2); CARBON DIOXIDE 32 mmol/L (22-30); CHLORIDE 102 mmol/L (98-107); GLUCOSE 179 mg/dL (75-110); PHOSPHORUS 4.8 mg/dL (2.5-4.5); POTASSIUM 4.5 mmol/L (3.6-5.0); SODIUM 139.8 mmol/L (137-145)
[2017-12-22] MEDS: LANSOPRAZOLE 30 MG TAB.RAP.DR PEG SCH ×2 (05:54→16:37)
[2017-12-22] MEDS: METOPROLOL TARTRATE 25 MG TABLET PEG SCH ×2 (05:54→18:30)
--- NOTE | 2017-12-22 07:01 | PDOC PROGRESS REPORT ---
Subjective Progress Note for:: 12/22/17 Subjective:: Patient continues to complain of pain of his right knee although does note some improvement after aspiration. Denies fever chills or sweats. Reason For Visit: DKA Physical Exam Vital Signs: Temp Pulse Resp BP Pulse Ox 98.3 F 104 H 18 113/57 L 93 12/22/17 03:47 12/22/17 03:47 12/22/17 03:47 12/22/17 03:47 12/22/17 03:47 Intake & Output 12/20/17 12/21/17 12/22/17 06:59 06:59 06:59 Intake Total 1669 1076 368 Output Total 1250 1155 1840 Balance 377 -88 -0908 Weight 68.8 kg 68.2 kg 68.5 kg Musculoskeletal exam: PRESENT: other - Right knee: Moderate effusion slightly improved compared to yesterday prior to aspiration. Pain with palpation along the joint line. No erythema or warmth appreciated. No streaking erythema or lymphadenopathy. Results Laboratory Results: 12/22/17 04:32 12/22/17 04:32 12/21/17 12/21/17 12/22/17 18:00 18:00 04:32 WBC 6.9 RBC 3.52 L Hgb 9.9 L Hct 28.8 L MCV 82 MCH 28.0 MCHC 34.3 RDW 16.9 H Plt Count 282 Seg Neutrophils % 92.8 H Lymphocytes % 5.5 L Monocytes % 1.6 L Eosinophils % 0.0 Basophils % 0.1 Absolute Neutrophils 6.4 Absolute Lymphocytes 0.4 L Absolute Monocytes 0.1 Absolute Eosinophils 0.0 Absolute Basophils 0.0 Sodium Potassium Chloride Carbon Dioxide Anion Gap BUN Creatinine Est GFR ( Amer) Est GFR (Non-Af Amer) Glucose Calcium Phosphorus Magnesium Fluid Type SYNOVIAL SYNOVIAL Fluid Source KNEE RIGHT KNEE Fluid Color COLORLESS Fluid Appearance SLIGHTLY HAZY Fluid Viscosity MODERATELY VISCOUS Fluid WBC 1090 Fluid RBC 5 12/22/17 04:32 WBC RBC Hgb Hct MCV MCH MCHC RDW Plt Count Seg Neutrophils % Lymphocytes % Monocytes % Eosinophils % Basophils % Absolute Neutrophils Absolute Lymphocytes Absolute Monocytes Absolute Eosinophils Absolute Basophils Sodium 139.8 Potassium 4.5 Chloride 102 Carbon Dioxide 32 H Anion Gap 6 BUN 6 L Creatinine 0.40 L Est GFR ( Amer) > 60 Est GFR (Non-Af Amer) > 60 Glucose 179 H Calcium 8.3 L Phosphorus 4.8 H Magnesium 2.3 Fluid Type Fluid Source Fluid Color Fluid Appearance Fluid Viscosity Fluid WBC Fluid RBC 11/30/17 12/01/17 12/01/17 05:22 22:45 22:45 Creatine Kinase 30 L CK-MB (CK-2) 0.73 Troponin I 0.015 NT-Pro-B Natriuret Pep 386 12/02/17 12/02/17 12/02/17 04:47 04:47 10:36 Creatine Kinase 30 L 28 L CK-MB (CK-2) 0.53 Troponin I 0.016 NT-Pro-B Natriuret Pep 12/02/17 12/02/17 12/02/17 10:36 16:50 16:50 Creatine Kinase 35 L CK-MB (CK-2) 0.51 0.39 Troponin I 0.015 < 0.012 NT-Pro-B Natriuret Pep Impressions: Cervical Spine CT 11/29/17 08:28 IMPRESSION: No acute changes Head CT 11/29/17 08:28 IMPRESSION: No acute intracranial changes. Nasal bone fracture with trace fluid in the right maxillary sinus. EVIDENCE OF ACUTE STROKE: NO. Fluoroscopy 12/02/17 00:00 IMPRESSION: Unsuccessful Dobbhoff feeding tube placement. KUB X-Ray 12/08/17 00:00 IMPRESSION: Persistent constipation Acute Abdomen Series 12/10/17 00:00 IMPRESSION: Left basilar airspace disease atelectasis versus pneumonia Right subdiaphragmatic free air Distended stomach with air-fluid level. Tube Placement 12/10/17 00:00 IMPRESSION: Gastrostomy tube tip is outside the stomach, along the anterior abdominal wall. Chest X-Ray 12/11/17 00:00 IMPRESSION: PATCHY MULTIFOCAL AIRSPACE DISEASE ABOVE SUSPICIOUS FOR PNEUMONIA. RECOMMEND FOLLOWUP RADIOGRAPHS 4 TO 6 WEEKS TO ENSURE RESOLUTION. Chest/Abdomen CTA 12/12/17 00:00 IMPRESSION: UNREMARKABLE CTA CHEST WITHOUT PULMONARY EMBOLI. LEFT GREATER THAN RIGHT PLEURAL EFFUSIONS WITH BILATERAL LOWER LOBE AIRSPACE DISEASE COULD REPRESENT COMPRESSIVE ATELECTASIS OR SUPERIMPOSED PNEUMONIA. PARTIAL VISUALIZATION OF FREE ABDOMINAL FLUID, AIR, AND SURGICAL DRAIN PRESUMABLY RELATED TO RECENT SURGERY. DISTENDED GALLBLADDER. CORRELATE WITH SYMPTOMS. Knee X-Ray 12/21/17 00:00 IMPRESSION: 1. No definite acute fracture. 2. Large joint effusion. If there is concern for internal derangement MRI would provide additional characterization. 2010 [employer]- All Rights Reserved Assessment & Plan - Diagnosis (1) Effusion, right knee Is this a current diagnosis for this admission?: Yes Plan: Given the low white blood cell count and presence of calcium phosphate crystals consistent with pseudoarthrosis on the aspiration I do not feel septic arthritis is fairly low on the differential diagnosis. At this point would recommend anti-inflammatories for reactive reactive arthropathy. If patient continues to have discomfort would recommend follow-up as an outpatient or contact orthopedics for reevaluation.
[2017-12-22] MEDS: INSULIN GLARGINE,HUM.REC.ANLOG 300 UNIT/3 ML INSULN.PEN SUBCUT SCH ×2 (11:03→18:26)
[2017-12-22] MEDS: TIOTROPIUM BROMIDE DPI 5 CAP/KIT (18 MCG/CAP) IH SCH (11:04)
[2017-12-22] MEDS: MEGESTROL ACETATE SUSP 400 MG/10 ML UDCUP PEG SCH (11:04)
[2017-12-22] MEDS: PHOSPHORUS #1 250 MG TABLET PEG SCH ×2 (11:05→21:53)
[2017-12-22] MEDS: BISMUTH SUBSALICYLATE 262 MG TAB.CHEW PEG SCH ×4 (11:05→21:53)
[2017-12-22] MEDS: FERROUS SULFATE LIQUID 300 MG/5 ML UDC PEG SCH ×2 (11:06→18:25)
[2017-12-22] MEDS: MAGNESIUM OXIDE 400 MG TABLET PEG SCH ×2 (11:08→18:28)
[2017-12-22] MEDS: PREDNISONE 20 MG TABLET PEG SCH (11:08)
[2017-12-22] MEDS: ENOXAPARIN SODIUM INJ 40 MG/0.4 ML DISP.SYRIN SUBCUT SCH (11:09)
[2017-12-22] MEDS: LACTOBACILLUS ACIDOPHILUS 250 MG TAB PEG SCH ×2 (11:09→18:28)
--- NOTE | 2017-12-22 11:57 | PDOC PROGRESS REPORT ---
Subjective Progress Note for:: 12/22/17 Subjective:: The patient tells me he feels wonderful. The right knee pain has resolved. Appreciate orthopedic surgeries input. Synovial fluid analysis suggests reactive arthritis/pseudo gout and the patient was started on some steroids yesterday. He tells me that he is interested in going home and prefers not to go to a [facility] facility. His has reservations given the amount of assistance he is requiring she states that she is unable to manage at home. They plan to discuss this and see if they can arrange for some assistance at home. He will be started on some lactulose for constipation. Reason For Visit: DKA Physical Exam Vital Signs: Temp Pulse Resp BP Pulse Ox 98.1 F 87 18 93/43 L 95 12/22/17 08:03 12/22/17 08:03 12/22/17 08:03 12/22/17 08:03 12/22/17 08:03 Intake & Output 12/21/17 12/22/17 12/23/17 06:59 06:59 06:59 Intake Total 1076 378 Output Total 1155 1840 Balance -79 -1462 Weight 68.2 kg 68.5 kg General appearance: PRESENT: no acute distress, thin Head exam: PRESENT: normocephalic Eye exam: ABSENT: scleral icterus Ear exam: PRESENT: normal external ear exam Mouth exam: PRESENT: moist Teeth exam: PRESENT: edentulous Neck exam: ABSENT: tracheal deviation Respiratory exam: PRESENT: symmetrical, unlabored. ABSENT: wheezes Cardiovascular exam: PRESENT: RRR GI/Abdominal exam: PRESENT: normal bowel sounds, soft, other - PEG tube present. Central abdominal surgical wound present.. ABSENT: tenderness Rectal exam: PRESENT: deferred Gentrourinary exam: ABSENT: indwelling catheter Musculoskeletal exam: PRESENT: normal inspection, other - Right knee swelling and tenderness much improved. Neurological exam: PRESENT: alert, awake, oriented to person, oriented to place , oriented to time, oriented to situation Psychiatric exam: PRESENT: appropriate affect Results Laboratory Results: 12/22/17 04:32 12/22/17 04:32 12/21/17 12/21/17 12/22/17 18:00 18:00 04:32 WBC 6.9 RBC 3.52 L Hgb 9.9 L Hct 28.8 L MCV 82 MCH 28.0 MCHC 34.3 RDW 16.9 H Plt Count 282 Seg Neutrophils % 92.8 H Lymphocytes % 5.5 L Monocytes % 1.6 L Eosinophils % 0.0 Basophils % 0.1 Absolute Neutrophils 6.4 Absolute Lymphocytes 0.4 L Absolute Monocytes 0.1 Absolute Eosinophils 0.0 Absolute Basophils 0.0 Sodium Potassium Chloride Carbon Dioxide Anion Gap BUN Creatinine Est GFR ( Amer) Est GFR (Non-Af Amer) Glucose Calcium Phosphorus Magnesium Fluid Type SYNOVIAL SYNOVIAL Fluid Source KNEE RIGHT KNEE Fluid Color COLORLESS Fluid Appearance SLIGHTLY HAZY Fluid Viscosity MODERATELY VISCOUS Fluid WBC 1090 Fluid RBC 5 12/22/17 04:32 WBC RBC Hgb Hct MCV MCH MCHC RDW Plt Count Seg Neutrophils % Lymphocytes % Monocytes % Eosinophils % Basophils % Absolute Neutrophils Absolute Lymphocytes Absolute Monocytes Absolute Eosinophils Absolute Basophils Sodium 139.8 Potassium 4.5 Chloride 102 Carbon Dioxide 32 H Anion Gap 6 BUN 6 L Creatinine 0.40 L Est GFR ( Amer) > 60 Est GFR (Non-Af Amer) > 60 Glucose 179 H Calcium 8.3 L Phosphorus 4.8 H Magnesium 2.3 Fluid Type Fluid Source Fluid Color Fluid Appearance Fluid Viscosity Fluid WBC Fluid RBC 11/30/17 12/01/17 12/01/17 05:22 22:45 22:45 Creatine Kinase 30 L CK-MB (CK-2) 0.73 Troponin I 0.015 NT-Pro-B Natriuret Pep 386 12/02/17 12/02/17 12/02/17 04:47 04:47 10:36 Creatine Kinase 30 L 28 L CK-MB (CK-2) 0.53 Troponin I 0.016 NT-Pro-B Natriuret Pep 12/02/17 12/02/17 12/02/17 10:36 16:50 16:50 Creatine Kinase 35 L CK-MB (CK-2) 0.51 0.39 Troponin I 0.015 < 0.012 NT-Pro-B Natriuret Pep Impressions: Cervical Spine CT 11/29/17 08:28 IMPRESSION: No acute changes Head CT 11/29/17 08:28 IMPRESSION: No acute intracranial changes. Nasal bone fracture with trace fluid in the right maxillary sinus. EVIDENCE OF ACUTE STROKE: NO. Fluoroscopy 12/02/17 00:00 IMPRESSION: Unsuccessful Dobbhoff feeding tube placement. KUB X-Ray 12/08/17 00:00 IMPRESSION: Persistent constipation Acute Abdomen Series 12/10/17 00:00 IMPRESSION: Left basilar airspace disease atelectasis versus pneumonia Right subdiaphragmatic free air Distended stomach with air-fluid level. Tube Placement 12/10/17 00:00 IMPRESSION: Gastrostomy tube tip is outside the stomach, along the anterior abdominal wall. Chest X-Ray 12/11/17 00:00 IMPRESSION: PATCHY MULTIFOCAL AIRSPACE DISEASE ABOVE SUSPICIOUS FOR PNEUMONIA. RECOMMEND FOLLOWUP RADIOGRAPHS 4 TO 6 WEEKS TO ENSURE RESOLUTION. Chest/Abdomen CTA 12/12/17 00:00 IMPRESSION: UNREMARKABLE CTA CHEST WITHOUT PULMONARY EMBOLI. LEFT GREATER THAN RIGHT PLEURAL EFFUSIONS WITH BILATERAL LOWER LOBE AIRSPACE DISEASE COULD REPRESENT COMPRESSIVE ATELECTASIS OR SUPERIMPOSED PNEUMONIA. PARTIAL VISUALIZATION OF FREE ABDOMINAL FLUID, AIR, AND SURGICAL DRAIN PRESUMABLY RELATED TO RECENT SURGERY. DISTENDED GALLBLADDER. CORRELATE WITH SYMPTOMS. Knee X-Ray 12/21/17 00:00 IMPRESSION: 1. No definite acute fracture. 2. Large joint effusion. If there is concern for internal derangement MRI would provide additional characterization. 2010 [employer]- All Rights Reserved Assessment & Plan - Diagnosis (1) Pain and swelling of right knee Is this a current diagnosis for this admission?: Yes Plan: Arthrocentesis suggest pseudogout. Continue prednisone. (2) Pneumonia Qualifiers: Pneumonia type: aspiration pneumonia Laterality: bilateral Lung location : unspecified part of lung Is this a current diagnosis for this admission?: Yes Plan: Completed a course of antibiotics (3) DKA, type 1 Qualifiers: Diabetes mellitus complication detail: without coma Qualified Code(s): E10.10 - Type 1 diabetes mellitus with ketoacidosis without coma Is this a current diagnosis for this admission?: Yes Plan: Resolved. Now on lantus and Lispro sliding scale (4) Hypertension Qualifiers: Hypertension type: essential hypertension Qualified Code(s): I10 - Essential (primary) hypertension Is this a current diagnosis for this admission?: Yes Plan: BP low normal- continue to monitor. Low dose Metoprolol. Rest of antihypertensives on hold (5) CAD (coronary artery disease) Qualifiers: Associated angina: without angina Is this a current diagnosis for this admission?: Yes Plan: Outpatient meds. Avoid antiplatelets for 2 weeks given esophageal ulcer. Lopressor reduced for low BP (6) Nausea and vomiting Qualifiers: Vomiting type: cyclical vomiting Vomiting Intractability: intractable Qualified Code(s): G43.A1 - Cyclical vomiting, intractable Is this a current diagnosis for this admission?: Yes Plan: Resolved. G tube tip repositioned. Tolerating tube feeds. (7) Acute renal failure Is this a current diagnosis for this admission?: Yes Plan: Resolved with IV fluids (8) COPD (chronic obstructive pulmonary disease) Qualifiers: COPD type: emphysema Is this a current diagnosis for this admission?: Yes Plan: Stable. Continue Spiriva and nebs prn (9) Lung cancer Qualifiers: Laterality: right Lung location: lower lobe of lung Qualified Code(s): C34.31 - Malignant neoplasm of lower lobe, right bronchus or lung Is this a current diagnosis for this admission?: Yes Plan: Was undergoing RT as an outpatient. Follow-up at [facility]. (10) History of prostate cancer Is this a current diagnosis for this admission?: Yes Plan: Outpatient follow up. He has had recent recurrence (11) DVT prophylaxis Is this a current diagnosis for this admission?: Yes (12) Nasal bone fracture Qualifiers: Encounter type: initial encounter Fracture type: closed Qualified Code(s) : S02.2XXA - Fracture of nasal bones, initial encounter for closed fracture Is this a current diagnosis for this admission?: Yes Plan: Due to fall prior to admission. (13) Hypercalcemia Is this a current diagnosis for this admission?: Yes Plan: Resolved (14) Hyperkalemia Is this a current diagnosis for this admission?: Yes Plan: Resolved (15) Hypernatremia Is this a current diagnosis for this admission?: Yes Plan: Resolved (16) Sinus tachycardia Is this a current diagnosis for this admission?: Yes Plan: Due to acute illness. Resolved (17) Esophageal ulcer without bleeding Is this a current diagnosis for this admission?: Yes Plan: Continue PPI (18) Hypokalemia Is this a current diagnosis for this admission?: Yes Plan: Replace (19) Hypomagnesemia Is this a current diagnosis for this admission?: Yes Plan: Replace (20) Hypophosphatemia Is this a current diagnosis for this admission?: Yes Plan: Replete (21) Dislodged gastrostomy tube Is this a current diagnosis for this admission?: Yes (22) Constipation Is this a current diagnosis for this admission?: Yes Plan: Laxatives (23) Protein-calorie malnutrition, moderate Is this a current diagnosis for this admission?: Yes Plan: Continue tube feeds. Encourage p.o. intake. He has been started on Megace. We will also add protein supplements through the PEG tube. (24) Radiation-induced esophagitis Is this a current diagnosis for this admission?: Yes Plan: Continue PPI. - Time Time Spent with patient: 35 or more minutes
[2017-12-22] MEDS: LACTULOSE SYRUP 20 GM/30 ML UDCUP PEG SCH ×2 (13:35→21:53)
[2017-12-22] MEDS: MULTIVITAMIN ORAL LIQUID 60 ML PO SCH (16:41)
[2017-12-22] MEDS: INSULIN LISPRO 100 UNIT/ML 3 ML VIAL SUBCUT PRN (18:29)
[2017-12-22] MEDS: ATORVASTATIN CALCIUM 80 MG TABLET PEG SCH (21:53)
[2017-12-23] MEDS: INSULIN LISPRO 100 UNIT/ML 3 ML VIAL SUBCUT PRN ×3 (00:18→17:59)
[2017-12-23] MEDS: METOPROLOL TARTRATE 25 MG TABLET PEG SCH (05:28)
[2017-12-23] MEDS: LANSOPRAZOLE 30 MG TAB.RAP.DR PEG SCH ×2 (05:31→17:36)
[2017-12-23] MEDS: LACTULOSE SYRUP 20 GM/30 ML UDCUP PEG SCH ×3 (05:32→22:42)
[2017-12-23] MEDS: LACTOBACILLUS ACIDOPHILUS 250 MG TAB PEG SCH ×2 (10:04→17:37)
[2017-12-23] MEDS: MEGESTROL ACETATE SUSP 400 MG/10 ML UDCUP PEG SCH (10:04)
[2017-12-23] MEDS: PREDNISONE 20 MG TABLET PEG SCH (10:04)
[2017-12-23] MEDS: MAGNESIUM OXIDE 400 MG TABLET PEG SCH ×2 (10:04→17:37)
[2017-12-23] MEDS: BISMUTH SUBSALICYLATE 262 MG TAB.CHEW PEG SCH ×4 (10:04→22:43)
[2017-12-23] MEDS: PHOSPHORUS #1 250 MG TABLET PEG SCH ×2 (10:05→22:43)
[2017-12-23] MEDS: FERROUS SULFATE LIQUID 300 MG/5 ML UDC PEG SCH ×2 (10:06→17:37)
[2017-12-23] MEDS: INSULIN GLARGINE,HUM.REC.ANLOG 300 UNIT/3 ML INSULN.PEN SUBCUT SCH ×2 (10:06→17:35)
[2017-12-23] MEDS: ENOXAPARIN SODIUM INJ 40 MG/0.4 ML DISP.SYRIN SUBCUT SCH (10:06)
[2017-12-23] MEDS: TIOTROPIUM BROMIDE DPI 5 CAP/KIT (18 MCG/CAP) IH SCH (11:19)
[2017-12-23] MEDS: MORPHINE SULFATE 10 MG/5 ML ORAL SOLUTION UDCUP PEG PRN ×3 (12:10→22:43)
[2017-12-23 13:03] LABS: TOTAL PROTEIN BODY FLUID 0.3 g/dL (.)
[2017-12-23] MEDS: FENTANYL 50 MCG/HR PATCH.TD72 TD SCH (14:36)
--- NOTE | 2017-12-23 14:49 | PDOC PROGRESS REPORT ---
Subjective Progress Note for:: 12/23/17 Subjective:: The patient tells me he feels wonderful. The right knee pain has resolved. Appreciate orthopedic surgeries input. Synovial fluid analysis suggests reactive arthritis/pseudo gout and the patient was started on some steroids yesterday. He tells me that he is interested in going home and prefers not to go to a [facility] facility. His has reservations given the amount of assistance he is requiring she states that she is unable to manage at home. They plan to discuss this and see if they can arrange for some assistance at home. He is on lactulose for constipation. He continues to have small amounts of residuals. Will start on some Reglan. Reason For Visit: DKA Physical Exam Vital Signs: Temp Pulse Resp BP Pulse Ox 97.7 F 84 20 99/59 L 100 12/23/17 11:15 12/23/17 11:15 12/23/17 11:15 12/23/17 11:15 12/23/17 11:15 Intake & Output 12/22/17 12/23/17 12/24/17 06:59 06:59 06:59 Intake Total 378 631 100 Output Total 1840 1800 300 Balance -1462 -1169 -200 Weight 68.5 kg 62.9 kg General appearance: PRESENT: no acute distress, disheveled, thin Head exam: PRESENT: normocephalic Ear exam: PRESENT: normal external ear exam Teeth exam: PRESENT: edentulous Neck exam: ABSENT: tracheal deviation Respiratory exam: PRESENT: rhonchi, symmetrical, unlabored Cardiovascular exam: PRESENT: RRR GI/Abdominal exam: PRESENT: normal bowel sounds, soft, other - PEG Rectal exam: PRESENT: deferred Gentrourinary exam: ABSENT: indwelling catheter Extremities exam: ABSENT: pedal edema Results Laboratory Results: 12/22/17 04:32 12/22/17 04:32 12/21/17 18:00 Fluid Glucose 117 Fluid Total Protein 0.3 11/30/17 12/01/17 12/01/17 05:22 22:45 22:45 Creatine Kinase 30 L CK-MB (CK-2) 0.73 Troponin I 0.015 NT-Pro-B Natriuret Pep 386 12/02/17 12/02/17 12/02/17 04:47 04:47 10:36 Creatine Kinase 30 L 28 L CK-MB (CK-2) 0.53 Troponin I 0.016 NT-Pro-B Natriuret Pep 12/02/17 12/02/17 12/02/17 10:36 16:50 16:50 Creatine Kinase 35 L CK-MB (CK-2) 0.51 0.39 Troponin I 0.015 < 0.012 NT-Pro-B Natriuret Pep Impressions: Cervical Spine CT 11/29/17 08:28 IMPRESSION: No acute changes Head CT 11/29/17 08:28 IMPRESSION: No acute intracranial changes. Nasal bone fracture with trace fluid in the right maxillary sinus. EVIDENCE OF ACUTE STROKE: NO. Fluoroscopy 12/02/17 00:00 IMPRESSION: Unsuccessful Dobbhoff feeding tube placement. KUB X-Ray 12/08/17 00:00 IMPRESSION: Persistent constipation Acute Abdomen Series 12/10/17 00:00 IMPRESSION: Left basilar airspace disease atelectasis versus pneumonia Right subdiaphragmatic free air Distended stomach with air-fluid level. Tube Placement 12/10/17 00:00 IMPRESSION: Gastrostomy tube tip is outside the stomach, along the anterior abdominal wall. Chest X-Ray 12/11/17 00:00 IMPRESSION: PATCHY MULTIFOCAL AIRSPACE DISEASE ABOVE SUSPICIOUS FOR PNEUMONIA. RECOMMEND FOLLOWUP RADIOGRAPHS 4 TO 6 WEEKS TO ENSURE RESOLUTION. Chest/Abdomen CTA 12/12/17 00:00 IMPRESSION: UNREMARKABLE CTA CHEST WITHOUT PULMONARY EMBOLI. LEFT GREATER THAN RIGHT PLEURAL EFFUSIONS WITH BILATERAL LOWER LOBE AIRSPACE DISEASE COULD REPRESENT COMPRESSIVE ATELECTASIS OR SUPERIMPOSED PNEUMONIA. PARTIAL VISUALIZATION OF FREE ABDOMINAL FLUID, AIR, AND SURGICAL DRAIN PRESUMABLY RELATED TO RECENT SURGERY. DISTENDED GALLBLADDER. CORRELATE WITH SYMPTOMS. Knee X-Ray 12/21/17 00:00 IMPRESSION: 1. No definite acute fracture. 2. Large joint effusion. If there is concern for internal derangement MRI would provide additional characterization. 2010 [employer]- All Rights Reserved Assessment & Plan - Diagnosis (1) Pain and swelling of right knee Is this a current diagnosis for this admission?: Yes Plan: Arthrocentesis suggest pseudogout. Continue prednisone. (2) Pneumonia Qualifiers: Pneumonia type: aspiration pneumonia Laterality: bilateral Lung location : unspecified part of lung Is this a current diagnosis for this admission?: Yes Plan: Completed a course of antibiotics (3) DKA, type 1 Qualifiers: Diabetes mellitus complication detail: without coma Qualified Code(s): E10.10 - Type 1 diabetes mellitus with ketoacidosis without coma Is this a current diagnosis for this admission?: Yes Plan: Resolved. Now on lantus and Lispro sliding scale (4) Hypertension Qualifiers: Hypertension type: essential hypertension Qualified Code(s): I10 - Essential (primary) hypertension Is this a current diagnosis for this admission?: Yes Plan: BP low normal- continue to monitor. Low dose Metoprolol. Rest of antihypertensives on hold (5) CAD (coronary artery disease) Qualifiers: Associated angina: without angina Is this a current diagnosis for this admission?: Yes Plan: Outpatient meds. Avoid antiplatelets for 2 weeks given esophageal ulcer. Lopressor reduced for low BP (6) Nausea and vomiting Qualifiers: Vomiting type: cyclical vomiting Vomiting Intractability: intractable Qualified Code(s): G43.A1 - Cyclical vomiting, intractable Is this a current diagnosis for this admission?: Yes Plan: Resolved. G tube tip repositioned. Tolerating tube feeds. (7) Acute renal failure Is this a current diagnosis for this admission?: Yes Plan: Resolved with IV fluids (8) COPD (chronic obstructive pulmonary disease) Qualifiers: COPD type: emphysema Is this a current diagnosis for this admission?: Yes Plan: Stable. Continue Spiriva and nebs prn (9) Lung cancer Qualifiers: Laterality: right Lung location: lower lobe of lung Qualified Code(s): C34.31 - Malignant neoplasm of lower lobe, right bronchus or lung Is this a current diagnosis for this admission?: Yes Plan: Was undergoing RT as an outpatient. Follow-up at [facility]. (10) History of prostate cancer Is this a current diagnosis for this admission?: Yes Plan: Outpatient follow up. He has had recent recurrence (11) DVT prophylaxis Is this a current diagnosis for this admission?: Yes Plan: Lovenox s/c (12) Nasal bone fracture Qualifiers: Encounter type: initial encounter Fracture type: closed Qualified Code(s) : S02.2XXA - Fracture of nasal bones, initial encounter for closed fracture Is this a current diagnosis for this admission?: Yes Plan: Due to fall prior to admission. (13) Hypercalcemia Is this a current diagnosis for this admission?: Yes Plan: Resolved (14) Hyperkalemia Is this a current diagnosis for this admission?: Yes Plan: Resolved (15) Hypernatremia Is this a current diagnosis for this admission?: Yes Plan: Resolved (16) Sinus tachycardia Is this a current diagnosis for this admission?: Yes Plan: Due to acute illness. Resolved (17) Esophageal ulcer without bleeding Is this a current diagnosis for this admission?: Yes Plan: Continue PPI (18) Hypokalemia Is this a current diagnosis for this admission?: Yes Plan: Replace (19) Hypomagnesemia Is this a current diagnosis for this admission?: Yes Plan: Replace (20) Hypophosphatemia Is this a current diagnosis for this admission?: Yes Plan: Replete (21) Dislodged gastrostomy tube Is this a current diagnosis for this admission?: Yes (22) Constipation Is this a current diagnosis for this admission?: Yes Plan: Laxatives (23) Protein-calorie malnutrition, moderate Is this a current diagnosis for this admission?: Yes Plan: Continue tube feeds. Encourage p.o. intake. He has been started on Megace. We will also add protein supplements through the PEG tube. (24) Radiation-induced esophagitis Is this a current diagnosis for this admission?: Yes Plan: Continue PPI. - Time Time Spent with patient: 25-34 minutes
[2017-12-23] MEDS ORDERED: METOCLOPRAMIDE HCL 10 MG TABLET PEG ONE (15:30)
[2017-12-23] MEDS: MULTIVITAMIN ORAL LIQUID 60 ML PO SCH (17:37)
[2017-12-23] MEDS: METOCLOPRAMIDE HCL 10 MG TABLET PEG SCH (22:42)
[2017-12-23] MEDS: ATORVASTATIN CALCIUM 80 MG TABLET PEG SCH (22:42)
[2017-12-24] MEDS: INSULIN LISPRO 100 UNIT/ML 3 ML VIAL SUBCUT PRN ×5 (00:52→23:48)
[2017-12-24] MEDS: LACTULOSE SYRUP 20 GM/30 ML UDCUP PEG SCH ×3 (05:21→21:58)
[2017-12-24] MEDS: LANSOPRAZOLE 30 MG TAB.RAP.DR PEG SCH ×2 (05:30→17:01)
[2017-12-24] MEDS: METOCLOPRAMIDE HCL 10 MG TABLET PEG SCH ×3 (05:30→21:55)
[2017-12-24] MEDS: METOPROLOL TARTRATE 25 MG TABLET PEG SCH ×2 (05:30→17:09)
[2017-12-24] MEDS: MORPHINE SULFATE 10 MG/5 ML ORAL SOLUTION UDCUP PEG PRN ×4 (05:30→21:58)
[2017-12-24] MEDS: INSULIN GLARGINE,HUM.REC.ANLOG 300 UNIT/3 ML INSULN.PEN SUBCUT SCH ×2 (10:18→17:06)
[2017-12-24] MEDS: MAGNESIUM OXIDE 400 MG TABLET PEG SCH ×2 (10:18→17:04)
[2017-12-24] MEDS: ENOXAPARIN SODIUM INJ 40 MG/0.4 ML DISP.SYRIN SUBCUT SCH (10:18)
[2017-12-24] MEDS: MEGESTROL ACETATE SUSP 400 MG/10 ML UDCUP PEG SCH (10:18)
[2017-12-24] MEDS: LACTOBACILLUS ACIDOPHILUS 250 MG TAB PEG SCH ×2 (10:18→17:04)
[2017-12-24] MEDS: PREDNISONE 20 MG TABLET PEG SCH (10:18)
[2017-12-24] MEDS: TIOTROPIUM BROMIDE DPI 5 CAP/KIT (18 MCG/CAP) IH SCH (10:19)
[2017-12-24] MEDS: PHOSPHORUS #1 250 MG TABLET PEG SCH ×2 (10:19→21:55)
[2017-12-24] MEDS: FERROUS SULFATE LIQUID 300 MG/5 ML UDC PEG SCH ×2 (10:19→17:04)
[2017-12-24] MEDS: BISMUTH SUBSALICYLATE 262 MG TAB.CHEW PEG SCH ×4 (10:19→21:58)
--- NOTE | 2017-12-24 15:55 | PDOC PROGRESS REPORT ---
Subjective Progress Note for:: 12/24/17 Subjective:: The patient tells me he feels wonderful. The right knee pain has resolved. Appreciate orthopedic surgeries input. Synovial fluid analysis suggests reactive arthritis/pseudo gout and the patient was started on some steroids yesterday. He tells me that he is interested in going home and prefers not to go to a long-term facility. His has reservations given the amount of assistance he is requiring she states that she is unable to manage at home. They plan to discuss this and see if they can arrange for some assistance at home. He is on lactulose for constipation. He continued to have small amounts of residuals and was started on Reglan. Doing better now, awaiting PT eval for possible rehab Reason For Visit: DKA Physical Exam Vital Signs: Temp Pulse Resp BP Pulse Ox 97.9 F 79 18 119/56 L 100 12/24/17 11:33 12/24/17 11:33 12/24/17 11:33 12/24/17 11:33 12/24/17 11:33 Intake & Output 12/23/17 12/24/17 12/25/17 06:59 06:59 06:59 Intake Total 631 2606 569 Output Total 1800 1150 150 Balance -1169 1456 419 Weight 62.9 kg 64.6 kg General appearance: PRESENT: no acute distress, thin Head exam: PRESENT: normocephalic Eye exam: ABSENT: scleral icterus Ear exam: PRESENT: normal external ear exam Mouth exam: PRESENT: moist Teeth exam: PRESENT: poor dentation Neck exam: ABSENT: tracheal deviation Respiratory exam: PRESENT: symmetrical, unlabored. ABSENT: crackles Cardiovascular exam: PRESENT: RRR GI/Abdominal exam: PRESENT: normal bowel sounds, soft, other - PEG present Rectal exam: PRESENT: deferred Gentrourinary exam: ABSENT: indwelling catheter Extremities exam: ABSENT: calf tenderness Neurological exam: PRESENT: awake, oriented to person, oriented to place Psychiatric exam: PRESENT: appropriate affect Skin exam: ABSENT: petechiae Results Laboratory Results: 12/22/17 04:32 12/22/17 04:32 12/21/17 18:00 Knee Fluid - Right Gram Stain - Final 12/21/17 18:00 Knee Fluid - Right Body Fluid Culture - Final NO AEROBIC OR ANAEROBIC ORGANISMS RECOVERED 05/22/18 05/23/18 05/23/18 05:22 22:45 22:45 Creatine Kinase 30 L CK-MB (CK-2) 0.73 Troponin I 0.015 NT-Pro-B Natriuret Pep 386 12/02/17 12/02/17 12/02/17 04:47 04:47 10:36 Creatine Kinase 30 L 28 L CK-MB (CK-2) 0.53 Troponin I 0.016 NT-Pro-B Natriuret Pep 12/02/17 12/02/17 12/02/17 10:36 16:50 16:50 Creatine Kinase 35 L CK-MB (CK-2) 0.51 0.39 Troponin I 0.015 < 0.012 NT-Pro-B Natriuret Pep Impressions: Cervical Spine CT 11/29/17 08:28 IMPRESSION: No acute changes Head CT 11/29/17 08:28 IMPRESSION: No acute intracranial changes. Nasal bone fracture with trace fluid in the right maxillary sinus. EVIDENCE OF ACUTE STROKE: NO. Fluoroscopy 12/02/17 00:00 IMPRESSION: Unsuccessful Dobbhoff feeding tube placement. KUB X-Ray 12/08/17 00:00 IMPRESSION: Persistent constipation Acute Abdomen Series 12/10/17 00:00 IMPRESSION: Left basilar airspace disease atelectasis versus pneumonia Right subdiaphragmatic free air Distended stomach with air-fluid level. Tube Placement 12/10/17 00:00 IMPRESSION: Gastrostomy tube tip is outside the stomach, along the anterior abdominal wall. Chest X-Ray 12/11/17 00:00 IMPRESSION: PATCHY MULTIFOCAL AIRSPACE DISEASE ABOVE SUSPICIOUS FOR PNEUMONIA. RECOMMEND FOLLOWUP RADIOGRAPHS 4 TO 6 WEEKS TO ENSURE RESOLUTION. Chest/Abdomen CTA 12/12/17 00:00 IMPRESSION: UNREMARKABLE CTA CHEST WITHOUT PULMONARY EMBOLI. LEFT GREATER THAN RIGHT PLEURAL EFFUSIONS WITH BILATERAL LOWER LOBE AIRSPACE DISEASE COULD REPRESENT COMPRESSIVE ATELECTASIS OR SUPERIMPOSED PNEUMONIA. PARTIAL VISUALIZATION OF FREE ABDOMINAL FLUID, AIR, AND SURGICAL DRAIN PRESUMABLY RELATED TO RECENT SURGERY. DISTENDED GALLBLADDER. CORRELATE WITH SYMPTOMS. Knee X-Ray 12/21/17 00:00 IMPRESSION: 1. No definite acute fracture. 2. Large joint effusion. If there is concern for internal derangement MRI would provide additional characterization. 2010 [employer]- All Rights Reserved Assessment & Plan - Diagnosis (1) Pain and swelling of right knee Is this a current diagnosis for this admission?: Yes Plan: Arthrocentesis suggest pseudogout. improved with a course of prednisone (2) Pneumonia Qualifiers: Pneumonia type: aspiration pneumonia Laterality: bilateral Lung location : unspecified part of lung Is this a current diagnosis for this admission?: Yes Plan: Completed a course of antibiotics (3) DKA, type 1 Qualifiers: Diabetes mellitus complication detail: without coma Qualified Code(s): E10.10 - Type 1 diabetes mellitus with ketoacidosis without coma Is this a current diagnosis for this admission?: Yes Plan: Resolved. Now on lantus and Lispro sliding scale (4) Hypertension Qualifiers: Hypertension type: essential hypertension Qualified Code(s): I10 - Essential (primary) hypertension Is this a current diagnosis for this admission?: Yes Plan: BP low normal- continue to monitor. Low dose Metoprolol. Rest of antihypertensives on hold (5) CAD (coronary artery disease) Qualifiers: Associated angina: without angina Is this a current diagnosis for this admission?: Yes Plan: Outpatient meds. Avoid antiplatelets for 2 weeks given esophageal ulcer. Lopressor reduced for low BP (6) Nausea and vomiting Qualifiers: Vomiting type: cyclical vomiting Vomiting Intractability: intractable Qualified Code(s): G43.A1 - Cyclical vomiting, intractable Is this a current diagnosis for this admission?: Yes Plan: Resolved. G tube tip repositioned. Tolerating tube feeds. (7) Acute renal failure Is this a current diagnosis for this admission?: Yes Plan: Resolved with IV fluids (8) COPD (chronic obstructive pulmonary disease) Qualifiers: COPD type: emphysema Is this a current diagnosis for this admission?: Yes Plan: Stable. Continue Spiriva and nebs prn (9) Lung cancer Qualifiers: Laterality: right Lung location: lower lobe of lung Qualified Code(s): C34.31 - Malignant neoplasm of lower lobe, right bronchus or lung Is this a current diagnosis for this admission?: Yes Plan: Was undergoing RT as an outpatient. Follow-up at [place]. (10) History of prostate cancer Is this a current diagnosis for this admission?: Yes Plan: Outpatient follow up. He has had recent recurrence (11) DVT prophylaxis Is this a current diagnosis for this admission?: Yes Plan: Lovenox s/c (12) Nasal bone fracture Qualifiers: Encounter type: initial encounter Fracture type: closed Qualified Code(s) : S02.2XXA - Fracture of nasal bones, initial encounter for closed fracture Is this a current diagnosis for this admission?: Yes Plan: Due to fall prior to admission. (13) Hypercalcemia Is this a current diagnosis for this admission?: Yes Plan: Resolved (14) Hyperkalemia Is this a current diagnosis for this admission?: Yes Plan: Resolved (15) Hypernatremia Is this a current diagnosis for this admission?: Yes Plan: Resolved (16) Sinus tachycardia Is this a current diagnosis for this admission?: Yes Plan: Due to acute illness. Resolved (17) Esophageal ulcer without bleeding Is this a current diagnosis for this admission?: Yes Plan: Continue PPI (18) Hypokalemia Is this a current diagnosis for this admission?: Yes Plan: Replace (19) Hypomagnesemia Is this a current diagnosis for this admission?: Yes Plan: Replace (20) Hypophosphatemia Is this a current diagnosis for this admission?: Yes Plan: Replete (21) Dislodged gastrostomy tube Is this a current diagnosis for this admission?: Yes Plan: Replaced (22) Constipation Is this a current diagnosis for this admission?: Yes Plan: Laxatives (23) Protein-calorie malnutrition, moderate Is this a current diagnosis for this admission?: Yes Plan: Continue tube feeds. Encourage p.o. intake. He has been started on Megace. We will also add protein supplements through the PEG tube. (24) Radiation-induced esophagitis Is this a current diagnosis for this admission?: Yes Plan: Continue PPI. - Time Time Spent with patient: 25-34 minutes
[2017-12-24] MEDS: MULTIVITAMIN ORAL LIQUID 60 ML PO SCH (17:01)
[2017-12-24] MEDS: IPRATROPIUM/ALBUTEROL 0.5-2.5 MG/3 ML AMPUL NEB PRN (19:58)
[2017-12-24] MEDS: ATORVASTATIN CALCIUM 80 MG TABLET PEG SCH (21:58)
[2017-12-25] MEDS: INSULIN LISPRO 100 UNIT/ML 3 ML VIAL SUBCUT PRN ×3 (06:46→17:11)
[2017-12-25] MEDS: LANSOPRAZOLE 30 MG TAB.RAP.DR PEG SCH ×2 (06:47→17:00)
[2017-12-25] MEDS: METOCLOPRAMIDE HCL 10 MG TABLET PEG SCH ×3 (06:47→21:13)
[2017-12-25] MEDS: LACTULOSE SYRUP 20 GM/30 ML UDCUP PEG SCH ×3 (06:47→23:24)
[2017-12-25] MEDS: METOPROLOL TARTRATE 25 MG TABLET PEG SCH ×2 (06:47→17:10)
[2017-12-25] MEDS: TIOTROPIUM BROMIDE DPI 5 CAP/KIT (18 MCG/CAP) IH SCH (10:26)
[2017-12-25] MEDS: MAGNESIUM OXIDE 400 MG TABLET PEG SCH ×2 (10:27→17:09)
[2017-12-25] MEDS: FERROUS SULFATE LIQUID 300 MG/5 ML UDC PEG SCH (10:27)
[2017-12-25] MEDS: BISMUTH SUBSALICYLATE 262 MG TAB.CHEW PEG SCH ×4 (10:27→21:13)
[2017-12-25] MEDS: PREDNISONE 20 MG TABLET PEG SCH (10:27)
[2017-12-25] MEDS: LACTOBACILLUS ACIDOPHILUS 250 MG TAB PEG SCH ×2 (10:27→17:10)
[2017-12-25] MEDS: PHOSPHORUS #1 250 MG TABLET PEG SCH ×2 (10:27→21:12)
[2017-12-25] MEDS: INSULIN GLARGINE,HUM.REC.ANLOG 300 UNIT/3 ML INSULN.PEN SUBCUT SCH ×2 (10:28→17:11)
[2017-12-25] MEDS: MEGESTROL ACETATE SUSP 400 MG/10 ML UDCUP PEG SCH (10:28)
[2017-12-25] MEDS: ENOXAPARIN SODIUM INJ 40 MG/0.4 ML DISP.SYRIN SUBCUT SCH (10:29)
[2017-12-25] MEDS: MORPHINE SULFATE 10 MG/5 ML ORAL SOLUTION UDCUP PEG PRN ×2 (10:30→18:52)
[2017-12-25] MEDS ORDERED: DRONABINOL 2.5 MG CAPSULE PO SCH (12:15)
[2017-12-25] MEDS ORDERED: TEMAZEPAM 15 MG CAPSULE PO PRN (12:22)
[2017-12-25] MEDS ORDERED: MEGESTROL ACETATE SUSP 400 MG/10 ML UDCUP PEG ONE (14:00)
--- NOTE | 2017-12-25 14:18 | PDOC PROGRESS REPORT ---
Subjective Progress Note for:: 12/25/17 Subjective:: 67 yr old male with insulin dependent diabetes and recently diagnosed lung cancer, undergoing RT in [place]. He presented to the hospital on 11/29/17 with DKA due to inability to take any of his meds secondary to persistent nausea, vomiting and abdominal pain since RT was started. Endoscopy showed esophageal ulcer and radiation esophagitis. DKA resolved with IV Insulin and fluids. He had a G tube placed on 12/05/17 due to persistent inability to tlerate PO. The patient complained of increased abdominal pain and it was discovered this am that G tube had become displaced. He was taken to the OR by Dr. Robins on 12/10/17 and tube was repositioned. Received a course of antibiotics for aspiration Pneumonia. He developed reactive arthritis of the right knee last week which resolved with a course of steroids. The patient remains very weak and his appetite is poor. He has been started on Megace, dose will be increased. I have also added Marinol and Remeron. He is also asking for something to help him sleep. Temazepam as needed ordered for bedtime. The is unwilling to taking him home because she will be unable to care for him. He is currently awaiting rehab placement. He continues to be constipated, iron supplements will be stopped. Continue lactulose. He was having a lot of residuals, Reglan was added. Reason For Visit: DKA Physical Exam Vital Signs: Temp Pulse Resp BP Pulse Ox 98.0 F 82 18 98/66 L 96 12/25/17 03:38 12/25/17 08:00 12/25/17 08:00 12/25/17 03:38 12/25/17 08:00 Intake & Output 12/24/17 12/25/17 12/26/17 06:59 06:59 06:59 Intake Total 2606 2042 128 Output Total 1150 925 Balance 1456 1117 128 Weight 64.6 kg 63.2 kg General appearance: PRESENT: no acute distress, thin Head exam: PRESENT: normocephalic Ear exam: PRESENT: normal external ear exam Mouth exam: PRESENT: moist Respiratory exam: PRESENT: symmetrical, unlabored Cardiovascular exam: PRESENT: RRR GI/Abdominal exam: PRESENT: normal bowel sounds, soft, other - PEG present. ABSENT: tenderness Rectal exam: PRESENT: deferred Gentrourinary exam: ABSENT: indwelling catheter Extremities exam: ABSENT: pedal edema Neurological exam: PRESENT: alert, altered, oriented to person, oriented to place, oriented to time, oriented to situation Psychiatric exam: PRESENT: depressed Results Laboratory Results: 12/22/17 04:32 12/22/17 04:32 11/30/17 12/01/17 12/01/17 05:22 22:45 22:45 Creatine Kinase 30 L CK-MB (CK-2) 0.73 Troponin I 0.015 NT-Pro-B Natriuret Pep 386 12/02/17 12/02/17 12/02/17 04:47 04:47 10:36 Creatine Kinase 30 L 28 L CK-MB (CK-2) 0.53 Troponin I 0.016 NT-Pro-B Natriuret Pep 12/02/17 12/02/17 12/02/17 10:36 16:50 16:50 Creatine Kinase 35 L CK-MB (CK-2) 0.51 0.39 Troponin I 0.015 < 0.012 NT-Pro-B Natriuret Pep Impressions: Cervical Spine CT 11/29/17 08:28 IMPRESSION: No acute changes Head CT 11/29/17 08:28 IMPRESSION: No acute intracranial changes. Nasal bone fracture with trace fluid in the right maxillary sinus. EVIDENCE OF ACUTE STROKE: NO. Fluoroscopy 12/02/17 00:00 IMPRESSION: Unsuccessful Dobbhoff feeding tube placement. KUB X-Ray 12/08/17 00:00 IMPRESSION: Persistent constipation Acute Abdomen Series 12/10/17 00:00 IMPRESSION: Left basilar airspace disease atelectasis versus pneumonia Right subdiaphragmatic free air Distended stomach with air-fluid level. Tube Placement 12/10/17 00:00 IMPRESSION: Gastrostomy tube tip is outside the stomach, along the anterior abdominal wall. Chest X-Ray 12/11/17 00:00 IMPRESSION: PATCHY MULTIFOCAL AIRSPACE DISEASE ABOVE SUSPICIOUS FOR PNEUMONIA. RECOMMEND FOLLOWUP RADIOGRAPHS 4 TO 6 WEEKS TO ENSURE RESOLUTION. Chest/Abdomen CTA 12/12/17 00:00 IMPRESSION: UNREMARKABLE CTA CHEST WITHOUT PULMONARY EMBOLI. LEFT GREATER THAN RIGHT PLEURAL EFFUSIONS WITH BILATERAL LOWER LOBE AIRSPACE DISEASE COULD REPRESENT COMPRESSIVE ATELECTASIS OR SUPERIMPOSED PNEUMONIA. PARTIAL VISUALIZATION OF FREE ABDOMINAL FLUID, AIR, AND SURGICAL DRAIN PRESUMABLY RELATED TO RECENT SURGERY. DISTENDED GALLBLADDER. CORRELATE WITH SYMPTOMS. Knee X-Ray 12/21/17 00:00 IMPRESSION: 1. No definite acute fracture. 2. Large joint effusion. If there is concern for internal derangement MRI would provide additional characterization. 2010 [email or web address]- All Rights Reserved Assessment & Plan - Diagnosis (1) Pain and swelling of right knee Is this a current diagnosis for this admission?: Yes Plan: Arthrocentesis suggest pseudogout. Improved with a course of prednisone. (2) Pneumonia Qualifiers: Pneumonia type: aspiration pneumonia Laterality: bilateral Lung location : unspecified part of lung Is this a current diagnosis for this admission?: Yes Plan: Completed a course of antibiotics (3) DKA, type 1 Qualifiers: Diabetes mellitus complication detail: without coma Qualified Code(s): E10.10 - Type 1 diabetes mellitus with ketoacidosis without coma Is this a current diagnosis for this admission?: Yes Plan: Resolved. Now on lantus and Lispro sliding scale (4) Hypertension Qualifiers: Hypertension type: essential hypertension Qualified Code(s): I10 - Essential (primary) hypertension Is this a current diagnosis for this admission?: Yes Plan: BP low normal- continue to monitor. Low dose Metoprolol. Rest of antihypertensives on hold (5) CAD (coronary artery disease) Qualifiers: Associated angina: without angina Is this a current diagnosis for this admission?: Yes Plan: Outpatient meds. Avoid antiplatelets for 2 weeks given esophageal ulcer. Lopressor reduced for low BP (6) Nausea and vomiting Qualifiers: Vomiting type: cyclical vomiting Vomiting Intractability: intractable Qualified Code(s): G43.A1 - Cyclical vomiting, intractable Is this a current diagnosis for this admission?: Yes Plan: Resolved. G tube tip repositioned. Tolerating tube feeds. (7) Acute renal failure Is this a current diagnosis for this admission?: Yes Plan: Resolved with IV fluids (8) COPD (chronic obstructive pulmonary disease) Qualifiers: COPD type: emphysema Is this a current diagnosis for this admission?: Yes Plan: Stable. Continue Spiriva and nebs prn (9) Lung cancer Qualifiers: Laterality: right Lung location: lower lobe of lung Qualified Code(s): C34.31 - Malignant neoplasm of lower lobe, right bronchus or lung Is this a current diagnosis for this admission?: Yes Plan: Was undergoing RT as an outpatient. Follow-up at [place]. (10) History of prostate cancer Is this a current diagnosis for this admission?: Yes Plan: Outpatient follow up. He has had recent recurrence (11) DVT prophylaxis Is this a current diagnosis for this admission?: Yes Plan: Lovenox s/c (12) Nasal bone fracture Qualifiers: Encounter type: initial encounter Fracture type: closed Qualified Code(s) : S02.2XXA - Fracture of nasal bones, initial encounter for closed fracture Is this a current diagnosis for this admission?: Yes Plan: Due to fall prior to admission. (13) Hypercalcemia Is this a current diagnosis for this admission?: Yes Plan: Resolved (14) Hyperkalemia Is this a current diagnosis for this admission?: Yes Plan: Resolved (15) Hypernatremia Is this a current diagnosis for this admission?: Yes Plan: Resolved (16) Sinus tachycardia Is this a current diagnosis for this admission?: Yes Plan: Due to acute illness. Resolved (17) Esophageal ulcer without bleeding Is this a current diagnosis for this admission?: Yes Plan: Continue PPI (18) Hypokalemia Is this a current diagnosis for this admission?: Yes Plan: Replace (19) Hypomagnesemia Is this a current diagnosis for this admission?: Yes Plan: Replace (20) Hypophosphatemia Is this a current diagnosis for this admission?: Yes Plan: Replete (21) Dislodged gastrostomy tube Is this a current diagnosis for this admission?: Yes Plan: Replaced (22) Constipation Is this a current diagnosis for this admission?: Yes Plan: Laxatives (23) Protein-calorie malnutrition, moderate Is this a current diagnosis for this admission?: Yes Plan: Continue tube feeds. Encourage p.o. intake. He has been started on Megace. We will also add protein supplements through the PEG tube. (24) Radiation-induced esophagitis Is this a current diagnosis for this admission?: Yes Plan: Continue PPI. - Time Time Spent with patient: 25-34 minutes
[2017-12-25] MEDS: IPRATROPIUM/ALBUTEROL 0.5-2.5 MG/3 ML AMPUL NEB PRN (15:52)
[2017-12-25] MEDS: DRONABINOL 2.5 MG CAPSULE PEG SCH (17:11)
[2017-12-25] MEDS: MULTIVITAMIN ORAL LIQUID 60 ML PO SCH (17:11)
[2017-12-25] MEDS: ATORVASTATIN CALCIUM 80 MG TABLET PEG SCH (21:12)
[2017-12-25] MEDS: MIRTAZAPINE 15 MG TABLET PEG SCH (21:13)
[2017-12-26] MEDS: METOPROLOL TARTRATE 25 MG TABLET PEG SCH ×2 (05:29→18:36)
[2017-12-26] MEDS: LANSOPRAZOLE 30 MG TAB.RAP.DR PEG SCH ×2 (05:29→18:47)
[2017-12-26] MEDS: INSULIN GLARGINE,HUM.REC.ANLOG 300 UNIT/3 ML INSULN.PEN SUBCUT SCH ×2 (05:30→18:50)
[2017-12-26] MEDS: METOCLOPRAMIDE HCL 10 MG TABLET PEG SCH ×3 (05:30→21:43)
[2017-12-26] MEDS: LACTULOSE SYRUP 20 GM/30 ML UDCUP PEG SCH ×3 (05:33→18:54)
[2017-12-26 05:34] LABS: ABSOLUTE LYMPHOCYTES (AUTO) 0.5 10^3/uL (0.5-4.7); ABSOLUTE MONOCYTES (AUTO) 0.3 10^3/uL (0.1-1.4); ABSOLUTE NEUT (AUTO) 2.9 10^3/uL (1.7-8.2); BASOPHILS % (AUTO) 0.1 % (0-2); EOSINOPHILS % (AUTO) 0.3 % (0-6); HEMATOCRIT 28.3 % (37.9-51.0); HEMOGLOBIN 9.7 g/dL (13.5-17.0); LYMPHOCYTES % (AUTO) 13.9 % (13-45); MEAN CORPUSCULAR HGB CONC 34.1 g/dL (32.0-36.0); MEAN CORPUSCULAR VOLUME 82 fl (80-97); PLATELET COUNT 363 10^3/uL (150-450); RED BLOOD COUNT 3.46 10^6/uL (4.35-5.55); RED CELL DISTRIBUTION WIDTH 17.1 % (11.5-14.0); SEGMENTED NEUTROPHILS % (AUTO) 76.7 % (42-78); TOTAL CELLS COUNTED % (AUTO) 100 %; WHITE BLOOD COUNT 3.8 10^3/uL (4.0-10.5)
[2017-12-26 05:57] LABS: ALANINE AMINOTRANSFERASE 19 U/L (21-72); ALBUMIN 2.5 g/dL (3.5-5.0); ALKALINE PHOSPHATASE 97 U/L (38-126); ANION GAP 10 (5-19); ASPARTATE AMINO TRANSFERASE 21 U/L (17-59); BILIRUBIN,DIRECT 0.4 mg/dL (0.0-0.4); BILIRUBIN,TOTAL 0.4 mg/dL (0.2-1.3); BLOOD UREA NITROGEN 8 mg/dL (7-20); CALCIUM 8.5 mg/dL (8.4-10.2); CARBON DIOXIDE 31 mmol/L (22-30); CHLORIDE 103 mmol/L (98-107); GLUCOSE 248 mg/dL (75-110); PHOSPHORUS 3.4 mg/dL (2.5-4.5); POTASSIUM 3.6 mmol/L (3.6-5.0); SODIUM 144.3 mmol/L (137-145); TOTAL PROTEIN 5.3 g/dL (6.3-8.2)
[2017-12-26] MEDS: PREDNISONE 20 MG TABLET PEG SCH (10:32)
[2017-12-26] MEDS: LACTOBACILLUS ACIDOPHILUS 250 MG TAB PEG SCH ×2 (10:32→18:35)
[2017-12-26] MEDS: DRONABINOL 2.5 MG CAPSULE PEG SCH ×2 (10:32→18:35)
[2017-12-26] MEDS: PHOSPHORUS #1 250 MG TABLET PEG SCH ×2 (10:32→21:44)
[2017-12-26] MEDS: TIOTROPIUM BROMIDE DPI 5 CAP/KIT (18 MCG/CAP) IH SCH (10:33)
[2017-12-26] MEDS: MAGNESIUM OXIDE 400 MG TABLET PEG SCH ×2 (10:33→18:35)
[2017-12-26] MEDS: ENOXAPARIN SODIUM INJ 40 MG/0.4 ML DISP.SYRIN SUBCUT SCH (10:33)
[2017-12-26] MEDS: MEGESTROL ACETATE SUSP 400 MG/10 ML UDCUP PEG SCH (10:33)
[2017-12-26] MEDS: MORPHINE SULFATE 10 MG/5 ML ORAL SOLUTION UDCUP PEG PRN ×2 (10:56→18:36)
[2017-12-26] MEDS: INSULIN LISPRO 100 UNIT/ML 3 ML VIAL SUBCUT PRN (11:26)
[2017-12-26] MEDS: BISMUTH SUBSALICYLATE 262 MG TAB.CHEW PEG SCH ×4 (11:27→21:45)
--- NOTE | 2017-12-26 12:13 | PDOC PROGRESS REPORT ---
Subjective Progress Note for:: 12/26/17 Subjective:: Doing better. Tolerating continuous feeds at 45. Notes to have mild leakage around PEG, no pain. Received lactulose for constipation and had BM last night. Slept better with Temazepam last night however is more groggy this morning. Denies fevers, chills, CP, SOB, NV. Still having trouble with PO intake. Awaiting rehab placement. Reason For Visit: DKA Physical Exam Vital Signs: Temp Pulse Resp BP Pulse Ox 98.3 F 86 18 129/57 H 96 12/26/17 07:08 12/26/17 07:08 12/26/17 07:08 12/26/17 07:08 12/26/17 08:00 Intake & Output 12/25/17 12/26/17 12/27/17 06:59 06:59 06:59 Intake Total 2042 2161 Output Total 925 1025 Balance 1117 1136 Weight 63.2 kg 58.6 kg General appearance: PRESENT: no acute distress, cooperative, thin, other - Chronically ill appearing Head exam: PRESENT: normocephalic Mouth exam: PRESENT: dry mucosa Respiratory exam: PRESENT: decreased breath sounds, unlabored, other - On supplemental O2. ABSENT: tachypnea Cardiovascular exam: PRESENT: +S1, +S2. ABSENT: tachycardia GI/Abdominal exam: PRESENT: soft, other - PEG c/d/i Neurological exam: PRESENT: alert, awake, CN II-XII grossly intact Psychiatric exam: PRESENT: appropriate affect Results Laboratory Results: 12/26/17 04:32 12/26/17 04:32 12/26/17 12/26/17 04:32 04:32 WBC 3.8 L RBC 3.46 L Hgb 9.7 L Hct 28.3 L MCV 82 MCH 28.0 MCHC 34.1 RDW 17.1 H Plt Count 363 Seg Neutrophils % 76.7 Lymphocytes % 13.9 Monocytes % 9.0 Eosinophils % 0.3 Basophils % 0.1 Absolute Neutrophils 2.9 Absolute Lymphocytes 0.5 Absolute Monocytes 0.3 Absolute Eosinophils 0.0 Absolute Basophils 0.0 Sodium 144.3 Potassium 3.6 Chloride 103 Carbon Dioxide 31 H Anion Gap 10 BUN 8 Creatinine 0.46 L Est GFR ( Amer) > 60 Est GFR (Non-Af Amer) > 60 Glucose 248 H Calcium 8.5 Phosphorus 3.4 Magnesium 2.3 Total Bilirubin 0.4 AST 21 ALT 19 L Alkaline Phosphatase 97 Total Protein 5.3 L Albumin 2.5 L 11/30/17 12/01/17 12/01/17 05:22 22:45 22:45 Creatine Kinase 30 L CK-MB (CK-2) 0.73 Troponin I 0.015 NT-Pro-B Natriuret Pep 386 12/02/17 12/02/17 12/02/17 04:47 04:47 10:36 Creatine Kinase 30 L 28 L CK-MB (CK-2) 0.53 Troponin I 0.016 NT-Pro-B Natriuret Pep 12/02/17 12/02/17 12/02/17 10:36 16:50 16:50 Creatine Kinase 35 L CK-MB (CK-2) 0.51 0.39 Troponin I 0.015 < 0.012 NT-Pro-B Natriuret Pep Impressions: Cervical Spine CT 11/29/17 08:28 IMPRESSION: No acute changes Head CT 11/29/17 08:28 IMPRESSION: No acute intracranial changes. Nasal bone fracture with trace fluid in the right maxillary sinus. EVIDENCE OF ACUTE STROKE: NO. Fluoroscopy 12/02/17 00:00 IMPRESSION: Unsuccessful Dobbhoff feeding tube placement. KUB X-Ray 12/08/17 00:00 IMPRESSION: Persistent constipation Acute Abdomen Series 12/10/17 00:00 IMPRESSION: Left basilar airspace disease atelectasis versus pneumonia Right subdiaphragmatic free air Distended stomach with air-fluid level. Tube Placement 12/10/17 00:00 IMPRESSION: Gastrostomy tube tip is outside the stomach, along the anterior abdominal wall. Chest X-Ray 12/11/17 00:00 IMPRESSION: PATCHY MULTIFOCAL AIRSPACE DISEASE ABOVE SUSPICIOUS FOR PNEUMONIA. RECOMMEND FOLLOWUP RADIOGRAPHS 4 TO 6 WEEKS TO ENSURE RESOLUTION. Chest/Abdomen CTA 12/12/17 00:00 IMPRESSION: UNREMARKABLE CTA CHEST WITHOUT PULMONARY EMBOLI. LEFT GREATER THAN RIGHT PLEURAL EFFUSIONS WITH BILATERAL LOWER LOBE AIRSPACE DISEASE COULD REPRESENT COMPRESSIVE ATELECTASIS OR SUPERIMPOSED PNEUMONIA. PARTIAL VISUALIZATION OF FREE ABDOMINAL FLUID, AIR, AND SURGICAL DRAIN PRESUMABLY RELATED TO RECENT SURGERY. DISTENDED GALLBLADDER. CORRELATE WITH SYMPTOMS. Knee X-Ray 12/21/17 00:00 IMPRESSION: 1. No definite acute fracture. 2. Large joint effusion. If there is concern for internal derangement MRI would provide additional characterization. 2010 [employer]- All Rights Reserved Assessment & Plan - Diagnosis (1) H pylori ulcer Is this a current diagnosis for this admission?: Yes Plan: On quadruple therapy with Bismuth 300mg QID + Doxycycline 100mg BID + Flagyl 500mg TID and PPI BID. - Received >14 days, start date was 12/09 (2) Lung cancer Qualifiers: Laterality: right Lung location: lower lobe of lung Qualified Code(s): C34.31 - Malignant neoplasm of lower lobe, right bronchus or lung Is this a current diagnosis for this admission?: Yes Plan: Treated at [facility] with radiation therapy (60Gy, 30 fractions) - Was suppose to follow up to determine systemic therapy but has been hospitalized (3) Nausea and vomiting Qualifiers: Vomiting type: cyclical vomiting Vomiting Intractability: intractable Qualified Code(s): G43.A1 - Cyclical vomiting, intractable Is this a current diagnosis for this admission?: Yes Plan: Most likely related to tube feeds/refeeding syndrome. PEG repositioned. Continues to have mild leaking. - Tolerating continuous TF, will need to determine with nutrition if he should remain on continuous vs. trial of bolus feeds - Constipation improved after more aggressive bowel regimen, BM on 12/25 (4) DM hyperosmolarity type II, uncontrolled Is this a current diagnosis for this admission?: Yes Plan: Presented with DKA, blood sugars markedly improved - Continue Lantus and LDISS (5) Esophageal ulcer without bleeding Is this a current diagnosis for this admission?: Yes Plan: Noted on EGD from 11/30 by GI. Per report no evidence of malignancy however gastritis and H pylori noted. Received 14 day therapy per above. (6) Muscular deconditioning Is this a current diagnosis for this admission?: Yes Plan: Likely multifactorial. Will be placed in SNF, likely [facility]. Follow up with discharge planning on Wednesday, 12/27 for bed availability - Time Time Spent with patient: Less than 15 minutes Anticipated discharge: SNF Within: within 24 hours, within 48 hours
[2017-12-26] MEDS: FENTANYL 50 MCG/HR PATCH.TD72 TD SCH (14:10)
[2017-12-26] MEDS: MULTIVITAMIN ORAL LIQUID 60 ML PO SCH (18:35)
[2017-12-26] MEDS: ATORVASTATIN CALCIUM 80 MG TABLET PEG SCH (21:43)
[2017-12-26] MEDS: MIRTAZAPINE 15 MG TABLET PEG SCH (21:43)
[2017-12-27] MEDS: LACTULOSE SYRUP 20 GM/30 ML UDCUP PEG SCH ×4 (00:54→18:15)
[2017-12-27] MEDS: LANSOPRAZOLE 30 MG TAB.RAP.DR PEG SCH ×2 (06:38→18:14)
[2017-12-27] MEDS: INSULIN GLARGINE,HUM.REC.ANLOG 300 UNIT/3 ML INSULN.PEN SUBCUT SCH ×2 (06:38→18:15)
[2017-12-27] MEDS: METOPROLOL TARTRATE 25 MG TABLET PEG SCH ×2 (06:39→18:25)
[2017-12-27] MEDS: METOCLOPRAMIDE HCL 10 MG TABLET PEG SCH ×3 (06:39→21:36)
[2017-12-27] MEDS: MORPHINE SULFATE 10 MG/5 ML ORAL SOLUTION UDCUP PEG PRN (06:41)
[2017-12-27] MEDS: INSULIN LISPRO 100 UNIT/ML 3 ML VIAL SUBCUT PRN ×3 (08:31→18:14)
[2017-12-27] MEDS: BISMUTH SUBSALICYLATE 262 MG TAB.CHEW PEG SCH ×4 (11:18→21:37)
[2017-12-27] MEDS: ENOXAPARIN SODIUM INJ 40 MG/0.4 ML DISP.SYRIN SUBCUT SCH (11:18)
[2017-12-27] MEDS: MAGNESIUM OXIDE 400 MG TABLET PEG SCH ×2 (11:18→18:14)
[2017-12-27] MEDS: PREDNISONE 20 MG TABLET PEG SCH (11:18)
[2017-12-27] MEDS: PHOSPHORUS #1 250 MG TABLET PEG SCH ×2 (11:18→21:37)
[2017-12-27] MEDS: DRONABINOL 2.5 MG CAPSULE PEG SCH ×2 (11:19→18:15)
[2017-12-27] MEDS: LACTOBACILLUS ACIDOPHILUS 250 MG TAB PEG SCH ×2 (11:19→18:14)
[2017-12-27] MEDS: TIOTROPIUM BROMIDE DPI 5 CAP/KIT (18 MCG/CAP) IH SCH (11:19)
[2017-12-27] MEDS: MEGESTROL ACETATE SUSP 400 MG/10 ML UDCUP PEG SCH (11:20)
[2017-12-27] MEDS: MULTIVITAMIN ORAL LIQUID 60 ML PO SCH (18:15)
[2017-12-27] MEDS: ATORVASTATIN CALCIUM 80 MG TABLET PEG SCH (21:36)
[2017-12-27] MEDS: MIRTAZAPINE 15 MG TABLET PEG SCH (21:36)
--- NOTE | 2017-12-27 22:01 | PDOC PROGRESS REPORT ---
Subjective Progress Note for:: 12/27/17 Subjective:: 67-year-old male with diabetes mellitus insulin-dependent, recently diagnosed with lung cancer and undergoing RT interim, presented to the hospital on for DKA, and nausea and vomiting with abdominal pain. 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 G-tube was placed on 12/05/2017 due to his inability to tolerate p.o.'s. Patient had his G-tube dislodged and had it replaced in the OR by Dr. huang on 12/10/2017 he did receive a course of antibiotics for aspiration pneumonia. Patient has been very weak and fatigued and has a poor appetite. He did have arthritis of his right knee that was treated with a course of steroids. The is unable to provide adequate care for him at home and is not willing to take him home. He is currently waiting [place] authorization for rehab placement. Reason For Visit: DKA Physical Exam Vital Signs: Temp Pulse Resp BP Pulse Ox 98.3 F 77 12 104/51 L 100 12/27/17 19:34 12/27/17 19:34 12/27/17 19:34 12/27/17 19:34 12/27/17 19:34 Intake & Output 12/26/17 12/27/17 12/28/17 06:59 06:59 06:59 Intake Total 2161 1621 1224 Output Total 1025 1250 625 Balance 1136 371 599 Weight 58.6 kg 65.2 kg General appearance: PRESENT: no acute distress, cooperative Head exam: PRESENT: atraumatic, normocephalic Eye exam: PRESENT: EOMI, PERRLA Ear exam: PRESENT: normal external ear exam. ABSENT: drainage Mouth exam: PRESENT: moist, neck supple. ABSENT: dry mucosa Throat exam: ABSENT: post pharyngeal erythema, tonsillar exudate Neck exam: PRESENT: full ROM. ABSENT: JVD, thyromegaly Respiratory exam: ABSENT: accessory muscle use, rales, rhonchi, wheezes Cardiovascular exam: PRESENT: RRR, +S1, +S2 Pulses: PRESENT: normal radial pulses, normal dorsalis pedis pul Vascular exam: PRESENT: normal capillary refill. ABSENT: pallor GI/Abdominal exam: PRESENT: normal bowel sounds, soft, other - PEG tube in place. ABSENT: rigid Musculoskeletal exam: PRESENT: full ROM, normal inspection Neurological exam: PRESENT: alert, oriented to person, oriented to place, oriented to time, oriented to situation Psychiatric exam: ABSENT: agitated, anxious Focused psych exam: ABSENT: paranoid, pressured speech Skin exam: PRESENT: normal color. ABSENT: mottled Results Laboratory Results: 12/26/17 04:32 12/26/17 04:32 11/30/17 12/01/17 12/01/17 05:22 22:45 22:45 Creatine Kinase 30 L CK-MB (CK-2) 0.73 Troponin I 0.015 NT-Pro-B Natriuret Pep 386 12/02/17 12/02/17 12/02/17 04:47 04:47 10:36 Creatine Kinase 30 L 28 L CK-MB (CK-2) 0.53 Troponin I 0.016 NT-Pro-B Natriuret Pep 12/02/17 12/02/17 12/02/17 10:36 16:50 16:50 Creatine Kinase 35 L CK-MB (CK-2) 0.51 0.39 Troponin I 0.015 < 0.012 NT-Pro-B Natriuret Pep Impressions: Cervical Spine CT 11/29/17 08:28 IMPRESSION: No acute changes Head CT 11/29/17 08:28 IMPRESSION: No acute intracranial changes. Nasal bone fracture with trace fluid in the right maxillary sinus. EVIDENCE OF ACUTE STROKE: NO. Fluoroscopy 12/02/17 00:00 IMPRESSION: Unsuccessful Dobbhoff feeding tube placement. KUB X-Ray 12/08/17 00:00 IMPRESSION: Persistent constipation Acute Abdomen Series 12/10/17 00:00 IMPRESSION: Left basilar airspace disease atelectasis versus pneumonia Right subdiaphragmatic free air Distended stomach with air-fluid level. Tube Placement 12/10/17 00:00 IMPRESSION: Gastrostomy tube tip is outside the stomach, along the anterior abdominal wall. Chest X-Ray 12/11/17 00:00 IMPRESSION: PATCHY MULTIFOCAL AIRSPACE DISEASE ABOVE SUSPICIOUS FOR PNEUMONIA. RECOMMEND FOLLOWUP RADIOGRAPHS 4 TO 6 WEEKS TO ENSURE RESOLUTION. Chest/Abdomen CTA 12/12/17 00:00 IMPRESSION: UNREMARKABLE CTA CHEST WITHOUT PULMONARY EMBOLI. LEFT GREATER THAN RIGHT PLEURAL EFFUSIONS WITH BILATERAL LOWER LOBE AIRSPACE DISEASE COULD REPRESENT COMPRESSIVE ATELECTASIS OR SUPERIMPOSED PNEUMONIA. PARTIAL VISUALIZATION OF FREE ABDOMINAL FLUID, AIR, AND SURGICAL DRAIN PRESUMABLY RELATED TO RECENT SURGERY. DISTENDED GALLBLADDER. CORRELATE WITH SYMPTOMS. Knee X-Ray 12/21/17 00:00 IMPRESSION: 1. No definite acute fracture. 2. Large joint effusion. If there is concern for internal derangement MRI would provide additional characterization. 2010 [email or web address]- All Rights Reserved Assessment & Plan - Diagnosis (1) DKA, type 1 Qualifiers: Diabetes mellitus complication detail: without coma Qualified Code(s): E10.10 - Type 1 diabetes mellitus with ketoacidosis without coma Is this a current diagnosis for this admission?: Yes Plan: Resolved (2) DM hyperosmolarity type II, uncontrolled Is this a current diagnosis for this admission?: Yes Plan: Continue current insulin therapy. (3) Dislodged gastrostomy tube Is this a current diagnosis for this admission?: Yes Plan: No leakage on exam today. Continue tube feeds. (4) Nausea and vomiting Qualifiers: Vomiting type: cyclical vomiting Vomiting Intractability: intractable Qualified Code(s): G43.A1 - Cyclical vomiting, intractable Is this a current diagnosis for this admission?: Yes Plan: No nausea and vomiting described by patient. Continue as needed medications for this. (5) Protein-calorie malnutrition, moderate Is this a current diagnosis for this admission?: Yes Plan: continue tube feeds for this. Encouraged oral eating when possible. (6) Lung cancer Qualifiers: Laterality: right Lung location: lower lobe of lung Qualified Code(s): C34.31 - Malignant neoplasm of lower lobe, right bronchus or lung Is this a current diagnosis for this admission?: Yes Plan: Needs follow-up at [place] after discharge for this. (7) Pneumonia Qualifiers: Pneumonia type: aspiration pneumonia Laterality: bilateral Lung location : unspecified part of lung Is this a current diagnosis for this admission?: Yes Plan: Completed antibiotic course here. - Time Time Spent with patient: 15-24 minutes - Inpatient Certification I certify that my determination is in accordance with my understanding of Medicare's requirements for reasonable and necessary INPATIENT services [42 CFR 412.3e].: Yes Medical Necessity: Need Close Monitoring Due to Risk of Patient Decompensation
[2017-12-27] MEDS: MORPHINE SULFATE 10 MG/5 ML ORAL SOLUTION UDCUP PO PRN (22:15)
[2017-12-28] MEDS: LACTULOSE SYRUP 20 GM/30 ML UDCUP PEG SCH ×5 (00:47→23:43)
[2017-12-28] MEDS: INSULIN LISPRO 100 UNIT/ML 3 ML VIAL SUBCUT PRN ×5 (00:47→21:13)
[2017-12-28 05:04] LABS: HEMATOCRIT 28.1 % (37.9-51.0); HEMOGLOBIN 9.8 g/dL (13.5-17.0); MEAN CORPUSCULAR HEMOGLOBIN 28.8 pg (27.0-33.4); MEAN CORPUSCULAR HGB CONC 34.8 g/dL (32.0-36.0); MEAN CORPUSCULAR VOLUME 83 fl (80-97); PLATELET COUNT 315 10^3/uL (150-450); RED BLOOD COUNT 3.39 10^6/uL (4.35-5.55); RED CELL DISTRIBUTION WIDTH 17.3 % (11.5-14.0); WHITE BLOOD COUNT 4.1 10^3/uL (4.0-10.5)
[2017-12-28] MEDS: METOPROLOL TARTRATE 25 MG TABLET PEG SCH ×2 (05:36→18:11)
[2017-12-28] MEDS: INSULIN GLARGINE,HUM.REC.ANLOG 300 UNIT/3 ML INSULN.PEN SUBCUT SCH ×2 (05:36→21:15)
[2017-12-28] MEDS: LANSOPRAZOLE 30 MG TAB.RAP.DR PEG SCH ×2 (05:36→18:17)
[2017-12-28] MEDS: METOCLOPRAMIDE HCL 10 MG TABLET PEG SCH ×3 (05:36→21:13)
[2017-12-28 05:52] LABS: ALBUMIN 2.5 g/dL (3.5-5.0); ANION GAP 7 (5-19); BLOOD UREA NITROGEN 11 mg/dL (7-20); CALCIUM 8.4 mg/dL (8.4-10.2); CARBON DIOXIDE 32 mmol/L (22-30); CHLORIDE 104 mmol/L (98-107); GLUCOSE 256 mg/dL (75-110); PHOSPHORUS 4.1 mg/dL (2.5-4.5); POTASSIUM 4.2 mmol/L (3.6-5.0); SODIUM 142.8 mmol/L (137-145)
[2017-12-28] MEDS: ENOXAPARIN SODIUM INJ 40 MG/0.4 ML DISP.SYRIN SUBCUT SCH (10:35)
[2017-12-28] MEDS: PREDNISONE 20 MG TABLET PEG SCH (10:36)
[2017-12-28] MEDS: BISMUTH SUBSALICYLATE 262 MG TAB.CHEW PEG SCH ×2 (10:36→13:26)
[2017-12-28] MEDS: MEGESTROL ACETATE SUSP 400 MG/10 ML UDCUP PEG SCH (10:36)
[2017-12-28] MEDS: PHOSPHORUS #1 250 MG TABLET PEG SCH ×2 (10:36→21:15)
[2017-12-28] MEDS: LACTOBACILLUS ACIDOPHILUS 250 MG TAB PEG SCH ×2 (10:36→18:17)
[2017-12-28] MEDS: MAGNESIUM OXIDE 400 MG TABLET PEG SCH ×2 (10:36→18:17)
[2017-12-28] MEDS: DRONABINOL 2.5 MG CAPSULE PEG SCH ×2 (10:36→18:17)
[2017-12-28] MEDS: TIOTROPIUM BROMIDE DPI 5 CAP/KIT (18 MCG/CAP) IH SCH (11:03)
[2017-12-28] MEDS ORDERED: INSULIN LISPRO 100 UNIT/ML 3 ML VIAL SUBCUT ONE (17:30)
[2017-12-28] MEDS: MULTIVITAMIN ORAL LIQUID 60 ML PO SCH (18:17)
[2017-12-28] MEDS: ATORVASTATIN CALCIUM 80 MG TABLET PEG SCH (21:13)
[2017-12-28] MEDS: MIRTAZAPINE 15 MG TABLET PEG SCH (21:14)
[2017-12-28] MEDS: MELATONIN 5 MG TABLET PO SCH (21:14)
[2017-12-28] MEDS: MORPHINE SULFATE 10 MG/5 ML ORAL SOLUTION UDCUP PO PRN (21:22)
--- NOTE | 2017-12-29 00:15 | PDOC PROGRESS REPORT ---
Subjective Progress Note for:: 12/28/17 Subjective:: 67-year-old male with diabetes mellitus insulin-dependent, recently diagnosed with lung cancer and undergoing RT interim, presented to the hospital on for DKA, and nausea and vomiting with abdominal pain. 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 G-tube was placed on 12/05/2017 due to his inability to tolerate p.o.'s. Patient had his G-tube dislodged and had it replaced in the OR by Dr. huang on 12/10/2017 he did receive a course of antibiotics for aspiration pneumonia. Patient has been very weak and fatigued and has a poor appetite. He did have arthritis of his right knee that was treated with a course of steroids. The is unable to provide adequate care for him at home and is not willing to take him home. He is currently waiting [place] authorization for rehab placement. Patient completed a 7 day course of treatment for H pylori. Continue TF and supportive care. Patient needs placement in a supportive rehab environment. Reason For Visit: DKA Physical Exam Vital Signs: Temp Pulse Resp BP Pulse Ox 98.5 F 78 16 102/46 L 99 12/28/17 15:52 12/28/17 19:00 12/28/17 15:52 12/28/17 15:52 12/28/17 15:52 Intake & Output 12/27/17 12/28/17 12/29/17 06:59 06:59 06:59 Intake Total 1621 2330 1145 Output Total 1250 626 100 Balance 371 1704 1045 Weight 65.2 kg 64.5 kg General appearance: PRESENT: no acute distress, thin Head exam: PRESENT: atraumatic, normocephalic Eye exam: PRESENT: EOMI, PERRLA Ear exam: PRESENT: normal external ear exam. ABSENT: drainage Mouth exam: PRESENT: moist, neck supple Throat exam: ABSENT: tonsillar erythema, tonsillar exudate Neck exam: ABSENT: tenderness, thyromegaly Respiratory exam: ABSENT: accessory muscle use, rales, rhonchi, wheezes Cardiovascular exam: PRESENT: RRR, +S1, +S2 Pulses: PRESENT: normal radial pulses, normal dorsalis pedis pul GI/Abdominal exam: PRESENT: normal bowel sounds, soft. ABSENT: rigid Extremities exam: ABSENT: joint swelling, pedal edema Musculoskeletal exam: PRESENT: full ROM. ABSENT: deformity Neurological exam: PRESENT: alert, oriented to person, oriented to place, oriented to time, oriented to situation, CN II-XII grossly intact Psychiatric exam: ABSENT: anxious, flat affect Focused psych exam: ABSENT: delusional, paranoid Skin exam: PRESENT: normal color. ABSENT: mottled Results Laboratory Results: 12/28/17 04:09 12/28/17 04:09 12/28/17 12/28/17 04:09 04:09 WBC 4.1 RBC 3.39 L Hgb 9.8 L Hct 28.1 L MCV 83 MCH 28.8 MCHC 34.8 RDW 17.3 H Plt Count 315 Sodium 142.8 Potassium 4.2 Chloride 104 Carbon Dioxide 32 H Anion Gap 7 BUN 11 Creatinine 0.44 L Est GFR ( Amer) > 60 Est GFR (Non-Af Amer) > 60 Glucose 256 H Calcium 8.4 Phosphorus 4.1 Albumin 2.5 L 11/30/17 12/01/17 12/01/17 05:22 22:45 22:45 Creatine Kinase 30 L CK-MB (CK-2) 0.73 Troponin I 0.015 NT-Pro-B Natriuret Pep 386 12/02/17 12/02/17 12/02/17 04:47 04:47 10:36 Creatine Kinase 30 L 28 L CK-MB (CK-2) 0.53 Troponin I 0.016 NT-Pro-B Natriuret Pep 12/02/17 12/02/17 12/02/17 10:36 16:50 16:50 Creatine Kinase 35 L CK-MB (CK-2) 0.51 0.39 Troponin I 0.015 < 0.012 NT-Pro-B Natriuret Pep Impressions: Cervical Spine CT 11/29/17 08:28 IMPRESSION: No acute changes Head CT 11/29/17 08:28 IMPRESSION: No acute intracranial changes. Nasal bone fracture with trace fluid in the right maxillary sinus. EVIDENCE OF ACUTE STROKE: NO. Fluoroscopy 12/02/17 00:00 IMPRESSION: Unsuccessful Dobbhoff feeding tube placement. KUB X-Ray 12/08/17 00:00 IMPRESSION: Persistent constipation Acute Abdomen Series 12/10/17 00:00 IMPRESSION: Left basilar airspace disease atelectasis versus pneumonia Right subdiaphragmatic free air Distended stomach with air-fluid level. Tube Placement 12/10/17 00:00 IMPRESSION: Gastrostomy tube tip is outside the stomach, along the anterior abdominal wall. Chest X-Ray 12/11/17 00:00 IMPRESSION: PATCHY MULTIFOCAL AIRSPACE DISEASE ABOVE SUSPICIOUS FOR PNEUMONIA. RECOMMEND FOLLOWUP RADIOGRAPHS 4 TO 6 WEEKS TO ENSURE RESOLUTION. Chest/Abdomen CTA 12/12/17 00:00 IMPRESSION: UNREMARKABLE CTA CHEST WITHOUT PULMONARY EMBOLI. LEFT GREATER THAN RIGHT PLEURAL EFFUSIONS WITH BILATERAL LOWER LOBE AIRSPACE DISEASE COULD REPRESENT COMPRESSIVE ATELECTASIS OR SUPERIMPOSED PNEUMONIA. PARTIAL VISUALIZATION OF FREE ABDOMINAL FLUID, AIR, AND SURGICAL DRAIN PRESUMABLY RELATED TO RECENT SURGERY. DISTENDED GALLBLADDER. CORRELATE WITH SYMPTOMS. Knee X-Ray 12/21/17 00:00 IMPRESSION: 1. No definite acute fracture. 2. Large joint effusion. If there is concern for internal derangement MRI would provide additional characterization. 2010 [employer]- All Rights Reserved Assessment & Plan - Diagnosis (1) DKA, type 1 Qualifiers: Diabetes mellitus complication detail: without coma Qualified Code(s): E10.10 - Type 1 diabetes mellitus with ketoacidosis without coma Is this a current diagnosis for this admission?: Yes Plan: resolved (2) DM hyperosmolarity type II, uncontrolled Is this a current diagnosis for this admission?: Yes (3) Dislodged gastrostomy tube Is this a current diagnosis for this admission?: Yes Plan: minor leaking on his bandaging today. recieving TF support (4) Nausea and vomiting Qualifiers: Vomiting type: cyclical vomiting Vomiting Intractability: intractable Qualified Code(s): G43.A1 - Cyclical vomiting, intractable Is this a current diagnosis for this admission?: Yes Plan: resolved (5) Protein-calorie malnutrition, moderate Is this a current diagnosis for this admission?: Yes Plan: continue protein supplementation continue TF encouraged his diet. (6) Lung cancer Qualifiers: Laterality: right Lung location: lower lobe of lung Qualified Code(s): C34.31 - Malignant neoplasm of lower lobe, right bronchus or lung Is this a current diagnosis for this admission?: Yes Plan: will need to resume followup with [facility] after this discharge. (7) Pneumonia Qualifiers: Pneumonia type: aspiration pneumonia Laterality: bilateral Lung location : unspecified part of lung Is this a current diagnosis for this admission?: Yes Plan: completed treatment. - Time Time Spent with patient: 15-24 minutes - Inpatient Certification I certify that my determination is in accordance with my understanding of Medicare's requirements for reasonable and necessary INPATIENT services [42 CFR 412.3e].: Yes Medical Necessity: Need Close Monitoring Due to Risk of Patient Decompensation
[2017-12-29] MEDS: LACTULOSE SYRUP 20 GM/30 ML UDCUP PEG SCH ×3 (05:38→18:28)
[2017-12-29] MEDS: METOPROLOL TARTRATE 25 MG TABLET PEG SCH ×2 (05:53→18:28)
[2017-12-29] MEDS: LANSOPRAZOLE 30 MG TAB.RAP.DR PEG SCH ×2 (05:53→18:24)
[2017-12-29] MEDS: METOCLOPRAMIDE HCL 10 MG TABLET PEG SCH ×3 (05:53→21:51)
[2017-12-29] MEDS: INSULIN LISPRO 100 UNIT/ML 3 ML VIAL SUBCUT SCH ×3 (08:26→18:26)
[2017-12-29] MEDS: INSULIN LISPRO 100 UNIT/ML 3 ML VIAL SUBCUT PRN ×4 (08:26→21:49)
[2017-12-29] MEDS: PHOSPHORUS #1 250 MG TABLET PEG SCH ×2 (11:42→21:51)
[2017-12-29] MEDS: TIOTROPIUM BROMIDE DPI 5 CAP/KIT (18 MCG/CAP) IH SCH (11:43)
[2017-12-29] MEDS: MAGNESIUM OXIDE 400 MG TABLET PEG SCH ×2 (11:43→18:25)
[2017-12-29] MEDS: DRONABINOL 2.5 MG CAPSULE PEG SCH ×2 (11:43→18:25)
[2017-12-29] MEDS: LACTOBACILLUS ACIDOPHILUS 250 MG TAB PEG SCH ×2 (11:43→18:24)
[2017-12-29] MEDS: PREDNISONE 20 MG TABLET PEG SCH (11:43)
[2017-12-29] MEDS: MEGESTROL ACETATE SUSP 400 MG/10 ML UDCUP PEG SCH (11:44)
[2017-12-29] MEDS: INSULIN GLARGINE,HUM.REC.ANLOG 300 UNIT/3 ML INSULN.PEN SUBCUT SCH ×2 (11:44→21:52)
[2017-12-29] MEDS: ENOXAPARIN SODIUM INJ 40 MG/0.4 ML DISP.SYRIN SUBCUT SCH (11:44)
[2017-12-29] MEDS: MORPHINE SULFATE 10 MG/5 ML ORAL SOLUTION UDCUP PO PRN ×2 (12:17→22:02)
--- NOTE | 2017-12-29 14:32 | PDOC PROGRESS REPORT ---
Subjective Subjective:: Doing better, feels slowly improving. No abdominal pain at this time, no fever or chills. No nausea vomiting. Reason For Visit: DKA Physical Exam Vital Signs: Temp Pulse Resp BP Pulse Ox 97.8 F 72 18 120/56 L 96 12/29/17 12:03 12/29/17 12:03 12/29/17 12:03 12/29/17 12:03 12/29/17 12:03 Intake & Output 12/28/17 12/29/17 12/30/17 06:59 06:59 06:59 Intake Total 2330 1673 Output Total 626 850 Balance 1704 823 Weight 64.5 kg 64.5 kg Results Laboratory Results: 12/28/17 04:09 12/28/17 04:09 11/30/17 12/01/17 12/01/17 05:22 22:45 22:45 Creatine Kinase 30 L CK-MB (CK-2) 0.73 Troponin I 0.015 NT-Pro-B Natriuret Pep 386 12/02/17 12/02/17 12/02/17 04:47 04:47 10:36 Creatine Kinase 30 L 28 L CK-MB (CK-2) 0.53 Troponin I 0.016 NT-Pro-B Natriuret Pep 12/02/17 12/02/17 12/02/17 10:36 16:50 16:50 Creatine Kinase 35 L CK-MB (CK-2) 0.51 0.39 Troponin I 0.015 < 0.012 NT-Pro-B Natriuret Pep Impressions: Cervical Spine CT 11/29/17 08:28 IMPRESSION: No acute changes Head CT 11/29/17 08:28 IMPRESSION: No acute intracranial changes. Nasal bone fracture with trace fluid in the right maxillary sinus. EVIDENCE OF ACUTE STROKE: NO. Fluoroscopy 12/02/17 00:00 IMPRESSION: Unsuccessful Dobbhoff feeding tube placement. KUB X-Ray 12/08/17 00:00 IMPRESSION: Persistent constipation Acute Abdomen Series 12/10/17 00:00 IMPRESSION: Left basilar airspace disease atelectasis versus pneumonia Right subdiaphragmatic free air Distended stomach with air-fluid level. Tube Placement 12/10/17 00:00 IMPRESSION: Gastrostomy tube tip is outside the stomach, along the anterior abdominal wall. Chest X-Ray 12/11/17 00:00 IMPRESSION: PATCHY MULTIFOCAL AIRSPACE DISEASE ABOVE SUSPICIOUS FOR PNEUMONIA. RECOMMEND FOLLOWUP RADIOGRAPHS 4 TO 6 WEEKS TO ENSURE RESOLUTION. Chest/Abdomen CTA 12/12/17 00:00 IMPRESSION: UNREMARKABLE CTA CHEST WITHOUT PULMONARY EMBOLI. LEFT GREATER THAN RIGHT PLEURAL EFFUSIONS WITH BILATERAL LOWER LOBE AIRSPACE DISEASE COULD REPRESENT COMPRESSIVE ATELECTASIS OR SUPERIMPOSED PNEUMONIA. PARTIAL VISUALIZATION OF FREE ABDOMINAL FLUID, AIR, AND SURGICAL DRAIN PRESUMABLY RELATED TO RECENT SURGERY. DISTENDED GALLBLADDER. CORRELATE WITH SYMPTOMS. Knee X-Ray 12/21/17 00:00 IMPRESSION: 1. No definite acute fracture. 2. Large joint effusion. If there is concern for internal derangement MRI would provide additional characterization. 2010 [employer]- All Rights Reserved Assessment & Plan - Diagnosis (1) COPD (chronic obstructive pulmonary disease) Qualifiers: COPD type: emphysema Is this a current diagnosis for this admission?: Yes (2) Pneumonia Qualifiers: Pneumonia type: aspiration pneumonia Laterality: bilateral Lung location : unspecified part of lung Is this a current diagnosis for this admission?: Yes (3) DKA, type 1 Qualifiers: Diabetes mellitus complication detail: without coma Qualified Code(s): E10.10 - Type 1 diabetes mellitus with ketoacidosis without coma Is this a current diagnosis for this admission?: Yes (4) History of prostate cancer Is this a current diagnosis for this admission?: Yes (5) Hypertension Qualifiers: Hypertension type: essential hypertension Qualified Code(s): I10 - Essential (primary) hypertension Is this a current diagnosis for this admission?: Yes (6) Lung cancer Qualifiers: Laterality: right Lung location: lower lobe of lung Qualified Code(s): C34.31 - Malignant neoplasm of lower lobe, right bronchus or lung Is this a current diagnosis for this admission?: Yes (7) Protein-calorie malnutrition, moderate Is this a current diagnosis for this admission?: Yes (8) Radiation-induced esophagitis Is this a current diagnosis for this admission?: Yes (9) Chronic pain disorder Is this a current diagnosis for this admission?: Yes (10) Nasal bone fracture Qualifiers: Encounter type: initial encounter Fracture type: closed Qualified Code(s) : S02.2XXA - Fracture of nasal bones, initial encounter for closed fracture Is this a current diagnosis for this admission?: Yes (11) Hypokalemia Is this a current diagnosis for this admission?: Yes - Plan Summary Plan Summary: We will continue current medical management. [place] Follow-up CBC and Chem-7 in a.m.
[2017-12-29] MEDS: FENTANYL 50 MCG/HR PATCH.TD72 TD SCH (14:52)
[2017-12-29] MEDS ORDERED: HYDRALAZINE HCL INJ/PF 20 MG/1 ML SDV IV PRN (18:03)
[2017-12-29] MEDS ORDERED: IPRATROPIUM/ALBUTEROL 0.5-2.5 MG/3 ML AMPUL NEB PRN (18:03)
[2017-12-29] MEDS ORDERED: DEXTROSE 50%-WATER SYRINGE 25 GM/50 ML DOSE IV PRN (18:04)
[2017-12-29] MEDS ORDERED: GLUCAGON,HUMAN RECOMB 1 MG INJ IM PRN (18:04)
[2017-12-29] MEDS ORDERED: DEXTROSE 40% GEL 15 GM TUBE X 2 PO PRN (18:04)
[2017-12-29] MEDS ORDERED: DEXTROSE 50%-WATER SYRINGE 12.5 GM/25 ML DOSE IV PRN (18:04)
[2017-12-29] MEDS ORDERED: DEXTROSE 40% GEL 15 GM TUBE PO PRN (18:04)
[2017-12-29] MEDS: MULTIVITAMIN ORAL LIQUID 60 ML PO SCH (18:26)
[2017-12-29] MEDS: ATORVASTATIN CALCIUM 80 MG TABLET PEG SCH (21:51)
[2017-12-29] MEDS: MELATONIN 5 MG TABLET PO SCH (21:51)
[2017-12-29] MEDS: MIRTAZAPINE 15 MG TABLET PEG SCH (21:52)
--- NOTE | 2017-12-29 22:18 | EKG REPORT ---
SEVERITY:- OTHERWISE NORMAL ECG - SINUS RHYTHM LOW VOLTAGE IN FRONTAL LEADS : Confirmed by: Koffi Diamond 29-Dec-2017 22:18:13
[2017-12-30] MEDS: LACTULOSE SYRUP 20 GM/30 ML UDCUP PEG SCH ×4 (00:10→18:11)
[2017-12-30 05:07] LABS: ABSOLUTE LYMPHOCYTES (AUTO) 0.8 10^3/uL (0.5-4.7); ABSOLUTE MONOCYTES (AUTO) 0.4 10^3/uL (0.1-1.4); ABSOLUTE NEUT (AUTO) 3.1 10^3/uL (1.7-8.2); BASOPHILS % (AUTO) 0.2 % (0-2); EOSINOPHILS % (AUTO) 0.2 % (0-6); HEMATOCRIT 29.1 % (37.9-51.0); HEMOGLOBIN 9.9 g/dL (13.5-17.0); LYMPHOCYTES % (AUTO) 19.1 % (13-45); MEAN CORPUSCULAR HEMOGLOBIN 28.4 pg (27.0-33.4); MEAN CORPUSCULAR HGB CONC 33.9 g/dL (32.0-36.0); MEAN CORPUSCULAR VOLUME 84 fl (80-97); MONOCYTES % (AUTO) 8.7 % (3-13); PLATELET COUNT 285 10^3/uL (150-450); RED BLOOD COUNT 3.47 10^6/uL (4.35-5.55); RED CELL DISTRIBUTION WIDTH 17.6 % (11.5-14.0); SEGMENTED NEUTROPHILS % (AUTO) 71.8 % (42-78); TOTAL CELLS COUNTED % (AUTO) 100 %; WHITE BLOOD COUNT 4.4 10^3/uL (4.0-10.5)
[2017-12-30 05:36] LABS: ALBUMIN 2.5 g/dL (3.5-5.0); ANION GAP 6 (5-19); BLOOD UREA NITROGEN 13 mg/dL (7-20); CALCIUM 8.6 mg/dL (8.4-10.2); CARBON DIOXIDE 31 mmol/L (22-30); CHLORIDE 105 mmol/L (98-107); GLUCOSE 290 mg/dL (75-110); PHOSPHORUS 4.2 mg/dL (2.5-4.5); POTASSIUM 4.2 mmol/L (3.6-5.0); SODIUM 142.2 mmol/L (137-145)
[2017-12-30] MEDS: LANSOPRAZOLE 30 MG TAB.RAP.DR PEG SCH ×2 (05:41→18:11)
[2017-12-30] MEDS: METOCLOPRAMIDE HCL 10 MG TABLET PEG SCH ×3 (05:41→22:08)
[2017-12-30] MEDS: METOPROLOL TARTRATE 25 MG TABLET PEG SCH ×2 (05:42→18:11)
[2017-12-30] MEDS: INSULIN LISPRO 100 UNIT/ML 3 ML VIAL SUBCUT SCH ×3 (08:09→17:40)
[2017-12-30] MEDS: PREDNISONE 20 MG TABLET PEG SCH (09:51)
[2017-12-30] MEDS: LACTOBACILLUS ACIDOPHILUS 250 MG TAB PEG SCH ×2 (09:51→18:11)
[2017-12-30] MEDS: MAGNESIUM OXIDE 400 MG TABLET PEG SCH ×2 (09:52→18:11)
[2017-12-30] MEDS: PHOSPHORUS #1 250 MG TABLET PEG SCH ×2 (09:52→22:08)
[2017-12-30] MEDS: INSULIN GLARGINE,HUM.REC.ANLOG 300 UNIT/3 ML INSULN.PEN SUBCUT SCH ×2 (09:52→22:07)
[2017-12-30] MEDS: DRONABINOL 2.5 MG CAPSULE PEG SCH ×2 (09:52→18:11)
[2017-12-30] MEDS: MEGESTROL ACETATE SUSP 400 MG/10 ML UDCUP PEG SCH (09:52)
[2017-12-30] MEDS: ENOXAPARIN SODIUM INJ 40 MG/0.4 ML DISP.SYRIN SUBCUT SCH (09:52)
[2017-12-30] MEDS: INSULIN LISPRO 100 UNIT/ML 3 ML VIAL SUBCUT PRN ×2 (17:40→22:08)
[2017-12-30] MEDS: MULTIVITAMIN ORAL LIQUID 60 ML PO SCH (18:11)
--- NOTE | 2017-12-30 18:19 | PDOC PROGRESS REPORT ---
Subjective Progress Note for:: 12/30/17 Subjective:: Doing better, feels continues to be slowly improving. No abdominal pain at this time, no fever or chills. No nausea vomiting. Reason For Visit: DKA Physical Exam Vital Signs: Temp Pulse Resp BP Pulse Ox 98.3 F 71 16 112/49 L 100 12/30/17 15:26 12/30/17 15:26 12/30/17 15:26 12/30/17 15:26 12/30/17 15:26 Intake & Output 12/29/17 12/30/17 12/31/17 06:59 06:59 06:59 Intake Total 1673 1834 714 Output Total 850 1000 350 Balance 823 834 364 Weight 64.5 kg 63.3 kg GEN: NAD, well-developed CV: RRR, NL S1S2 LUNGS: CTA bilaterally ABDOMEN Soft, NT, +BS EXTERMITIES: No e/c/c NEURO: Alert, oriented, no acute weakness Results Laboratory Results: 12/30/17 04:09 12/30/17 04:09 12/30/17 12/30/17 04:09 04:09 WBC 4.4 RBC 3.47 L Hgb 9.9 L Hct 29.1 L MCV 84 MCH 28.4 MCHC 33.9 RDW 17.6 H Plt Count 285 Seg Neutrophils % 71.8 Lymphocytes % 19.1 Monocytes % 8.7 Eosinophils % 0.2 Basophils % 0.2 Absolute Neutrophils 3.1 Absolute Lymphocytes 0.8 Absolute Monocytes 0.4 Absolute Eosinophils 0.0 Absolute Basophils 0.0 Sodium 142.2 Potassium 4.2 Chloride 105 Carbon Dioxide 31 H Anion Gap 6 BUN 13 Creatinine 0.45 L Est GFR ( Amer) > 60 Est GFR (Non-Af Amer) > 60 Glucose 290 H Calcium 8.6 Phosphorus 4.2 Albumin 2.5 L 11/30/17 12/01/17 12/01/17 05:22 22:45 22:45 Creatine Kinase 30 L CK-MB (CK-2) 0.73 Troponin I 0.015 NT-Pro-B Natriuret Pep 386 12/02/17 12/02/17 12/02/17 04:47 04:47 10:36 Creatine Kinase 30 L 28 L CK-MB (CK-2) 0.53 Troponin I 0.016 NT-Pro-B Natriuret Pep 12/02/17 12/02/17 12/02/17 10:36 16:50 16:50 Creatine Kinase 35 L CK-MB (CK-2) 0.51 0.39 Troponin I 0.015 < 0.012 NT-Pro-B Natriuret Pep Impressions: Cervical Spine CT 11/29/17 08:28 IMPRESSION: No acute changes Head CT 11/29/17 08:28 IMPRESSION: No acute intracranial changes. Nasal bone fracture with trace fluid in the right maxillary sinus. EVIDENCE OF ACUTE STROKE: NO. Fluoroscopy 12/02/17 00:00 IMPRESSION: Unsuccessful Dobbhoff feeding tube placement. KUB X-Ray 12/08/17 00:00 IMPRESSION: Persistent constipation Acute Abdomen Series 12/10/17 00:00 IMPRESSION: Left basilar airspace disease atelectasis versus pneumonia Right subdiaphragmatic free air Distended stomach with air-fluid level. Tube Placement 12/10/17 00:00 IMPRESSION: Gastrostomy tube tip is outside the stomach, along the anterior abdominal wall. Chest X-Ray 12/11/17 00:00 IMPRESSION: PATCHY MULTIFOCAL AIRSPACE DISEASE ABOVE SUSPICIOUS FOR PNEUMONIA. RECOMMEND FOLLOWUP RADIOGRAPHS 4 TO 6 WEEKS TO ENSURE RESOLUTION. Chest/Abdomen CTA 12/12/17 00:00 IMPRESSION: UNREMARKABLE CTA CHEST WITHOUT PULMONARY EMBOLI. LEFT GREATER THAN RIGHT PLEURAL EFFUSIONS WITH BILATERAL LOWER LOBE AIRSPACE DISEASE COULD REPRESENT COMPRESSIVE ATELECTASIS OR SUPERIMPOSED PNEUMONIA. PARTIAL VISUALIZATION OF FREE ABDOMINAL FLUID, AIR, AND SURGICAL DRAIN PRESUMABLY RELATED TO RECENT SURGERY. DISTENDED GALLBLADDER. CORRELATE WITH SYMPTOMS. Knee X-Ray 12/21/17 00:00 IMPRESSION: 1. No definite acute fracture. 2. Large joint effusion. If there is concern for internal derangement MRI would provide additional characterization. 2010 [employer]- All Rights Reserved Assessment & Plan - Diagnosis (1) COPD (chronic obstructive pulmonary disease) Qualifiers: COPD type: emphysema Is this a current diagnosis for this admission?: Yes (2) Pneumonia Qualifiers: Pneumonia type: aspiration pneumonia Laterality: bilateral Lung location : unspecified part of lung Is this a current diagnosis for this admission?: Yes (3) DKA, type 1 Qualifiers: Diabetes mellitus complication detail: without coma Qualified Code(s): E10.10 - Type 1 diabetes mellitus with ketoacidosis without coma Is this a current diagnosis for this admission?: Yes (4) History of prostate cancer Is this a current diagnosis for this admission?: Yes (5) Hypertension Qualifiers: Hypertension type: essential hypertension Qualified Code(s): I10 - Essential (primary) hypertension Is this a current diagnosis for this admission?: Yes (6) Lung cancer Qualifiers: Laterality: right Lung location: lower lobe of lung Qualified Code(s): C34.31 - Malignant neoplasm of lower lobe, right bronchus or lung Is this a current diagnosis for this admission?: Yes (7) Protein-calorie malnutrition, moderate Is this a current diagnosis for this admission?: Yes (8) Radiation-induced esophagitis Is this a current diagnosis for this admission?: Yes (9) Chronic pain disorder Is this a current diagnosis for this admission?: Yes (10) Nasal bone fracture Qualifiers: Encounter type: initial encounter Fracture type: closed Qualified Code(s) : S02.2XXA - Fracture of nasal bones, initial encounter for closed fracture Is this a current diagnosis for this admission?: Yes (11) Hypokalemia Is this a current diagnosis for this admission?: Yes - Plan Summary Plan Summary: We will continue current medical management. Awaiting [place] approval for rehab. Labs stable today, will not check in a.m.
[2017-12-30] MEDS: MELATONIN 5 MG TABLET PO SCH (22:07)
[2017-12-30] MEDS: MORPHINE SULFATE 10 MG/5 ML ORAL SOLUTION UDCUP PO PRN (22:07)
[2017-12-30] MEDS: ATORVASTATIN CALCIUM 80 MG TABLET PEG SCH (22:08)
[2017-12-30] MEDS: MIRTAZAPINE 15 MG TABLET PEG SCH (22:08)
[2017-12-31] MEDS: LACTULOSE SYRUP 20 GM/30 ML UDCUP PEG SCH ×5 (00:02→23:27)
[2017-12-31] MEDS: METOCLOPRAMIDE HCL 10 MG TABLET PEG SCH ×3 (06:10→22:18)
[2017-12-31] MEDS: METOPROLOL TARTRATE 25 MG TABLET PEG SCH ×2 (06:10→17:55)
[2017-12-31] MEDS: LANSOPRAZOLE 30 MG TAB.RAP.DR PEG SCH ×2 (06:10→17:55)
[2017-12-31] MEDS: INSULIN LISPRO 100 UNIT/ML 3 ML VIAL SUBCUT SCH ×3 (08:57→18:07)
[2017-12-31] MEDS: INSULIN LISPRO 100 UNIT/ML 3 ML VIAL SUBCUT PRN ×4 (08:57→22:17)
[2017-12-31] MEDS: MAGNESIUM OXIDE 400 MG TABLET PEG SCH ×2 (09:51→17:56)
[2017-12-31] MEDS: LACTOBACILLUS ACIDOPHILUS 250 MG TAB PEG SCH ×2 (09:51→17:55)
[2017-12-31] MEDS: DRONABINOL 2.5 MG CAPSULE PEG SCH ×2 (09:51→17:55)
[2017-12-31] MEDS: PREDNISONE 20 MG TABLET PEG SCH (09:51)
[2017-12-31] MEDS: PHOSPHORUS #1 250 MG TABLET PEG SCH ×2 (09:52→22:18)
[2017-12-31] MEDS: TIOTROPIUM BROMIDE DPI 5 CAP/KIT (18 MCG/CAP) IH SCH (09:52)
[2017-12-31] MEDS: MEGESTROL ACETATE SUSP 400 MG/10 ML UDCUP PEG SCH (09:52)
[2017-12-31] MEDS: ENOXAPARIN SODIUM INJ 40 MG/0.4 ML DISP.SYRIN SUBCUT SCH (09:52)
[2017-12-31] MEDS: INSULIN GLARGINE,HUM.REC.ANLOG 300 UNIT/3 ML INSULN.PEN SUBCUT SCH ×2 (09:53→22:18)
--- NOTE | 2017-12-31 16:45 | PDOC PROGRESS REPORT ---
Subjective Progress Note for:: 12/31/17 Subjective:: Patient is seen resting in bed. is at the bedside. He denies any chest pain, shortness of breath or dyspnea at rest. He denies any nausea, vomiting or diarrhea. He does have mild abdominal discomfort around the gastrostomy tube. States this is improving. He is able to swallow water with a straw. He denies any significant arthralgias or myalgias. He admits to being extremely weak and debilitated, but is improved from the last time I saw him. . Remaining review of systems are negative. Reason For Visit: DKA Physical Exam Vital Signs: Temp Pulse Resp BP Pulse Ox 97.7 F 71 18 107/67 98 12/31/17 11:18 12/31/17 11:18 12/31/17 11:18 12/31/17 11:18 12/31/17 11:18 Intake & Output 12/30/17 12/31/17 01/01/18 06:59 06:59 06:59 Intake Total 1834 1745 465 Output Total 1000 550 250 Balance 834 1195 215 Weight 63.3 kg 61.9 kg General appearance: PRESENT: no acute distress, thin, well-developed Head exam: PRESENT: atraumatic, normocephalic Eye exam: PRESENT: conjunctiva pink, EOMI, PERRLA. ABSENT: scleral icterus Ear exam: PRESENT: normal external ear exam Teeth exam: PRESENT: poor dentation Neck exam: ABSENT: carotid bruit, JVD, lymphadenopathy, thyromegaly Respiratory exam: PRESENT: clear to auscultation elif, symmetrical, unlabored. ABSENT: rales, rhonchi, wheezes Cardiovascular exam: PRESENT: RRR, +S1, +S2 Pulses: PRESENT: normal carotid pulses, normal radial pulses Vascular exam: PRESENT: normal capillary refill GI/Abdominal exam: PRESENT: normal bowel sounds, soft, other - PEG tube patent. ABSENT: distended, guarding, mass, organolmegaly, rebound, tenderness Rectal exam: PRESENT: deferred Extremities exam: PRESENT: full ROM. ABSENT: calf tenderness, clubbing, pedal edema Musculoskeletal exam: PRESENT: full ROM, normal inspection Neurological exam: PRESENT: alert, awake, oriented to person, oriented to place , oriented to time, oriented to situation, CN II-XII grossly intact. ABSENT: motor sensory deficit Psychiatric exam: PRESENT: flat affect Skin exam: PRESENT: dry, intact, warm. ABSENT: cyanosis, rash Results Laboratory Results: 12/30/17 04:09 12/30/17 04:09 11/30/17 12/01/17 12/01/17 05:22 22:45 22:45 Creatine Kinase 30 L CK-MB (CK-2) 0.73 Troponin I 0.015 NT-Pro-B Natriuret Pep 386 12/02/17 12/02/17 12/02/17 04:47 04:47 10:36 Creatine Kinase 30 L 28 L CK-MB (CK-2) 0.53 Troponin I 0.016 NT-Pro-B Natriuret Pep 12/02/17 12/02/17 12/02/17 10:36 16:50 16:50 Creatine Kinase 35 L CK-MB (CK-2) 0.51 0.39 Troponin I 0.015 < 0.012 NT-Pro-B Natriuret Pep Impressions: Cervical Spine CT 11/29/17 08:28 IMPRESSION: No acute changes Head CT 11/29/17 08:28 IMPRESSION: No acute intracranial changes. Nasal bone fracture with trace fluid in the right maxillary sinus. EVIDENCE OF ACUTE STROKE: NO. Fluoroscopy 12/02/17 00:00 IMPRESSION: Unsuccessful Dobbhoff feeding tube placement. KUB X-Ray 12/08/17 00:00 IMPRESSION: Persistent constipation Acute Abdomen Series 12/10/17 00:00 IMPRESSION: Left basilar airspace disease atelectasis versus pneumonia Right subdiaphragmatic free air Distended stomach with air-fluid level. Tube Placement 12/10/17 00:00 IMPRESSION: Gastrostomy tube tip is outside the stomach, along the anterior abdominal wall. Chest X-Ray 12/11/17 00:00 IMPRESSION: PATCHY MULTIFOCAL AIRSPACE DISEASE ABOVE SUSPICIOUS FOR PNEUMONIA. RECOMMEND FOLLOWUP RADIOGRAPHS 4 TO 6 WEEKS TO ENSURE RESOLUTION. Chest/Abdomen CTA 12/12/17 00:00 IMPRESSION: UNREMARKABLE CTA CHEST WITHOUT PULMONARY EMBOLI. LEFT GREATER THAN RIGHT PLEURAL EFFUSIONS WITH BILATERAL LOWER LOBE AIRSPACE DISEASE COULD REPRESENT COMPRESSIVE ATELECTASIS OR SUPERIMPOSED PNEUMONIA. PARTIAL VISUALIZATION OF FREE ABDOMINAL FLUID, AIR, AND SURGICAL DRAIN PRESUMABLY RELATED TO RECENT SURGERY. DISTENDED GALLBLADDER. CORRELATE WITH SYMPTOMS. Knee X-Ray 12/21/17 00:00 IMPRESSION: 1. No definite acute fracture. 2. Large joint effusion. If there is concern for internal derangement MRI would provide additional characterization. 2010 [employer]- All Rights Reserved Assessment & Plan - Diagnosis (1) Radiation-induced esophagitis Is this a current diagnosis for this admission?: Yes Plan: Patient underwent EGD by Dr. Alegre. He was noted to have esophagitis, esophageal ulcer and gastritis. Patient states he is still unable to swallow. He has a G-tube in place for feedings. Has not had a formal speech consult that I can see. Will order speech therapy to evaluate. (2) COPD (chronic obstructive pulmonary disease) Qualifiers: COPD type: emphysema Is this a current diagnosis for this admission?: Yes Plan: Continue present inhalers and nebulizers (3) DKA, type 1 Qualifiers: Diabetes mellitus complication detail: without coma Qualified Code(s): E10.10 - Type 1 diabetes mellitus with ketoacidosis without coma Is this a current diagnosis for this admission?: Yes Plan: Resolved. Secondary to poor intake. He is not receiving a sliding scale insulin with his enteral feedings (4) Esophageal ulcer without bleeding Is this a current diagnosis for this admission?: Yes (5) Prostate cancer Is this a current diagnosis for this admission?: Yes Plan: states this has been in remission (6) Hypokalemia Is this a current diagnosis for this admission?: Yes Plan: Replete and monitor (7) Lung cancer Qualifiers: Laterality: right Lung location: lower lobe of lung Qualified Code(s): C34.31 - Malignant neoplasm of lower lobe, right bronchus or lung Is this a current diagnosis for this admission?: Yes Plan: Patient has had 15 radiation treatments to the lung. It is unclear what stage his lung cancer was to begin with. His states they were initially considering surgery but because of his poor physical status at the time opted with radiation treatment. Treatment was done at the [facility] in [place]. His oncologist was from [place] (8) Protein-calorie malnutrition, moderate Is this a current diagnosis for this admission?: Yes (9) CAD (coronary artery disease) Qualifiers: Associated angina: without angina Is this a current diagnosis for this admission?: Yes Plan: Continue current medications. (10) Hypertension Qualifiers: Hypertension type: essential hypertension Qualified Code(s): I10 - Essential (primary) hypertension Is this a current diagnosis for this admission?: Yes Plan: Presently normotensive continue current medication - Time Time Spent with patient: 25-34 minutes Total Critical Time (Minutes): 15 Medications reviewed and adjusted accordingly: Yes Anticipated discharge: SNF Within: when bed available
[2017-12-31] MEDS: MULTIVITAMIN ORAL LIQUID 60 ML PO SCH (17:56)
[2017-12-31] MEDS: MIRTAZAPINE 15 MG TABLET PEG SCH (22:18)
[2017-12-31] MEDS: MELATONIN 5 MG TABLET PO SCH (22:18)
[2017-12-31] MEDS: ATORVASTATIN CALCIUM 80 MG TABLET PEG SCH (22:18)
[2018-01-01 04:38] LABS: ABSOLUTE EOSINOPHILS # (AUTO) 0.1 10^3/uL (0.0-0.6); ABSOLUTE LYMPHOCYTES (AUTO) 1.3 10^3/uL (0.5-4.7); ABSOLUTE MONOCYTES (AUTO) 0.5 10^3/uL (0.1-1.4); ABSOLUTE NEUT (AUTO) 4.3 10^3/uL (1.7-8.2); BASOPHILS % (AUTO) 0.1 % (0-2); HEMATOCRIT 32.9 % (37.9-51.0); HEMOGLOBIN 11.3 g/dL (13.5-17.0); LYMPHOCYTES % (AUTO) 20.4 % (13-45); MEAN CORPUSCULAR HEMOGLOBIN 28.9 pg (27.0-33.4); MEAN CORPUSCULAR HGB CONC 34.3 g/dL (32.0-36.0); MEAN CORPUSCULAR VOLUME 84 fl (80-97); MONOCYTES % (AUTO) 8.4 % (3-13); PLATELET COUNT 294 10^3/uL (150-450); RED CELL DISTRIBUTION WIDTH 18.7 % (11.5-14.0); SEGMENTED NEUTROPHILS % (AUTO) 70.1 % (42-78); TOTAL CELLS COUNTED % (AUTO) 100 %; WHITE BLOOD COUNT 6.2 10^3/uL (4.0-10.5)
[2018-01-01 04:57] LABS: ANION GAP 8 (5-19); BLOOD UREA NITROGEN 14 mg/dL (7-20); CALCIUM 8.8 mg/dL (8.4-10.2); CARBON DIOXIDE 31 mmol/L (22-30); CHLORIDE 107 mmol/L (98-107); GLUCOSE 223 mg/dL (75-110); POTASSIUM 4.2 mmol/L (3.6-5.0); SODIUM 146.2 mmol/L (137-145)
[2018-01-01] MEDS: LACTULOSE SYRUP 20 GM/30 ML UDCUP PEG SCH ×3 (05:07→18:08)
[2018-01-01] MEDS: METOPROLOL TARTRATE 25 MG TABLET PEG SCH ×2 (05:19→18:08)
[2018-01-01] MEDS: METOCLOPRAMIDE HCL 10 MG TABLET PEG SCH ×3 (05:19→21:39)
[2018-01-01] MEDS: LANSOPRAZOLE 30 MG TAB.RAP.DR PEG SCH ×2 (05:19→18:02)
[2018-01-01] MEDS: MORPHINE SULFATE 10 MG/5 ML ORAL SOLUTION UDCUP PO PRN (06:32)
[2018-01-01] MEDS: INSULIN LISPRO 100 UNIT/ML 3 ML VIAL SUBCUT SCH ×3 (07:56→18:03)
[2018-01-01] MEDS: INSULIN LISPRO 100 UNIT/ML 3 ML VIAL SUBCUT PRN ×4 (07:56→21:37)
[2018-01-01] MEDS: ENOXAPARIN SODIUM INJ 40 MG/0.4 ML DISP.SYRIN SUBCUT SCH (10:23)
[2018-01-01] MEDS: DRONABINOL 2.5 MG CAPSULE PEG SCH ×2 (10:23→18:03)
[2018-01-01] MEDS: LACTOBACILLUS ACIDOPHILUS 250 MG TAB PEG SCH ×2 (10:23→18:02)
[2018-01-01] MEDS: PHOSPHORUS #1 250 MG TABLET PEG SCH ×2 (10:24→21:39)
[2018-01-01] MEDS: PREDNISONE 20 MG TABLET PEG SCH (10:24)
[2018-01-01] MEDS: INSULIN GLARGINE,HUM.REC.ANLOG 300 UNIT/3 ML INSULN.PEN SUBCUT SCH ×2 (10:24→21:36)
[2018-01-01] MEDS: TIOTROPIUM BROMIDE DPI 5 CAP/KIT (18 MCG/CAP) IH SCH (10:24)
[2018-01-01] MEDS: MAGNESIUM OXIDE 400 MG TABLET PEG SCH ×2 (10:24→18:02)
[2018-01-01] MEDS: MEGESTROL ACETATE SUSP 400 MG/10 ML UDCUP PEG SCH (10:24)
--- NOTE | 2018-01-01 13:13 | PDOC PROGRESS REPORT ---
Subjective Progress Note for:: 01/01/18 - seen at 9am this morning Subjective:: patient states he feels better and has tried to eat food this morning. States that he actually had solid food yesterday and this morning. But then he received his PEG tube feeding he had some belly pain. I advised him that eating by mouth and with the tube probably caused this. Otherwise he has no other concerns this morning. Reason For Visit: DKA Physical Exam Vital Signs: Temp Pulse Resp BP Pulse Ox 98.9 F 69 17 120/57 L 94 01/01/18 12:18 01/01/18 12:18 01/01/18 12:18 01/01/18 12:18 01/01/18 12:18 Intake & Output 12/31/17 01/01/18 01/02/18 06:59 06:59 06:59 Intake Total 1745 1249 0 Output Total 550 525 100 Balance 1195 724 -100 Weight 136 lb 7.458 oz 135 lb 2.294 oz General appearance: PRESENT: no acute distress Head exam: PRESENT: atraumatic, normocephalic Eye exam: PRESENT: EOMI Ear exam: PRESENT: normal external ear exam Mouth exam: PRESENT: moist, tongue midline Teeth exam: PRESENT: poor dentation Respiratory exam: PRESENT: clear to auscultation elif Cardiovascular exam: PRESENT: RRR, +S1, +S2 GI/Abdominal exam: PRESENT: normal bowel sounds, soft, other - non tender, PEG tube noted without any drainage Extremities exam: PRESENT: other - non tender LE, no edema noted Neurological exam: PRESENT: alert, oriented to person, oriented to place, oriented to time, oriented to situation, CN II-XII grossly intact Psychiatric exam: PRESENT: appropriate affect Skin exam: PRESENT: dry, warm Results Laboratory Results: 01/01/18 04:08 01/01/18 04:08 01/01/18 01/01/18 04:08 04:08 WBC 6.2 RBC 3.90 L Hgb 11.3 L Hct 32.9 L MCV 84 MCH 28.9 MCHC 34.3 RDW 18.7 H Plt Count 294 Seg Neutrophils % 70.1 Lymphocytes % 20.4 Monocytes % 8.4 Eosinophils % 1.0 Basophils % 0.1 Absolute Neutrophils 4.3 Absolute Lymphocytes 1.3 Absolute Monocytes 0.5 Absolute Eosinophils 0.1 Absolute Basophils 0.0 Sodium 146.2 H Potassium 4.2 Chloride 107 Carbon Dioxide 31 H Anion Gap 8 BUN 14 Creatinine 0.46 L Est GFR ( Amer) > 60 Est GFR (Non-Af Amer) > 60 Glucose 223 H Calcium 8.8 11/30/17 12/01/17 12/01/17 05:22 22:45 22:45 Creatine Kinase 30 L CK-MB (CK-2) 0.73 Troponin I 0.015 NT-Pro-B Natriuret Pep 386 12/02/17 12/02/17 12/02/17 04:47 04:47 10:36 Creatine Kinase 30 L 28 L CK-MB (CK-2) 0.53 Troponin I 0.016 NT-Pro-B Natriuret Pep 12/02/17 12/02/17 12/02/17 10:36 16:50 16:50 Creatine Kinase 35 L CK-MB (CK-2) 0.51 0.39 Troponin I 0.015 < 0.012 NT-Pro-B Natriuret Pep Impressions: Cervical Spine CT 11/29/17 08:28 IMPRESSION: No acute changes Head CT 11/29/17 08:28 IMPRESSION: No acute intracranial changes. Nasal bone fracture with trace fluid in the right maxillary sinus. EVIDENCE OF ACUTE STROKE: NO. Fluoroscopy 12/02/17 00:00 IMPRESSION: Unsuccessful Dobbhoff feeding tube placement. KUB X-Ray 12/08/17 00:00 IMPRESSION: Persistent constipation Acute Abdomen Series 12/10/17 00:00 IMPRESSION: Left basilar airspace disease atelectasis versus pneumonia Right subdiaphragmatic free air Distended stomach with air-fluid level. Tube Placement 12/10/17 00:00 IMPRESSION: Gastrostomy tube tip is outside the stomach, along the anterior abdominal wall. Chest X-Ray 12/11/17 00:00 IMPRESSION: PATCHY MULTIFOCAL AIRSPACE DISEASE ABOVE SUSPICIOUS FOR PNEUMONIA. RECOMMEND FOLLOWUP RADIOGRAPHS 4 TO 6 WEEKS TO ENSURE RESOLUTION. Chest/Abdomen CTA 12/12/17 00:00 IMPRESSION: UNREMARKABLE CTA CHEST WITHOUT PULMONARY EMBOLI. LEFT GREATER THAN RIGHT PLEURAL EFFUSIONS WITH BILATERAL LOWER LOBE AIRSPACE DISEASE COULD REPRESENT COMPRESSIVE ATELECTASIS OR SUPERIMPOSED PNEUMONIA. PARTIAL VISUALIZATION OF FREE ABDOMINAL FLUID, AIR, AND SURGICAL DRAIN PRESUMABLY RELATED TO RECENT SURGERY. DISTENDED GALLBLADDER. CORRELATE WITH SYMPTOMS. Knee X-Ray 12/21/17 00:00 IMPRESSION: 1. No definite acute fracture. 2. Large joint effusion. If there is concern for internal derangement MRI would provide additional characterization. 2010 [employer]- All Rights Reserved Assessment & Plan - Diagnosis (1) COPD (chronic obstructive pulmonary disease) Qualifiers: COPD type: emphysema Is this a current diagnosis for this admission?: Yes Plan: doing well- breathing better- still on supplemental O2- otherwise stable (2) Esophageal ulcer without bleeding Is this a current diagnosis for this admission?: Yes Plan: currently stable, continue to monitor (3) Muscular deconditioning Is this a current diagnosis for this admission?: Yes Plan: still states he feels weak- PT is working with him for strengthening- he needs to get out of bed and start moving around- being in the hospital for such prolong period has deconditioned him- [facility] (4) Protein-calorie malnutrition, moderate Is this a current diagnosis for this admission?: Yes Plan: likely due to his GI issues- c/w tube feeds (5) Radiation-induced esophagitis Is this a current diagnosis for this admission?: Yes Plan: still has PEG tube although I am not sure why he's having difficulty with swallowing- he tells me that he has had some solid food yesterday and today- hopefully he will be able to tolerate more food and continue. he's on PEG tube feeding but his Na and Cl is slowing rising- will add more free water to his tube feeds- will increase to 50-75 cc flushes Q4h
[2018-01-01] MEDS: FENTANYL 50 MCG/HR PATCH.TD72 TD SCH (14:21)
[2018-01-01] MEDS: MULTIVITAMIN ORAL LIQUID 60 ML PO SCH (18:06)
[2018-01-01] MEDS: MIRTAZAPINE 15 MG TABLET PEG SCH (21:39)
[2018-01-01] MEDS: MELATONIN 5 MG TABLET PO SCH (21:39)
[2018-01-01] MEDS: ATORVASTATIN CALCIUM 80 MG TABLET PEG SCH (21:39)
[2018-01-02] MEDS: LACTULOSE SYRUP 20 GM/30 ML UDCUP PEG SCH ×4 (01:25→18:33)
[2018-01-02 05:14] LABS: ANION GAP 8 (5-19); BLOOD UREA NITROGEN 15 mg/dL (7-20); CARBON DIOXIDE 31 mmol/L (22-30); CHLORIDE 107 mmol/L (98-107); GLUCOSE 249 mg/dL (75-110); POTASSIUM 4.3 mmol/L (3.6-5.0); SODIUM 145.5 mmol/L (137-145)
[2018-01-02] MEDS: METOCLOPRAMIDE HCL 10 MG TABLET PEG SCH ×3 (06:33→21:36)
[2018-01-02] MEDS: LANSOPRAZOLE 30 MG TAB.RAP.DR PEG SCH ×2 (06:34→16:47)
[2018-01-02] MEDS: METOPROLOL TARTRATE 25 MG TABLET PEG SCH ×2 (06:34→18:33)
[2018-01-02] MEDS: INSULIN LISPRO 100 UNIT/ML 3 ML VIAL SUBCUT PRN ×4 (08:57→21:35)
[2018-01-02] MEDS: INSULIN LISPRO 100 UNIT/ML 3 ML VIAL SUBCUT SCH ×3 (08:57→16:47)
[2018-01-02] MEDS: LACTOBACILLUS ACIDOPHILUS 250 MG TAB PEG SCH ×2 (10:39→18:31)
[2018-01-02] MEDS: INSULIN GLARGINE,HUM.REC.ANLOG 300 UNIT/3 ML INSULN.PEN SUBCUT SCH ×2 (10:39→21:35)
[2018-01-02] MEDS: MAGNESIUM OXIDE 400 MG TABLET PEG SCH ×2 (10:39→18:31)
[2018-01-02] MEDS: DRONABINOL 2.5 MG CAPSULE PEG SCH ×2 (10:39→18:31)
[2018-01-02] MEDS: ENOXAPARIN SODIUM INJ 40 MG/0.4 ML DISP.SYRIN SUBCUT SCH (10:39)
[2018-01-02] MEDS: PHOSPHORUS #1 250 MG TABLET PEG SCH ×2 (10:39→21:35)
[2018-01-02] MEDS: MEGESTROL ACETATE SUSP 400 MG/10 ML UDCUP PEG SCH (10:39)
[2018-01-02] MEDS: TIOTROPIUM BROMIDE DPI 5 CAP/KIT (18 MCG/CAP) IH SCH (10:39)
[2018-01-02] MEDS: PREDNISONE 20 MG TABLET PEG SCH (10:46)
--- NOTE | 2018-01-02 14:25 | PDOC PROGRESS REPORT ---
Subjective Progress Note for:: 01/02/18 - seen on rounds this morning Subjective:: states he's sleepy today. denies chest pain, abdominal pain or n/v. Reason For Visit: DKA Physical Exam Vital Signs: Temp Pulse Resp BP Pulse Ox 98.8 F 63 18 109/51 L 94 01/02/18 11:29 01/02/18 11:29 01/02/18 11:29 01/02/18 11:29 01/02/18 11:29 Intake & Output 01/01/18 01/02/18 01/03/18 06:59 06:59 06:59 Intake Total 1249 1402 0 Output Total 525 700 Balance 724 702 0 Weight 135 lb 2.294 oz 134 lb 4.184 oz General appearance: PRESENT: no acute distress Head exam: PRESENT: atraumatic, normocephalic Eye exam: PRESENT: EOMI. ABSENT: scleral icterus Mouth exam: PRESENT: moist Neck exam: ABSENT: tracheal deviation Respiratory exam: PRESENT: clear to auscultation elif, symmetrical Cardiovascular exam: PRESENT: RRR, +S1, +S2 Pulses: PRESENT: +2 pedal pulses bilateral GI/Abdominal exam: PRESENT: normal bowel sounds, soft, other - PEG tube noted. ABSENT: tenderness Extremities exam: ABSENT: joint swelling, pedal edema Neurological exam: PRESENT: alert, awake, CN II-XII grossly intact Skin exam: PRESENT: dry, warm Results Laboratory Results: 01/01/18 04:08 01/02/18 04:12 01/02/18 04:12 Sodium 145.5 H Potassium 4.3 Chloride 107 Carbon Dioxide 31 H Anion Gap 8 BUN 15 Creatinine 0.46 L Est GFR ( Amer) > 60 Est GFR (Non-Af Amer) > 60 Glucose 249 H Calcium 9.0 11/30/17 12/01/17 12/01/17 05:22 22:45 22:45 Creatine Kinase 30 L CK-MB (CK-2) 0.73 Troponin I 0.015 NT-Pro-B Natriuret Pep 386 12/02/17 12/02/17 12/02/17 04:47 04:47 10:36 Creatine Kinase 30 L 28 L CK-MB (CK-2) 0.53 Troponin I 0.016 NT-Pro-B Natriuret Pep 12/02/17 12/02/1712/02/18 10:36 16:50 16:50 Creatine Kinase 35 L CK-MB (CK-2) 0.51 0.39 Troponin I 0.015 < 0.012 NT-Pro-B Natriuret Pep Impressions: Cervical Spine CT 11/29/17 08:28 IMPRESSION: No acute changes Head CT 11/29/17 08:28 IMPRESSION: No acute intracranial changes. Nasal bone fracture with trace fluid in the right maxillary sinus. EVIDENCE OF ACUTE STROKE: NO. Fluoroscopy 12/02/17 00:00 IMPRESSION: Unsuccessful Dobbhoff feeding tube placement. KUB X-Ray 12/08/17 00:00 IMPRESSION: Persistent constipation Acute Abdomen Series 12/10/17 00:00 IMPRESSION: Left basilar airspace disease atelectasis versus pneumonia Right subdiaphragmatic free air Distended stomach with air-fluid level. Tube Placement 12/10/17 00:00 IMPRESSION: Gastrostomy tube tip is outside the stomach, along the anterior abdominal wall. Chest X-Ray 12/11/17 00:00 IMPRESSION: PATCHY MULTIFOCAL AIRSPACE DISEASE ABOVE SUSPICIOUS FOR PNEUMONIA. RECOMMEND FOLLOWUP RADIOGRAPHS 4 TO 6 WEEKS TO ENSURE RESOLUTION. Chest/Abdomen CTA 12/12/17 00:00 IMPRESSION: UNREMARKABLE CTA CHEST WITHOUT PULMONARY EMBOLI. LEFT GREATER THAN RIGHT PLEURAL EFFUSIONS WITH BILATERAL LOWER LOBE AIRSPACE DISEASE COULD REPRESENT COMPRESSIVE ATELECTASIS OR SUPERIMPOSED PNEUMONIA. PARTIAL VISUALIZATION OF FREE ABDOMINAL FLUID, AIR, AND SURGICAL DRAIN PRESUMABLY RELATED TO RECENT SURGERY. DISTENDED GALLBLADDER. CORRELATE WITH SYMPTOMS. Knee X-Ray 12/21/17 00:00 IMPRESSION: 1. No definite acute fracture. 2. Large joint effusion. If there is concern for internal derangement MRI would provide additional characterization. 2010 [employer]- All Rights Reserved Assessment & Plan - Diagnosis (1) COPD (chronic obstructive pulmonary disease) Qualifiers: COPD type: emphysema Is this a current diagnosis for this admission?: Yes Plan: doing well- breathing better- still on supplemental O2- otherwise stable. he had no new complaints today (2) Radiation-induced esophagitis Is this a current diagnosis for this admission?: Yes Plan: still has PEG tube and getting feeds. Not sure why he can't swallow- has been evaluated but not clear reasoning - ?radiation esophagitis is a possibility (3) Hypernatremia Is this a current diagnosis for this admission?: Yes Plan: his Na and Cl has been high- i have increased his Free water flushes yesterday and electrolytes are correcting- I will increase to 125cc flushes Q6 hours. will repeat BMP in AM. (4) Muscular deconditioning Is this a current diagnosis for this admission?: Yes Plan: still states he feels weak- PT is working with him for strengthening- he needs to get out of bed and start moving around- being in the hospital for such prolong period has deconditioned him- [facility] - Plan Summary Plan Summary: pending placement to [place] for rehab
[2018-01-02] MEDS: MULTIVITAMIN ORAL LIQUID 60 ML PO SCH (18:10)
[2018-01-02] MEDS: ATORVASTATIN CALCIUM 80 MG TABLET PEG SCH (21:35)
[2018-01-02] MEDS: MELATONIN 5 MG TABLET PO SCH (21:36)
[2018-01-02] MEDS: MIRTAZAPINE 15 MG TABLET PEG SCH (21:36)
[2018-01-03] MEDS: LACTULOSE SYRUP 20 GM/30 ML UDCUP PEG SCH ×5 (02:02→23:41)
[2018-01-03] MEDS: METOCLOPRAMIDE HCL 10 MG TABLET PEG SCH ×3 (05:35→21:33)
[2018-01-03] MEDS: LANSOPRAZOLE 30 MG TAB.RAP.DR PEG SCH ×2 (05:36→18:40)
[2018-01-03] MEDS: METOPROLOL TARTRATE 25 MG TABLET PEG SCH ×2 (05:36→18:40)
[2018-01-03 06:00] LABS: ANION GAP 8 (5-19); BLOOD UREA NITROGEN 16 mg/dL (7-20); CALCIUM 8.8 mg/dL (8.4-10.2); CARBON DIOXIDE 28 mmol/L (22-30); CHLORIDE 110 mmol/L (98-107); GLUCOSE 252 mg/dL (75-110); POTASSIUM 4.3 mmol/L (3.6-5.0); SODIUM 146.2 mmol/L (137-145)
[2018-01-03] MEDS: INSULIN GLARGINE,HUM.REC.ANLOG 300 UNIT/3 ML INSULN.PEN SUBCUT SCH ×2 (10:48→21:36)
[2018-01-03] MEDS: ENOXAPARIN SODIUM INJ 40 MG/0.4 ML DISP.SYRIN SUBCUT SCH (10:48)
[2018-01-03] MEDS: INSULIN LISPRO 100 UNIT/ML 3 ML VIAL SUBCUT SCH ×3 (10:49→16:45)
[2018-01-03] MEDS: MEGESTROL ACETATE SUSP 400 MG/10 ML UDCUP PEG SCH (10:53)
[2018-01-03] MEDS: LACTOBACILLUS ACIDOPHILUS 250 MG TAB PEG SCH ×2 (10:54→18:41)
[2018-01-03] MEDS: PREDNISONE 20 MG TABLET PEG SCH (10:57)
[2018-01-03] MEDS: TIOTROPIUM BROMIDE DPI 5 CAP/KIT (18 MCG/CAP) IH SCH (10:57)
[2018-01-03] MEDS: PHOSPHORUS #1 250 MG TABLET PEG SCH ×2 (10:57→21:31)
[2018-01-03] MEDS: MAGNESIUM OXIDE 400 MG TABLET PEG SCH ×2 (10:57→18:41)
[2018-01-03] MEDS: DRONABINOL 2.5 MG CAPSULE PEG SCH ×2 (10:57→18:48)
--- NOTE | 2018-01-03 12:19 | PDOC PROGRESS REPORT ---
Subjective Progress Note for:: 01/03/18 - Patient seen on rounds this morning Subjective:: Patient has no new complaints today but states he is very sleepy and feels tired. States he tried to eat today and he was able to tolerate but still has some difficulty. I did discuss with him about being more mobile and getting out of bed to chair and working with physical therapy to ambulate him and walk the hallways. I advised about deconditioning and muscle breakdown from being constantly on the bed. Him and his both understand and will start moving more. Reason For Visit: DKA Physical Exam Vital Signs: Temp Pulse Resp BP Pulse Ox 98.9 F 71 19 131/56 H 95 01/03/18 07:39 01/03/18 07:39 01/03/18 07:39 01/03/18 07:39 01/03/18 07:39 Intake & Output 01/02/18 01/03/18 01/04/18 06:59 06:59 06:59 Intake Total 1402 1417 Output Total 700 720 Balance 702 697 Weight 134 lb 4.184 oz 134 lb 7.712 oz General appearance: PRESENT: no acute distress, disheveled Head exam: PRESENT: atraumatic, normocephalic Eye exam: PRESENT: EOMI. ABSENT: scleral icterus Ear exam: PRESENT: normal external ear exam Mouth exam: PRESENT: moist, neck supple Neck exam: ABSENT: tenderness, tracheal deviation Respiratory exam: PRESENT: clear to auscultation elif, symmetrical Cardiovascular exam: PRESENT: +S1, +S2 Pulses: PRESENT: +2 pedal pulses bilateral GI/Abdominal exam: PRESENT: normal bowel sounds, soft, other - PEG tube noted with minimal discharge. Skin surrounding PEG tube with no erythema.. ABSENT: tenderness Extremities exam: ABSENT: joint swelling, pedal edema Musculoskeletal exam: ABSENT: tenderness Neurological exam: PRESENT: alert, awake, CN II-XII grossly intact Skin exam: PRESENT: dry, warm Results Laboratory Results: 01/01/18 04:08 01/03/18 04:48 01/03/18 04:48 Sodium 146.2 H Potassium 4.3 Chloride 110 H Carbon Dioxide 28 Anion Gap 8 BUN 16 Creatinine 0.45 L Est GFR ( Amer) > 60 Est GFR (Non-Af Amer) > 60 Glucose 252 H Calcium 8.8 11/30/17 12/01/1712/01/18 05:22 22:45 22:45 Creatine Kinase 30 L CK-MB (CK-2) 0.73 Troponin I 0.015 NT-Pro-B Natriuret Pep 386 12/02/17 12/02/17 12/02/17 04:47 04:47 10:36 Creatine Kinase 30 L 28 L CK-MB (CK-2) 0.53 Troponin I 0.016 NT-Pro-B Natriuret Pep 12/02/17 12/02/17 12/02/17 10:36 16:50 16:50 Creatine Kinase 35 L CK-MB (CK-2) 0.51 0.39 Troponin I 0.015 < 0.012 NT-Pro-B Natriuret Pep Impressions: Cervical Spine CT 11/29/17 08:28 IMPRESSION: No acute changes Head CT 11/29/17 08:28 IMPRESSION: No acute intracranial changes. Nasal bone fracture with trace fluid in the right maxillary sinus. EVIDENCE OF ACUTE STROKE: NO. Fluoroscopy 12/02/17 00:00 IMPRESSION: Unsuccessful Dobbhoff feeding tube placement. KUB X-Ray 12/08/17 00:00 IMPRESSION: Persistent constipation Acute Abdomen Series 12/10/17 00:00 IMPRESSION: Left basilar airspace disease atelectasis versus pneumonia Right subdiaphragmatic free air Distended stomach with air-fluid level. Tube Placement 12/10/17 00:00 IMPRESSION: Gastrostomy tube tip is outside the stomach, along the anterior abdominal wall. Chest X-Ray 12/11/17 00:00 IMPRESSION: PATCHY MULTIFOCAL AIRSPACE DISEASE ABOVE SUSPICIOUS FOR PNEUMONIA. RECOMMEND FOLLOWUP RADIOGRAPHS 4 TO 6 WEEKS TO ENSURE RESOLUTION. Chest/Abdomen CTA 12/12/17 00:00 IMPRESSION: UNREMARKABLE CTA CHEST WITHOUT PULMONARY EMBOLI. LEFT GREATER THAN RIGHT PLEURAL EFFUSIONS WITH BILATERAL LOWER LOBE AIRSPACE DISEASE COULD REPRESENT COMPRESSIVE ATELECTASIS OR SUPERIMPOSED PNEUMONIA. PARTIAL VISUALIZATION OF FREE ABDOMINAL FLUID, AIR, AND SURGICAL DRAIN PRESUMABLY RELATED TO RECENT SURGERY. DISTENDED GALLBLADDER. CORRELATE WITH SYMPTOMS. Knee X-Ray 12/21/17 00:00 IMPRESSION: 1. No definite acute fracture. 2. Large joint effusion. If there is concern for internal derangement MRI would provide additional characterization. 2011 [employer] All Rights Reserved Assessment & Plan - Diagnosis (1) COPD (chronic obstructive pulmonary disease) Qualifiers: COPD type: emphysema Is this a current diagnosis for this admission?: Yes (2) Radiation-induced esophagitis Is this a current diagnosis for this admission?: Yes (3) Hypernatremia Is this a current diagnosis for this admission?: Yes (4) Muscular deconditioning Is this a current diagnosis for this admission?: Yes (5) DM hyperosmolarity type II, uncontrolled Qualifiers: Diabetes mellitus custodial insulin use: with termite exterminator use Diabetes mellitus complication detail: without coma Qualified Code(s): E11.00 - Type 2 diabetes mellitus with hyperosmolarity without nonketotic hyperglycemic- hyperosmolar coma ([facility]); Z79.4 - computer terminal operator (current) use of insulin; Z79.4 - long-term (current) use of insulin; Z79.4 - computer terminal operator (current) use of insulin; Z79.4 - computer terminal operator (current) use of insulin Is this a current diagnosis for this admission?: Yes Plan: His blood sugar has been running greater than 200s-300s on Accu-Cheks and I have today increased his Lantus from 26 units to 29 units. I have discussed with him regarding hypoglycemic symptoms. - Plan Summary Plan Summary: Patient has been here for greater than 30 days he is on PEG tube feeding for suspected esophagitis from radiation. I am not completely convinced that he cannot eat and he continues to complain about not being able to swallow. Although he has not had any vomiting of the food. I have encouraged him with p.o. diet-I have told him that having a PEG tube increases his chance of infection and he should try to eat more by mouth. He and his both understand but he still tells me that he cannot eat. I have also had a long conversation with both patient and family about deconditioning and debilitating of muscles due to prolonged stay in the hospital and he should be moving and ambulating more often during his stay. They both acknowledged and told me that they will try to do it more often. He is still pending the placement at this time in case management is aware.
[2018-01-03] MEDS: MULTIVITAMIN ORAL LIQUID 60 ML PO SCH (18:48)
[2018-01-03] MEDS: MIRTAZAPINE 15 MG TABLET PEG SCH (21:31)
[2018-01-03] MEDS: ATORVASTATIN CALCIUM 80 MG TABLET PEG SCH (21:31)
[2018-01-03] MEDS: MELATONIN 5 MG TABLET PO SCH (21:31)
[2018-01-03] MEDS: INSULIN LISPRO 100 UNIT/ML 3 ML VIAL SUBCUT PRN (21:35)
[2018-01-04] MEDS: METOCLOPRAMIDE HCL 10 MG TABLET PEG SCH ×3 (06:11→22:09)
[2018-01-04] MEDS: METOPROLOL TARTRATE 25 MG TABLET PEG SCH ×2 (06:11→17:47)
[2018-01-04] MEDS: LANSOPRAZOLE 30 MG TAB.RAP.DR PEG SCH ×2 (06:11→17:48)
[2018-01-04] MEDS: LACTULOSE SYRUP 20 GM/30 ML UDCUP PEG SCH ×4 (06:16→23:43)
[2018-01-04] MEDS: INSULIN LISPRO 100 UNIT/ML 3 ML VIAL SUBCUT SCH ×3 (08:36→17:48)
[2018-01-04] MEDS: DRONABINOL 2.5 MG CAPSULE PEG SCH ×2 (10:27→17:47)
[2018-01-04] MEDS: LACTOBACILLUS ACIDOPHILUS 250 MG TAB PEG SCH ×2 (10:27→17:47)
[2018-01-04] MEDS: PREDNISONE 20 MG TABLET PEG SCH (10:27)
[2018-01-04] MEDS: PHOSPHORUS #1 250 MG TABLET PEG SCH ×2 (10:28→22:08)
[2018-01-04] MEDS: MAGNESIUM OXIDE 400 MG TABLET PEG SCH ×2 (10:28→17:47)
[2018-01-04] MEDS: MEGESTROL ACETATE SUSP 400 MG/10 ML UDCUP PEG SCH (10:29)
[2018-01-04] MEDS: INSULIN GLARGINE,HUM.REC.ANLOG 300 UNIT/3 ML INSULN.PEN SUBCUT SCH ×2 (10:29→22:10)
[2018-01-04] MEDS: TIOTROPIUM BROMIDE DPI 5 CAP/KIT (18 MCG/CAP) IH SCH (10:29)
[2018-01-04] MEDS ORDERED: IPRATROPIUM/ALBUTEROL 0.5-2.5 MG/3 ML AMPUL NEB PRN (12:01)
[2018-01-04] MEDS: FENTANYL 50 MCG/HR PATCH.TD72 TD SCH (13:17)
--- NOTE | 2018-01-04 15:37 | PDOC PROGRESS REPORT ---
Subjective Progress Note for:: 01/04/18 Subjective:: The patient was seen earlier today on rounds. The patient was sitting on the side of the bed with his feet on the floor. is present at the bedside active in the patent's care. The patient denies any nausea, vomiting, diarrhea, shortness of breath, dizziness, chest pain, heart palpitations, fevers, or chills. The patient has remained afebrile. Blood pressures have been in a good range. When prompted the patient voices no other concerns at this time. Review of systems: The rest of the review of systems is negative. Reason For Visit: DKA Physical Exam Vital Signs: Temp Pulse Resp BP Pulse Ox 98.5 F 65 18 104/53 L 95 01/04/18 11:55 01/04/18 11:55 01/04/18 11:55 01/04/18 11:55 01/04/18 11:55 Intake & Output 01/02/18 01/03/18 01/04/18 23:59 23:59 23:59 Intake Total 1306 2166 1196 Output Total 300 1020 675 Balance 1006 1146 521 Weight 60.9 kg 61 kg 61.3 kg General appearance: PRESENT: no acute distress, thin, well-developed Head exam: PRESENT: atraumatic, normocephalic Eye exam: PRESENT: conjunctiva pink, EOMI, PERRLA. ABSENT: scleral icterus Ear exam: PRESENT: normal external ear exam Mouth exam: PRESENT: moist, tongue midline Neck exam: ABSENT: carotid bruit, JVD, lymphadenopathy, thyromegaly Respiratory exam: PRESENT: clear to auscultation elif. ABSENT: rales, rhonchi, wheezes Cardiovascular exam: PRESENT: RRR. ABSENT: diastolic murmur, rubs, systolic murmur Pulses: PRESENT: normal dorsalis pedis pul Vascular exam: PRESENT: normal capillary refill GI/Abdominal exam: PRESENT: normal bowel sounds, soft, other - Peg site has yellow exudate. Incision site does have some redness with sanguinous drainage.. ABSENT: distended, guarding, mass, organolmegaly, rebound, tenderness Rectal exam: PRESENT: deferred Extremities exam: PRESENT: full ROM. ABSENT: calf tenderness, clubbing, pedal edema Neurological exam: PRESENT: alert, awake, oriented to person, oriented to place , oriented to time, oriented to situation, CN II-XII grossly intact. ABSENT: motor sensory deficit Psychiatric exam: PRESENT: appropriate affect, normal mood. ABSENT: homicidal ideation, suicidal ideation Skin exam: PRESENT: dry, intact, warm. ABSENT: cyanosis, rash Results Laboratory Results: 01/01/18 01/03/18 04:08 04:48 WBC 6.2 Hgb 11.3 L Hct 32.9 L Plt Count 294 Sodium 146.2 H Potassium 4.3 Chloride 110 H Carbon Dioxide 28 BUN 16 Creatinine 0.45 L Glucose 252 H Calcium 8.8 Impressions: Cervical Spine CT 11/29/17 08:28 IMPRESSION: No acute changes Head CT 11/29/17 08:28 IMPRESSION: No acute intracranial changes. Nasal bone fracture with trace fluid in the right maxillary sinus. EVIDENCE OF ACUTE STROKE: NO. Fluoroscopy 12/02/17 00:00 IMPRESSION: Unsuccessful Dobbhoff feeding tube placement. KUB X-Ray 12/08/17 00:00 IMPRESSION: Persistent constipation Acute Abdomen Series 12/10/17 00:00 IMPRESSION: Left basilar airspace disease atelectasis versus pneumonia Right subdiaphragmatic free air Distended stomach with air-fluid level. Tube Placement 12/10/17 00:00 IMPRESSION: Gastrostomy tube tip is outside the stomach, along the anterior abdominal wall. Chest X-Ray 12/11/17 00:00 IMPRESSION: PATCHY MULTIFOCAL AIRSPACE DISEASE ABOVE SUSPICIOUS FOR PNEUMONIA. RECOMMEND FOLLOWUP RADIOGRAPHS 4 TO 6 WEEKS TO ENSURE RESOLUTION. Chest/Abdomen CTA 12/12/17 00:00 IMPRESSION: UNREMARKABLE CTA CHEST WITHOUT PULMONARY EMBOLI. LEFT GREATER THAN RIGHT PLEURAL EFFUSIONS WITH BILATERAL LOWER LOBE AIRSPACE DISEASE COULD REPRESENT COMPRESSIVE ATELECTASIS OR SUPERIMPOSED PNEUMONIA. PARTIAL VISUALIZATION OF FREE ABDOMINAL FLUID, AIR, AND SURGICAL DRAIN PRESUMABLY RELATED TO RECENT SURGERY. DISTENDED GALLBLADDER. CORRELATE WITH SYMPTOMS. Knee X-Ray 12/21/17 00:00 IMPRESSION: 1. No definite acute fracture. 2. Large joint effusion. If there is concern for internal derangement MRI would provide additional characterization. 2010 [employer]- All Rights Reserved Assessment & Plan - Diagnosis (1) Radiation-induced esophagitis Is this a current diagnosis for this admission?: Yes Plan: Patient has been here for greater than 30 days he is on PEG tube feeding for suspected esophagitis from radiation. Encouraged p.o. diet-I have told him that having a PEG tube increases his chance of infection and he should try to eat more by mouth. He and his both understand but he still tells me that he cannot eat. (2) Lung cancer Qualifiers: Laterality: right Lung location: lower lobe of lung Qualified Code(s): C34.31 - Malignant neoplasm of lower lobe, right bronchus or lung Is this a current diagnosis for this admission?: Yes Plan: Patient has had 15 radiation treatments to the lung. His states they were initially considering surgery but because of his poor physical status at the time opted with radiation treatment. Treatment was done at the [facility] in [place]. His oncologist was from [place]. (3) GERD (gastroesophageal reflux disease) Qualifiers: Esophagitis presence: esophagitis presence not specified Qualified Code(s) : K21.9 - Gastro-esophageal reflux disease without esophagitis Is this a current diagnosis for this admission?: Yes (4) Acute renal failure Is this a current diagnosis for this admission?: Yes Plan: Resolved 11/29/17 01/03/18 08:40 04:48 Creatinine 1.33 H 0.45 L (5) COPD (chronic obstructive pulmonary disease) Qualifiers: COPD type: emphysema Is this a current diagnosis for this admission?: Yes Plan: The patient has been on steroids since admission. Will begin to taper. 12/31/17 10:00 Tiotropium [place] [Spiriva Handihaler 5 Cap/Kit (18 Mcg/Cap)] 1 cap IH DAILY 01/04/18 12:01 Ipratropium/Albuterol Sulfate [Duoneb 3 ml Ampul] 3 ml NEB [id number] PRN 01/05/18 10:00 Prednisone [Deltasone 20 mg Tablet] 30 mg PEG DAILY (6) Hypernatremia Is this a current diagnosis for this admission?: Yes Plan: Increase free water 01/01/18 01/02/18 01/03/18 04:08 04:12 04:48 Sodium 146.2 H 145.5 H 146.2 H (7) DM hyperosmolarity type II, uncontrolled Qualifiers: Diabetes mellitus exterminator termite insulin use: with correction use Diabetes mellitus complication detail: without coma Qualified Code(s): E11.00 - Type 2 diabetes mellitus with hyperosmolarity without nonketotic hyperglycemic- hyperosmolar coma (NKHHC); Z79.4 - intermediate school teacher (current) use of insulin; Z79.4 - intermediate school teacher (current) use of insulin; Z79.4 - alf (current) use of insulin; Z79.4 - intermediate school teacher (current) use of insulin Is this a current diagnosis for this admission?: Yes Plan: Insulin was increased yesterday. Will continue to monitor. Some improvement noted. 01/04/18 01/04/18 06:26 11:16 POC Glucose 223 H 171 H 12/29/17 08:00 Insulin Lispro [Humalog Insulin 100 Unit/1 ml 3 ml Vial] 6 unit SUBCUT AC 12/30/17 16:51 Insulin Lispro [Humalog Insulin 100 Unit/1 ml 3 ml Vial] 0 - 12 unit SUBCUT ACHSP PRN 01/03/18 10:00 Insulin Glargine,Hum.rec.anlog [Lantus Insulin Inj 300 Unit/3 ml Pen] 29 unit SUBCUT Q12 (8) Muscular deconditioning Is this a current diagnosis for this admission?: Yes Plan: Continue to encourage mobility. The patient is awaiting rehab placement. (9) Hypomagnesemia Is this a current diagnosis for this admission?: Yes Plan: Will continue to supplement. 12/14/17 10:00 Magnesium Oxide [Mag-Ox 400 mg Tablet] 400 mg PEG BID (10) Coronary atherosclerosis Qualifiers: Coronary Disease-Associated Artery/Lesion type: [place] artery [place] vs. transplanted heart: [place] heart Associated angina: without angina Qualified Code(s): I25.10 - Atherosclerotic heart disease of [place] coronary artery without angina pectoris Is this a current diagnosis for this admission?: Yes Plan: 12/21/17 18:00 Metoprolol Tartrate [Lopressor 25 mg Tablet] 12.5 mg PEG Q12A 12/21/17 22:00 Atorvastatin Calcium [Lipitor 80 mg Tablet] 80 mg PEG QHS 01/05/18 10:00 Aspirin [Ecotrin 81 mg EC Tablet] 81 mg PO DAILY (11) Hypokalemia Is this a current diagnosis for this admission?: Yes Plan: Resolved. 12/18/17 01/03/18 05:25 04:48 Potassium 3.0 L* 4.3 (12) Chronic pain disorder Is this a current diagnosis for this admission?: Yes Plan: Probably not ideal at this point as the patient's albumin is 2.5. However she and feel that they reach benefit with this patch. I am not going to change whether happy with at this point. 12/17/17 14:00 Fentanyl [Duragesic 50 Mcg/Hr Transdermal Patch] 1 each TD Q3D@1400 12/30/17 04:09 Albumin 2.5 L (13) Effusion, right knee Is this a current diagnosis for this admission?: Yes Plan: symptomatic management. (14) Constipation Qualifiers: Constipation type: unspecified constipation type Qualified Code(s): K59.00 - Constipation, unspecified Is this a current diagnosis for this admission?: Yes (15) History of prostate cancer Is this a current diagnosis for this admission?: Yes (16) DVT prophylaxis Is this a current diagnosis for this admission?: Yes (17) G tube feedings Is this a current diagnosis for this admission?: Yes Plan: In the exudate and redness will have surgery to come reevaluate this feeding tube. - Time Time Spent with patient: 35 or more minutes Medications reviewed and adjusted accordingly: Yes Anticipated discharge: SNF Within: when bed available - The [facility]. - Plan Summary Plan Summary: The patient is a full code. Pending patient's symptomatology and diagnostic findings will reevaluate in the a.m. patient can be discharged as soon as a rehab bed is available.
[2018-01-04] MEDS: NYSTATIN/DEXAMETH/DIPHEN SUSP 120 ML PO SCH ×2 (17:47→22:09)
[2018-01-04] MEDS: MULTIVITAMIN ORAL LIQUID 60 ML PO SCH (17:51)
[2018-01-04] MEDS: ATORVASTATIN CALCIUM 80 MG TABLET PEG SCH (22:08)
[2018-01-04] MEDS: MIRTAZAPINE 15 MG TABLET PEG SCH (22:09)
[2018-01-04] MEDS: INSULIN LISPRO 100 UNIT/ML 3 ML VIAL SUBCUT PRN (22:10)
[2018-01-04] MEDS: MELATONIN 5 MG TABLET PO SCH (22:10)
[2018-01-05 05:07] LABS: HEMATOCRIT 32.2 % (37.9-51.0); HEMOGLOBIN 10.8 g/dL (13.5-17.0); MEAN CORPUSCULAR HEMOGLOBIN 28.4 pg (27.0-33.4); MEAN CORPUSCULAR HGB CONC 33.5 g/dL (32.0-36.0); MEAN CORPUSCULAR VOLUME 85 fl (80-97); PLATELET COUNT 290 10^3/uL (150-450); WHITE BLOOD COUNT 5.1 10^3/uL (4.0-10.5)
[2018-01-05 05:30] LABS: ANION GAP 8 (5-19); BLOOD UREA NITROGEN 19 mg/dL (7-20); CALCIUM 8.5 mg/dL (8.4-10.2); CARBON DIOXIDE 28 mmol/L (22-30); CHLORIDE 110 mmol/L (98-107); GLUCOSE 236 mg/dL (75-110); POTASSIUM 3.9 mmol/L (3.6-5.0); SODIUM 145.6 mmol/L (137-145)
[2018-01-05] MEDS: LANSOPRAZOLE 30 MG TAB.RAP.DR PEG SCH ×2 (05:54→18:41)
[2018-01-05] MEDS: METOCLOPRAMIDE HCL 10 MG TABLET PEG SCH ×3 (05:54→22:36)
[2018-01-05] MEDS: METOPROLOL TARTRATE 25 MG TABLET PEG SCH ×2 (05:55→18:41)
[2018-01-05] MEDS: LACTULOSE SYRUP 20 GM/30 ML UDCUP PEG SCH ×4 (05:57→23:50)
[2018-01-05] MEDS: INSULIN LISPRO 100 UNIT/ML 3 ML VIAL SUBCUT SCH ×3 (08:26→18:41)
[2018-01-05] MEDS: MEGESTROL ACETATE SUSP 400 MG/10 ML UDCUP PEG SCH (10:47)
[2018-01-05] MEDS: ASPIRIN 81 MG TABLET, ENT COATED PO SCH (10:47)
[2018-01-05] MEDS: TIOTROPIUM BROMIDE DPI 5 CAP/KIT (18 MCG/CAP) IH SCH (10:47)
[2018-01-05] MEDS: PREDNISONE 20 MG TABLET PEG SCH (10:48)
[2018-01-05] MEDS: LACTOBACILLUS ACIDOPHILUS 250 MG TAB PEG SCH ×2 (10:51→18:41)
[2018-01-05] MEDS: DRONABINOL 2.5 MG CAPSULE PEG SCH ×2 (10:52→18:41)
[2018-01-05] MEDS: INSULIN GLARGINE,HUM.REC.ANLOG 300 UNIT/3 ML INSULN.PEN SUBCUT SCH ×2 (10:52→23:50)
[2018-01-05] MEDS: NYSTATIN/DEXAMETH/DIPHEN SUSP 120 ML PO SCH ×4 (10:52→22:37)
[2018-01-05] MEDS: MAGNESIUM OXIDE 400 MG TABLET PEG SCH ×2 (10:52→18:42)
[2018-01-05] MEDS: PHOSPHORUS #1 250 MG TABLET PEG SCH ×2 (10:52→22:37)
[2018-01-05] MEDS: INSULIN LISPRO 100 UNIT/ML 3 ML VIAL SUBCUT PRN ×2 (12:38→23:50)
--- NOTE | 2018-01-05 15:11 | PDOC PROGRESS REPORT ---
Subjective Progress Note for:: 01/05/18 Subjective:: No adverse events overnight. He has been having an increased amount of drainage from around his G-tube insertion site. He was fine this morning when I saw him, but a little while ago his nurse called from the floor said he was complaining of left lower quadrant abdominal pain. Vital signs have been stable. He apparently has been eating and drinking without difficulty, saying that he had a hot dog yesterday and part of a gyro. Reason For Visit: DKA Physical Exam Vital Signs: Temp Pulse Resp BP Pulse Ox 98.4 F 67 16 114/62 96 01/05/18 11:19 01/05/18 11:19 01/05/18 11:19 01/05/18 11:19 01/05/18 11:19 Intake & Output 01/04/18 01/05/18 01/06/18 06:59 06:59 06:59 Intake Total 2182 2206 237 Output Total 300 1600 400 Balance 1882 606 -163 Weight 61.3 kg 61.6 kg General appearance: PRESENT: no acute distress, disheveled, well-developed, well -nourished Respiratory exam: PRESENT: clear to auscultation elif. ABSENT: rales, rhonchi, wheezes Cardiovascular exam: PRESENT: RRR. ABSENT: diastolic murmur, rubs, systolic murmur GI/Abdominal exam: PRESENT: normal bowel sounds, soft, other - There is an extensive amount of leakage a what appears to be tube feeds around the G-tube insertion site, and he has numerous surgical scars on his abdomen. ABSENT: distended, guarding, mass, organolmegaly, rebound, tenderness Extremities exam: ABSENT: clubbing, pedal edema Neurological exam: PRESENT: alert, awake, oriented to person, oriented to place , oriented to time Results Laboratory Results: 01/05/18 04:27 01/05/18 04:27 01/05/18 01/05/18 04:27 04:27 WBC 5.1 RBC 3.80 L Hgb 10.8 L Hct 32.2 L MCV 85 MCH 28.4 MCHC 33.5 RDW 19.0 H Plt Count 290 Sodium 145.6 H Potassium 3.9 Chloride 110 H Carbon Dioxide 28 Anion Gap 8 BUN 19 Creatinine 0.49 L Est GFR ( Amer) > 60 Est GFR (Non-Af Amer) > 60 Glucose 236 H Calcium 8.5 Phosphorus 4.0 Magnesium 2.0 11/30/17 12/01/17 12/01/17 05:22 22:45 22:45 Creatine Kinase 30 L CK-MB (CK-2) 0.73 Troponin I 0.015 NT-Pro-B Natriuret Pep 386 12/02/17 12/02/17 12/02/17 04:47 04:47 10:36 Creatine Kinase 30 L 28 L CK-MB (CK-2) 0.53 Troponin I 0.016 NT-Pro-B Natriuret Pep 12/02/17 12/02/17 12/02/17 10:36 16:50 16:50 Creatine Kinase 35 L CK-MB (CK-2) 0.51 0.39 Troponin I 0.015 < 0.012 NT-Pro-B Natriuret Pep Impressions: Cervical Spine CT 11/29/17 08:28 IMPRESSION: No acute changes Head CT 11/29/17 08:28 IMPRESSION: No acute intracranial changes. Nasal bone fracture with trace fluid in the right maxillary sinus. EVIDENCE OF ACUTE STROKE: NO. Fluoroscopy 12/02/17 00:00 IMPRESSION: Unsuccessful Dobbhoff feeding tube placement. KUB X-Ray 12/08/17 00:00 IMPRESSION: Persistent constipation Acute Abdomen Series 12/10/17 00:00 IMPRESSION: Left basilar airspace disease atelectasis versus pneumonia Right subdiaphragmatic free air Distended stomach with air-fluid level. Tube Placement 12/10/17 00:00 IMPRESSION: Gastrostomy tube tip is outside the stomach, along the anterior abdominal wall. Chest X-Ray 12/11/17 00:00 IMPRESSION: PATCHY MULTIFOCAL AIRSPACE DISEASE ABOVE SUSPICIOUS FOR PNEUMONIA. RECOMMEND FOLLOWUP RADIOGRAPHS 4 TO 6 WEEKS TO ENSURE RESOLUTION. Chest/Abdomen CTA 12/12/17 00:00 IMPRESSION: UNREMARKABLE CTA CHEST WITHOUT PULMONARY EMBOLI. LEFT GREATER THAN RIGHT PLEURAL EFFUSIONS WITH BILATERAL LOWER LOBE AIRSPACE DISEASE COULD REPRESENT COMPRESSIVE ATELECTASIS OR SUPERIMPOSED PNEUMONIA. PARTIAL VISUALIZATION OF FREE ABDOMINAL FLUID, AIR, AND SURGICAL DRAIN PRESUMABLY RELATED TO RECENT SURGERY. DISTENDED GALLBLADDER. CORRELATE WITH SYMPTOMS. Knee X-Ray 12/21/17 00:00 IMPRESSION: 1. No definite acute fracture. 2. Large joint effusion. If there is concern for internal derangement MRI would provide additional characterization. 2010 [employer]- All Rights Reserved Assessment & Plan - Diagnosis (1) Acute renal failure Is this a current diagnosis for this admission?: Yes Plan: Resolved (2) Dislodged gastrostomy tube Is this a current diagnosis for this admission?: Yes Plan: This is been replaced he has been getting tube feeds through the tube. We will consult dietary to see if he still needs the tube feeds going if he is able to eat. Because of the pain in his belly around the area of the G-tube and all the leakage is been having, we decided to send him for a CT scan of his abdomen with IV and oral contrast. (3) Radiation-induced esophagitis Is this a current diagnosis for this admission?: Yes Plan: Doing well symptomatically at this time, seemingly able to swallow regular food without any problems. (4) Muscular deconditioning Is this a current diagnosis for this admission?: Yes Plan: [facility] - Time Time Spent with patient: 25-34 minutes Medications reviewed and adjusted accordingly: Yes
[2018-01-05] MEDS ORDERED: OXYCODONE-ACETAMINOPHEN 5-325 MG TABLET PO ONE (15:30)
--- NOTE | 2018-01-05 18:33 | RADIOLOGY REPORT (SQ) ---
EXAM DESCRIPTION: CT ABD/PELVIS WITH IV ORAL COMPLETED DATE/TIME: 01/05/2018 6:15 pm REASON FOR STUDY: LLQ abdominal pain, increased G-tube drainage/leak COMPARISON: None. TECHNIQUE: CT scan of the abdomen and pelvis performed using helical scanning technique with dynamic intravenous contrast injection. Oral contrast. Images reviewed with lung, soft tissue, and bone win dows. Reconstructed coronal and sagittal MPR images reviewed. Delayed images for evaluation of the ur inary system also acquired. All images stored on PACS. All CT scanners at this facility use dose modulation, iterative reconstruction, and/or weight based d osing when appropriate to reduce radiation dose to as low as reasonably achievable (ALARA). [facility]: Dose Right [facility]: CareDose [facility]: Dose Right [facility]: Teradose 4D [facility]: [employer] CONTRAST TYPE AND DOSE: contrast/concentration: Isovue 370.00 mg/ml; Total Contrast Delivered: 66.0 ml; Total Saline Delivered: 50.0 ml RENAL FUNCTION: BUN 19 creatinine 0.5 RADIATION DOSE: CT Rad equipment meets quality standard of care and radiation dose reduction techniq ues were employed. CTDIvol: 6.4 - 8.8 mGy. DLP: 855 mGy-cm.. LIMITATIONS: None. FINDINGS: LOWER CHEST: Small left pleural effusion. Mild opacification in the right lower lobe post eriorly. Scattered air bronchograms are present. LIVER: Normal size. No masses. No dilated ducts. SPLEEN: Normal size. No focal lesions. PANCREAS: No masses. No significant calcifications. No adjacent inflammation or peripancreatic fluid collections. Pancreatic duct not dilated. GALLBLADDER: Contracted. No stones. ADRENAL GLANDS: No significant masses or asymmetry. RIGHT KIDNEY AND URETER: No solid masses. No significant calcifications. No hydronephrosis or hyd roureter. LEFT KIDNEY AND URETER: No solid masses. No significant calcifications. No hydronephrosis or hydr oureter. AORTA AND VESSELS: No aneurysm. No dissection. Atherosclerosis. RETROPERITONEUM: No retroperitoneal adenopathy, hemorrhage or masses. BOWEL AND PERITONEAL CAVITY: A gastrostomy tube is present. The stomach is distended. Contrast is p resent throughout the small bowel. No bowel masses are seen. APPENDIX: Not identified. PELVIS: No mass. No free fluid. Normal bladder. ABDOMINAL WALL: There is air in the anterior abdominal wall on the left. See images 25 through 35. There may be a small amount of fluid present. BONES: No significant or acute findings. OTHER: No other significant finding. IMPRESSION: 1. Small left pleural effusion. Cannot exclude mild airspace disease in the right lowe r lobe. 2. The stomach is distended. Contrast is present throughout the small bowel. 3. There is air in the anterior abdominal wall the left likely relating to the gastrostomy tube. Th ere may be some fluid in the anterior abdominal wall as well. Infection cannot be excluded. TECHNICAL DOCUMENTATION: JOB ID: [id number] Quality ID # [id number]: Final reports with documentation of one or more dose reduction techniques (e.g., Au tomated exposure control, adjustment of the mA and/or kV according to patient size, use of iterative reconstruction technique) 2010 [employer]- All Rights Reserved Reading location - IP/workstation name: [email or web address]
[2018-01-05] MEDS: MULTIVITAMIN ORAL LIQUID 60 ML PO SCH (18:42)
[2018-01-05] MEDS: MIRTAZAPINE 15 MG TABLET PEG SCH (22:36)
[2018-01-05] MEDS: MELATONIN 5 MG TABLET PO SCH (22:36)
[2018-01-05] MEDS: ATORVASTATIN CALCIUM 80 MG TABLET PEG SCH (22:36)
[2018-01-06] MEDS: LACTULOSE SYRUP 20 GM/30 ML UDCUP PEG SCH ×3 (05:51→17:50)
[2018-01-06] MEDS: METOCLOPRAMIDE HCL 10 MG TABLET PEG SCH ×2 (05:57→13:30)
[2018-01-06] MEDS: LANSOPRAZOLE 30 MG TAB.RAP.DR PEG SCH ×2 (05:57→17:49)
[2018-01-06] MEDS: METOPROLOL TARTRATE 25 MG TABLET PEG SCH ×2 (05:57→17:55)
[2018-01-06] MEDS: INSULIN LISPRO 100 UNIT/ML 3 ML VIAL SUBCUT SCH ×3 (09:39→17:51)
[2018-01-06] MEDS: INSULIN LISPRO 100 UNIT/ML 3 ML VIAL SUBCUT PRN ×3 (09:40→17:52)
[2018-01-06] MEDS: INSULIN GLARGINE,HUM.REC.ANLOG 300 UNIT/3 ML INSULN.PEN SUBCUT SCH (09:40)
[2018-01-06] MEDS: PREDNISONE 20 MG TABLET PEG SCH (09:41)
[2018-01-06] MEDS: ASPIRIN 81 MG TABLET, ENT COATED PO SCH (09:41)
[2018-01-06] MEDS: LACTOBACILLUS ACIDOPHILUS 250 MG TAB PEG SCH ×2 (09:41→17:50)
[2018-01-06] MEDS: MAGNESIUM OXIDE 400 MG TABLET PEG SCH ×2 (09:41→17:50)
[2018-01-06] MEDS: TIOTROPIUM BROMIDE DPI 5 CAP/KIT (18 MCG/CAP) IH SCH (09:41)
[2018-01-06] MEDS: MEGESTROL ACETATE SUSP 400 MG/10 ML UDCUP PEG SCH (09:41)
[2018-01-06] MEDS: PHOSPHORUS #1 250 MG TABLET PEG SCH (09:41)
[2018-01-06] MEDS: DRONABINOL 2.5 MG CAPSULE PEG SCH ×2 (09:41→17:43)
[2018-01-06] MEDS: NYSTATIN/DEXAMETH/DIPHEN SUSP 120 ML PO SCH ×3 (09:42→17:52)
[2018-01-06 16:09] VITALS: BP 91/49
--- NOTE | 2018-01-06 17:22 | PDOC TRANSFER SUMMARY ---
General - Admit/Disc Date/PCP Admission Date/Primary Care Provider: 11/29/17 10:19 HELDER GUAN Discharge Date: 01/06/18 - Discharge Diagnosis (1) Acute renal failure Is this a current diagnosis for this admission?: Yes Summary: Resolved with IV fluids (2) Dislodged gastrostomy tube Is this a current diagnosis for this admission?: Yes Summary: Resolved. New tube has been placed and is functioning normally. Now he is eating and drinking pretty normally and so the tube will only be used as needed. (3) Radiation-induced esophagitis Is this a current diagnosis for this admission?: Yes Summary: Symptoms seem to have resolved and he has been eating and drinking normally. (4) Muscular deconditioning Is this a current diagnosis for this admission?: Yes Summary: This was a chronic problem for him. Now that he is eating better he may respond better to physical therapy. We may try to do some work with him here in the hospital but he still needs more therapy before he can go home, if he can go home at all. - Additional Information Resuscitation Status: Full Code Discharge Diet: Diabetic Discharge Activity: Supervised Activity Prescriptions: Prednisone [Sterapred Ds] 10 mg PO DAILY #42 tab.ds.pk Home Medications: Ascorbic Acid [Vitamin C 500 mg Tablet] 500 mg PO DAILY 11/29/17 Aspirin [Aspirin EC] 81 mg PO DAILY 11/29/17 Atorvastatin Calcium [Lipitor 80 mg Tablet] 80 mg PO QHS 11/29/17 Ferrous Sulfate 324 mg PO DAILY 11/29/17 Metformin HCl [Metformin HCl ER] 1,000 mg PO BID 11/29/17 [place]-3/Dha/Epa/Fish Oil [Fish Oil 1,000 mg Softgel] 4 cap PO BID 11/29/17 Ondansetron HCl [Zofran] 8 mg PO BIDP PRN 11/29/17 Fentanyl [Duragesic 50 Mcg/Hr Transdermal Patch] 1 each TD Q3D@1400 patch.td72 01/06/18 Insulin Glargine,Hum.rec.anlog [Lantus Insulin 100 Unit/mL] 29 unit SUBCUT Q12 insuln.pen 01/06/18 Insulin Lispro [Humalog Insulin (Lispro) 100 unit/mL] 0 - 12 unit SUBCUT ACHSP PRN unit 01/06/18 Insulin Lispro [Humalog Insulin (Lispro) 100 unit/mL] 6 unit SUBCUT AC unit Megestrol Acetate [Megace Trena 400 mg/10 ml Udcup] 800 mg PEG DAILY udc Melatonin [Melatonin 5 mg Tablet] 5 mg PO QHS tablet 01/06/18 Metoclopramide HCl [Reglan 10 mg Tablet] 5 mg PEG Q8 tablet 01/06/18 Metoprolol Tartrate [Lopressor 25 mg Tablet] 12.5 mg PEG Q12A tablet 01/06/18 Mirtazapine [Remeron 15 mg Tablet] 15 mg PEG QHS tablet 01/06/18 Multivitamin [Multiple Vitamin Liquid 60 ml] 5 ml PO WSUPPER ml 01/06/18 Prednisone [Sterapred Ds] 10 mg PO DAILY #42 tab.ds.pk 01/06/18 Tiotropium [place] [Spiriva Handihaler 5 Cap/Kit (18 Mcg/Cap)] 1 cap IH DAILY kit 01/06/18 History of Present Illness Admission Date/PCP: 11/29/17 10:19 HELDER GUAN History of Present Illness: David Valerio is a 67-year-old male with a history of radiation-induced esophagitis who was getting tube feeds because he was having so much trouble swallowing. He was brought into the hospital because the tube did come out and needed to be replaced. He was also found to have some dehydration and acute kidney injury and required some electrolyte replacement as well as some IV fluids. Hospital Course Hospital Course: DAVID VALERIO is a 67 year old male with a history of radiation-induced esophagitis due to radiation treatments for his lung cancer he had a PEG tube in place and was on tube feeds. The tube had come out and had to be replaced. It had been functioning normally but has had a little bit of leakage around it but has otherwise been working well. He also had an acute kidney injury that responded to fluids. He has COPD and he had been put on steroids and seemed like he was on them for a very long time and so we got him on a long taper after he leaves the hospital. His has not been able to take care of him at home because he cannot ambulate without assistance and he has a lot of problems with transfers due to his weakness and deconditioning. He has been here for many many days awaiting [facility] We got [facility] for him today and we had a bed for him. He is actually been eating regular food without difficulty. Dietary recommended that if he was going to eat less than half of the food that was brought to him that he should have a can of Glucerna with that meal. His labs and exam were reassuring and he is being discharged today in good condition. Physical Exam Vital Signs: Temp Pulse Resp BP Pulse Ox 99.4 F 77 20 91/49 L 98 01/06/18 15:25 01/06/18 15:25 01/06/18 15:25 01/06/18 15:25 01/06/18 15:25 Intake & Output 01/05/18 01/06/18 01/07/18 06:59 06:59 06:59 Intake Total 2206 2515 363 Output Total 1600 800 225 Balance 606 1715 138 Weight 61.6 kg 61.1 kg General appearance: PRESENT: no acute distress, disheveled, thin, well-developed Head exam: PRESENT: atraumatic, normocephalic Respiratory exam: PRESENT: clear to auscultation elif. ABSENT: rales, rhonchi, wheezes Cardiovascular exam: PRESENT: RRR. ABSENT: diastolic murmur, rubs, systolic murmur GI/Abdominal exam: PRESENT: normal bowel sounds, soft, other - PEG tube site is unremarkable. ABSENT: distended, guarding, mass, organolmegaly, rebound, tenderness Extremities exam: PRESENT: other - He is got a lot of muscle wasting in his extremities. ABSENT: clubbing, pedal edema Musculoskeletal exam: PRESENT: normal inspection - He is thinning sort of bony but otherwise his musculoskeletal exam is unremarkable. ABSENT: deformity Neurological exam: PRESENT: alert, awake, oriented to person, oriented to place , oriented to time Skin exam: PRESENT: dry, warm Results Laboratory Results: 01/05/18 04:27 01/05/18 04:27 11/30/17 12/01/17 12/01/17 05:22 22:45 22:45 Creatine Kinase 30 L CK-MB (CK-2) 0.73 Troponin I 0.015 NT-Pro-B Natriuret Pep 386 12/02/17 12/02/17 12/02/17 04:47 04:47 10:36 Creatine Kinase 30 L 28 L CK-MB (CK-2) 0.53 Troponin I 0.016 NT-Pro-B Natriuret Pep 12/02/17 12/02/17 12/02/17 10:36 16:50 16:50 Creatine Kinase 35 L CK-MB (CK-2) 0.51 0.39 Troponin I 0.015 < 0.012 NT-Pro-B Natriuret Pep Impressions: Cervical Spine CT 11/29/17 08:28 IMPRESSION: No acute changes Head CT 11/29/17 08:28 IMPRESSION: No acute intracranial changes. Nasal bone fracture with trace fluid in the right maxillary sinus. EVIDENCE OF ACUTE STROKE: NO. Fluoroscopy 12/02/17 00:00 IMPRESSION: Unsuccessful Dobbhoff feeding tube placement. KUB X-Ray 12/08/17 00:00 IMPRESSION: Persistent constipation Acute Abdomen Series 12/10/17 00:00 IMPRESSION: Left basilar airspace disease atelectasis versus pneumonia Right subdiaphragmatic free air Distended stomach with air-fluid level. Tube Placement 12/10/17 00:00 IMPRESSION: Gastrostomy tube tip is outside the stomach, along the anterior abdominal wall. Chest X-Ray 12/11/17 00:00 IMPRESSION: PATCHY MULTIFOCAL AIRSPACE DISEASE ABOVE SUSPICIOUS FOR PNEUMONIA. RECOMMEND FOLLOWUP RADIOGRAPHS 4 TO 6 WEEKS TO ENSURE RESOLUTION. Chest/Abdomen CTA 12/12/17 00:00 IMPRESSION: UNREMARKABLE CTA CHEST WITHOUT PULMONARY EMBOLI. LEFT GREATER THAN RIGHT PLEURAL EFFUSIONS WITH BILATERAL LOWER LOBE AIRSPACE DISEASE COULD REPRESENT COMPRESSIVE ATELECTASIS OR SUPERIMPOSED PNEUMONIA. PARTIAL VISUALIZATION OF FREE ABDOMINAL FLUID, AIR, AND SURGICAL DRAIN PRESUMABLY RELATED TO RECENT SURGERY. DISTENDED GALLBLADDER. CORRELATE WITH SYMPTOMS. Knee X-Ray 12/21/17 00:00 IMPRESSION: 1. No definite acute fracture. 2. Large joint effusion. If there is concern for internal derangement MRI would provide additional characterization. 2010 [employer]- All Rights Reserved Abdomen/Pelvis CT 01/05/18 00:00 IMPRESSION: 1. Small left pleural effusion. Cannot exclude mild airspace disease in the right lower lobe. 2. The stomach is distended. Contrast is present throughout the small bowel. 3. There is air in the anterior abdominal wall the left likely relating to the gastrostomy tube. There may be some fluid in the anterior abdominal wall as well. Infection cannot be excluded. Transfer Plan - Disposition Transfer Plan: He is being transferred to a local [facility] for [facility] care - Time Spent with Patient Time spent with patient: Greater than 30 Minutes Qualifiers - * PATIENT BEING DISCHARGED WITH ANY OF THE FOLLOWING DIAGNOSIS: No Plan Discharge Plan: Transfer to local [facility] facility for long-term care Time Spent: Greater than 30 Minutes
[2018-01-06] MEDS: MULTIVITAMIN ORAL LIQUID 60 ML PO SCH (17:50)
== END 2018-01-06 18:30 | DRG 981 ==
LOC: ER 08:10 → EH 10:19 → ICU 15:00 → 3S 12-01 13:14 → ICU 12-10 14:23 → 3N 12-14 20:22
PROVIDERS: ADMIT Internal Medicine; ATTEND Internal Medicine
PROC: 3E0F73Z Introduction of Anti-inflammatory into Respiratory Tract, Via Natural or Artificial Opening (ICD-10-PCS; 2017-11-29)
PROC: 0DB68ZX Excision of Stomach, Via Natural or Artificial Opening Endoscopic, Diagnostic (ICD-10-PCS; 2017-12-01)
PROC: 0DH60UZ Insertion of Feeding Device into Stomach, Open Approach (ICD-10-PCS; 2017-12-03)
PROC: 3E0G76Z Introduction of Nutritional Substance into Upper GI, Via Natural or Artificial Opening (ICD-10-PCS; 2017-12-03)
PROC: 0DH63UZ Insertion of Feeding Device into Stomach, Percutaneous Approach (ICD-10-PCS; 2017-12-10)
PROC: 0DP Gastrointestinal System, Removal (ICD-10-PCS; principal; 2017-12-10 11:00)
PROC: 0S9C4ZX Drainage of Right Knee Joint, Percutaneous Endoscopic Approach, Diagnostic (ICD-10-PCS; 2017-12-21)
DX: E11.10 Type 2 diabetes mellitus with ketoacidosis without coma (principal); J69.0 Pneumonitis due to inhalation of food and vomit; Z43.1 Encounter for attention to gastrostomy; N17.9 Acute kidney failure, unspecified; K22.10 Ulcer of esophagus without bleeding; C34.31 Malignant neoplasm of lower lobe, right bronchus or lung; E87.0 Hyperosmolality and hypernatremia; E44.0 Moderate protein-calorie malnutrition; Z68.1 Body mass index [BMI] 19.9 or less, adult; Z66 Do not resuscitate; E86.0 Dehydration; K59.09 Other constipation; T50.8X5A Adverse effect of diagnostic agents, initial encounter; I25.10 Atherosclerotic heart disease of native coronary artery without angina pectoris; E78.00 Pure hypercholesterolemia, unspecified; I10 Essential (primary) hypertension; K44.9 Diaphragmatic hernia without obstruction or gangrene; M25.461 Effusion, right knee; S02.2XXA Fracture of nasal bones, initial encounter for closed fracture; W01.190A Fall on same level from slipping, tripping and stumbling with subsequent striking against furniture, initial encounter; E83.39 Other disorders of phosphorus metabolism; E87.5 Hyperkalemia; E83.52 Hypercalcemia; K21.0 Gastro-esophageal reflux disease with esophagitis; K29.70 Gastritis, unspecified, without bleeding; K29.80 Duodenitis without bleeding; J43.9 Emphysema, unspecified; G89.29 Other chronic pain; M54.9 Dorsalgia, unspecified; G43.A1 Cyclical vomiting, in migraine, intractable; R00.0 Tachycardia, unspecified; E83.42 Hypomagnesemia; I25.2 Old myocardial infarction; Z79.4 Long term (current) use of insulin; Z92.3 Personal history of irradiation; Z79.899 Other long term (current) drug therapy; Z85.46 Personal history of malignant neoplasm of prostate; Z95.1 Presence of aortocoronary bypass graft; Z95.5 Presence of coronary angioplasty implant and graft; Z90.79 Acquired absence of other genital organ(s); Z87.891 Personal history of nicotine dependence; Z79.82 Long term (current) use of aspirin; Z83.3 Family history of diabetes mellitus
CPT/HCPCS: 00731; 00790; 36415; 36600; 43239; 49465; 70450; 71045; 71046; 71275; 72125; 74018; 74022; 74177; 74249; 76000; 80048; 80053; 80061; 80069; 81001; 82550; 82553; 82803; 82945; 82962; 83036; 83540; 83690; 83735; 83880; 84100; 84134; 84157; 84443; 84484; 84550; 85025; 85027; 85610; 85730; 86850; 86900; 86901; 87040; 87070; 87075; 87086; 87205; 87493; 88305; 88342; 89050; 89060; 93005; 93010; 94640; 99291; A9270-GY; G8978-GP; G8979-GP; G8996-GN; G8997-GN; G8998-GN; J0131; J0171; J0330; J0690; J1100; J1170; J1200; J1610; J1650; J1815; J1940; J2250; J2270; J2310; J2370; J2405; J2543; J2704; J2765; J3010; J3475; J3480; J3490; J7030; J7060; J7512; J7620; S0164; S0183

== ENCOUNTER 2018-01-14 21:46 | Emergency (ER) | payer OTHER ==
[2018-01-14] MEDS ORDERED: CEPHALEXIN 500 MG CAPSULE PO ONE (23:37)
--- NOTE | 2018-01-14 23:42 | ER Document Report ---
ED General - General Chief Complaint: Abdominal Pain Stated Complaint: G TUBE ISSUE Time Seen by Provider: 01/14/18 22:25 Mode of Arrival: Ambulatory Information source: Patient Notes: 67-year-old male patient presenting with chief complaint of request to have his G-tube removed. Patient reports that the tube was initially placed on December 03 and subsequently replaced approximately 6 days later for dislodgment. Patient reports that he was initially utilizing the G-tube for a lack of appetite and severe gastritis during radiation treatment for lung cancer. Patient reports that he has not used the PEG tube in approximately 10-14 days and is able to tolerate p.o. intake at this point in time. Patient reports that the G-tube has redness and drainage coming from it. Patient denies any fevers. Patient reports that he saw his doctor today at the [facility] who recommended that he come to the emergency room to have the G-tube removed. TRAVEL OUTSIDE OF THE [place] IN LAST 30 DAYS: No - Related Data Allergies/Adverse Reactions: No Known Allergies Allergy (Verified 10/09/14 17:04) Past Medical History - General Information source: Patient - Social History Smoking Status: Former Smoker Frequency of alcohol use: None Drug Abuse: None Family History: Reviewed & Not Pertinent Patient has suicidal ideation: No Patient has homicidal ideation: No - Past Medical History Cardiac Medical History: Reports: Hx Coronary Artery Disease, Hx Heart Attack, Hx Hypercholesterolemia, Hx Hypertension Neurological Medical History: Denies: Hx Seizures Endocrine Medical History: Reports: Hx Diabetes Mellitus Type 2 Renal/ Medical History: Denies: Hx Peritoneal Dialysis Malignancy Medical History: Reports Hx Lung Cancer, Reports Hx Prostate Cancer - Prostatectomy, recent recurrence, was on hormone therapy, it was stopped. GI Medical History: Reports: Hx Gastroesophageal Reflux Disease, Hx Hiatal Hernia Past Surgical History: Reports: Hx Cardiac Catheterization - stent x 3, Hx Coronary Artery Bypass Graft, Hx Coronary Stent - x3, Hx Genitourinary Surgery - Prostatectomy, Hx Orthopedic Surgery - left hip, left shoulder, Hx Tonsillectomy, Other - Prostatectomy - Immunizations Hx Pneumococcal Vaccination: 05/12/14 Review of Systems - Review of Systems Constitutional: No symptoms reported EENT: No symptoms reported Cardiovascular: No symptoms reported Respiratory: No symptoms reported Gastrointestinal: Other - Purulent drainage around G-tube site to left upper quadrant of abdomen. Genitourinary: No symptoms reported Male Genitourinary: No symptoms reported Musculoskeletal: No symptoms reported Skin: No symptoms reported Hematologic/Lymphatic: No symptoms reported Neurological/Psychological: No symptoms reported Physical Exam - Vital signs Vitals: Temp Pulse Resp BP Pulse Ox 98.9 F 83 20 103/58 L 97 01/14/18 22:13 01/14/18 22:13 01/14/18 22:13 01/14/18 22:13 01/14/18 22:13 - Notes Notes: PHYSICAL EXAMINATION: GENERAL: Well-appearing, well-nourished and in no acute distress. HEAD: Atraumatic, normocephalic. EYES: Pupils equal round and reactive to light, extraocular movements intact, sclera anicteric, conjunctiva are normal. ENT: Nares patent, oropharynx clear without exudates. Moist mucous membranes. NECK: Normal range of motion, supple without lymphadenopathy LUNGS: Breath sounds clear to auscultation bilaterally and equal. No wheezes rales or rhonchi. HEART: Regular rate and rhythm without murmurs ABDOMEN: Soft, nontender, nondistended abdomen. No guarding, no rebound. No masses appreciated. Gastric tube to left upper quadrant, erythema around site, purulent drainage noted. Musculoskeletal: Normal range of motion, no pitting or edema. No cyanosis. NEUROLOGICAL: Cranial nerves grossly intact. Normal speech, normal gait. Normal sensory, motor exams PSYCH: Normal mood, normal affect. SKIN: Warm, Dry, normal turgor, no rashes or lesions noted. Course - Re-evaluation Re-evalutation: 59-year-old male patient presents with infection around his gastric tube. Patient reports that he has not been using the tube for the last 10-14 days as he is now able to tolerate oral intake. Patient reports that he was seen at his primary doctor at the [facility] who told him that it was probably best that either a surgeon or an emergency room remove the tube. There is erythema at the site of insertion and there is purulent drainage noted. I discussed the case with Dr. Young, attending physician in the emergency department who recommended that I remove the gastric tube in place the patient on antibiotics. Gastric tube removed without complications. Patient tolerated procedure well. Occlusive dressing utilizing Xeroform was placed and covered by an ABD pad. Patient will keep this dressing in place for the next 2 days unless he leaks through at which point patient's was given wound care instructions. Patient has a follow-up appointment with his primary care provider on Wednesday. Patient encouraged to keep this appointment so that he can have a wound recheck done. Patient and are in agreement with this plan of care. Patient will be discharged in stable condition. - Vital Signs Vital signs: Temp Pulse Resp BP Pulse Ox 98.9 F 76 16 133/71 H 98 01/14/18 23:45 01/14/18 23:45 01/14/18 23:45 01/14/18 23:45 01/14/18 23:45 Discharge - Discharge Clinical Impression: Infection of stoma of digestive tract Condition: Stable Disposition: HOME, SELF-CARE Additional Instructions: The area around your gastric tube insertion site appears to be infected. We have removed the gastric tube today per your request as you have stated that it is no longer used. An occlusive dressing was placed, please leave this dressing in place until you follow-up with your primary care provider Wednesday. Please take the antibiotics as prescribed. Please take ibuprofen as needed for pain. Please keep your follow-up appointment that you have scheduled for Wednesday , January 17 with your primary care doctor. Prescriptions: Cephalexin Monohydrate [Keflex 500 mg Capsule] 500 mg PO Q6H 5 Days #20 capsule Referrals: DARCI DELGADO PA [Primary Care Provider] - Follow up as needed
[2018-01-15 00:31] VITALS: BP 133/71
== END 2018-01-14 23:51 | disposition home or self-care (01) ==
LOC: ER 21:46
DX: K94.22 Gastrostomy infection (principal); Y83.3 Surgical operation with formation of external stoma as the cause of abnormal reaction of the patient, or of later complication, without mention of misadventure at the time of the procedure; I25.10 Atherosclerotic heart disease of native coronary artery without angina pectoris; E78.00 Pure hypercholesterolemia, unspecified; E11.9 Type 2 diabetes mellitus without complications; I10 Essential (primary) hypertension; I25.2 Old myocardial infarction
CPT/HCPCS: 99284

== ENCOUNTER → 2018-09-16 | Outpatient (CLI) | payer OTHER ==
[2018-09-16 12:44] LABS: ABSOLUTE EOSINOPHILS # (AUTO) 0.1 10^3/uL (0.0-0.6); ABSOLUTE LYMPHOCYTES (AUTO) 1.3 10^3/uL (0.5-4.7); ABSOLUTE MONOCYTES (AUTO) 0.4 10^3/uL (0.1-1.4); ABSOLUTE NEUT (AUTO) 4.2 10^3/uL (1.7-8.2); BASOPHILS % (AUTO) 0.7 % (0-2); EOSINOPHILS % (AUTO) 2.2 % (0-6); HEMATOCRIT 35.9 % (37.9-51.0); HEMOGLOBIN 12.4 g/dL (13.5-17.0); LYMPHOCYTES % (AUTO) 21.5 % (13-45); MEAN CORPUSCULAR HGB CONC 34.5 g/dL (32.0-36.0); MEAN CORPUSCULAR VOLUME 81 fl (80-97); PLATELET COUNT 206 10^3/uL (150-450); RED BLOOD COUNT 4.44 10^6/uL (4.35-5.55); RED CELL DISTRIBUTION WIDTH 16.3 % (11.5-14.0); SEGMENTED NEUTROPHILS % (AUTO) 69.6 % (42-78); TOTAL CELLS COUNTED % (AUTO) 100 %
[2018-09-16 13:10] LABS: ALANINE AMINOTRANSFERASE 18 U/L (21-72); ALBUMIN 4.1 g/dL (3.5-5.0); ALKALINE PHOSPHATASE 84 U/L (38-126); ANION GAP 8 (5-19); ASPARTATE AMINO TRANSFERASE 17 U/L (17-59); BILIRUBIN,DIRECT 0.2 mg/dL (0.0-0.4); BILIRUBIN,TOTAL 0.4 mg/dL (0.2-1.3); BLOOD UREA NITROGEN 12 mg/dL (7-20); CALCIUM 9.8 mg/dL (8.4-10.2); CARBON DIOXIDE 30 mmol/L (22-30); CHLORIDE 104 mmol/L (98-107); GLUCOSE 158 mg/dL (75-110); POTASSIUM 4.2 mmol/L (3.6-5.0); SODIUM 141.5 mmol/L (137-145)
[2018-09-16 13:12] LABS: C-REACTIVE PROTEIN < 5.0 mg/L (<10.0)
[2018-09-16 13:22] LABS: ERYTHROCYTE SEDIMENTATION RATE 22 mm/hr (0-20)
== END ==
LOC: WC 11:43
PROVIDERS: ATTEND Surgery
DX: T81.31XA Disruption of external operation (surgical) wound, not elsewhere classified, initial encounter (principal); E11.622 Type 2 diabetes mellitus with other skin ulcer
CPT/HCPCS: 36415; 80053; 85025; 85652; 86140

== ENCOUNTER → 2018-11-18 | Outpatient (CLI) | payer OTHER ==
[2018-11-18 12:32] LABS: ABSOLUTE EOSINOPHILS # (AUTO) 0.1 10^3/uL (0.0-0.6); ABSOLUTE LYMPHOCYTES (AUTO) 1.5 10^3/uL (0.5-4.7); ABSOLUTE MONOCYTES (AUTO) 0.3 10^3/uL (0.1-1.4); ABSOLUTE NEUT (AUTO) 4.3 10^3/uL (1.7-8.2); BASOPHILS % (AUTO) 0.5 % (0-2); EOSINOPHILS % (AUTO) 2.3 % (0-6); HEMATOCRIT 36.1 % (37.9-51.0); HEMOGLOBIN 12.2 g/dL (13.5-17.0); LYMPHOCYTES % (AUTO) 23.6 % (13-45); MEAN CORPUSCULAR HEMOGLOBIN 27.4 pg (27.0-33.4); MEAN CORPUSCULAR HGB CONC 33.9 g/dL (32.0-36.0); MEAN CORPUSCULAR VOLUME 81 fl (80-97); MONOCYTES % (AUTO) 5.3 % (3-13); PLATELET COUNT 241 10^3/uL (150-450); RED BLOOD COUNT 4.46 10^6/uL (4.35-5.55); RED CELL DISTRIBUTION WIDTH 15.6 % (11.5-14.0); SEGMENTED NEUTROPHILS % (AUTO) 68.3 % (42-78); TOTAL CELLS COUNTED % (AUTO) 100 %; WHITE BLOOD COUNT 6.3 10^3/uL (4.0-10.5)
[2018-11-18 12:53] LABS: BLOOD UREA NITROGEN 13 mg/dL (7-20); CALCIUM 10.3 mg/dL (8.4-10.2); GLUCOSE 142 mg/dL (75-110); POTASSIUM 4.2 mmol/L (3.6-5.0)
[2018-11-18 12:54] LABS: ALANINE AMINOTRANSFERASE 17 U/L (21-72); ALBUMIN 3.8 g/dL (3.5-5.0); ALKALINE PHOSPHATASE 73 U/L (38-126); ANION GAP 10 (5-19); ASPARTATE AMINO TRANSFERASE 16 U/L (17-59); BILIRUBIN,DIRECT 0.2 mg/dL (0.0-0.4); BILIRUBIN,TOTAL 0.3 mg/dL (0.2-1.3); C-REACTIVE PROTEIN 6.5 mg/L (<10.0); CARBON DIOXIDE 29 mmol/L (22-30); CHLORIDE 104 mmol/L (98-107); SODIUM 143.1 mmol/L (137-145); TOTAL PROTEIN 6.9 g/dL (6.3-8.2)
[2018-11-18 13:09] LABS: ERYTHROCYTE SEDIMENTATION RATE 33 mm/hr (0-20)
== END ==
LOC: OD 11:44
PROVIDERS: ATTEND Surgery
DX: S31.101D Unspecified open wound of abdominal wall, left upper quadrant without penetration into peritoneal cavity, subsequent encounter (principal); X58.XXXD Exposure to other specified factors, subsequent encounter
CPT/HCPCS: 36415; 80053; 85025; 85652; 86140

== ENCOUNTER → 2019-03-02 | Outpatient (CLI) | payer OTHER ==
--- NOTE | 2019-03-02 14:44 | RADIOLOGY REPORT (SQ) ---
EXAM DESCRIPTION: CT ABDOMEN WITH IV ORAL CONT COMPLETED DATE/TIME: 03/02/2019 2:07 pm REASON FOR STUDY: (S31.101D)UNSP OPN WND ABD WALL, L UPR Q W/O PENET PERIT CAV, SUBS S31.101D UNSP OPN WND ABD WALL, L UPR Q W/O PENET PERIT CAV, COMPARISON: CT abdomen pelvis, 01/05/2018, CT chest, 12/12/2017 TECHNIQUE: CT scan of the abdomen performed with intravenous and with oral contrast using helical sc anning technique with dynamic intravenous contrast injection. Additional Gastrografin contrast was i njected percutaneously into a fistula tract about the left upper quadrant. Images reviewed with lung , soft tissue, and bone windows. Reconstructed coronal and sagittal MPR images reviewed. Delayed imag es for evaluation of the urinary system also acquired and evaluated. All images stored on PACS. All CT scanners at this facility use dose modulation, iterative reconstruc tion, and/or weight based dosing when appropriate to reduce radiation dose to as low as reasonably ac hievable (ALARA). [facility]: Dose Right [facility]: CareDose [facility]: Dose Right [facility]: Teradose 4D [facility]: [facility] CONTRAST TYPE AND DOSE: contrast/concentration: Isovue 350.00 mg/ml; Total Contrast Delivered: 80.0 ml; Total Saline Delivered: 68.0 ml RENAL FUNCTION: GFR > 60. RADIATION DOSE: CT Rad equipment meets quality standard of care and radiation dose reduction techniq ues were employed. CTDIvol: 5.1 - 5.7 mGy. DLP: 386 mGy-cm. . LIMITATIONS: None. FINDINGS: LOWER CHEST: There is partially imaged, dense consolidation of the included medial right l ower lobe (series 2, image 2). Emphysema. LIVER: Normal size. No masses. No dilated ducts. SPLEEN: Normal size. No focal lesions. PANCREAS: No masses. No significant calcifications. No adjacent inflammation or peripancreatic fluid collections. Pancreatic duct not dilated. GALLBLADDER: No identified stones by CT criteria. No inflammatory changes to suggest cholecystitis. ADRENAL GLANDS: No significant masses or asymmetry. RIGHT KIDNEY AND URETER: No solid masses. No significant calcifications. No hydronephrosis or hyd roureter. LEFT KIDNEY AND URETER: No solid masses. No significant calcifications. No hydronephrosis or hydr oureter. AORTA AND VESSELS: Severe mixed calcific atherosclerosis of the abdominal aorta and branch vasculatur e. RETROPERITONEUM: No retroperitoneal adenopathy, hemorrhage or masses. BOWEL AND PERITONEAL CAVITY: No masses or inflammatory changes. No free fluid or peritoneal masses. APPENDIX: Normal. ABDOMINAL WALL: There is percutaneous contrast injection into a left upper quadrant fistula tract, at the site of a prior gastrostomy tube. Contrast is present within a multiloculated fluid collection which has components that are primarily external to the peritoneum and lower margin of the chest wall (series 2, image 25). Largest component measures at least 5.1 x 2.5 x 6.0 cm. Findings are consiste nt with residua of an air and fluid containing cavity about a gastrostomy tube tract identified on pr ior CT dated 01/05/2018 BONES: No significant or acute findings. OTHER: No other significant finding. IMPRESSION: 1. There is percutaneous contrast injection into a left upper quadrant fistula tract, at the site of a prior gastrostomy tube. Contrast is present within a multiloculated fluid collection which has components that are primarily external to the peritoneum and lower margin of the chest wall (series 2, image 25). Largest component measures at least 5.1 x 2.5 x 6.0 cm. Findings are consist ent with residual of an air and fluid containing cavity about a gastrostomy tube tract identified on prior CT dated 01/05/2018. There is no significant intraperitoneal contrast collection. 2. There is partially imaged, dense consolidation of the included medial right lower lobe (series 2, image 2), concerning for malignancy. Recommend dedicated imaging of the chest to further evaluate. TECHNICAL DOCUMENTATION: JOB ID: [id number] Quality ID # [id number]: Final reports with documentation of one or more dose reduction techniques (e.g., Au tomated exposure control, adjustment of the mA and/or kV according to patient size, use of iterative reconstruction technique) 2010 [employer]- All Rights Reserved Reading location - IP/workstation name: [email or web address]
== END ==
LOC: RAD 13:25
PROVIDERS: ATTEND Surgery
DX: S31.101D Unspecified open wound of abdominal wall, left upper quadrant without penetration into peritoneal cavity, subsequent encounter (principal); I70.0 Atherosclerosis of aorta; X58.XXXD Exposure to other specified factors, subsequent encounter
CPT/HCPCS: 74160; 82565

== ENCOUNTER 2019-03-06 09:31 | Day surgery (SDC) | payer OTHER ==
[2019-03-06] MEDS ORDERED: AMPICILLIN SODIUM/SULBACTAM NA 3 GM in NORMAL SALINE 100 ML IV PRN (10:07)
[2019-03-06] MEDS ORDERED: FENTANYL CITRATE INJ/PF 100 MCG/2 ML AMPUL ONE (10:14)
[2019-03-06] MEDS ORDERED: PROPOFOL INJ 200 MG/20 ML VIAL IV ONE (10:15)
[2019-03-06] MEDS ORDERED: MIDAZOLAM 2 MG/2 ML INJ ONE (10:15)
[2019-03-06] MEDS ORDERED: LIDOCAINE 2% INJ (20 MG/ML) 20 ML MDV ONE (10:16)
[2019-03-06 10:26] LABS: HEMATOCRIT 38.8 % (37.9-51.0); HEMOGLOBIN 13.1 g/dL (13.5-17.0); MEAN CORPUSCULAR HEMOGLOBIN 27.8 pg (27.0-33.4); MEAN CORPUSCULAR HGB CONC 33.8 g/dL (32.0-36.0); MEAN CORPUSCULAR VOLUME 82 fl (80-97); PLATELET COUNT 228 10^3/uL (150-450); RED BLOOD COUNT 4.72 10^6/uL (4.35-5.55); RED CELL DISTRIBUTION WIDTH 15.3 % (11.5-14.0); WHITE BLOOD COUNT 5.7 10^3/uL (4.0-10.5)
[2019-03-06 10:53] LABS: ANION GAP 8 (5-19); BLOOD UREA NITROGEN 14 mg/dL (7-20); CALCIUM 9.7 mg/dL (8.4-10.2); CARBON DIOXIDE 29 mmol/L (22-30); CHLORIDE 106 mmol/L (98-107); GLUCOSE 123 mg/dL (75-110); POTASSIUM 3.9 mmol/L (3.6-5.0)
--- NOTE | 2019-03-06 10:54 | RADIOLOGY REPORT (SQ) ---
EXAM DESCRIPTION: CHEST SINGLE VIEW COMPLETED DATE/TIME: 03/06/2019 10:22 am REASON FOR STUDY: preop L02.211 CUTANEOUS ABSCESS OF ABDOMINAL WALL K31.6 FISTULA OF STOMACH AND D UODENUM COMPARISON: 11/29/2017 NUMBER OF VIEWS: One view. TECHNIQUE: Single frontal radiographic view of the chest acquired. LIMITATIONS: None. FINDINGS: LUNGS AND PLEURA: No opacities, masses or pneumothorax. No pleural effusion. Attenuated bl ood vessels and flattened agustina-diaphragms. MEDIASTINUM AND HILAR STRUCTURES: No masses. Contour normal. HEART AND VASCULAR STRUCTURES: Heart normal in size. Normal vasculature. BONES: No acute findings. HARDWARE: None in the chest. OTHER: No other significant finding. IMPRESSION: COPD. NO ACUTE RADIOGRAPHIC FINDING IN THE CHEST. TECHNICAL DOCUMENTATION: JOB ID: [id number] [employer]- All Rights Reserved Reading location - IP/workstation name: [email or web address]
[2019-03-06] MEDS ORDERED: BUPIVACAINE HCL 0.25 % INJ/PF (2.5 MG/1 ML) 30 ML VIAL ONE (11:12)
[2019-03-06] MEDS ORDERED: LIDOCAINE 0.5% INJ-PF (5 MG/ML) 50 ML SDV ONE (11:13)
[2019-03-06] MEDS ORDERED: SILVER SULFADIAZINE 1% CREAM 25 GM ONE (11:15)
[2019-03-06] MEDS ORDERED: COLLAGENASE CLOSTRIDIUM HIST. OINT 30 GM ONE (11:15)
--- NOTE | 2019-03-06 11:24 | PDOC H&P ---
General Chief Complaint: This patient is presents for debridement of an abdominal wall abscess. This is in relation to a persisting gastrostomy site in the left upper abdomen. - Diagnosis (1) Abdominal wall abscess Is this a Current Diagnosis?: Yes (2) COPD (chronic obstructive pulmonary disease) Is this a Current Diagnosis?: Yes (3) Chronic pain disorder Is this a Current Diagnosis?: Yes (4) DM hyperosmolarity type II, uncontrolled Is this a Current Diagnosis?: Yes (5) History of prostate cancer Is this a Current Diagnosis?: Yes (6) Coronary atherosclerosis Is this a Current Diagnosis?: Yes - Current Medications/Allergies Home Medications: Ascorbic Acid [Vitamin C 500 mg Tablet] 500 mg PO DAILY 11/29/17 Aspirin [Aspirin EC] 81 mg PO DAILY 11/29/17 Atorvastatin Calcium [Lipitor 80 mg Tablet] 80 mg PO QHS 11/29/17 Ferrous Sulfate 324 mg PO DAILY 11/29/17 Metformin HCl [Metformin HCl ER] 1,000 mg PO BID 11/29/17 Albuterol Sulfate [Proair Respiclick] 90 mcg IH PRN 03/03/19 Glipizide [Glucotrol] 5 mg PO DAILY 03/03/19 Hydrocodone/Acetaminophen [Vicodin Es 7.5-300 mg Tablet] 1 each PO 03/03/19 Isosorbide Mononitrate [Imdur 60 mg Tablet.er] 60 mg PO DAILY 03/03/19 Pantoprazole Sodium 20 mg PO DAILY 03/03/19 Potassium Chloride 10 meq PO DAILY 03/03/19 Allergies/Adverse Reactions: No Known Allergies Allergy (Verified 10/09/14 17:04) Past Medical History Cardiac Medical History: Reports: Coronary Artery Disease - STENTS, Hyperlipidema, Hypertension Denies: Myocardial Infarction Pulmonary Medical History: Denies: Asthma, Bronchitis, Chronic Obstructive Pulmonary Disease (COPD), Pneumonia Neurological Medical History: Denies: Seizures Endocrine Medical History: Reports: Diabetes Mellitus Type 2 Malignancy Medical History: Reports: Lung Cancer GI Medical History: Reports: Gastroesophageal Reflux Disease, Hiatal Hernia Musculoskeltal Medical History: Reports: Arthritis - GENERALIZED Hematology: Denies: Anemia Past Surgical History Past Surgical History: Reports: Cardiac Catheterization - stent x 3, Coronary Artery Bypass Graft, Coronary Stent - x3, Orthopedic Surgery - left hip, left shoulder, Tonsillectomy, Other - Prostatectomy Family History Family History: Reviewed & Not Pertinent Parental Family History Reviewed: No Children Family History Reviewed: No Sibling(s) Family History Reviewed.: No Social History Smoking Status: Current Every Day Smoker Frequency of Alcohol Use: None Hx Recreational Drug Use: No Hx Prescription Drug Abuse: No Physical Exam Vital Signs: Temp Pulse Resp BP Pulse Ox 97.7 F 56 L 16 102/66 99 03/06/19 10:30 03/06/19 10:30 03/06/19 10:30 03/06/19 10:30 03/06/19 10:30 Intake & Output 03/05/19 03/06/19 03/07/19 06:59 06:59 06:59 Weight 63.5 kg Additional comments: Constitutional: Well-developed well-nourished gentleman, thin body habitus. No apparent acute distress. Eyes: Mucous membranes pink and moist, pupils equal and reactive to light. Conjunctiva normal. Cornea normal. ENT: Hearing grossly normal. External pinna normal to inspection. Edentulous. Tongue normal to inspection. Cardiac: Heart sounds 1 and 2 normal, no murmurs. Respiratory: breath sounds are present bilaterally, normal. Normal respiratory effort. Abdomen: Soft, non tender, scaphoid. Liver and spleen are not palpably enlarged. Bowel sounds are normal. Site of left upper quadrant gastrostomy small bowel 5 mm. Moderate drainage. A large subcutaneous mass in the left upper abdomen about 8 x 4 x 4 cm laterally oriented is noted. Psychiatric: Judgment, memory, insight seem normal. Mood is pleasant and appropriate. Extremities: Upper extremities show normal range of movement. Pulses present noted to the radial arteries. Capillary refill normal. No cyanosis noted. Possible muscle wasting noted. Neurovascular: No apparent tremors, gait normal. Sensation grossly intact. Hearing grossly normal. Vison grossly intact. Impression/Plan Plan: Debridement of subacute abscess of left upper abdominal abdominal wall. This appears to be directly in communication with the gastrostomy site. The persisting gastrostomy is to be addressed with Dr. Roland. For the time being we are working on this subacute abscess. The procedure, its risks, benefits, expected outcome are understood by the patient and his they are agreeable.
[2019-03-06] MEDS ORDERED: LIDOCAINE 1% INJ (10 MG/ML) 10 ML MDV INJ ONE (12:05)
[2019-03-06] MEDS ORDERED: BUPIVACAINE HCL 0.5 % INJ/PF 30 ML SDV INJ ONE (12:05)
--- NOTE | 2019-03-06 12:19 | Discharge Summary ---
Discharge Summary (SDC) - Discharge Final Diagnosis: #1 Abdominal wall abscess. 2. Lung cancer. 3. Diabetes mellitus type 2. 4. Hypertension. Date of Surgery: 03/06/19 Discharge Date: 03/06/19 Condition: Poor Treatment or Instructions: Discharge home [after recovery per ASU criteria]. Diet ,as tolerated, when fully awake advance as tolerated. Activities within moderation encouraged. Follow up in my office by appointment in wound clinic this Wednesday. Call for appointment. Leave wounds [covered], [keep clean and dry, until office visit in 1 week]. Meds per med rec. May shower [in 48 hrs], [try to keep operated area as dry as possible]. Referrals: [facility] [[facility]] - Discharge Diet: As Tolerated Respiratory Treatments at Home: Deep Breathing/Coughing Discharge Activity: Activity As Tolerated Report the Following to Your Physician Immediately: Shortness of Breath, Unusual Bleeding
[2019-03-06] MEDS ORDERED: PROMETHAZINE HCL INJ 25 MG/1 ML VIAL IV PRN ×2 (12:27)
[2019-03-06] MEDS ORDERED: OXYCODONE-ACETAMINOPHEN 5-325 MG TABLET PO PRN ×2 (12:27)
[2019-03-06] MEDS ORDERED: FENTANYL CITRATE INJ/PF 100 MCG/2 ML AMPUL IV PRN ×3 (12:27)
[2019-03-06] MEDS ORDERED: MEPERIDINE HCL/PF INJ 25 MG/1 ML DISP.SYRIN IV PRN (12:27)
[2019-03-06] MEDS ORDERED: DIPHENHYDRAMINE HCL 50 MG/ML VIAL IV PRN (12:27)
[2019-03-06] MEDS: FENTANYL CITRATE INJ/PF 100 MCG/2 ML AMPUL ONE ×2 (12:49→12:54)
--- NOTE | 2019-03-06 13:18 | EKG REPORT ---
SEVERITY:- NORMAL ECG - SINUS RHYTHM : Confirmed by: Felipe Wing MD 06-Mar-2019 13:17:22
[2019-03-06] MEDS ORDERED: OXYCODONE-ACETAMINOPHEN 5-325 MG TABLET ONE (13:28)
--- NOTE | 2019-03-06 14:39 | Operative Report ---
Operative Report DATE OF SURGERY: 03/06/19 PREOPERATIVE DIAGNOSIS: #1 Abdominal wall abscess. 2. Lung cancer. 3. Diab etes mellitus type 2. 4. Hypertension. POSTOPERATIVE DIAGNOSIS: #1 Abdominal wall abscess. 2. Lung cancer. 3. Diabetes mellitus type 2. 4. Hypertension. OPERATION: Surgical, sharp chronic, excisional debridement of abdominal wall abscess. SURGEON: JOHNNA NGUYEN TAXI SERVICER: None. ANESTHESIA: LMAC TISSUE REMOVED OR ALTERED: Overlying skin and subcutaneous tissue. Portion of cavity wall. COMPLICATIONS: None. ESTIMATED BLOOD LOSS: 5 mL. INTRAOPERATIVE FINDINGS: Of a mass-effect, obliquely oriented just about at the left costal margin overlapping abdominal and chest components. Appears to be confined to the subcutaneous tissue and with a fairly well-defined wall. No obvious connection to adjacent gastrostomy, peritoneum or other structures. Contained turbid, semiliquid purulent material which is sent for culture. Measuring approximately 8 cm transversely by 5 cm deep by 5 cm vertically. PROCEDURE: PROCEDURE: The abdomen was prepared with [Betadine] and draped out with sterile linen. After the"universal time-out", in which it was confirmed that the patient [did receive antibiotic], the procedure commenced. The patient was appropriately anesthetized. The overlying tissues, skin and subcutaneous tissues were excised using scalpel and cautery. Leaving an opening approximately 6 x 3 by centimeters. The wound was debrided of non viable tissue using cautery with removal of loose debris, as well. Some of the contained the fluid was sent for culture. The wound was irrigated with [Peroxide] . T. The wound was now irrigated with saline and [Surgicel] placed within it, dressed with [Kerlix] and the procedure concluded.
[2019-03-06 17:24] VITALS: BP 103/57
== END 2019-03-06 15:10 | disposition home or self-care (01) ==
LOC: OROUT 09:31
PROVIDERS: ATTEND Surgery
DX: L02.211 Cutaneous abscess of abdominal wall (principal); K31.6 Fistula of stomach and duodenum; I25.10 Atherosclerotic heart disease of native coronary artery without angina pectoris; I10 Essential (primary) hypertension; J44.9 Chronic obstructive pulmonary disease, unspecified; Z79.84 Long term (current) use of oral hypoglycemic drugs; Z79.82 Long term (current) use of aspirin; Z79.899 Other long term (current) drug therapy; K21.9 Gastro-esophageal reflux disease without esophagitis; K44.9 Diaphragmatic hernia without obstruction or gangrene; E11.00 Type 2 diabetes mellitus with hyperosmolarity without nonketotic hyperglycemic-hyperosmolar coma (NKHHC); F17.210 Nicotine dependence, cigarettes, uncomplicated; Z85.46 Personal history of malignant neoplasm of prostate
CPT/HCPCS: 36415; 87070; 87205; 85027; 87075; 80048; 71045; 93005; 93010; 11042; 11045; J2250; J3490 ×3; J3010; J0295; J7050; J2704

== ENCOUNTER 2019-06-06 09:58 | Day surgery (SDC) | payer OTHER ==
[~2019-06-06 09:58] MED LIST: LACTATED RINGERS 1000 ML IV PRN; LIDOCAINE 0.5% INJ-PF (5 MG/ML) 50 ML SDV SUBCUT PRN
[2019-06-06] MEDS ORDERED: MIDAZOLAM 2 MG/2 ML INJ ONE (10:25)
[2019-06-06] MEDS ORDERED: PROPOFOL INJ 200 MG/20 ML VIAL IV ONE (10:25)
[2019-06-06] MEDS ORDERED: FENTANYL CITRATE INJ/PF 100 MCG/2 ML AMPUL ONE (10:25)
[2019-06-06] MEDS ORDERED: BUPIVACAINE HCL 0.25 % INJ/PF (2.5 MG/1 ML) 30 ML VIAL ONE (10:30)
[2019-06-06] MEDS ORDERED: LIDOCAINE 0.5% INJ-PF (5 MG/ML) 50 ML SDV ONE (10:30)
[2019-06-06] MEDS ORDERED: COLLAGENASE CLOSTRIDIUM HIST. OINT 30 GM ONE (10:30)
[2019-06-06] MEDS ORDERED: SILVER SULFADIAZINE 1% CREAM 25 GM ONE (10:30)
[2019-06-06 10:53] LABS: ABSOLUTE EOSINOPHILS # (AUTO) 0.2 10^3/uL (0.0-0.6); ABSOLUTE LYMPHOCYTES (AUTO) 1.5 10^3/uL (0.5-4.7); ABSOLUTE MONOCYTES (AUTO) 0.5 10^3/uL (0.1-1.4); ABSOLUTE NEUT (AUTO) 4.8 10^3/uL (1.7-8.2); BASOPHILS % (AUTO) 0.5 % (0-2); EOSINOPHILS % (AUTO) 2.4 % (0-6); HEMATOCRIT 34.5 % (37.9-51.0); HEMOGLOBIN 11.9 g/dL (13.5-17.0); MEAN CORPUSCULAR HEMOGLOBIN 28.7 pg (27.0-33.4); MEAN CORPUSCULAR HGB CONC 34.6 g/dL (32.0-36.0); MEAN CORPUSCULAR VOLUME 83 fl (80-97); MONOCYTES % (AUTO) 6.8 % (3-13); PLATELET COUNT 201 10^3/uL (150-450); RED BLOOD COUNT 4.15 10^6/uL (4.35-5.55); SEGMENTED NEUTROPHILS % (AUTO) 69.3 % (42-78); TOTAL CELLS COUNTED % (AUTO) 100 %; WHITE BLOOD COUNT 6.9 10^3/uL (4.0-10.5)
[2019-06-06] MEDS ORDERED: ALBUTEROL SULFATE 0.083% NEB 2.5 MG/3 ML AMPUL NEB ONE (10:57)
[2019-06-06 11:12] LABS: ANION GAP 8 (5-19); BLOOD UREA NITROGEN 15 mg/dL (7-20); CALCIUM 9.4 mg/dL (8.4-10.2); CARBON DIOXIDE 28 mmol/L (22-30); CHLORIDE 105 mmol/L (98-107); GLUCOSE 159 mg/dL (75-110); POTASSIUM 3.9 mmol/L (3.6-5.0)
[2019-06-06] MEDS ORDERED: METOCLOPRAMIDE HCL INJ/PF 10 MG/2 ML SDV ONE (11:21)
[2019-06-06] MEDS ORDERED: FAMOTIDINE INJ/PF 20 MG/2 ML SDV IV ONE (11:21)
[2019-06-06] MEDS ORDERED: ONDANSETRON HCL INJ/PF 4 MG/2 ML SDV ONE (11:55)
[2019-06-06] MEDS ORDERED: DEXAMETHASONE SOD PHOSPHATE INJ 4 MG/1 ML VIAL ONE (11:55)
[2019-06-06] MEDS ORDERED: BACITRACIN INJ 50,000 UNIT VIAL ONE (12:16)
[2019-06-06] MEDS ORDERED: CEFAZOLIN INJ 1 GM VIAL ONE (12:20)
--- NOTE | 2019-06-06 12:25 | PDOC H&P ---
General Chief Complaint: This patient presents with a persisting ulcer and wound in the abdominal wall, adjacent to a previous gastrostomy. - Current Medications/Allergies Home Medications: Ascorbic Acid [Vitamin C 500 mg Tablet] 500 mg PO DAILY 11/29/17 Aspirin [Aspirin EC] 81 mg PO DAILY 11/29/17 Atorvastatin Calcium [Lipitor 80 mg Tablet] 80 mg PO QHS 11/29/17 Ferrous Sulfate 324 mg PO DAILY 11/29/17 Metformin HCl [Metformin HCl ER] 1,000 mg PO BID 11/29/17 Albuterol Sulfate [Proair Respiclick] 90 mcg IH PRN 03/03/19 Glipizide [Glucotrol] 5 mg PO DAILY 03/03/19 Hydrocodone/Acetaminophen [Vicodin Es 7.5-300 mg Tablet] 1 each PO PRN PRN 03/03/19 Isosorbide Mononitrate [Imdur 60 mg Tablet.er] 60 mg PO DAILY 03/03/19 Pantoprazole Sodium 20 mg PO DAILY 03/03/19 Potassium Chloride 10 meq PO DAILY 03/03/19 Gabapentin 600 mg PO ASDIR PRN 06/01/19 Allergies/Adverse Reactions: No Known Allergies Allergy (Verified 10/09/14 17:04) Past Medical History Cardiac Medical History: Reports: Coronary Artery Disease - STENTS, Hyperlipidema, Hypertension Denies: Myocardial Infarction Pulmonary Medical History: Denies: Asthma, Bronchitis, Chronic Obstructive Pulmonary Disease (COPD), P[place] Neurological Medical History: Denies: Seizures Endocrine Medical History: Reports: Diabetes Mellitus Type 2 Malignancy Medical History: Reports: Lung Cancer GI Medical History: Reports: Gastroesophageal Reflux Disease, Hiatal Hernia Musculoskeltal Medical History: Reports: Arthritis - GENERALIZED Hematology: Denies: Anemia Past Surgical History Past Surgical History: Reports: Cardiac Catheterization - stent x 3, Coronary Artery Bypass Graft, Coronary Stent - x3, Orthopedic Surgery - left hip, left shoulder, Tonsillectomy, Other - Prostatectomy Family History Family History: Reviewed & Not Pertinent Parental Family History Reviewed: No Children Family History Reviewed: No Sibling(s) Family History Reviewed.: No Social History Smoking Status: Current Every Day Smoker Frequency of Alcohol Use: None Hx Recreational Drug Use: No Hx Prescription Drug Abuse: No Physical Exam Vital Signs: Temp Pulse Resp BP Pulse Ox 97.5 F 68 14 109/61 97 06/06/19 10:30 06/06/19 10:30 06/06/19 10:30 06/06/19 10:30 06/06/19 10:30 Intake & Output 06/05/19 06/06/19 06/07/19 06:59 06:59 06:59 Weight 67.13 kg Additional comments: Constitutional: Well-developed gentleman, thin, under nourished build. No apparent acute distress. Eyes: Mucous membranes pink and moist, pupils equal and reactive to light. Conjunctiva normal. Cornea normal. ENT: Hearing grossly normal. External pinna normal to inspection. Edentulous. Tongue normal to inspection. Cardiac: Heart sounds 1 and 2 normal,. Respiratory: Normal respiratory effort. Abdomen: Soft, non tender. Liver and spleen are not palpably enlarged. Bowel sounds are normal. No hernia noted. Surgical scars present, left upper abdomen opening about 2 x 3 cm with a tunnel extending medially to the previous gastrostomy site, about 8 cm. Psychiatric: Judgment, memory, insight seem normal. Mood is pleasant and appropriate. Extremities: Upper extremities show normal range of movement. Pulses present noted to the radial arteries. Capillary refill normal. No cyanosis noted. Lower extremities show normal rang. Neurovascular: No apparent tremors, gait adequate. Sensation grossly intact. Hearing grossly normal. Vison grossly intact, with spectacles. Impression/Plan Plan: This patient, and care of the wound clinic for many months needs to have the nonviable area in the left upper abdomen opened, the hope is to be able to administer advanced wound care therapies and thus resolve it. The plan is to debride this area and to send him home as an outpatient.
[2019-06-06] MEDS ORDERED: OXYCODONE-ACETAMINOPHEN 5-325 MG TABLET PO PRN ×2 (12:37)
[2019-06-06] MEDS ORDERED: MEPERIDINE HCL/PF INJ 25 MG/1 ML DISP.SYRIN IV PRN (12:37)
[2019-06-06] MEDS ORDERED: ONDANSETRON HCL INJ/PF 4 MG/2 ML SDV IV PRN (12:37)
[2019-06-06] MEDS ORDERED: FENTANYL CITRATE INJ/PF 100 MCG/2 ML AMPUL IV PRN ×3 (12:37)
[2019-06-06] MEDS ORDERED: DIPHENHYDRAMINE HCL 50 MG/ML VIAL IV PRN (12:37)
[2019-06-06] MEDS ORDERED: MORPHINE SULFATE 10 MG/ML INJ IV PRN (12:37)
--- NOTE | 2019-06-06 13:24 | Discharge Summary ---
Discharge Summary (SDC) - Discharge Final Diagnosis: #1 persisting abdominal wall wound post gastrostomy removal. 2. COPD. 3. Metastatic cancer. 4. Diabetes mellitus type 2. 5. Coronary artery disease. Date of Surgery: 06/06/19 Discharge Date: 06/06/19 Condition: Poor Treatment or Instructions: Discharge home [after recovery per ASU criteria]. Diet diabetic,as tolerated, when fully awake advance as tolerated. Activities within moderation encouraged. Follow up in wound clinic by appointment at 10 AM on Wednesday, 12 June. Call for appointment. Leave wounds [covered], [keep clean and dry, until wound care visit next week.. Hold of on school/work [until evaluation in office]. Meds per med rec. May shower [in 48 hrs], [try to keep operated area as dry as possible]. Referrals: [facility] [[facility]] - Discharge Diet: As Tolerated Respiratory Treatments at Home: Deep Breathing/Coughing Discharge Activity: Activity As Tolerated Report the Following to Your Physician Immediately: Shortness of Breath, Unusual Bleeding
--- NOTE | 2019-06-06 16:25 | Operative Report ---
Operative Report DATE OF SURGERY: 06/06/19 PREOPERATIVE DIAGNOSIS: 1. Chronic wound of the left upper abdomen. 2. COPD. 3. Metastatic cancer. 4. Hypertension. POSTOPERATIVE DIAGNOSIS: 1. Chronic wound of the left upper abdomen. 2. COPD. 3. Metastatic cancer. 4. Hypertension. OPERATION: Debridement of left upper abdominal wound. Sharp, excisional, surgical. SURGEON: JOHNNA NGUYEN PROCESS VALIDATION ENGINEER: None. ANESTHESIA: LMAC TISSUE REMOVED OR ALTERED: Skin, subcutaneous tissues and wound contents. COMPLICATIONS: None. ESTIMATED BLOOD LOSS: 10 mL. INTRAOPERATIVE FINDINGS: Of an open wound about 2 cm across in the left upper abdomen. Once unroofed this was seen to extend into large cavity superficial to the ribs which were palpable. It contained a jellylike material and the guerrero were of scarred fibrinous material, particularly superficially. These were debrided and discarded. Some sent for pathology. The resulting cavity is about 12 x 5 cm and extending upwards into the left. PROCEDURE: PROCEDURE: The abdomen was prepared with [Betadine] and draped out with sterile linen. After the"universal time-out", in which it was confirmed that the patient [did receive antibiotic], the procedure commenced. The patient was appropriately anesthetized. The wound was probed. The wound was debrided of non viable tissue using[hemostats with removal of loose debris, as well. A hemostat was placed within the wound is probed, a skin incision was scheduled over it. Good anesthesia infiltrated. Incision made with a cutting cautery from skin through subcutaneous tissue and into the roof of the cavity. In this way the cavity was almost entirely unroofed. The jellylike material which it contained was removed and discarded. The wound was irrigated with [Peroxide] . .The wound was now irrigated with saline and [Surgicel] placed within it, dressed with [Kerlix] and the procedure concluded.
[2019-06-06 16:30] VITALS: BP 122/64
== END 2019-06-06 15:34 | disposition home or self-care (01) ==
LOC: OROUT 09:58
PROVIDERS: ATTEND Surgery
DX: L02.211 Cutaneous abscess of abdominal wall (principal); J44.9 Chronic obstructive pulmonary disease, unspecified; E11.9 Type 2 diabetes mellitus without complications; I25.10 Atherosclerotic heart disease of native coronary artery without angina pectoris; Z79.82 Long term (current) use of aspirin; Z79.899 Other long term (current) drug therapy; Z79.84 Long term (current) use of oral hypoglycemic drugs; Z79.51 Long term (current) use of inhaled steroids; E78.5 Hyperlipidemia, unspecified; I10 Essential (primary) hypertension; F17.210 Nicotine dependence, cigarettes, uncomplicated; Z85.118 Personal history of other malignant neoplasm of bronchus and lung
CPT/HCPCS: 36415; 85025; 80048; 88305 ×2; 00700; 11042; J2250; J0690; J3010; J3490; J2765; J2704; S0028; 700; J1100; J2405

== ENCOUNTER → 2019-08-18 | Outpatient (CLI) | payer OTHER ==
[2019-08-18 13:11] LABS: ABSOLUTE EOSINOPHILS # (AUTO) 0.1 10^3/uL (0.0-0.6); ABSOLUTE LYMPHOCYTES (AUTO) 1.3 10^3/uL (0.5-4.7); ABSOLUTE MONOCYTES (AUTO) 0.5 10^3/uL (0.1-1.4); ABSOLUTE NEUT (AUTO) 4.2 10^3/uL (1.7-8.2); BASOPHILS % (AUTO) 0.5 % (0-2); EOSINOPHILS % (AUTO) 2.4 % (0-6); HEMOGLOBIN 13.3 g/dL (13.5-17.0); LYMPHOCYTES % (AUTO) 21.1 % (13-45); MEAN CORPUSCULAR HEMOGLOBIN 28.7 pg (27.0-33.4); MEAN CORPUSCULAR VOLUME 82 fl (80-97); MONOCYTES % (AUTO) 7.9 % (3-13); PLATELET COUNT 186 10^3/uL (150-450); RED BLOOD COUNT 4.62 10^6/uL (4.35-5.55); RED CELL DISTRIBUTION WIDTH 14.5 % (11.5-14.0); SEGMENTED NEUTROPHILS % (AUTO) 68.1 % (42-78); TOTAL CELLS COUNTED % (AUTO) 100 %; WHITE BLOOD COUNT 6.1 10^3/uL (4.0-10.5)
[2019-08-18 13:43] LABS: ALBUMIN 4.4 g/dL (3.5-5.0); ALKALINE PHOSPHATASE 83 U/L (38-126); ANION GAP 12 (5-19); ASPARTATE AMINO TRANSFERASE 30 U/L (17-59); BILIRUBIN,DIRECT 0.4 mg/dL (0.0-0.4); BILIRUBIN,TOTAL 0.5 mg/dL (0.2-1.3); BLOOD UREA NITROGEN 15 mg/dL (7-20); CALCIUM 9.9 mg/dL (8.4-10.2); CARBON DIOXIDE 27 mmol/L (22-30); CHLORIDE 102 mmol/L (98-107); GLUCOSE 262 mg/dL (75-110); POTASSIUM 4.3 mmol/L (3.6-5.0); TOTAL PROTEIN 7.9 g/dL (6.3-8.2)
[2019-08-18 13:47] LABS: ERYTHROCYTE SEDIMENTATION RATE 36 mm/hr (0-20)
--- NOTE | 2019-08-18 15:01 | RADIOLOGY REPORT (SQ) ---
EXAM DESCRIPTION: ACUTE ABDOMEN SERIES COMPLETED DATE/TIME: 08/18/2019 12:46 pm REASON FOR STUDY: UNSP OPN WND ABD WALL, L UPR Q W/O PENET PERIT CAV, INIT S31.101A UNSP OPN WND AB D WALL, L UPR Q W/O PENET PERIT CAV, E11.622 TYPE 2 DIABETES MELLITUS WITH OTHER SKIN ULCER COMPARISON: None. NUMBER OF VIEWS: Three views. TECHNIQUE: Frontal chest, supine abdomen and upright/decubitus abdomen radiographic images acquired. LIMITATIONS: None. FINDINGS: CHEST: Lungs clear of infiltrates. FREE AIR: None. No abnormal gas collections. BOWEL GAS PATTERN: Nonobstructive pattern. Considerable retained stool. CALCIFICATIONS: No suspicious calcifications. HARDWARE: Surgical clips in the pelvis. Left hip arthroplasty. SOFT TISSUES: No gross mass or suggestion of organomegaly. BONES: No acute fracture. No worrisome bone lesions. OTHER: No other significant finding. IMPRESSION: Constipation. TECHNICAL DOCUMENTATION: JOB ID: [id number] [employer]- All Rights Reserved Reading location - IP/workstation name: [email or web address]
== END ==
LOC: WC 12:10
PROVIDERS: ATTEND Surgery
DX: S31.101A Unspecified open wound of abdominal wall, left upper quadrant without penetration into peritoneal cavity, initial encounter (principal); X58.XXXA Exposure to other specified factors, initial encounter; E11.622 Type 2 diabetes mellitus with other skin ulcer; K59.00 Constipation, unspecified
CPT/HCPCS: 36415; 74022; 80053; 85025; 85652; 86140

== ENCOUNTER → 2019-12-12 | Outpatient (CLI) | payer OTHER ==
--- NOTE | 2019-12-12 15:37 | RADIOLOGY REPORT (SQ) ---
EXAM DESCRIPTION: CT ABDOMEN WITH IV ORAL CONT IMAGES COMPLETED DATE/TIME: 12/12/2019 2:47 pm REASON FOR STUDY: CUTANEOUS ABSCESS OF ABDOMINAL WALL (L02.211) L02.211 CUTANEOUS ABSCESS OF ABDOMI NAL WALL E11.621 TYPE 2 DIABETES MELLITUS WITH FOOT ULCER COMPARISON: 03/02/2019 TECHNIQUE: CT scan of the abdomen performed with intravenous and with oral contrast using helical sc anning technique with dynamic intravenous contrast injection. Images reviewed with lung, soft tissue, and bone windows. Reconstructed coronal and sagittal MPR images reviewed. Delayed images for evaluat ion of the urinary system also acquired and evaluated. All images stored on PACS. All CT scanners at this facility use dose modulation, iterative reconstruc tion, and/or weight based dosing when appropriate to reduce radiation dose to as low as reasonably ac hievable (ALARA). [facility]: Dose Right [facility]: CareDose [facility]: Dose Right [facility]: Teradose 4D [facility]: [employer] CONTRAST TYPE AND DOSE: contrast/concentration: Isovue 350.00 mg/ml; Total Contrast Delivered: 86.0 ml; Total Saline Delivered: 69.0 ml RENAL FUNCTION: Creatinine 0.8 RADIATION DOSE: CT Rad equipment meets quality standard of care and radiation dose reduction techniq ues were employed. CTDIvol: 5.5 - 5.6 mGy. DLP: 372 mGy-cm. . LIMITATIONS: None. FINDINGS: LOWER CHEST: Persistent opacification in the medial right lung base. LIVER: Normal size. No masses. No dilated ducts. SPLEEN: Normal size. No focal lesions. PANCREAS: No masses. No significant calcifications. No adjacent inflammation or peripancreatic fluid collections. Pancreatic duct not dilated. GALLBLADDER: No identified stones by CT criteria. No inflammatory changes to suggest cholecystitis. ADRENAL GLANDS: No significant masses or asymmetry. RIGHT KIDNEY AND URETER: No solid masses. No significant calcifications. No hydronephrosis or hyd roureter. LEFT KIDNEY AND URETER: No solid masses. No significant calcifications. No hydronephrosis or hydr oureter. AORTA AND VESSELS: Atherosclerosis is present. RETROPERITONEUM: No retroperitoneal adenopathy, hemorrhage or masses. BOWEL AND PERITONEAL CAVITY: No masses or inflammatory changes. No free fluid or peritoneal masses. APPENDIX: Not identified. ABDOMINAL WALL: There is scarring at the site of the previous gastrostomy tube. No abscess is apprec iated. BONES: No significant or acute findings. OTHER: No other significant finding. IMPRESSION: 1. Persistent airspace disease in the medial right base, likely atelectasis. 2. There is scarring at the previous gastrostomy site. No abscess is seen. 3. Atherosclerosis. TECHNICAL DOCUMENTATION: JOB ID: [id number] Quality ID # [id number]: Final reports with documentation of one or more dose reduction techniques (e.g., Au tomated exposure control, adjustment of the mA and/or kV according to patient size, use of iterative reconstruction technique) 2010 [employer]- All Rights Reserved Reading location - IP/workstation name: [email or web address]
== END ==
LOC: RAD 14:06
PROVIDERS: ATTEND Nurse Practitioner Family
DX: E11.621 Type 2 diabetes mellitus with foot ulcer (principal); L02.211 Cutaneous abscess of abdominal wall
CPT/HCPCS: 74160; 82565